=== PATIENT | female | born 1980 | race African-American/Black ===

== ENCOUNTER 2021-01-02 22:06 | Inpatient (IN) ==
[2021-01-02] MEDS ORDERED: SODIUM CHLORIDE 0.9% 1000ML 1,000 ML IV STA (22:57)
[2021-01-02] MEDS ORDERED: ONDANSETRON INJ 2 MG/ML 2 ML VIAL IV STA (22:57)
[2021-01-02 23:17] LABS: Basophils # (auto) 0.02 K/uL (0-0.2); Basophils % (auto) 0.1 %; Hematocrit (blood only) 37.8 % (37-47); Hemoglobin 12.2 g/dL (12.0-16.0); Immature Granulocytes # (auto) 0.08 K/uL (0.00-0.02); Immature Granulocytes % (auto) 0.4 %; Lymphocytes # (auto) 2.04 K/uL (1.2-3.4); Lymphocytes % (auto) 9.5 %; Mean Corpuscular Hemoglobin 31.5 pg (25-34); Mean Corpuscular Hgb Conc 32.3 g/dL (32-36); Mean Corpuscular Volume 97.7 fL (80-100); Mean Platelet Volume 9.7 fL (7.4-10.4); Monocytes # (auto) 1.23 K/uL (0.11-0.59); Monocytes % (auto) 5.7 %; Neutrophils # (auto) 18.16 K/uL (1.4-6.5); Neutrophils % (auto) 84.3 %; Platelet Count 408 K/uL (130-400); RDW Coefficient of Variation 13.1 % (11.5-14.5); RDW Standard Deviation 46.7 fL (36.4-46.3); Red Blood Count 3.87 M/uL (4.2-5.4); White Blood Count 21.53 K/uL (4.8-10.8)
[2021-01-02 23:50] LABS: Albumin Globulin Ratio 0.7 (0.9-2); Albumin Level 3.3 gm/dl (3.4-5.0); BUN Creatinine Ratio 18.7 (10-20); Bilirubin,Total 0.9 mg/dl (0.2-1); Calcium 9.3 mg/dl (8.5-10.1); Creatinine Clr Calc Pharmacy 26.7 ml/min; Est GFR (Non-African American) 21.5 ml/min; Globulin 4.8 gm/dl (2.5-4.0); Magnesium 2.5 mg/dl (1.8-2.4); Total Protein 8.1 gm/dl (6.4-8.2); Troponin I 0.117 ng/ml (0-0.045)
[2021-01-02] MEDS ORDERED: SODIUM CHLORIDE 0.9% 1000ML 1,000 ML IV ONE (23:53)
[2021-01-02] MEDS ORDERED: METOCLOPRAMIDE HCL INJ 5 MG/ML 2 ML VIAL IV STA (23:53)
[2021-01-02 23:54] LABS: Base Excess VBG -11.6 mEq/L; HCO3 VBG 16 mmol/L; PCO2 VBG 42 mmHg (38-50); PO2 VBG 38 mmHg
[2021-01-02] MEDS ORDERED: PIPERACILL/TAZOBAC CONSULT ACTIVE PRN (23:55)
[2021-01-02] MEDS ORDERED: PIPERACILLIN/TAZOBACTAM 4.5 GM/120 ML BAG IV ONE (23:55)
[2021-01-03] MEDS ORDERED: LACTATED RINGER'S 1,000 ML IV ONE (00:04)
[2021-01-03] MEDS ORDERED: STAT IV Infusion **Titration per Protocol STA ×3 (00:24→14:53)
[2021-01-03] MEDS ORDERED: LACTATED RINGER'S 1,000 ML IV SCH (00:30)
[2021-01-03 00:35] LABS: Beta-Hydroxybutyrate 47.6 mg/dl (0.2-2.81)
[2021-01-03] MEDS ORDERED: GLUCAGON FOR INJ 1 MG VIAL IM PRN (00:45)
[2021-01-03] MEDS ORDERED: GLUCOSE 10 TABS/TUBE PO PRN (00:45)
[2021-01-03] MEDS ORDERED: DEXTROSE 50% 50 ML SYRINGE IV PRN (00:45)
[2021-01-03] MEDS ORDERED: GLUCOSE 40% GEL 15 GM TUBE PO PRN (00:45)
[2021-01-03] MEDS ORDERED: CARBOHYDRATES FOR HYPOGLYCEMIA PO PRN (00:45)
[2021-01-03] MEDS ORDERED: NovoLIN-R BOLUS FROM BAG IV ONE (00:45)
[2021-01-03] MEDS: INSULIN REGULAR 250 UNITS in SODIUM CHLORIDE 0.9% 247.5 ML IV SCH (00:48)
[2021-01-03 00:50] LABS: iSTAT Arterial Blood Gas HCO3 13 meg/L (19-24); iSTAT Arterial Blood Gas pCO2 31 mmHg (35-46); iSTAT Arterial Blood Gas pH 7.24 (7.35-7.45); iSTAT Arterial Blood Gas pO2 98 mmHg (80-95); iSTAT Carbon Dioxide 14 mmol/L (24-31); iSTAT Hematocrit 33 % (37-47); iSTAT Hemoglobin 11.2 g/dl (12.0-16.0); iSTAT Potassium 5.5 mmol/L (3.3-5.0); iSTAT Sodium 134 mmol/L (135-144)
[2021-01-03 00:58] LABS: Appearance Urine Clear (Clear); Bacteria Urine Automated Negative (Negative); Bilirubin Urine Negative (Negative); Blood Urine Trace (Negative); Color Urine Yellow; Epithelial Cell Urine Auto >30 /lpf (0-5); Glucose Urine UA 3+ (Negative); Ketones Urine 2+ (Negative); Leukocyte Esterase Urine Negative (Negative); Nitrite Urine Negative (Negative); Protein Urine 1+ (Negative); RBC Urine Automated 0-4 /hpf (0-4); Specific Gravity Urine 1.022 (1.000-1.030); Urobilinogen Urine Negative (Negative)
[2021-01-03 01:26] LABS: BUN Creatinine Ratio 20.7 (10-20); Creatinine Clr Calc Pharmacy 28.9 ml/min; Est GFR (African American) 27.5 ml/min; Est GFR (Non-African American) 23.8 ml/min; Magnesium 2.1 mg/dl (1.8-2.4); Phosphorus 8.1 mg/dl (2.5-4.9); Potassium 5.7 mmol/L (3.5-5.1)
--- NOTE | 2021-01-03 01:28 | History & Physical Report ---
Date of Service January 03, 2021 Assessment & Plan (1) DKA (diabetic ketoacidosis): Plan: Glucose 723 admission, anion gap 24. Patient started on insulin drip per protocol in the ED, and will be admitted to the ICU for further treatment IV fluids as noted Follow serial BMPs, LFTs, venous blood gas and CBC with differential. 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 Troponin 0.117 upon admission. Continue aspirin, carvedilol Lopressor 5 mg IV every 4 hours as needed systolic blood pressure greater than 150 Consult cardiology in a.m. (3) Acute kidney injury superimposed on chronic kidney disease: Plan: Creatinine 2.68 on admission, with baseline 1.36-1.70 Hold valsartan for now Continue carvedilol and aspirin. If develops symptoms or troponin increases, will start heparin drip Follow serial laboratories as patient gets rehydrated for treatment of DKA (4) Hypothyroidism: Plan: Continue levothyroxine 100 mcg daily (5) Diabetes type 1, uncontrolled: Plan: Patient typically uses insulin pump, which is broken, and will need replacement Check hemoglobin A1c (6) Hypercholesterolemia: Plan: On no specific treatment. Check a fasting lipid panel (7) Asthma: Plan: No recent symptoms, and not on any regular inhalers (8) Depression: Plan: Depression/eating disorder- Continue bupropion and duloxetine (9) Eating disorder: Plan: See above History of Present Illness Chief Complaint: The patient presents to the emergency department with complaint of a broken insulin pump, with worsening nausea, vomiting and generalized malaise over the past 2 days Primary Care Provider: Rob Loaiza MD The patient is a 40-year-old female with a past medical history including babesiosis type I, CKD stage III, hypothyroidism, diabetic nephropathy, hypercholesterolemia, asthma, history of herpes genitalis, history of alternating diarrhea and constipation, history of anorexia nervosa, depression and acute kidney injury. She presents emergency department with complaint of worsening nausea, vomiting and generalized malaise, worsening over the past 2 days after her insulin pump became dysfunctional. In the emergency department, patient is lethargic but does respond appropriately to questioning. Laboratories examination were consistent with DKA, with anion gap of 24 and glucose of 523. Patient is therefore being mated to the ICU on insulin drip for further treatment Allergies Allergy/AdvReac Type Severity Reaction Status Date / Time milk Allergy Verified 01/03/21 01:15 metformin AdvReac NAUSEA, Verified 01/03/21 01:15 UPSET STOMACH Mushrooms AdvReac Unknown Unknown Uncoded 01/03/21 01:15 Oranges AdvReac Unknown Unknown Uncoded 01/03/21 01:15 Home Medications Medication Instructions Recorded Confirmed Type duloxetine 60 mg capsule,delayed 60 mg PO DAILY 09/15/18 01/03/21 History release norgestimate-ethinyl estradiol 1 tab PO DAILY 09/15/18 01/03/21 History 0.18 mg/0.215mg/0.25mg-35 mcg(28)tablet (Tri Femynor) bupropion HCl 300 mg 24 hr tablet, 300 mg PO DAILY tab 01/11/19 01/03/21 H istory extended release carvedilol 25 mg tablet 25 mg PO BID tab 01/11/19 01/03/21 History fluticasone propionate 50 1 sprays INTRANASAL BID gm 01/11/19 01/03/21 History mcg/actuation nasal spray,suspension valacyclovir 1 gram tablet 1,000 mg PO BID PRN tab 03/07/19 01/03/21 History (Valtrex) insulin aspart U-100 100 unit/mL See Rx Instructions SUBCUT DAILY 03/28/20 01/03/21 Rx subcutaneous solution (Novolog #3 vial U-100 Insulin aspart) multivitamin (Daily Multi-Vitamin) 1 tab PO DAILY 06/06/20 01/03/21 History levothyroxine 50 mcg tablet 100 mcg PO DAILY 90 Days #180 tab 09/11/20 01/03/21 Rx valsartan 40 mg tablet 40 mg PO DAILY #30 tab 12/31/20 01/03/21 Rx Past Med/Surg History Medical History Asthma Depression Diabetes type 1, uncontrolled History of anorexia nervosa History of chronic constipation History of chronic diarrhea History of herpes genitalis Hypercholesterolemia cardiomyopathy Type 1 diabetes Surgical History H/O cataract extraction History of section History of oral surgery History of tonsillectomy Family History Mother Sciatica Hypertension Carpal tunnel syndrome Sister Epilepsy Grandmother (Maternal) Brain cancer Aunt Lymphoma Social History Smoking Status: Never smoker Hx Alcohol Use: Yes Hx Substance Use: No Preferred Language: Estonian 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: Effective Punch Out 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 Member Required: No Beliefs That Will Affect Care: None marital status: Current Living Situation: Spouse current occupational status: employed current occupation: [employer] Other Information That Helps Us Care for You: No Feels Safe at Home: Yes Safety Concerns: Feels Safe At This Time Assistive Devices: None Review of Systems Review of Systems: The patient denies chest pain, palpitations, shortness of breath, dyspnea on exertion, cough, lower extremity swelling, sore throat, fevers, chills, sweats, vomiting, blood in urine or stool, dysuria, urinary frequency or urgency, memory loss, loss of consciousness, rash, abnormal bruising or bleeding, imbalance, focal weakness, numbness or tingling in arms or legs, generalized arthralgias or myalgias, back or neck pain, or night sweats. The review of systems is otherwise negative other than for that already noted ab atilio, and at least 10 systems have been reviewed. Physical Exam Physical Exam: The patient is awake, mildly lethargic, well developed and well nourished, normocephalic and atraumatic, lying in bed and in no acute distress. HEENT--PERRL, EOMI, mucous membranes and oropharynx dry. Neck--supple. No JVD. No bruits. Thyroid normal, trachea midline, no adenopathy. Heart--normal S1 and S2. No murmurs, rubs or gallops. Lungs--clear bilaterally, no respiratory distress, no accessory muscle use. Abdomen--normal bowel sounds and soft. Nontender. Nondistended, no hernias or masses, no organomegaly. Extremities--no cyanosis or clubbing. No edema. Dermatologic--normal skin turgor, normal color, no abnormal lymph nodes, no rash. Neurologic--cranial nerves II through XII grossly intact. Rheumatologic--normal range of motion. Psychiatric--normal affect. Results & Data Results & Data ([facility]) Vital Signs (Past 12 Hours) Vital Signs Temp Pulse Resp BP Pulse Ox 01/03/21 01:00 106 H 20 117/55 L 100 01/03/21 00:01 14 151/78 H 100 01/02/21 22:11 96.8 F L 96 H 18 140/60 100 Laboratory Results Laboratory Results WBC 21.53 K/uL (4.8-10.8) H 01/02/21 23:08 RBC 3.87 M/uL (4.2-5.4) L 01/02/21 23:08 Hgb 12.2 g/dL (12.0-16.0) 01/02/21 23:08 POC Hgb 11.2 g/dl (12.0-16.0) L 01/03/21 00:36 Hct 37.8 % (37-47) 01/02/21 23:08 POC Hct 33 % (37-47) L 01/03/21 00:36 MCV 97.7 fL (80-100) 01/02/21 23:08 MCH 31.5 pg (25-34) 01/02/21 23:08 MCHC 32.3 g/dL (32-36) 01/02/21 23:08 RDW Std Deviation 46.7 fL (36.4-46.3) H 01/02/21 23:08 RDW Coeff of [place] 13.1 % (11.5-14.5) 01/02/21 23:08 Plt Count 408 K/uL (130-400) H 01/02/21 23:08 MPV 9.7 fL (7.4-10.4) 01/02/21 23:08 Immature Gran % (Auto) 0.4 % 01/02/21 23:08 Neut % (Auto) 84.3 % 01/02/21 23:08 Lymph % (Auto) 9.5 % 01/02/21 23:08 [place] % (Auto) 5.7 % 01/02/21 23:08 Eos % (Auto) 0.0 % 01/02/21 23:08 Baso % (Auto) 0.1 % 01/02/21 23:08 Neut # (Auto) 18.16 K/uL (1.4-6.5) H 01/02/21 23:08 Lymph # (Auto) 2.04 K/uL (1.2-3.4) 01/02/21 23:08 [place] # (Auto) 1.23 K/uL (0.11-0.59) H 01/02/21 23:08 Eos # (Auto) 0.00 K/uL (0-0.5) 01/02/21 23:08 Baso # (Auto) 0.02 K/uL (0-0.2) 01/02/21 23:08 Immature Gran # (Auto) 0.08 K/uL (0.00-0.02) H 01/02/21 23:08 POC pH 7.24 (7.35-7.45) L 01/03/21 00:36 POC pCO2 31 mmHg (35-46) L 01/03/21 00:36 POC pO2 98 mmHg (80-95) H 01/03/21 00:36 POC HCO3 13 carla/L (19-24) L 01/03/21 00:36 POC Total CO2 14 mmol/L (24-31) L 01/03/21 00:36 POC Base Excess -14.0 carla/L (-9-1.8) L 01/03/21 00:36 POC ABG O2 Sat 96.0 % (90-95) H 01/03/21 00:36 VBG pH 7.30 (7.36-7.41) L 01/03/21 04:25 VBG pCO2 42 mmHg (38-50) 01/02/21 23:08 VBG pO2 38 mmHg 01/02/21 23:08 VBG HCO3 16 mmol/L 01/02/21 23:08 VBG O2 Saturation 62.0 % 01/02/21 23:08 VBG Base Excess -11.6 mEq/L 01/02/21 23:08 POC Sodium 134 mmol/L (135-144) L 01/03/21 00:36 Sodium 134 mmol/L (136-145) L 01/03/21 04:25 POC Potassium 5.5 mmol/L (3.3-5.0) H 01/03/21 00:36 Potassium 3.8 mmol/L (3.5-5.1) D 01/03/21 04:25 Chloride 105 mmol/L (98-107) 01/03/21 04:25 Carbon Dioxide 18 mmol/L (21-32) L 01/03/21 04:25 Anion Gap 11.0 (3-11) 01/03/21 04:25 BUN 48 mg/dl (7-18) H 01/03/21 04:25 Creatinine 2.33 mg/dl (0.6-1.2) H 01/03/21 04:25 Est Cr Clr Drug Dosing 31.3 ml/min 01/03/21 04:25 Est GFR ( Amer) 29.6 ml/min 01/03/21 04:25 Est GFR (Non-Af Amer) 25.5 ml/min 01/03/21 04:25 BUN/Creatinine Ratio 20.7 (10-20) H 01/03/21 04:25 Glucose 404 mg/dl (70-99) H* 01/03/21 04:25 POC Glucose 399 mg/dl (70-99) H* 01/03/21 05:11 Lactate 2.7 mmol/L (0.4-2.0) H* 01/03/21 04:25 Calcium 7.8 mg/dl (8.5-10.1) L 01/03/21 04:25 Phosphorus 3.5 mg/dl (2.5-4.9) D 01/03/21 04:25 Magnesium 2.0 mg/dl (1.8-2.4) 01/03/21 04:25 Total Bilirubin 0.9 mg/dl (0.2-1) 01/02/21 23:08 AST 21 U/L (15-37) 01/02/21 23:08 ALT 16 U/L (12-78) 01/02/21 23:08 Alkaline Phosphatase 93 U/L (45-117) 01/02/21 23:08 Troponin I 1.910 ng/ml (0-0.045) H* 01/03/21 04:25 Total Protein 8.1 gm/dl (6.4-8.2) 01/02/21 23:08 Albumin 3.3 gm/dl (3.4-5.0) L 01/02/21 23:08 Globulin 4.8 gm/dl (2.5-4.0) H 01/02/21 23:08 Albumin/Globulin Ratio 0.7 (0.9-2) L 01/02/21 23:08 Lipase 57 U/L (73-393) L 01/02/21 23:08 Beta-Hydroxybutyric Acd 41.90 mg/dl (0.2-2.81) H 01/03/21 04:25 Urine Color Yellow 01/03/21 00:44 Urine Appearance Clear (Clear) 01/03/21 00:44 Urine pH 5.0 (4.5-7.5) 01/03/21 00:44 Ur Specific [place] 1.022 (1.000-1.030) 01/03/21 00:44 Urine Protein 1+ (Negative) H 01/03/21 00:44 Urine Glucose (UA) 3+ (Negative) H 01/03/21 00:44 Urine Ketones 2+ (Negative) H 01/03/21 00:44 Urine Blood Trace (Negative) H 01/03/21 00:44 Urine Nitrite Negative (Negative) 01/03/21 00:44 Urine Bilirubin Negative (Negative) 01/03/21 00:44 Urine Urobilinogen Negative (Negative) 01/03/21 00:44 Ur Leukocyte Esterase Negative (Negative) 01/03/21 00:44 Urine WBC (Auto) 1-5 /hpf (0-5) 01/03/21 00:44 Urine RBC (Auto) 0-4 /hpf (0-4) 01/03/21 00:44 U Hyaline Cast (Auto) 1-5 /lpf (0-5) 01/03/21 00:44 U Epithel Cells (Auto) >30 /lpf (0-5) H 01/03/21 00:44 Urine Bacteria (Auto) Negative (Negative) 01/03/21 00:44 COVID-19 Eval Order Covid19 at [facility] 01/03/21 00:00 SARS-CoV-2 (PCR) NEGATIVE (Negative) 01/03/21 00:00 ECG Additional Comments: MATILDE CRENSHAW ID:[id number] 03-JAN-2021 00:20:29 [facility]- EDSTAT ROUTINE RETRIEVAL Sinus tachycardia Left ventricular hypertrophy with repolarization abnormality Abnormal ECG When compared with ECG of 02-JAN-2021 23:54, (unconfirmed) Questionable change in QRS axis 25mm/s 10mm/mV 150Hz 9.0.9 12SL 241 DOMITILA: 16 Referred by: REFERRED SELF Unconfirmed Vent. rate 110 BPM SD interval 126 ms QRS duration 78 ms QT/QTc 354/479 ms P-R-T axes -19 -20 31 1980 (40 yr) Female Black 1in 2lb Room: MATILDE MARTIN ID:[id number] 02-JAN-2021 23:54:17 [facility]-EDSTAT ROUTINE RETRIEVAL Sinus tachycardia Possible Left atrial enlargement Left ventricular hypertrophy with repolarization abnormality Abnormal ECG When compared with ECG of 15-SEP-2018 11:48, Vent. rate has increased BY [address] now depressed in Anterolateral leads T wave inversion less evident in Lateral leads 25mm/s 1 0mm/mV 150Hz 9.0.9 12SL 241 DOMITILA: 16 Referred by: REFERRED SELF Unconfirmed Vent. rate 106 BPM SD interval 128 ms QRS duration 76 ms QT/QTc 358/475 ms P-R-T axes 79 79 13 1980 (40 yr) Female Black 1i 2lb Room: Loc:15 Facility Coordinator:Charlene Velarde ind: Code Status & VTE Plan Code Status Full code VTE Prophylaxis Plan VTE Prophylaxis will be ordered: Yes PG Care Time/CCT Total # of Minutes Spent Total Time Spent with Patient: Total time spent is greater than 50% in coordination of care (as documented) at patient's floor/unit and/or counseling patient: 50 minutes Coding Level of Care Code 79476 Initial Inpt Care Lvl 3 Diagnoses Acute kidney injury superimposed on chronic kidney disease N17.9; N18.9 DKA (diabetic ketoacidosis) E10.10 Diabetes mellitus complication detail: without coma Diabetes mellitus type: type 1 Acute non-ST elevation myocardial infarction (NSTEMI) I21.4 Hypothyroidism E03.9 Diabetes type 1, uncontrolled E10.65 Hypercholesterolemia E78.00 Asthma J45.909 Depression F32.9 Eating disorder F50.9 Time Spent (min) 50 (1) DKA (diabetic ketoacidosis) Diabetes mellitus complication detail: without coma Diabetes mellitus type: type 1 Qualified Code(s): E10.10 - Type 1 diabetes mellitus with ketoacidosis without coma
--- NOTE | 2021-01-03 01:47 | Emergency Department Note ---
History of Present Illness General Chief complaint: Vomiting Stated complaint: VOMITING, DIZZY, SIDE PAIN Time Seen by Provider: 01/02/21 22:50 History of Present Illness Maximum Pain Intensity: 7 This 40-year-old type I diabetic on a pump that is broken for the past 2 days presents to the ER complaining of nausea vomiting and not feeling well Location: Generalized Quality: Nauseated Severity: Moderate Duration: Past 2 days Timing: Started 2 days ago Context: Patient was concerned and came in Modifying factors: better with rest; worse with activity Patient states she thinks she has food poisoning. She has not checked her blood sugar either as her glucometer is broken. Last insulin dose was 2 days ago. Patient denies chest pain, dyspnea, fever, chills, urinary symptoms. Patient states she feels horrible. Home Medications Medication Instructions Recorded Confirmed Type duloxetine 60 mg capsule,delayed 60 mg PO DAILY 09/15/18 01/03/21 History release norgestimate-ethinyl estradiol 1 tab PO DAILY 09/15/18 01/03/21 History 0.18 mg/0.215mg/0.25mg-35 mcg(28)tablet (Tri Femynor) bupropion HCl 300 mg 24 hr tablet, 300 mg PO DAILY tab 01/11/19 01/03/21 History extended release carvedilol 25 mg tablet 25 mg PO BID tab 01/11/19 01/03/21 History fluticasone propionate 50 1 sprays INTRANASAL BID gm 01/11/19 01/03/21 History mcg/actuation nasal spray,suspension valacyclovir 1 gram tablet 1,000 mg PO BID PRN tab 03/07/19 01/03/21 History (Valtrex) insulin aspart U-100 100 unit/mL See Rx Instructions SUBCUT DAILY 03/28/20 01/03/21 Rx subcutaneous solution (Novolog #3 vial U-100 Insulin aspart) multivitamin (Daily Multi-Vitamin) 1 tab PO DAILY 06/06/20 01/03/21 History levothyroxine 50 mcg tablet 100 mcg PO DAILY 90 Days #180 tab 09/11/20 01/03/21 Rx valsartan 40 mg tablet 40 mg PO DAILY #30 tab 12/31/20 01/03/21 Rx Allergies Allergy/AdvReac Type Severity Reaction Status Date / Time milk Allergy Verified 09/30/21 01:15 metformin AdvReac NAUSEA, Verified 01/03/21 01:15 UPSET STOMACH Mushrooms AdvReac Unknown Unknown Uncoded 01/03/21 01:15 Oranges AdvReac Unknown Unknown Uncoded 01/03/21 01:15 Past Med/Surg History Medical History Asthma Depression Diabetes type 1, uncontrolled History of anorexia nervosa History of chronic constipation History of chronic diarrhea History of herpes genitalis Hypercholesterolemia cardiomyopathy Type 1 diabetes Surgical History H/O cataract extraction History of section History of oral surgery History of tonsillectomy Family History Mother Sciatica Hypertension Carpal tunnel syndrome Sister Epilepsy Grandmother (Maternal) Brain cancer Aunt Lymphoma Social History Smoking Status: Never smoker Hx Alcohol Use: Yes marital status: Current Living Situation: Spouse current occupational status: employed current occupation: [employer] Feels Safe at Home: Yes Review of Systems A total of 10 systems reviewed and were otherwise negative Physical Exam Vital Signs Vital Signs - 24 hr 01/02/21 22:11 01/02/21 23:14 01/03/21 00:01 Temperature 36.0 C L Temperature Source Temporal Artery Scan Pulse Rate 96 H Pulse Rate from SpO2 Sensor 104 H Respiratory Rate 18 14 Respiratory Effort / Characteristics Non-Labored Spontaneous Respiratory Depth Normal Blood Pressure 140/60 151/78 H Blood Pressure Mean 86 102 Pulse Oximetry 100 100 Oxygen Delivery Method Room Air Room Air Room Air Sepsis New/Unexplained Change in Mental Status N/A Sepsis Action Taken by Nursing No Action Required 01/03/21 01:00 01/03/21 01:30 Temperature Temperature Source Pulse Rate 106 H 113 H Pulse Rate from SpO2 Sensor Respiratory Rate 20 24 Respiratory Effort / Characteristics Respiratory Depth Blood Pressure 117/55 L 169/82 H Blood Pressure Mean 75 111 Pulse Oximetry 100 100 Oxygen Delivery Method Sepsis New/Unexplained Change in Mental Status Sepsis Action Taken by Nursing VITALS: Vitals are noted on the nurse's note and reviewed by myself. Vital signs tachycardic. GENERAL: Moderately ill-appearing female vomiting breathing fast SKIN: The skin was without rashes, erythema, edema, or bruising. There is no tenting of the skin. Capillary reflex less than 2 seconds. HEAD: Normocephalic atraumatic. EARS: External auditory canals clear, tympanic membranes pearly self without e rythema or effusion bilaterally. EYES: Pupils equal round and reactive to light and accommodation. Conjunctivae without injection, sclerae without icterus. Extraocular movements intact. NOSE: Patent, turbinates without inflammation or discharge. No sinus tenderness. MOUTH: Mucous membranes dry pharynx without erythema or exudate. Uvula midline. Airway patent. Tongue does not deviate. NECK: Supple without nuchal rigidity. No lymphadenopathy. No thyromegaly. Cervical spine is nontender. No JVD. HEART: Tachycardic rate and rhythm LUNGS: Clear to auscultation bilaterally without wheezes, rales or rhonchi. No retractions or accessory muscle use. ABDOMEN: Positive bowel sounds x 4. Normal tympanic percussion. Soft, nontender, without masses or organomegaly. Alarcon sign negative. No guarding or rebound tenderness. No CVA tenderness MUSCULOSKELETAL: No muscle atrophy, erythema, or edema noted. NEURO: Patient was alert and oriented to person place and time. Normal sensa tion to light and sharp touch. No focal neurological deficits. Course Administered Medications Insulin Human Regular 250 (units/ Sodium Chloride) 250 mls @ 7.5 mls/hr IV .Q24H [facility]; Protocol Stop: 02/02/21 00:29 Last Admin: 01/03/21 00:48 Dose: 7.5 units/hr, 7.5 mls/hr Documented by: [id number] Cosigned by: [id number] Discontinued Medications Sodium Chloride (Nss 1000ml) 1,000 mls @ 999 mls/hr IV .Q1H1M STA Stop: 01/02/21 23:57 Last Infusion: 01/03/21 00:10 Dose: 0 mls/hr Documented by: [id number] Admin: 01/02/21 23:09 Dose: 999 mls/hr Documented by: [id number] Sodium Chloride (Nss 1000ml) 1,000 mls @ 999 mls/hr IV .Q1H1M ONE Stop: 01/03/21 00:53 Last Infusion: 01/03/21 01:07 Dose: 0 mls/hr Documented by: [id number] Admin: 01/03/21 00:05 Dose: 999 mls/hr Documented by: [id number] Piperacillin Sod/Tazobactam Sod (Zosyn) 4.5 gm in 120 mls @ 240 mls/hr IV NOW ONE Stop: 01/03/21 00:24 Last Infusion: 01/03/21 01:08 Dose: 0 mls/hr Documented by: [id number] Admin: 01/03/21 00:38 Dose: 240 mls/hr Documented by: [id number] Lactated Ringer's (Lr) 1,000 mls @ 999 mls/hr IV .Q1H1M ONE Stop: 01/03/21 01:04 Last Admin: 01/03/21 01:15 Dose: 999 mls/hr Documented by: [id number] Insulin Human Regular (Novolin-R Bolus From Bag) 7.5 units IV ONE ONE Stop: 01/03/21 00:46 Last Admin: 01/03/21 00:48 Dose: 7.5 units Documented by: [id number] Cosigned by: [id number] Metoclopramide HCl (Metoclopramide Hcl Inj 5 Mg/Ml 2 Ml Vial) 10 mg IV NOW STA Stop: 01/02/21 23:54 Last Admin: 01/03/21 00:05 Dose: 10 mg Documented by: [id number] Misseferinoaneous (Stat Iv Infusion Titration Per Protocol) 1 ea N/A NOW STA Stop: 01/03/21 00:25 Last Admin: 01/03/21 00:47 Dose: Not Given Documented by: [id number] Miscellaneous (Stat Iv Infusion Titration Per Protocol) 1 ea N/A NOW STA Stop: 01/03/21 00:25 Last Admin: 01/03/21 00:47 Dose: Not Given Documented by: [id number] Ondansetron HCl (Ondansetron Inj 2 Mg/Ml 2 Ml Vial) 4 mg IV NOW STA Stop: 01/02/21 22:58 Last Admin: 01/02/21 23:09 Dose: 4 mg Documented by: [id number] Critical Care Time Critical Care Time: Yes Total Critical Care Time: 60 I have personally spent 60 minutes of critical care time in the direct management of this patient. This includes bedside care, interpretation of diagnostic studies, and testing, discussion with consultants, patient, and family members, and other required patient management activities. This 60 minutes is in excess of all separately billable procedures. Medical Decision Making Medical Records Attestation: I reviewed the patient's medical records. Home Medications Current Medication List: was personally reviewed by me Laboratory Data Attestation: I reviewed the patient's lab results. Result diagrams: 01/02/21 23:08 01/03/21 00:46 Lab Results 01/02/21 01/02/21 01/02/21 Range/Units 23:08 23:08 23:08 WBC 21.53 H (4.8-10.8) K/uL RBC 3.87 L (4.2-5.4) M/uL Hgb 12.2 (12.0-16.0) g/dL POC Hgb (12.0-16.0) g/dl Hct 37.8 (37-47) % POC Hct (37-47) % MCV 97.7 (80-100) fL MCH 31.5 (25-34) pg MCHC 32.3 (32-36) g/dL RDW Std Deviation 46.7 H (36.4-46.3) fL RDW Coeff of Eboni 13.1 (11.5-14.5) % Plt Count 408 H (130-400) K/uL MPV 9.7 (7.4-10.4) fL Immature Gran % (Auto) 0.4 % Neut % (Auto) 84.3 % Lymph % (Auto) 9.5 % [place] % (Auto) 5.7 % Eos % (Auto) 0.0 % Baso % (Auto) 0.1 % Neut # (Auto) 18.16 H (1.4-6.5) K/uL Lymph # (Auto) 2.04 (1.2-3.4) K/uL [place] # (Auto) 1.23 H (0.11-0.59) K/uL Eos # (Auto) 0.00 (0-0.5) K/uL Baso # (Auto) 0.02 (0-0.2) K/uL Immature Gran # (Auto) 0.08 H (0.00-0.02) K/uL POC pH (7.35-7.45) POC pCO2 (35-46) mmHg POC pO2 (80-95) mmHg POC HCO3 (19-24) carla/L POC Total CO2 (24-31) mmol/L POC Base Excess (-9-1.8) carla/L POC ABG O2 Sat (90-95) % VBG pH 7.20 L (7.36-7.41) VBG pCO2 42 (38-50) mmHg VBG pO2 38 mmHg VBG HCO3 16 mmol/L VBG O2 Saturation 62.0 % VBG Base Excess -11.6 mEq/L POC Sodium (135-144) mmol/L Sodium 132 L (136-145) mmol/L POC Potassium (3.3-5.0) mmol/L Potassium 5.0 (3.5-5.1) mmol/L Chloride 93 L (98-107) mmol/L Carbon Dioxide 15 L (21-32) mmol/L Anion Gap 24.0 H (3-11) BUN 50 H (7-18) mg/dl Creatinine 2.68 H (0.6-1.2) mg/dl Est Cr Clr Drug Dosing 26.7 ml/min Est GFR ( Amer) 25.0 ml/min Est GFR (Non-Af Amer) 21.5 ml/min BUN/Creatinine Ratio 18.7 (10-20) Glucose 723 H* (70-99) mg/dl POC Glucose (70-99) mg/dl Lactate (0.4-2.0) mmol/L Calcium 9.3 (8.5-10.1) mg/dl Phosphorus (2.5-4.9) mg/dl Magnesium 2.5 H (1.8-2.4) mg/dl Total Bilirubin 0.9 (0.2-1) mg/dl AST 21 (15-37) U/L ALT 16 (12-78) U/L Alkaline Phosphatase 93 (45-117) U/L Troponin I 0.117 H* (0-0.045) ng/ml Total Protein 8.1 (6.4-8.2) gm/dl Albumin 3.3 L (3.4-5.0) gm/dl Globulin 4.8 H (2.5-4.0) gm/dl Albumin/Globulin Ratio 0.7 L (0.9-2) Lipase 57 L (73-393) U/L Beta-Hydroxybutyric Acd 47.60 H (0.2-2.81) mg/dl Urine Color Urine Appearance (Clear) Urine pH (4.5-7.5) Ur Specific Gifford (1.000-1.030) Urine Protein (Negative) Urine Glucose (UA) (Negative) Urine Ketones (Negative) Urine Blood (Negative) Urine Nitrite (Negative) Urine Bilirubin (Negative) Urine Urobilinogen (Negative) Ur Leukocyte Esterase (Negative) Urine WBC (Auto) (0-5) /hpf Urine RBC (Auto) (0-4) /hpf U Hyaline Cast (Auto) (0-5) /lpf U Epithel Cells (Auto) (0-5) /lpf Urine Bacteria (Auto) (Negative) COVID-19 Eval Order SARS-CoV-2 (PCR) (Negative) 01/03/21 01/03/21 01/03/21 Range/Units 00:00 00:00 00:35 WBC (4.8-10.8) K/uL RBC (4.2-5.4) M/uL Hgb (12.0-16.0) g/dL POC Hgb (12.0-16.0) g/dl Hct (37-47) % POC Hct (37-47) % MCV (80-100) fL MCH (25-34) pg MCHC (32-36) g/dL RDW Std Deviation (36.4-46.3) fL RDW Coeff of Eboni (11.5-14.5) % Plt Count (130-400) K/uL MPV (7.4-10.4) fL Immature Gran % (Auto) % Neut % (Auto) % Lymph % (Auto) % [place] % (Auto) % Eos % (Auto) % Baso % (Auto) % Neut # (Auto) (1.4-6.5) K/uL Lymph # (Auto) (1.2-3.4) K/uL [place] # (Auto) (0.11-0.59) K/uL Eos # (Auto) (0-0.5) K/uL Baso # (Auto) (0-0.2) K/uL Immature Gran # (Auto) (0.00-0.02) K/uL POC pH (7.35-7.45) POC pCO2 (35-46) mmHg POC pO2 (80-95) mmHg POC HCO3 (19-24) carla/L POC Total CO2 (24-31) mmol/L POC Base Excess (-9-1.8) carla/L POC ABG O2 Sat (90-95) % VBG pH (7.36-7.41) VBG pCO2 (38-50) mmHg VBG pO2 mmHg VBG HCO3 mmol/L VBG O2 Saturation % VBG Base Excess mEq/L POC Sodium (135-144) mmol/L Sodium (136-145) mmol/L POC Potassium (3.3-5.0) mmol/L Potassium (3.5-5.1) mmol/L Chloride (98-107) mmol/L Carbon Dioxide (21-32) mmol/L Anion Gap (3-11) BUN (7-18) mg/dl Creatinine (0.6-1.2) mg/dl Est Cr Clr Drug Dosing ml/min Est GFR ( Amer) ml/min Est GFR (Non-Af Amer) ml/min BUN/Creatinine Ratio (10-20) Glucose (70-99) mg/dl POC Glucose > 600 H* (70-99) mg/dl Lactate (0.4-2.0) mmol/L Calcium (8.5-10.1) mg/dl Phosphorus (2.5-4.9) mg/dl Magnesium (1.8-2.4) mg/dl Total Bilirubin (0.2-1) mg/dl AST (15-37) U/L ALT (12-78) U/L Alkaline Phosphatase (45-117) U/L Troponin I (0-0.045) ng/ml Total Protein (6.4-8.2) gm/dl Albumin (3.4-5.0) gm/dl Globulin (2.5-4.0) gm/dl Albumin/Globulin Ratio (0.9-2) Lipase (73-393) U/L Beta-Hydroxybutyric Acd (0.2-2.81) mg/dl Urine Color Urine Appearance (Clear) Urine pH (4.5-7.5) Ur Specific Gifford (1.000-1.030) Urine Protein (Negative) Urine Glucose (UA) (Negative) Urine Ketones (Negative) Urine Blood (Negative) Urine Nitrite (Negative) Urine Bilirubin (Negative) Urine Urobilinogen (Negative) Ur Leukocyte Esterase (Negative) Urine WBC (Auto) (0-5) /hpf Urine RBC (Auto) (0-4) /hpf U Hyaline Cast (Auto) (0-5) /lpf U Epithel Cells (Auto) (0-5) /lpf Urine Bacteria (Auto) (Negative) COVID-19 Eval Order Covid[facility] at [facility] SARS-CoV-2 (PCR) NEGATIVE (Negative) 01/03/21 01/03/21 01/03/21 Range/Units 00:36 00:39 00:44 WBC (4.8-10.8) K/uL RBC (4.2-5.4) M/uL Hgb (12.0-16.0) g/dL POC Hgb 11.2 L (12.0-16.0) g/dl Hct (37-47) % POC Hct 33 L (37-47) % MCV (80-100) fL MCH (25-34) pg MCHC (32-36) g/dL RDW Std Deviation (36.4-46.3) fL RDW Coeff of Eboni (11.5-14.5) % Plt Count (130-400) K/uL MPV (7.4-10.4) fL Immature Gran % (Auto) % Neut % (Auto) % Lymph % (Auto) % [place] % (Auto) % Eos % (Auto) % Baso % (Auto) % Neut # (Auto) (1.4-6.5) K/uL Lymph # (Auto) (1.2-3.4) K/uL [place] # (Auto) (0.11-0.59) K/uL Eos # (Auto) (0-0.5) K/uL Baso # (Auto) (0-0.2) K/uL Immature Gran # (Auto) (0.00-0.02) K/uL POC pH 7.24 L (7.35-7.45) POC pCO2 31 L (35-46) mmHg POC pO2 98 H (80-95) mmHg POC HCO3 13 L (19-24) carla/L POC Total CO2 14 L (24-31) mmol/L POC Base Excess -14.0 L (-9-1.8) carla/L POC ABG O2 Sat 96.0 H (90-95) % VBG pH (7.36-7.41) VBG pCO2 (38-50) mmHg VBG pO2 mmHg VBG HCO3 mmol/L VBG O2 Saturation % VBG Base Excess mEq/L POC Sodium 134 L (135-144) mmol/L Sodium (136-145) mmol/L POC Potassium 5.5 H (3.3-5.0) mmol/L Potassium (3.5-5.1) mmol/L Chloride (98-107) mmol/L Carbon Dioxide (21-32) mmol/L Anion Gap (3-11) BUN (7-18) mg/dl Creatinine (0.6-1.2) mg/dl Est Cr Clr Drug Dosing ml/min Est GFR ( Amer) ml/min Est GFR (Non-Af Amer) ml/min BUN/Creatinine Ratio (10-20) Glucose (70-99) mg/dl POC Glucose (70-99) mg/dl Lactate 3.8 H* (0.4-2.0) mmol/L Calcium (8.5-10.1) mg/dl Phosphorus (2.5-4.9) mg/dl Magnesium (1.8-2.4) mg/dl Total Bilirubin (0.2-1) mg/dl AST (15-37) U/L ALT (12-78) U/L Alkaline Phosphatase (45-117) U/L Troponin I (0-0.045) ng/ml Total Protein (6.4-8.2) gm/dl Albumin (3.4-5.0) gm/dl Globulin (2.5-4.0) gm/dl Albumin/Globulin Ratio (0.9-2) Lipase (73-393) U/L Beta-Hydroxybutyric Acd (0.2-2.81) mg/dl Urine Color Yellow Urine Appearance Clear (Clear) Urine pH 5.0 (4.5-7.5) Ur Specific G[place]ord 1.022 (1.000-1.030) Urine Protein 1+ H (Negative) Urine Glucose (UA) 3+ H (Negative) Urine Ketones 2+ H (Negative) Urine Blood Trace H (Negative) Urine Nitrite Negative (Negative) Urine Bilirubin Negative (Negative) Urine Urobilinogen Negative (Negative) Ur Leukocyte Esterase Negative (Negative) Urine WBC (Auto) 1-5 (0-5) /hpf Urine RBC (Auto) 0-4 (0-4) /hpf U Hyaline Cast (Auto) 1-5 (0-5) /lpf U Epithel Cells (Auto) >30 H (0-5) /lpf Urine Bacteria (Auto) Negative (Negative) COVID-19 Eval Order SARS-CoV-2 (PCR) (Negative) 01/03/21 01/03/21 Range/Units 00:46 00:46 WBC (4.8-10.8) K/uL RBC (4.2-5.4) M/uL Hgb (12.0-16.0) g/dL POC Hgb (12.0-16.0) g/dl Hct (37-47) % POC Hct (37-47) % MCV (80-100) fL MCH (25-34) pg MCHC (32-36) g/dL RDW Std Deviation (36.4-46.3) fL RDW Coeff of Eboni (11.5-14.5) % Plt Count (130-400) K/uL MPV (7.4-10.4) fL Immature Gran % (Auto) % Neut % (Auto) % Lymph % (Auto) % [place] % (Auto) % Eos % (Auto) % Baso % (Auto) % Neut # (Auto) (1.4-6.5) K/uL Lymph # (Auto) (1.2-3.4) K/uL [place] # (Auto) (0.11-0.59) K/uL Eos # (Auto) (0-0.5) K/uL Baso # (Auto) (0-0.2) K/uL Immature Gran # (Auto) (0.00-0.02) K/uL POC pH (7.35-7.45) POC pCO2 (35-46) mmHg POC pO2 (80-95) mmHg POC HCO3 (19-24) carla/L POC Total CO2 (24-31) mmol/L POC Base Excess (-9-1.8) carla/L POC ABG O2 Sat (90-95) % VBG pH 7.15 L (7.36-7.41) VBG pCO2 (38-50) mmHg VBG pO2 mmHg VBG HCO3 mmol/L VBG O2 Saturation % VBG Base Excess mEq/L POC Sodium (135-144) mmol/L Sodium 134 L (136-145) mmol/L POC Potassium (3.3-5.0) mmol/L Potassium 5.7 H (3.5-5.1) mmol/L Chloride 99 (98-107) mmol/L Carbon Dioxide 14 L (21-32) mmol/L Anion Gap 21.0 H (3-11) BUN 51 H (7-18) mg/dl Creatinine 2.47 H (0.6-1.2) mg/dl Est Cr Clr Drug Dosing 28.9 ml/min Est GFR ( Amer) 27.5 ml/min Est GFR (Non-Af Amer) 23.8 ml/min BUN/Creatinine Ratio 20.7 H (10-20) Glucose 713 H* (70-99) mg/dl POC Glucose (70-99) mg/dl Lactate (0.4-2.0) mmol/L Calcium 8.0 L (8.5-10.1) mg/dl Phosphorus 8.1 H (2.5-4.9) mg/dl Magnesium 2.1 (1.8-2.4) mg/dl Total Bilirubin (0.2-1) mg/dl AST (15-37) U/L ALT (12-78) U/L Alkaline Phosphatase (45-117) U/L Troponin I (0-0.045) ng/ml Total Protein (6.4-8.2) gm/dl Albumin (3.4-5.0) gm/dl Globulin (2.5-4.0) gm/dl Albumin/Globulin Ratio (0.9-2) Lipase (73-393) U/L Beta-Hydroxybutyric Acd (0.2-2.81) mg/dl Urine Color Urine Appearance (Clear) Urine pH (4.5-7.5) Ur Specific [place] (1.000-1.030) Urine Protein (Negative) Urine Glucose (UA) (Negative) Urine Ketones (Negative) Urine Blood (Negative) Urine Nitrite (Negative) Urine Bilirubin (Negative) Urine Urobilinogen (Negative) Ur Leukocyte Esterase (Negative) Urine WBC (Auto) (0-5) /hpf Urine RBC (Auto) (0-4) /hpf U Hyaline Cast (Auto) (0-5) /lpf U Epithel Cells (Auto) (0-5) /lpf Urine Bacteria (Auto) (Negative) COVID-19 Eval Order SARS-CoV-2 (PCR) (Negative) Imaging Data Attestation: I personally reviewed and interpreted this imaging study as follows: MDM Narrative Prior records/ancillary studies reviewed and summarized above. Nursing notes reviewed. Additional history obtained from nursing. The patient's history was concerning for nausea vomiting not feeling well and a type I diabetic. Differential diagnosis: Etiologies such as DKA, metabolic, infection, hypo/hyperglycemia, electrolyte abnormalities, cardiac sources, intracerebral event, toxicologic, neurologic, as well as others were entertained. Physical examination: As above. ER treatment provided: IV Lock An order was placed for continuous cardiac monitoring. The monitor shows a rate of 60-1 20 with a sinus rhythm. 2 lines were ordered, patient was given 3 L insulin drip at moderate stress Zofran, Ativan and Zosyn On reassessment the patient felt better. Diagnostics interpretation by me: ECG: Ordered for weakness EKG: Normal sinus, normal intervals, ST depression in the lateral leads, rate of 110. Impression sinus tachycardia with ST depressions in lateral leads possibly rate dependent interpreted by myself EKG #2 ordered for positive troponin EKG: Normal sinus, normal intervals, persistent ST depression in lateral leads. Impression sinus tachycardia with ST depressions lateral leads most of the rate dependent interpreted by myself The labs revealed hyperglycemia with DKA. VBG and ABG reviewed. Patient is acidotic. Positive troponin. Imaging studies: Chest x-ray concerning for right lower lobe pneumonia per my interpretation Consultation: A consultation was placed with the hospitalist and the ICU provider. The case was discussed and diagnostics were reviewed. The patient was evaluated in the ER for further treatment. Exam and history seem consistent with DKA with type II KS. Patient was immediately started with IV fluids. After she was resuscitated she is started on insulin drip. She is given antibiotics for possible pneumonia. She will be admitted to the unit. Patient is agreeable. She was reassessed multiple times. Covid is negative. Vital signs improved. By the evaluation outlined above emergent etiologies such as intracerebral event, neurologic, as well as others were deemed relatively unlikely. The pt informed about the findings as listed above. All questions were answered and pleased with the treatment. The chart was completed utilizing [employer] Speech voice recognition software. Grammatical errors, random word insertions, pronoun errors, and incomplete sentences are an occassional consequence of this system due to software limitations, ambient noise, and hardware issues. Any formal questions or concerns about the content, text, or information contained within the body of this dictation should be directly addressed to the physician household personal assistant for clarification. Impression & Plan DKA (diabetic ketoacidosis), Acute non-ST elevation myocardial infarction (NSTEMI) Discharge Plan Visit Data Chief Complaint: Vomiting Stated Complaint: VOMITING, DIZZY, SIDE PAIN ED Provider: Siva Kinney ED Midlevel Provider: Jennifer Morton Discharge Problem: DKA (diabetic ketoacidosis), Acute non-ST elevation myocardial infarction (NSTEMI) Patient Disposition: Admitted As Inpatient Condition: Fair Forms Stand Alone Forms: [facility] [employer] Prescriptions Prescriptions: No Action insulin aspart U-100 [Novolog U-100 Insulin aspart] 100 unit/mL solution See Rx Instructions subcut DAILY Qty: 3 RF: 5 levothyroxine 50 mcg tablet 100 mcg PO DAILY 90 Days Qty: 180 RF: 1 valsartan 40 mg tablet 40 mg PO DAILY Qty: 30 RF: 5 fluticasone propionate 50 mcg/actuation spray,suspension 1 sprays intranasal BID RF: 0 bupropion HCl 300 mg tablet extended release 24 hr 300 mg PO DAILY RF: 0 valacyclovir [Valtrex] 1 gram tablet 1,000 mg PO BID PRN (Reason: .FLARES) RF: 0 multivitamin [Daily Multi-Vitamin] Tablet 1 tab PO DAILY RF: 0 norgestimate-ethinyl estradiol [Tri Femynor] 0.18/0.215/0.25 mg-35 mcg (28) tablet 1 tab PO DAILY RF: 0 duloxetine 60 mg capsule,delayed release(DR/EC) 60 mg PO DAILY RF: 0 carvedilol 25 mg tablet 25 mg PO BID RF: 0 Referrals Referrals: Rob Loaiza MD [Primary Care Provider] -
[2021-01-03 01:55] LABS: Beta-Hydroxybutyrate 46.53 mg/dl (0.2-2.81)
[2021-01-03] MEDS ORDERED: SODIUM CHLORIDE 0.45 % 1,000 ML IV SCH (02:00)
[2021-01-03] MEDS ORDERED: ICU PROTOCOL FOR HYPERGLYCEMIA PRN (03:10)
[2021-01-03] MEDS ORDERED: PIPERACILL/TAZOBAC CONSULT ACTIVE PRN (03:10)
[2021-01-03 03:17] LABS: Beta-Hydroxybutyrate 42.8 mg/dl (0.2-2.81)
--- NOTE | 2021-01-03 03:24 | Critical Care Consultation ---
Date of Consultation January 03, 2021 Assessment & Plan (1) DKA (diabetic ketoacidosis): Reason Critically Ill: 40-year-old female presents to the ICU and DKA after 2 days without insulin following glucometer malfunction Neuro - [facility]: Negative Depressioncontinue bupropion, Cymbalta Cardiac - Elevated troponinmild elevation of troponin 0 0.11, no chest pain. No ST elevation on EKG -Trend for now -Continuous monitor on telemetry HTNcontinue Coreg Respiratory - No history of pulmonary disease Currently maintaining oxygen saturations without respiratory distress on room air Continuous monitoring pulse ox GI - N.p.o. for now, will advance to diabetic diet when appropriate Famotidine 20 mg twice daily LFTs and lipase within normal limits RENAL/LYTES - SCOTTY on CKDpatient presents with creatinine 2.5 with baseline 1.5, history of diabetic nephropathy -Expect to improve following fluid resuscitation as patient is currently in DKA -Hold losartan -Hold nephrotoxic agents and renally adjust medications -Monitor - Strict I's and O's ENDO - DKApatient presents with elevated BHA, positive ketones in urinalysis, initial BSG 700, and HAGMA -Currently on insulin drip, transition to long-acting/basal bolus once anion gap closed -Management per DKA protocol -Every 4 hours BMPs, VBG's -Improving Hypothyroidcontinue Synthroid HEME - H&H stable, monitor ID - No clear indication for infectious process although patient has leukocytosis 20 K which may be inflammatory due to DKA. Procalcitonin negative and afebrile Continue with empiric Zosyn for now LINES/IV ACCESS - Peripheral IVs DVT PROPHYLAXIS - SCDs Loveruboix I have personally spent 35 minutes of critical care time in the direct management of this patient. This is a life/limb threatening event. This includes time spent evaluating patient, direct bedside care, chart review, placing orders, interpretation of diagnostic studies, discussion with consultants, patient, and family members, as well as other required patient management activities. This time is exclusive of all separately billable procedures, and teaching time and separate from and in addition to any other critical care service time. Thank you for allowing us to participate in the care of this patient. Please refer to my attending physician's documentation for any further recommendations. (2) Acute non-ST elevation myocardial infarction (NSTEMI): (3) Chronic kidney disease, stage III (moderate): (4) SCOTTY (acute kidney injury): (5) Hypothyroidism: (6) Diabetes type 1, uncontrolled: (7) Hypercholesterolemia: (8) Depression: History of Present Illness Attending Physician: Vineet Nunez MD History of Present Illness Patient is a 40-year-old female with past medical history significant for diabetes type 1, HLD, asthma, depression, CKD, cardiomyopathy, hypothyroid who presented to the emergency department earlier this evening with complaints of nausea and vomiting and malaise x2 days. Patient stated that she thought she had food poisoning. She claims that she has not checked her blood sugar at 2 days due to broken glucometer and last insulin dose was 2 days ago. In the emergency department patient was found to have BSG 700, high anion gap metabolic acidosis, positive ketones in urine and elevated BHA consistent with DKA. Patient received 3 L crystalloid bolus and was started on insulin drip. She is now being admitted to the ICU for further management at this time. On arrival to the ICU the patient is alert and oriented and in no acute distress. Patient states that she feels awful and that she has abdominal pain primarily in the right upper quadrant. Abdomen is generalized tender to palpation on exam but is soft and without guarding. Patient denies headache, dizziness, fevers, sore throat, congestion, cough, shortness of breath, chest pain, palpitations, diarrhea. Allergies Allergy/AdvReac Type Severity Reaction Status Date / Time milk Allergy Verified 01/03/21 01:15 metformin AdvReac NAUSEA, Verified 01/03/21 01:15 UPSET STOMACH Mushrooms AdvReac Unknown Unknown Uncoded 01/03/21 01:15 Oranges AdvReac Unknown Unknown Uncoded 01/03/21 01:15 Home Medications Medication Instructions Recorded Confirmed Type duloxetine 60 mg capsule,delayed 60 mg PO DAILY 09/15/18 01/03/21 History release norgestimate-ethinyl estradiol 1 tab PO DAILY 09/15/18 01/03/21 History 0.18 mg/0.215mg/0.25mg-35 mcg(28)tablet (Tri Femynor) bupropion HCl 300 mg 24 hr tablet, 300 mg PO DAILY tab 01/11/19 01/03/21 History extended release carvedilol 25 mg tablet 25 mg PO BID tab 01/11/19 01/03/21 History fluticasone propionate 50 1 sprays INTRANASAL BID gm 01/11/19 01/03/21 History mcg/actuation nasal spray,suspension valacyclovir 1 gram tablet 1,000 mg PO BID PRN tab 03/07/19 01/03/21 History (Valtrex) insulin aspart U-100 100 unit/mL See Rx Instructions SUBCUT DAILY 03/28/20 01/03/21 Rx subcutaneous solution (Novolog #3 vial U-100 Insulin aspart) multivitamin (Daily Multi-Vitamin) 1 tab PO DAILY 06/06/20 01/03/21 History levothyroxine 50 mcg tablet 100 mcg PO DAILY 90 Days #180 tab 09/11/20 01/03/21 Rx valsartan 40 mg tablet 40 mg PO DAILY #30 tab 12/31/20 01/03/21 Rx Patient History Medical History Asthma Depression Diabetes type 1, uncontrolled History of anorexia nervosa History of chronic constipation History of chronic diarrhea History of herpes genitalis Hypercholesterolemia cardiomyopathy Type 1 diabetes Surgical History H/O cataract extraction History of section History of oral surgery History of tonsillectomy Family History Mother Sciatica Hypertension Carpal tunnel syndrome Sister Epilepsy Grandmother (Maternal) Brain cancer Aunt Lymphoma Social History Smoking Status: Never smoker Hx Alcohol Use: Yes Hx Substance Use: No Preferred Language: Mosotho 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: Effective Reliability Technician Required: No Beliefs That Will Affect Care: None marital status: Current Living Situation: Spouse current occupational status: employed current occupation: [employer] Other Information That Helps Us Care for You: No Feels Safe at Home: Yes Safety Concerns: Feels Safe At This Time Assistive Devices: None Review of Systems Review of Systems: All systems reviewed & are unremarkable except as noted in HPI & below Physical Exam Constitutional: WD/WN, vitals as above + lethargic; no acute distress Eyes: PERRL, conjunctivae normal, anicteric sclerae ENMT: external ear and nose normal, oropharynx normal Neck: trachea midline, no thyromegaly Respiratory: normal respiratory effort, lungs clear to auscultation Cardiovascular: RRR, no murmur, no edema Heart Sounds: normal S1 and normal S2 Vessels: no JVD Extremities: normal capillary refill; no edema Gastrointestinal (Abdomen): Generalized tenderness with palpation on abdominal exam. Abdomen soft flat, nondistended. Bowel sounds auscultated all four quadrants Skin: no rashes, warm and dry Neurologic: PERRL, EOMI, accommodation nl, no face palsy, no dysarthria Psychiatric: Orientation: oriented x 3 Results & Data Results & Data ([facility]) Vital Signs (Past 12 Hours) Vital Signs Temp Pulse Pulse Resp BP BP Pulse Ox 01/03/21 01:52 112 H 18 134/72 99 01/03/21 01:30 113 H 24 169/82 H 100 01/03/21 01:00 106 H 20 117/55 L 100 01/03/21 00:01 14 151/78 H 100 01/02/21 22:11 36.0 C L 96 H 18 140/60 100 Coding Level of Care Code Critical Care 1st 30-74 mins Diagnoses DKA (diabetic ketoacidosis) E10.10 Diabetes mellitus complication detail: without coma Diabetes mellitus type: type 1 Acute non-ST elevation myocardial infarction (NSTEMI) I21.4 Chronic kidney disease, stage III (moderate) N18.30 SCOTTY (acute kidney injury) N17.9 Hypothyroidism E03.9 Diabetes type 1, uncontrolled E10.65 Hypercholesterolemia E78.00 Depression F32.9 (1) DKA (diabetic ketoacidosis) Diabetes mellitus complication detail: without coma Diabetes mellitus type: type 1 Qualified Code(s): E10.10 - Type 1 diabetes mellitus with ketoacidosis without coma
[2021-01-03] MEDS ORDERED: PHARMACY GLYCEMIC MGMT CONSULT PRN (03:25)
[2021-01-03] MEDS ORDERED: ENOXAPARIN INJ 30 MG/0.3 ML SYR SQ SCH (04:00)
[2021-01-03] MEDS ORDERED: FAMOTIDINE 20 MG in SYRINGE 3 ML IV SCH ×2 (04:00→21:00)
[2021-01-03] MEDS ORDERED: ONDANSETRON INJ 2 MG/ML 2 ML VIAL IV PRN (04:24)
[2021-01-03 05:15] LABS: BUN Creatinine Ratio 20.7 (10-20); Calcium 7.8 mg/dl (8.5-10.1); Creatinine Clr Calc Pharmacy 31.3 ml/min; Est GFR (African American) 29.6 ml/min; Est GFR (Non-African American) 25.5 ml/min; Phosphorus 3.5 mg/dl (2.5-4.9); Potassium 3.8 mmol/L (3.5-5.1); Troponin I 1.91 ng/ml (0-0.045)
[2021-01-03 05:29] LABS: Beta-Hydroxybutyrate 41.9 mg/dl (0.2-2.81)
[2021-01-03] MEDS ORDERED: Heparin IV Adult Wt-Based Low-Dose *NO* Bolus Protocol IV SCH (05:34)
[2021-01-03] MEDS: PIPERACILLIN/TAZOBACTAM 4.5 GM in DEXTROSE 5% 100 ML IV SCH ×3 (05:38→21:21)
[2021-01-03] MEDS: LEVOTHYROXINE SODIUM 100 MCG TABLET PO SCH (05:38)
[2021-01-03] MEDS ORDERED: METOPROLOL TARTRATE 1 MG/ML VIAL IV PRN (05:50)
[2021-01-03] MEDS ORDERED: ASPIRIN 81 MG CHEW PO STA (05:53)
[2021-01-03] MEDS: POTASSIUM CHLORIDE 40 MEQ in SODIUM CHLORIDE 0.45 % 1,000 ML IV SCH ×2 (06:05→13:12)
[2021-01-03] MEDS: HEPARIN SODIUM/DEXTROSE 25,000 UNITS/500 ML BAG IV SCH (06:24)
[2021-01-03 07:05] LABS: Estimated Average Glucose 200 mg/dl; Hemoglobin A1C 8.6 % (4.5-5.6)
[2021-01-03 07:05] LABS: INR 1.1 (0.9-1.1); Partial Thromboplastin Ratio 1.1; Partial Thromboplastin Time 27.9 Seconds (21.0-31.0); Prothrombin Time 10.9 Seconds (9.0-12.0)
--- NOTE | 2021-01-03 07:21 | XRay Report ---
XR chest 1V portable CLINICAL HISTORY: n/v, dm COMPARISON STUDY: September 15, 2018 FINDINGS: No pneumothorax. No pleural effusion. Reticular opacities are seen at the right infrahilar region, hazy dense left retrocardiac opacity is demonstrated. Also mild reticular nodular prominence of pulmonary interstitium is seen within left mi dlung. Evaluation is suboptimal due to rotation. Cardiomediastinal silhouette is within normal limits in size. No significant pulmonary vascular congestion.. Osseous structures: unremarkable IMPRESSION: 1. Opacities at bilateral lower lungs might represent pneumonia or/and atelectasis. Short-term follo w-up in 4-6 weeks with PA and lateral chest radiograph is recommended to document resolution. 2. Suboptimal exam due to rotation. ACT 112: Negative or not required by law. The above report was generated using voice recognition software. It may contain grammatical, syntax o r spelling errors. Electronically signed by: Crystal Burns DO 01/03/2021 7:20 AM
[2021-01-03] MEDS ORDERED: hydrALAZINE HCL 20 MG/ML VIAL IV PRN (07:51)
[2021-01-03] MEDS: [UNRECOGNIZED DRUG - OTHER] SCH ×2 (07:52→16:27)
[2021-01-03] MEDS: INSULIN ASPART 100 UNITS/ML 3 ML PEN SC SCH ×4 (07:52→20:33)
[2021-01-03] MEDS: PROMETHAZINE HCL 12.5 MG in SODIUM CHLORIDE 0.9% 50 ML IV PRN ×3 (08:41→21:15)
[2021-01-03] MEDS ORDERED: VALSARTAN 80 MG TAB PO SCH (09:00)
[2021-01-03] MEDS ORDERED: PROMETHAZINE HCL INJ 25 MG/ML 1 ML VIAL ONE (09:04)
[2021-01-03 09:41] LABS: BUN Creatinine Ratio 18.1 (10-20); Calcium 8.2 mg/dl (8.5-10.1); Creatinine Clr Calc Pharmacy 33.6 ml/min; Est GFR (Non-African American) 27.6 ml/min; Magnesium 2.1 mg/dl (1.8-2.4); Potassium 3.7 mmol/L (3.5-5.1)
[2021-01-03 09:44] LABS: Phosphorus 2.7 mg/dl (2.5-4.9)
[2021-01-03] MEDS ORDERED: LABETALOL HCL IV 5 MG/ML 20ML IV STA ×2 (10:58→13:30)
[2021-01-03] MEDS ORDERED: INSULIN GLARGINE SOLOSTAR 100 UNITS/ML 3 ML PEN SC ONE (11:00)
[2021-01-03] MEDS ORDERED: ASPIRIN 300 MG SUPP PR ONE (11:15)
--- NOTE | 2021-01-03 11:43 | XCELERA ---
[id number]
--- NOTE | 2021-01-03 12:02 | Cardiology Consultation ---
Date of Consultation January 03, 2021 Assessment & Plan (1) Acute non-ST elevation myocardial infarction (NSTEMI): (2) Hypertension: (3) Hypercholesterolemia: ASSESSMENT/PLAN: 1. NSTEMI: Denies symptoms of angina or heart failure. Presented with DKA. Multiple risk factors for CAD with wall motion abnormalities on echo, and a troponin in 30s. She has ECG abnormalities, which are similar to 09/15/2018 ECG. There is concern for underlying CAD. There is no urgent indication for cardiac catheterization, however considering cardiac catheterization when she improves from her DKA, depending on clinical course. Continue aspirin 81 mg daily. Continue heparin drip for 48 hours in this regard. Recommend high- intensity statin therapy. 2. Hypertension: Blood pressure uncontrolled. Recommend resuming home medications if able to take p.o.. If not, use intravenous medications to optimize blood pressure control. 3. Dyslipidemia: Recommend high-intensity statin therapy given concern for underlying CAD as her LDL is not optimized. 4. Acute on chronic renal insufficiency: Renal function has improved throughout hospital stay but labs demonstrated worsening renal function on presentation compared to baseline. 5. Disposition: Critically ill patient. Patient care discussed with Dr. Cevallos of the critical care team as well as Dr. Campoverde of the primary hospitalist service. Patient's , Bossman, was contacted via telephone and updated on her status, specifically cardiac issues but also DKA in general. He prefers to be updated. Highly complex medical issues. Thank you for allowing me to participate in the care of your patient. Please call for any other questions or concerns. Sincerely, Miguel Angel Warren M.D. History of Present Illness Reason for Consultation: Elevated troponin Requesting Physician: Dr. Cevallos Attending Physician: Tramaine Campoverde MD History of Present Illness Mrs. Topete is a very pleasant 40-year-old female with a history significant for cardiomyopathy, hypertension, dyslipidemia, type 1 diabetes, and dep ression. She has had the following studies/procedures: 1. Echo 08/17/2017 [facility] in [place]: Normal LV size with moderately reduced LV systolic function. Global hypokinesis. EF 30-35%. Type 1 diastolic dysfunction. Normal filling pressures. Mild left atrial dilation. No significant valvular abnormalities reported. 2. MUGA 02/24/2018 in [place]: EF 61%. Mildly dilated LV. Normal wall motion. 3. Event monitor 01/11/2019 the 02/09/2019: Sinus rhythm. No arrhythmia. Symptoms occurred during normal sinus rhythm. She was admitted on 01/03/2021 with DKA. She had minimally elevated troponin at 0.117 on presentation, which trended upward to 1.91 and then 34. She was seen earlier this morning before the troponin of 34 had been resulted. When I entered the room, she recognized that she had seen me in the office in the past and recalls some of our prior conversations. She also acknowledged that she did not feel much like talking. She was nauseated and had been vomiting before I entered the room. She also admitted that she was quite tired. She denied chest discomfort, shortness of breath, syncope, near-syncope, palpitations, or edema. History was also obtained by reviewing records and discussing with critical care team, Dr. Cevallos. Her , was also contacted via telephone. Her insulin pump stopped functioning on 01/01/2021, and therefore she had gone 1.5 days without insulin. Her glucose on presentation was 723 with an anion gap of 24. She has been on a heparin drip, IV fluids, and p.r.n. medication for hypertension including hydralazine and metoprolol. She is also on broad- spectrum antibiotics. Nursing staff has reported that she had declined p.o. medications due to her nausea. Review of systems: As above. Review of systems otherwise negative/unremarkable or unobtainable due to patient's current status. Family history: Maternal uncle had CABG x3 in his late 40s to 50s. Social history: Quit smoking tobacco products in 2013. No significant alcohol. She is . She has a daughter, Alyce (born in 2013). She is originally from the [place]. 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 She is unaccompanied in her ICU room. Allergies Allergy/AdvReac Type Severity Reaction Status Date / Time milk Allergy Verified 01/03/21 01:15 mushroom Allergy Verified 01/03/21 10:45 orange Allergy Verified 01/03/21 10:45 orange flavor Allergy Verified 01/03/21 10:45 orange juice Allergy Verified 01/03/21 10:45 metformin AdvReac NAUSEA, Verified 01/03/21 01:15 UPSET STOMACH Mushrooms AdvReac Unknown Unknown Uncoded 01/03/21 01:15 Oranges AdvReac Unknown Unknown Uncoded 01/03/21 01:15 Home Medications Medication Instructions Recorded Confirmed Type duloxetine 60 mg capsule,delayed 60 mg PO DAILY 09/15/18 01/03/21 History release norgestimate-ethinyl estradiol 1 tab PO DAILY 09/15/18 01/03/21 History 0.18 mg/0.215mg/0.25mg-35 mcg(28)tablet (Tri Femynor) bupropion HCl 300 mg 24 hr tablet, 300 mg PO DAILY tab 01/11/19 01/03/21 History extended release carvedilol 25 mg tablet 25 mg PO BID tab 01/11/19 01/03/21 History fluticasone propionate 50 1 sprays INTRANASAL BID gm 01/11/19 01/03/21 History mcg/actuation nasal spray,suspension valacyclovir 1 gram tablet 1,000 mg PO BID PRN tab 03/07/19 01/03/21 History (Valtrex) insulin aspart U-100 100 unit/mL See Rx Instructions SUBCUT DAILY 03/28/20 01/03/21 Rx subcutaneous solution (Novolog #3 vial U-100 Insulin aspart) multivitamin (Daily Multi-Vitamin) 1 tab PO DAILY 06/06/20 01/03/21 History levothyroxine 50 mcg tablet 100 mcg PO DAILY 90 Days #180 tab 09/11/20 01/03/21 Rx valsartan 40 mg tablet 40 mg PO DAILY #30 tab 12/31/20 01/03/21 Rx Patient History Medical History (Updated 01/03/21 @ 12:13 by Franco Warren MD) Asthma Chronic kidney disease, stage III (moderate) Depression Diabetes type 1, uncontrolled History of anorexia nervosa History of chronic constipation History of chronic diarrhea History of herpes genitalis Hypercholesterolemia Hypertension Hypothyroidism cardiomyopathy Type 1 diabetes Surgical History H/O cataract extraction History of section History of oral surgery History of tonsillectomy Family History Mother Sciatica Hypertension Carpal tunnel syndrome Sister Epilepsy Grandmother (Maternal) Brain cancer Aunt Lymphoma Social History Smoking Status: Never smoker Hx Alcohol Use: Yes Hx Substance Use: No Preferred Language: Libyan 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: Effective 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 Somnolent but responds to verbal stimuli. HEENT: Anicteric sclera. Neck: No appreciable JVD. No bruits. Normal carotid upstrokes bilaterally. Cardiac: PMI was nonpalpable. No ventricular heave. Regular. Normal S1-S2. No murmurs, rubs, or gallops. Pulmonary: Clear to auscultation bilaterally without wheezes, rales, or rhonchi. Abdomen: Soft, nontender, nondistended, with hypoactive bowel sounds. No bruits noted. Extremities: 2+ radial pulses bilaterally. 2+ posterior tibialis pulses bilaterally. No edema or cyanosis. Psychiatric: Affect appears appropriate. Results & Data ([facility]) Vital Signs (Past 12 Hours) Vital Signs Temp Pulse Pulse Resp BP BP Pulse Ox 01/03/21 10:00 36.7 C 01/03/21 08:00 36.7 C 100 H 01/03/21 06:35 90 177/90 H 01/03/21 06:21 100 H 176/88 H 01/03/21 06:00 96 H 18 176/88 H 01/03/21 05:00 99 H 22 196/92 H 100 01/03/21 04:00 102 H 18 188/98 H 100 01/03/21 03:10 115 H 100 H 22 157/72 H 100 01/03/21 02:05 37 C 119 H 22 100 01/03/21 02:00 36.9 C 119 H 20 189/91 H 100 01/03/21 01:52 112 H 18 134/72 99 01/03/21 01:30 113 H 24 169/82 H 100 01/03/21 01:00 106 H 20 117/55 L 100 01/03/21 00:01 14 151/78 H 100 Intake & Output 0901/02/21 01/03/21 01/04/21 06:59 06:59 06:59 06:59 Intake Total 3197.745 / 3197.953 1205.708 / 1205.708 Balance 3197.745 / 3197.953 1205.708 / 1205.708 Weight 173 lb Laboratory Results Laboratory Results - last 24 hr 01/02/21 01/02/21 01/02/21 23:08 23:08 23:08 WBC 21.53 H RBC 3.87 L Hgb 12.2 POC Hgb Hct 37.8 POC Hct MCV 97.7 MCH 31.5 MCHC 32.3 RDW Std Deviation 46.7 H RDW Coeff of Eboni 13.1 Plt Count 408 H MPV 9.7 Immature Gran % (Auto) 0.4 Neut % (Auto) 84.3 Lymph % (Auto) 9.5 [place] % (Auto) 5.7 Eos % (Auto) 0.0 Baso % (Auto) 0.1 Neut # (Auto) 18.16 H Lymph # (Auto) 2.04 [place] # (Auto) 1.23 H Eos # (Auto) 0.00 Baso # (Auto) 0.02 Immature Gran # (Auto) 0.08 H PT INR APTT PTT Ratio POC pH POC pCO2 POC pO2 POC HCO3 POC Total CO2 POC Base Excess POC ABG O2 Sat VBG pH 7.20 L VBG pCO2 42 VBG pO2 38 VBG HCO3 16 VBG O2 Saturation 62.0 VBG Base Excess -11.6 POC Sodium Sodium 132 L POC Potassium Potassium 5.0 Chloride 93 L Carbon Dioxide 15 L Anion Gap 24.0 H BUN 50 H Creatinine 2.68 H Est Cr Clr Drug Dosing 26.7 Est GFR ( Amer) 25.0 Est GFR (Non-Af Amer) 21.5 BUN/Creatinine Ratio 18.7 Glucose 723 H* POC Glucose Estimat Average Glucose Hemoglobin A1c Lactate Calcium 9.3 Phosphorus Magnesium 2.5 H Total Bilirubin 0.9 AST 21 ALT 16 Alkaline Phosphatase 93 Troponin I 0.117 H* Total Protein 8.1 Albumin 3.3 L Globulin 4.8 H Albumin/Globulin Ratio 0.7 L Triglycerides Cholesterol LDL Cholesterol, Calc VLDL Cholesterol, Calc HDL Cholesterol Cholesterol/HDL Ratio Lipase 57 L Beta-Hydroxybutyric Acd 47.60 H Procalcitonin Urine Color Urine Appearance Urine pH Ur Specific [place] Urine Protein Urine Glucose (UA) Urine Ketones Urine Blood Urine Nitrite Urine Bilirubin Urine Urobilinogen Ur Leukocyte Esterase Urine WBC (Auto) Urine RBC (Auto) U Hyaline Cast (Auto) U Epithel Cells (Auto) Urine Bacteria (Auto) Nasal Screen MRSA (PCR) COVID-19 Eval Order SARS-CoV-2 (PCR) 01/03/21 01/03/21 01/03/21 00:00 00:00 00:35 WBC RBC Hgb POC Hgb Hct POC Hct MCV MCH MCHC RDW Std Deviation RDW Coeff of Eboni Plt Count MPV Immature Gran % (Auto) Neut % (Auto) Lymph % (Auto) [place] % (Auto) Eos % (Auto) Baso % (Auto) Neut # (Auto) Lymph # (Auto) [place] # (Auto) Eos # (Auto) Baso # (Auto) Immature Gran # (Auto) PT INR APTT PTT Ratio POC pH POC pCO2 POC pO2 POC HCO3 POC Total CO2 POC Base Excess POC ABG O2 Sat VBG pH VBG pCO2 VBG pO2 VBG HCO3 VBG O2 Saturation VBG Base Excess POC Sodium Sodium POC Potassium Potassium Chloride Carbon Dioxide Anion Gap BUN Creatinine Est Cr Clr Drug Dosing Est GFR ( Amer) Est GFR (Non-Af Amer) BUN/Creatinine Ratio Glucose POC Glucose > 600 H* Estimat Average Glucose Hemoglobin A1c Lactate Calcium Phosphorus Magnesium Total Bilirubin AST ALT Alkaline Phosphatase Troponin I Total Protein Albumin Globulin Albumin/Globulin Ratio Triglycerides Cholesterol LDL Cholesterol, Calc VLDL Cholesterol, Calc HDL Cholesterol Cholesterol/HDL Ratio Lipase Beta-Hydroxybutyric Acd Procalcitonin Urine Color Urine Appearance Urine pH Ur Specific [place] Urine Protein Urine Glucose (UA) Urine Ketones Urine Blood Urine Nitrite Urine Bilirubin Urine Urobilinogen Ur Leukocyte Esterase Urine WBC (Auto) Urine RBC (Auto) U Hyaline Cast (Auto) U Epithel Cells (Auto) Urine Bacteria (Auto) Nasal Screen MRSA (PCR) COVID-19 Eval Order Covid19 at [facility] SARS-CoV-2 (PCR) NEGATIVE 01/03/21 01/03/21 01/03/21 00:36 00:39 00:44 WBC RBC Hgb POC Hgb 11.2 L Hct POC Hct 33 L MCV MCH MCHC RDW Std Deviation RDW Coeff of Eboni Plt Count MPV Immature Gran % (Auto) Neut % (Auto) Lymph % (Auto) [place] % (Auto) Eos % (Auto) Baso % (Auto) Neut # (Auto) Lymph # (Auto) [place] # (Auto) Eos # (Auto) Baso # (Auto) Immature Gran # (Auto) PT INR APTT PTT Ratio POC pH 7.24 L POC pCO2 31 L POC pO2 98 H POC HCO3 13 L POC Total CO2 14 L POC Base Excess -14.0 L POC ABG O2 Sat 96.0 H VBG pH VBG pCO2 VBG pO2 VBG HCO3 VBG O2 Saturation VBG Base Excess POC Sodium 134 L Sodium POC Potassium 5.5 H Potassium Chloride Carbon Dioxide Anion Gap BUN Creatinine Est Cr Clr Drug Dosing Est GFR ( Amer) Est GFR (Non-Af Amer) BUN/Creatinine Ratio Glucose POC Glucose Estimat Average Glucose Hemoglobin A1c Lactate 3.8 H* Calcium Phosphorus Magnesium Total Bilirubin AST ALT Alkaline Phosphatase Troponin I Total Protein Albumin Globulin Albumin/Globulin Ratio Triglycerides Cholesterol LDL Cholesterol, Calc VLDL Cholesterol, Calc HDL Cholesterol Cholesterol/HDL Ratio Lipase Beta-Hydroxybutyric Acd Procalcitonin Urine Color Yellow Urine Appearance Clear Urine pH 5.0 Ur Specific [place] 1.022 Urine Protein 1+ H Urine Glucose (UA) 3+ H Urine Ketones 2+ H Urine Blood Trace H Urine Nitrite Negative Urine Bilirubin Negative Urine Urobilinogen Negative Ur Leukocyte Esterase Negative Urine WBC (Auto) 1-5 Urine RBC (Auto) 0-4 U Hyaline Cast (Auto) 1-5 U Epithel Cells (Auto) >30 H Urine Bacteria (Auto) Negative Nasal Screen MRSA (PCR) COVID-19 Eval Order SARS-CoV-2 (PCR) 01/03/21 01/03/21 01/03/21 00:46 00:46 01:45 WBC RBC Hgb POC Hgb Hct POC Hct MCV MCH MCHC RDW Std Deviation RDW Coeff of Eboni Plt Count MPV Immature Gran % (Auto) Neut % (Auto) Lymph % (Auto) [place] % (Auto) Eos % (Auto) Baso % (Auto) Neut # (Auto) Lymph # (Auto) [place] # (Auto) Eos # (Auto) Baso # (Auto) Immature Gran # (Auto) PT INR APTT PTT Ratio POC pH POC pCO2 POC pO2 POC HCO3 POC Total CO2 POC Base Excess POC ABG O2 Sat VBG pH 7.15 L VBG pCO2 VBG pO2 VBG HCO3 VBG O2 Saturation VBG Base Excess POC Sodium Sodium 134 L POC Potassium Potassium 5.7 H Chloride 99 Carbon Dioxide 14 L Anion Gap 21.0 H BUN 51 H Creatinine 2.47 H Est Cr Clr Drug Dosing 28.9 Est GFR ( Amer) 27.5 Est GFR (Non-Af Amer) 23.8 BUN/Creatinine Ratio 20.7 H Glucose 713 H* POC Glucose > 600 H* Estimat Average Glucose Hemoglobin A1c Lactate Calcium 8.0 L Phosphorus 8.1 H Magnesium 2.1 Total Bilirubin AST ALT Alkaline Phosphatase Troponin I Total Protein Albumin Globulin Albumin/Globulin Ratio Triglycerides Cholesterol LDL Cholesterol, Calc VLDL Cholesterol, Calc HDL Cholesterol Cholesterol/HDL Ratio Lipase Beta-Hydroxybutyric Acd 46.53 H Procalcitonin Urine Color Urine Appearance Urine pH Ur Specific [place] Urine Protein Urine Glucose (UA) Urine Ketones Urine Blood Urine Nitrite Urine Bilirubin Urine Urobilinogen Ur Leukocyte Esterase Urine WBC (Auto) Urine RBC (Auto) U Hyaline Cast (Auto) U Epithel Cells (Auto) Urine Bacteria (Auto) Nasal Screen MRSA (PCR) COVID-19 Eval Order SARS-CoV-2 (PCR) 01/03/21 01/03/21 01/03/21 01:49 03:20 04:00 WBC RBC Hgb POC Hgb Hct POC Hct MCV MCH MCHC RDW Std Deviation RDW Coeff of Eboni Plt Count MPV Immature Gran % (Auto) Neut % (Auto) Lymph % (Auto) [place] % (Auto) Eos % (Auto) Baso % (Auto) Neut # (Auto) Lymph # (Auto) [place] # (Auto) Eos # (Auto) Baso # (Auto) Immature Gran # (Auto) PT INR APTT PTT Ratio POC pH POC pCO2 POC pO2 POC HCO3 POC Total CO2 POC Base Excess POC ABG O2 Sat VBG pH VBG pCO2 VBG pO2 VBG HCO3 VBG O2 Saturation VBG Base Excess POC Sodium Sodium POC Potassium Potassium Chloride Carbon Dioxide Anion Gap BUN Creatinine Est Cr Clr Drug Dosing Est GFR ( Amer) Est GFR (Non-Af Amer) BUN/Creatinine Ratio Glucose 619 H* POC Glucose 501 H* Estimat Average Glucose Hemoglobin A1c Lactate Calcium Phosphorus Magnesium Total Bilirubin AST ALT Alkaline Phosphatase Troponin I Total Protein Albumin Globulin Albumin/Globulin Ratio Triglycerides Cholesterol LDL Cholesterol, Calc VLDL Cholesterol, Calc HDL Cholesterol Cholesterol/HDL Ratio Lipase Beta-Hydroxybutyric Acd 42.80 H Procalcitonin Urine Color Urine Appearance Urine pH Ur Specific [place] Urine Protein Urine Glucose (UA) Urine Ketones Urine Blood Urine Nitrite Urine Bilirubin Urine Urobilinogen Ur Leukocyte Esterase Urine WBC (Auto) Urine RBC (Auto) U Hyaline Cast (Auto) U Epithel Cells (Auto) Urine Bacteria (Auto) Nasal Screen MRSA (PCR) Negative COVID-19 Eval Order SARS-CoV-2 (PCR) 01/03/21 01/03/21 01/03/21 04:07 04:25 04:25 WBC RBC Hgb POC Hgb Hct POC Hct MCV MCH MCHC RDW Std Deviation RDW Coeff of Eboni Plt Count MPV Immature Gran % (Auto) Neut % (Auto) Lymph % (Auto) [place] % (Auto) Eos % (Auto) Baso % (Auto) Neut # (Auto) Lymph # (Auto) [place] # (Auto) Eos # (Auto) Baso # (Auto) Immature Gran # (Auto) PT INR APTT PTT Ratio POC pH POC pCO2 POC pO2 POC HCO3 POC Total CO2 POC Base Excess POC ABG O2 Sat VBG pH 7.30 L VBG pCO2 VBG pO2 VBG HCO3 VBG O2 Saturation VBG Base Excess POC Sodium Sodium 134 L POC Potassium Potassium 3.8 D Chloride 105 Carbon Dioxide 18 L Anion Gap 11.0 BUN 48 H Creatinine 2.33 H Est Cr Clr Drug Dosing 31.3 Est GFR ( Amer) 29.6 Est GFR (Non-Af Amer) 25.5 BUN/Creatinine Ratio 20.7 H Glucose 404 H* POC Glucose 437 H* Estimat Average Glucose Hemoglobin A1c Lactate Calcium 7.8 L Phosphorus 3.5 D Magnesium 2.0 Total Bilirubin AST ALT Alkaline Phosphatase Troponin I 1.910 H* Total Protein Albumin Globulin Albumin/Globulin Ratio Triglycerides 114 Cholesterol 175 LDL Cholesterol, Calc 97 VLDL Cholesterol, Calc 23 HDL Cholesterol 55 Cholesterol/HDL Ratio 3 Lipase Beta-Hydroxybutyric Acd 41.90 H Procalcitonin Urine Color Urine Appearance Urine pH Ur Specific [place] Urine Protein Urine Glucose (UA) Urine Ketones Urine Blood Urine Nitrite Urine Bilirubin Urine Urobilinogen Ur Leukocyte Esterase Urine WBC (Auto) Urine RBC (Auto) U Hyaline Cast (Auto) U Epithel Cells (Auto) Urine Bacteria (Auto) Nasal Screen MRSA (PCR) COVID-19 Eval Order SARS-CoV-2 (PCR) 01/03/21 01/03/2101/03/21 04:25 04:35 05:11 WBC RBC Hgb POC Hgb Hct POC Hct MCV MCH MCHC RDW Std Deviation RDW Coeff of Eboni Plt Count MPV Immature Gran % (Auto) Neut % (Auto) Lymph % (Auto) [place] % (Auto) Eos % (Auto) Baso % (Auto) Neut # (Auto) Lymph # (Auto) [place] # (Auto) Eos # (Auto) Baso # (Auto) Immature Gran # (Auto) PT INR APTT PTT Ratio POC pH POC pCO2 POC pO2 POC HCO3 POC Total CO2 POC Base Excess POC ABG O2 Sat VBG pH VBG pCO2 VBG pO2 VBG HCO3 VBG O2 Saturation VBG Base Excess POC Sodium Sodium POC Potassium Potassium Chloride Carbon Dioxide Anion Gap BUN Creatinine Est Cr Clr Drug Dosing Est GFR ( Amer) Est GFR (Non-Af Amer) BUN/Creatinine Ratio Glucose POC Glucose 399 H* Estimat Average Glucose 200 Hemoglobin A1c 8.6 H Lactate 2.7 H* Calcium Phosphorus Magnesium Total Bilirubin AST ALT Alkaline Phosphatase Troponin I Total Protein Albumin Globulin Albumin/Globulin Ratio Triglycerides Cholesterol LDL Cholesterol, Calc VLDL Cholesterol, Calc HDL Cholesterol Cholesterol/HDL Ratio Lipase Beta-Hydroxybutyric Acd Procalcitonin Urine Color Urine Appearance Urine pH Ur Specific [place] Urine Protein Urine Glucose (UA) Urine Ketones Urine Blood Urine Nitrite Urine Bilirubin Urine Urobilinogen Ur Leukocyte Esterase Urine WBC (Auto) Urine RBC (Auto) U Hyaline Cast (Auto) U Epithel Cells (Auto) Urine Bacteria (Auto) Nasal Screen MRSA (PCR) COVID-19 Eval Order SARS-CoV-2 (PCR) 01/03/21 01/03/21 01/03/21 06:17 06:43 07:04 WBC RBC Hgb POC Hgb Hct POC Hct MCV MCH MCHC RDW Std Deviation RDW Coeff of Eboni Plt Count MPV Immature Gran % (Auto) Neut % (Auto) Lymph % (Auto) [place] % (Auto) Eos % (Auto) Baso % (Auto) Neut # (Auto) Lymph # (Auto) [facility] # (Auto) Eos # (Auto) Baso # (Auto) Immature Gran # (Auto) PT 10.9 INR 1.1 APTT 27.9 PTT Ratio 1.1 POC pH POC pCO2 POC pO2 POC HCO3 POC Total CO2 POC Base Excess POC ABG O2 Sat VBG pH VBG pCO2 VBG pO2 VBG HCO3 VBG O2 Saturation VBG Base Excess POC Sodium Sodium POC Potassium Potassium Chloride Carbon Dioxide Anion Gap BUN Creatinine Est Cr Clr Drug Dosing Est GFR ( Amer) Est GFR (Non-Af Amer) BUN/Creatinine Ratio Glucose POC Glucose 291 H 234 H Estimat Average Glucose Hemoglobin A1c Lactate Calcium Phosphorus Magnesium Total Bilirubin AST ALT Alkaline Phosphatase Troponin I Total Protein Albumin Globulin Albumin/Globulin Ratio Triglycerides Cholesterol LDL Cholesterol, Calc VLDL Cholesterol, Calc HDL Cholesterol Cholesterol/HDL Ratio Lipase Beta-Hydroxybutyric Acd Procalcitonin Urine Color Urine Appearance Urine pH Ur Specific [place] Urine Protein Urine Glucose (UA) Urine Ketones Urine Blood Urine Nitrite Urine Bilirubin Urine Urobilinogen Ur Leukocyte Esterase Urine WBC (Auto) Urine RBC (Auto) U Hyaline Cast (Auto) U Epithel Cells (Auto) Urine Bacteria (Auto) Nasal Screen MRSA (PCR) COVID-19 Eval Order SARS-CoV-2 (PCR) 01/03/21 01/03/21 01/03/21 08:04 08:57 08:57 WBC RBC Hgb POC Hgb Hct POC Hct MCV MCH MCHC RDW Std Deviation RDW Coeff of Eboni Plt Count MPV Immature Gran % (Auto) Neut % (Auto) Lymph % (Auto) [place] % (Auto) Eos % (Auto) Baso % (Auto) Neut # (Auto) Lymph # (Auto) [place] # (Auto) Eos # (Auto) Baso # (Auto) Immature Gran # (Auto) PT INR APTT PTT Ratio POC pH POC pCO2 POC pO2 POC HCO3 POC Total CO2 POC Base Excess POC ABG O2 Sat VBG pH 7.36 VBG pCO2 VBG pO2 VBG HCO3 VBG O2 Saturation VBG Base Excess POC Sodium Sodium 139 POC Potassium Potassium 3.7 Chloride 107 Carbon Dioxide 23 Anion Gap 10.0 BUN 39 H Creatinine 2.18 H Est Cr Clr Drug Dosing 33.6 Est GFR ( Amer) 32.0 Est GFR (Non-Af Amer) 27.6 BUN/Creatinine Ratio 18.1 Glucose 180 H POC Glucose 191 H Estimat Average Glucose Hemoglobin A1c Lactate Calcium 8.2 L Phosphorus 2.7 Magnesium 2.1 Total Bilirubin AST ALT Alkaline Phosphatase Troponin I Total Protein Albumin Globulin Albumin/Globulin Ratio Triglycerides Cholesterol LDL Cholesterol, Calc VLDL Cholesterol, Calc HDL Cholesterol Cholesterol/HDL Ratio Lipase Beta-Hydroxybutyric Acd Procalcitonin Urine Color Urine Appearance Urine pH Ur Specific [place] Urine Protein Urine Glucose (UA) Urine Ketones Urine Blood Urine Nitrite Urine Bilirubin Urine Urobilinogen Ur Leukocyte Esterase Urine WBC (Auto) Urine RBC (Auto) U Hyaline Cast (Auto) U Epithel Cells (Auto) Urine Bacteria (Auto) Nasal Screen MRSA (PCR) COVID-19 Eval Order SARS-CoV-2 (PCR) 01/03/21 01/03/21 01/03/21 09:06 10:09 10:09 WBC RBC Hgb POC Hgb Hct POC Hct MCV MCH MCHC RDW Std Deviation RDW Coeff of Eboni Plt Count MPV Immature Gran % (Auto) Neut % (Auto) Lymph % (Auto) [place] % (Auto) Eos % (Auto) Baso % (Auto) Neut # (Auto) Lymph # (Auto) [place] # (Auto) Eos # (Auto) Baso # (Auto) Immature Gran # (Auto) PT INR APTT PTT Ratio POC pH POC pCO2 POC pO2 POC HCO3 POC Total CO2 POC Base Excess POC ABG O2 Sat VBG pH VBG pCO2 VBG pO2 VBG HCO3 VBG O2 Saturation VBG Base Excess POC Sodium Sodium POC Potassium Potassium Chloride Carbon Dioxide Anion Gap BUN Creatinine Est Cr Clr Drug Dosing Est GFR ( Amer) Est GFR (Non-Af Amer) BUN/Creatinine Ratio Glucose POC Glucose 180 H Estimat Average Glucose Hemoglobin A1c Lactate Calcium Phosphorus Magnesium Total Bilirubin AST ALT Alkaline Phosphatase Troponin I 34.000 H* Total Protein Albumin Globulin Albumin/Globulin Ratio Triglycerides Cholesterol LDL Cholesterol, Calc VLDL Cholesterol, Calc HDL Cholesterol Cholesterol/HDL Ratio Lipase Beta-Hydroxybutyric Acd Procalcitonin Pending Urine Color Urine Appearance Urine pH Ur Specific [place] Urine Protein Urine Glucose (UA) Urine Ketones Urine Blood Urine Nitrite Urine Bilirubin Urine Urobilinogen Ur Leukocyte Esterase Urine WBC (Auto) Urine RBC (Auto) U Hyaline Cast (Auto) U Epithel Cells (Auto) Urine Bacteria (Auto) Nasal Screen MRSA (PCR) COVID-19 Eval Order SARS-CoV-2 (PCR) 01/03/21 01/03/21 01/03/21 10:16 11:16 11:33 WBC RBC Hgb POC Hgb Hct POC Hct MCV MCH MCHC RDW Std Deviation RDW Coeff of Eboni Plt Count MPV Immature Gran % (Auto) Neut % (Auto) Lymph % (Auto) [place] % (Auto) Eos % (Auto) Baso % (Auto) Neut # (Auto) Lymph # (Auto) [place] # (Auto) Eos # (Auto) Baso # (Auto) Immature Gran # (Auto) PT INR APTT PTT Ratio POC pH POC pCO2 POC pO2 POC HCO3 POC Total CO2 POC Base Excess POC ABG O2 Sat VBG pH VBG pCO2 VBG pO2 VBG HCO3 VBG O2 Saturation VBG Base Excess POC Sodium Sodium POC Potassium Potassium Chloride Carbon Dioxide Anion Gap BUN Creatinine Est Cr Clr Drug Dosing Est GFR ( Amer) Est GFR (Non-Af Amer) BUN/Creatinine Ratio Glucose POC Glucose 141 H 82 82 Estimat Average Glucose Hemoglobin A1c Lactate Calcium Phosphorus Magnesium Total Bilirubin AST ALT Alkaline Phosphatase Troponin I Total Protein Albumin Globulin Albumin/Globulin Ratio Triglycerides Cholesterol LDL Cholesterol, Calc VLDL Cholesterol, Calc HDL Cholesterol Cholesterol/HDL Ratio Lipase Beta-Hydroxybutyric Acd Procalcitonin Urine Color Urine Appearance Urine pH Ur Specific [place] Urine Protein Urine Glucose (UA) Urine Ketones Urine Blood Urine Nitrite Urine Bilirubin Urine Urobilinogen Ur Leukocyte Esterase Urine WBC (Auto) Urine RBC (Auto) U Hyaline Cast (Auto) U Epithel Cells (Auto) Urine Bacteria (Auto) Nasal Screen MRSA (PCR) COVID-19 Eval Order SARS-CoV-2 (PCR) 01/03/21 12:07 WBC RBC Hgb POC Hgb Hct POC Hct MCV MCH MCHC RDW Std Deviation RDW Coeff of [place] Plt Count MPV Immature Gran % (Auto) Neut % (Auto) Lymph % (Auto) [place] % (Auto) Eos % (Auto) Baso % (Auto) Neut # (Auto) Lymph # (Auto) [place] # (Auto) Eos # (Auto) Baso # (Auto) Immature Gran # (Auto) PT INR APTT PTT Ratio POC pH POC pCO2 POC pO2 POC HCO3 POC Total CO2 POC Base Excess POC ABG O2 Sat VBG pH VBG pCO2 VBG pO2 VBG HCO3 VBG O2 Saturation VBG Base Excess POC Sodium Sodium POC Potassium Potassium Chloride Carbon Dioxide Anion Gap BUN Creatinine Est Cr Clr Drug Dosing Est GFR ( Amer) Est GFR (Non-Af Amer) BUN/Creatinine Ratio Glucose POC Glucose 109 H Estimat Average Glucose Hemoglobin A1c Lactate Calcium Phosphorus Magnesium Total Bilirubin AST ALT Alkaline Phosphatase Troponin I Total Protein Albumin Globulin Albumin/Globulin Ratio Triglycerides Cholesterol LDL Cholesterol, Calc VLDL Cholesterol, Calc HDL Cholesterol Cholesterol/HDL Ratio Lipase Beta-Hydroxybutyric Acd Procalcitonin Urine Color Urine Appearance Urine pH Ur Specific [place] Urine Protein Urine Glucose (UA) Urine Ketones Urine Blood Urine Nitrite Urine Bilirubin Urine Urobilinogen Ur Leukocyte Esterase Urine WBC (Auto) Urine RBC (Auto) U Hyaline Cast (Auto) U Epithel Cells (Auto) Urine Bacteria (Auto) Nasal Screen MRSA (PCR) COVID-19 Eval Order SARS-CoV-2 (PCR) Diagnostic Findings Telemetry personally reviewed: No arrhythmia. Sinus. ECG 01/02/2021 at 11:54 p.m.: Sinus tachycardia 106 beats per minute. LVH with repolarization abnormality ECG 01/03/2021 at 12:20 a.m.: Sinus tachycardia 110 beats per minute. LVH with repolarization abnormality ECG 01/03/2021 at 11:41 a.m.: Sinus rhythm 81 beats per minute. Inferolateral ST/T-wave abnormality. Echo 01/03/2021: Mildly dilated LV with mildly reduced systolic function. EF 45-50%. Akinesis of the inferior wall and hypokinesis of the inferolateral wall. Mild left atrial dilation. No significant valvular abnormalities. RVSP 39. Chest x-ray 01/02/2021: Reticular opacities per Radiology. Suboptimal exam. Medications Administered Current Inpatient Medications Aspirin (Aspirin 81 Mg Ectab) 81 mg PO QAM RYANN Stop: 02/03/21 08:59 Bupropion HCl (Bupropion Xl 300 Mg Tabcr) 300 mg PO DAILY RYANN Stop: 02/02/21 08:59 Carvedilol (Carvedilol 25 Mg Tab) 25 mg PO BID RYANN Stop: 02/02/21 08:59 Dextrose (Dextrose 50% 50 Ml Syringe) 25 - 50 ml IV UD PRN; Protocol PRN Reason: Hypoglycemia Protocol Stop: 02/02/21 00:44 Last Admin: 01/03/21 11:50 Dose: 25 ml Documented by: Duloxetine HCl (Duloxetine Hcl 60 Mg Cap) 60 mg PO DAILY RYANN Stop: 02/02/21 08:59 Glucagon (Glucagon For Inj 1 Mg Vial) 1 mg IM UD PRN; Protocol PRN Reason: Hypoglycemia Protocol Stop: 02/02/21 00:44 Glucose (Glucose 40% Gel 15 Gm Tube) 15 - 30 gm PO UD PRN; Protocol PRN Reason: Hypoglycemia Protocol Stop: 02/02/21 00:44 Glucose (Glucose 10 Tabs/Tube) 4 - 8 tabs PO UD PRN; Protocol PRN Reason: Hypoglycemia Protocol Stop: 02/02/21 00:44 Hydralazine HCl (Hydralazine Hcl 20 Mg/Ml Vial) 10 mg IV Q6H PRN PRN Reason: systolic greater than 160 Stop: 02/02/21 07:50 Last Admin: 01/03/21 08:41 Dose: 10 mg Documented by: Insulin Human Regular 250 (units/ Sodium Chloride) 250 mls @ 2 mls/hr IV .Q24H RYANN; Protocol Stop: 02/02/21 00:29 Last Titration: 01/03/21 10:15 Dose: 8 units/hr, 8 mls/hr Documented by: Piperacillin Sod/Tazobactam (Sod 4.5 gm/ Dextrose) 120 mls @ 30 mls/hr IV Q8H RYANN; Protocol Stop: 01/05/21 05:59 Last Infusion: 01/03/21 09:38 Dose: Infused Documented by: Heparin Sodium/Dextrose (Heparin Sodium/Dextrose) 25,000 units in 500 mls @ 15 mls/hr IV .Q24H RYANN; Protocol Stop: 02/02/21 05:44 Last Titration: 01/03/21 06:59 Dose: 750 units/hr, 15 mls/hr Documented by: Potassium Chloride 40 meq/ (Sodium Chloride) 1,020 mls @ 200 mls/hr IV .Q5H6M RYANN Stop: 02/02/21 01:59 Last Admin: 01/03/21 06:05 Dose: 200 mls/hr Documented by: Promethazine HCl 12.5 mg/ (Sodium Chloride) 50.5 mls @ 202 mls/hr IV Q6H PRN PRN Reason: Nausea And Vomiting Stop: 02/02/21 07:07 Last Infusion: 01/03/21 08:56 Dose: Infused Documented by: Famotidine 20 mg/ Syringe 5 mls @ 2.5 mls/min IV DAILY RYANN Stop: 02/02/21 03:59 Insulin Aspart (Insulin Aspart 100 Units/Ml 3 Ml Pen) 0 units SC ACHS RYANN Stop: 02/02/21 07:29 Last Admin: 01/03/21 11:46 Dose: Not Given Documented by: Levothyroxine Sodium (Levothyroxine Sodium 100 Mcg Tablet) 100 mcg PO DAILYBB [facility] Stop: 02/02/21 06:29 Last Admin: 01/03/21 05:38 Dose: 100 mcg Documented by: Miscellaneous (Carbohydrates For Hypoglycemia ) 15 - 30 gm PO PRN PRN PRN Reason: Hypoglycemia Treatment Stop: 02/02/21 00:44 Miscellaneous ( Control Pills: Order Awaiting Action) 1 ea N/A QS [facility] Stop: 02/02/21 07:59 Last Admin: 01/03/21 07:52 Dose: Not Given Documented by: Miscellaneous Information (Piperacill/Tazobac Consult Active) 1 ea N/A UD PRN PRN Reason: Consult Stop: 02/02/21 03:09 Miscellaneous Information (Pharmacy Glycemic Mgmt Consult) 1 ea N/A UD PRN PRN Reason: Consult Stop: 02/02/21 03:24 Multivitamins (Multivitamin Tab) 1 tab PO QAM [facility] Stop: 02/02/21 08:59 Ondansetron HCl (Ondansetron Inj 2 Mg/Ml 2 Ml Vial) 4 mg IV Q6H PRN PRN Reason: Nausea And Vomiting Stop: 02/02/21 04:23 Last Admin: 01/03/21 05:36 Dose: 4 mg Documented by: PG Care Time/CCT Total # of Minutes Spent Total Time Spent with Patient: Total time spent is greater than 50% in coordination of care (as documented) at patient's floor/unit and/or counseling patient: Coding Level of Care Code 10329 Inpt Consult Level 5 Diagnoses Acute non-ST elevation myocardial infarction (NSTEMI) I21.4 Hypertension I10 Hypercholesterolemia E78.00
[2021-01-03 12:56] LABS: Partial Thromboplastin Ratio 1.6; Partial Thromboplastin Time 43.2 Seconds (21.0-31.0)
[2021-01-03 13:09] LABS: BUN Creatinine Ratio 17.5 (10-20); Est GFR (African American) 38.3 ml/min; Est GFR (Non-African American) 33.1 ml/min; Magnesium 1.9 mg/dl (1.8-2.4); Phosphorus 2.6 mg/dl (2.5-4.9)
[2021-01-03] MEDS: buPROPion XL 300 MG TABCR PO SCH (13:14)
[2021-01-03] MEDS: DULoxetine HCL 60 MG CAP PO SCH (13:15)
[2021-01-03] MEDS: carvediloL 25 MG TAB PO SCH ×2 (13:15→20:34)
[2021-01-03] MEDS: MULTIVITAMIN TAB PO SCH (13:15)
--- NOTE | 2021-01-03 13:19 | Pharmacy Report ---
Pharmacy Glycemic Short Note 2 - Date of Service January 03, 2021 - Glycemic Short BSG Results (Last 24 hours): 01/02/21 01/03/21 01/03/21 23:08 00:35 00:46 Glucose 723 H* 713 H* POC Glucose > 600 H* 01/03/21 01/03/21 01/03/21 01:45 01:49 03:20 Glucose 619 H* POC Glucose > 600 H* 501 H* 01/03/21 01/03/21 01/03/21 04:07 04:25 05:11 Glucose 404 H* POC Glucose 437 H* 399 H* 01/03/21 01/03/21 01/03/21 06:17 07:04 08:04 Glucose POC Glucose 291 H 234 H 191 H 01/03/21 01/03/21 01/03/21 08:57 09:06 10:16 Glucose 180 H POC Glucose 180 H 141 H 01/03/21 01/03/21 01/03/21 11:16 11:33 12:07 Glucose POC Glucose 82 82 109 H 01/03/21 01/03/21 12:28 12:47 Glucose POC Glucose 130 H 129 H OUTPATIENT ANTIDIABETIC REGIMEN: * Novolog insulin pump * A1c 8.6% 01/03/21 ASSESSMENT: * Patient admitted with DKA after insulin pump malfunction, troponins also significantly elevated,currently on insulin, heparin infusions. Cardiology consulted * Anion gap closed this morning, bicarb normalized, plan to transition off of insulin infusion. Attempted to speak with patient this morning regarding issue with insulin pump, if supplies could be brought in etc. Patient not very conversive but shook head no to having supplies with her. Discussed transitioning to subq insulin and if she would be okay with this and she shook her head yes. * Placed orders for lantus with ~10% increase from home basal given high drip rate/more resistance following DKA to help assist transition off of insulin pump. * Received call from nurse- after start of administration patient refused lantus- uncertain how much, if any lantus was absorbed. Will continue insulin infusion at home basal rate ~1 unit/hr for now. Will touch base with breastfeeding educator. PLAN FOR INPATIENT GLYCEMIC CONTROL: * Continuing insulin infusion @ home basal rate ~1 unit/hr for now, will wait to see if requirements go down/insulin has been received. Could potentially switch to omnipod if new supplies brought in from home. * Basal insulin * Will not give additional at this time, pt refused/will monitor for effects of possible partial dose If able to transition later today start novolog per home doses * Bolus insulin * NovoLog per scale ACHS or Q6hrs while NPO * Goal Range: Low 110 mg/dL - High 140 mg/dL * Correction Factor: 32 mg/dL/unit * Nutritional / Prandial insulin per carb ratio of 1 unit per 12 grams CHO consumed
--- NOTE | 2021-01-03 14:27 | Hospitalist Progress Note ---
Date of Service January 03, 2021 Assessment & Plan (1) DKA (diabetic ketoacidosis): Plan: Glucose 723 admission, anion gap 24. -> Patient started on insulin drip per protocol in the ED, and will be admitted to the ICU for further treatment. -> Gap closed. (2) Acute non-ST elevation myocardial infarction (NSTEMI): Plan: Troponin 0.117 upon admission, up to 34.0 on 01/03. Inferior wall motion abn ormality on echo on 01/03. - Continue aspirin, carvedilol, statin as able - Continue hepatin x 48 hours. - Consulted cardiology (3) Acute kidney injury superimposed on chronic kidney disease: Plan: Creatinine 2.68 on admission, with baseline 1.36 - 1.70. - Hold valsartan for now - Continue carvedilol and aspirin. -> Improving today. Cr down to 1.9. (4) Diabetes type 1, uncontrolled: Plan: A1c was 8.6% this admission. Patient typically uses insulin pump, which is broken, and will need replacement. - Plan for DKA as above (5) Hypothyroidism: Plan: TSH was 0.6 in 09/2020. - Continue levothyroxine 100 mcg daily (6) Asthma: Plan: No recent symptoms and not on any regular inhalers. - Monitor (7) Depression: Plan: Depression/eating disorder. Unclear status. - Continue bupropion and duloxetine (8) Eating disorder: Plan: See above (9) DVT prophylaxis: Plan: Heparin gtt for NSTEMI Admission and Anticipated Discharge Date Admission Date: January 03, 2021 Subjective Very tired today. Only saying a few things here and there. Denies chest pain or shortness of breath to me. Endorses nausea and vomiting. Physical Exam Constitutional: WD/WN, vitals as above + acute distress and + lethargic Eyes: EOM intact bilaterally; no conjunctival abnormality ENMT: external ear and nose normal, oropharynx normal Neck: trachea midline, no thyromegaly normal visual inspection Respiratory: normal respiratory effort, lungs clear to auscultation no respiratory distress Cardiovascular: Rate/Rhythm: regular rhythm and + tachycardic Gastrointestinal (Abdomen): Inspection/Auscultation: abdomen normal to inspection; abdomen not distended Musculoskeletal: no cyanosis or clubbing, extremities motor strength 5/5 Skin: no rashes, warm and dry Neurologic: moves all extremities and awake Psychiatric: Orientation: alert, oriented to person and cooperative Results & Data Results & Data ([facility]) Vital Signs (Past 12 Hours) Vital Signs Temp Pulse Pulse Resp BP BP Pulse Ox 01/03/21 10:00 36.7 C 01/03/21 08:00 36.7 C 100 H 01/03/21 06:35 90 177/90 H 01/03/21 06:21 100 H 176/88 H 01/03/21 06:00 96 H 18 176/88 H 01/03/21 05:00 99 H 22 196/92 H 100 01/03/21 04:00 102 H 18 188/98 H 100 01/03/21 03:10 115 H 100 H 22 157/72 H 100 PG Care Time/CCT Total # of Minutes Spent Total Time Spent with Patient: Total time spent is greater than 50% in coordination of care (as documented) at patient's floor/unit and/or counseling patient: Coding Level of Care Code 08218 Subseq Hosp Care Lvl 3 Diagnoses DKA (diabetic ketoacidosis) E10.10 Diabetes mellitus complication detail: without coma Diabetes mellitus type: type 1 Acute non-ST elevation myocardial infarction (NSTEMI) I21.4 Acute kidney injury superimposed on chronic kidney disease N17.9; N18.9 Hypothyroidism E03.9 Diabetes type 1, uncontrolled E10.65 Asthma J45.909 Depression F32.9 Eating disorder F50.9 DVT prophylaxis Z29.9 (1) DKA (diabetic ketoacidosis) Diabetes mellitus complication detail: without coma Diabetes mellitus type: type 1 Qualified Code(s): E10.10 - Type 1 diabetes mellitus with ketoacidosis without coma
[2021-01-03] MEDS ORDERED: LABETALOL HCL IV 5 MG/ML 20ML IV PRN (15:00)
[2021-01-03] MEDS: niCARdipine 25 MG in SODIUM CHLORIDE 0.9% 240 ML IV SCH ×2 (15:44→19:29)
[2021-01-03] MEDS ORDERED: D5W AND 1/2NSS + 20MEQ KCL 20 MEQ/1,000 ML BAG IV SCH (16:00)
[2021-01-03] MEDS ORDERED: PROCHLORPERAZINE 5 MG in SYRINGE 4 ML IV ONE (16:00)
[2021-01-03 17:01] LABS: BUN Creatinine Ratio 16.7 (10-20); Calcium 7.7 mg/dl (8.5-10.1); Creatinine Clr Calc Pharmacy 43.6 ml/min; Est GFR (African American) 43.9 ml/min; Est GFR (Non-African American) 37.9 ml/min; Magnesium 1.7 mg/dl (1.8-2.4); Phosphorus 2.7 mg/dl (2.5-4.9); Potassium 4.3 mmol/L (3.5-5.1)
[2021-01-03 17:17] LABS: Acetaminophen < 2 ug/ml (10-30); Salicylate < 1.7 mg/dl (2.8-20)
[2021-01-03 18:11] LABS: Beta-Hydroxybutyrate 23.21 mg/dl (0.2-2.81)
[2021-01-03 18:35] LABS: Basophils # (auto) 0.01 K/uL (0-0.2); Hemoglobin 11.6 g/dL (12.0-16.0); Immature Granulocytes # (auto) 0.17 K/uL (0.00-0.02); Immature Granulocytes % (auto) 0.8 %; Lymphocytes # (auto) 1.91 K/uL (1.2-3.4); Lymphocytes % (auto) 8.6 %; Mean Corpuscular Hemoglobin 31.8 pg (25-34); Mean Corpuscular Hgb Conc 35.2 g/dL (32-36); Mean Corpuscular Volume 90.4 fL (80-100); Mean Platelet Volume 9.2 fL (7.4-10.4); Monocytes # (auto) 1.46 K/uL (0.11-0.59); Monocytes % (auto) 6.6 %; Neutrophils # (auto) 18.74 K/uL (1.4-6.5); Platelet Count 329 K/uL (130-400); RDW Coefficient of Variation 12.8 % (11.5-14.5); RDW Standard Deviation 42.1 fL (36.4-46.3); Red Blood Count 3.65 M/uL (4.2-5.4); White Blood Count 22.29 K/uL (4.8-10.8)
[2021-01-03 18:37] LABS: Amphetamines+Metham, Urine Neg (Neg); Barbiturates, Urine Neg (Neg); Benzodiazepine, Urine Neg (Neg); Cocaine, Urine Neg (Neg); MDMA (Ecstacy), Urine Pos (Neg); Methadone, Urine Neg (Neg); Opiate, Urine Neg (Neg); Phencyclidine, Urine Neg (Neg)
[2021-01-03] MEDS: NSS + 20MEQ KCL 20 MEQ/1,000 ML BAG IV SCH (19:29)
[2021-01-03] MEDS: MAGNESIUM SULFATE / D5W 1 GM/100 ML BAG IV SCH ×2 (19:29→21:21)
[2021-01-03 21:28] LABS: BUN Creatinine Ratio 15.9 (10-20); Calcium 7.3 mg/dl (8.5-10.1); Creatinine Clr Calc Pharmacy 43.9 ml/min; Est GFR (African American) 44.2 ml/min; Est GFR (Non-African American) 38.1 ml/min; Magnesium 2.8 mg/dl (1.8-2.4); Phosphorus 2.9 mg/dl (2.5-4.9); Potassium 4.1 mmol/L (3.5-5.1)
[2021-01-03 21:39] LABS: Beta-Hydroxybutyrate 11.82 mg/dl (0.2-2.81)
[2021-01-03 22:32] LABS: Partial Thromboplastin Ratio 1.4; Partial Thromboplastin Time 37.9 Seconds (21.0-31.0)
[2021-01-03] MEDS ORDERED: HEPARIN SOD (PORCINE) 1000 UNIT/ML IV ONE (23:00)
[2021-01-04] MEDS: [UNRECOGNIZED DRUG - OTHER] SCH ×3 (00:24→16:33)
[2021-01-04] MEDS: NSS + 20MEQ KCL 20 MEQ/1,000 ML BAG IV SCH ×3 (00:25→14:52)
[2021-01-04] MEDS ORDERED: diphenhydrAMINE Capsule 25 MG CAP PO ONE (02:50)
[2021-01-04 04:56] LABS: Basophils # (auto) 0.01 K/uL (0-0.2); Basophils % (auto) 0.1 %; Hematocrit (blood only) 34.9 % (37-47); Hemoglobin 12.3 g/dL (12.0-16.0); Immature Granulocytes # (auto) 0.07 K/uL (0.00-0.02); Immature Granulocytes % (auto) 0.4 %; Lymphocytes % (auto) 10.5 %; Mean Corpuscular Hgb Conc 35.2 g/dL (32-36); Mean Corpuscular Volume 90.9 fL (80-100); Mean Platelet Volume 8.8 fL (7.4-10.4); Monocytes # (auto) 0.96 K/uL (0.11-0.59); Monocytes % (auto) 5.3 %; Neutrophils # (auto) 15.13 K/uL (1.4-6.5); Neutrophils % (auto) 83.7 %; Platelet Count 335 K/uL (130-400); RDW Coefficient of Variation 12.9 % (11.5-14.5); RDW Standard Deviation 42.9 fL (36.4-46.3); Red Blood Count 3.84 M/uL (4.2-5.4); White Blood Count 18.07 K/uL (4.8-10.8)
[2021-01-04 05:18] LABS: Albumin Level 2.3 gm/dl (3.4-5.0); BUN Creatinine Ratio 13.2 (10-20); Calcium 7.4 mg/dl (8.5-10.1); Creatinine Clr Calc Pharmacy 50.2 ml/min; Est GFR (Non-African American) 44.9 ml/min; Potassium 3.9 mmol/L (3.5-5.1)
[2021-01-04 05:24] LABS: Partial Thromboplastin Time 52.6 Seconds (21.0-31.0)
[2021-01-04 05:29] LABS: Albumin Globulin Ratio 0.5 (0.9-2); Bilirubin,Total 0.4 mg/dl (0.2-1); Globulin 4.3 gm/dl (2.5-4.0); Total Protein 6.6 gm/dl (6.4-8.2); Troponin I 24.3 ng/ml (0-0.045)
[2021-01-04] MEDS: PROMETHAZINE HCL 12.5 MG in SODIUM CHLORIDE 0.9% 50 ML IV PRN (05:52)
[2021-01-04] MEDS: PIPERACILLIN/TAZOBACTAM 4.5 GM in DEXTROSE 5% 100 ML IV SCH ×3 (05:54→21:17)
[2021-01-04] MEDS: LEVOTHYROXINE SODIUM 100 MCG TABLET PO SCH (05:54)
--- NOTE | 2021-01-04 06:07 | Electrocardiogram Report ---
Test Reason : Blood Pressure : / mmHG Vent. Rate : 106 BPM Atrial Rate : 106 BPM P-R Int : 128 ms QRS Dur : 076 ms QT Int : 358 ms P-R-T Axes : 079 079 013 degrees QTc Int : 475 ms Sinus tachycardia Possible Left atrial enlargement Left ventricular hypertrophy with repolarization abnormality Abnormal ECG When compared with ECG of 15-SEP-2018 11:48, Vent. rate has increased BY [address] now depressed in Anterolateral leads Confirmed by Franco Warren ([id number]) on 01/04/2021 6:07:05 AM Referred By: REFERRED SELF Confirmed By:Franco Warren
--- NOTE | 2021-01-04 06:08 | Electrocardiogram Report ---
Test Reason : Blood Pressure : / mmHG Vent. Rate : 110 BPM Atrial Rate : 110 BPM P-R Int : 126 ms QRS Dur : 078 ms QT Int : 354 ms P-R-T Axes : -19 -20 031 degrees QTc Int : 479 ms Sinus tachycardia Left ventricular hypertrophy with repolarization abnormality Abnormal ECG When compared with ECG of 02-JAN-2021 23:54, Questionable change in QRS axis Confirmed by Franco Warren ([id number] on 01/04/2021 6:07:38 AM Referred By: REFERRED SELF Confirmed By:Franco Warren
[2021-01-04] MEDS: niCARdipine 25 MG in SODIUM CHLORIDE 0.9% 240 ML IV SCH ×2 (06:43→13:40)
[2021-01-04] MEDS: ASPIRIN 81 MG ECTAB PO SCH ×2 (07:10→07:50)
[2021-01-04] MEDS: carvediloL 25 MG TAB PO SCH ×2 (07:10→21:17)
--- NOTE | 2021-01-04 07:19 | Critical Care Progress Note ---
Date of Service January 04, 2021 Assessment & Plan (1) DKA (diabetic ketoacidosis): Plan: Reason Critically Ill: 40-year-old female w/ type 1 diabetes, hypothyroidism, and diabetes who presents to the ICU with DKA after 2 days without insulin following glucometer malfunction. DKA has resolved and overall she is improving. Currently, optimizing medical management for the NSTEMI. Neuro - [facility] ICU: Negative Depressioncontinue bupropion, Cymbalta Psych liaison saw patient. No current concern of suicidal ideation. Patient has stressors, but is positive and forward thinking. She scored upper mild on depression screen. Cardiac - NSTEMI Elevated trop to 37.3 has since peaked at 4pm 01/04/21, most recent trop is 24.3 repeat ecg in am Patient declined ASA. Atorva 40 ordered today Cardiology recs appreciated: recommended non urgent cardiac cath HTNcontinue home Coreg which was restarted today because previously not tolerating PO. Patient tolerated dose this AM. Short course of cardene drip this AM, since weaned off. Consider restarting home ARB tomorrow since SCOTTY nearly resolved. HLD-started atorvastatin 40. Respiratory - No history of pulmonary disease Currently maintaining oxygen saturations without respiratory distress on room air Continuous monitoring pulse ox GI - DM1 full liquid diet Epigastric abdominal discomfort/burning Likely secondary to the repeated episodes of dry heaving; gastritis May also be cardiac symptom Started Reglan 10 daily today Transitioned from Pepcid IV daily to BID to protonix daily. if gastritis sxs continue, change protonix to bid low threshold to stop reglan since has had prolonged qt during several days this admission recheck ecg in AM to check qtc RENAL/LYTES - SCOTTY on CKD patient presents with creatinine 2.5 with baseline 1.3-1.5, history of diabetic nephropathy -Improving, near baseline. 1.46 Cr today -Hold losartan -Hold nephrotoxic agents and renally adjust medications -Monitor - Strict I's and O's, has roa 24 hr Is/Os 8.7L in 2.3L out. Cumulative 12.8L in 3L out. Because of significant net positive and recent decreased EF on echo, caution against hypervolemia. Decreased IV fluid rate from 200/hr to 50/hr. ENDO - DKA, resolved presented with elevated BHA, positive ketones in urinalysis, initial BSG 700, a nd HAGMA -AG closed, acidosis resolved. Will restart diet. -Currently on insulin drip, transitioning to SQ Hypothyroidism continue Synthroid HEME - H&H stable, monitor ID - Pneumonia Leukocytosis 20 at admission which may be inflammatory due to DKA. Procalcitonin 8.09 at admission. Repeat procalc ordered in AM. cxr w/ basilar airspace opacities on admission cxr, resolved on repeat cxr, presumably s/p 2 days of Zosyn 48 hours of empiric zosyn expires tomorrow AM; will defer to hospitalist team to transition to PO regimen LINES/IV ACCESS: Peripheral IVs DVT PROPHYLAXIS: Continue heparin drip, per cards, 48 hours total. dispo: stable for downgrade to PCU (2) Acute non-ST elevation myocardial infarction (NSTEMI): (3) Diabetes type 1, uncontrolled: (4) Hypertension: (5) Hypothyroidism: (6) Depression: (7) SCOTTY (acute kidney injury): (8) Hypercholesterolemia: Admission and Anticipated Discharge Date Admission Date: January 03, 2021 Supervising Physician Co-Signing Physician Notes Dr. Cevallos was the resident-physician during care of patient. I separately evaluated patient for styles portions of the history and the exam. I was present during the critical portion of medical decision making, and I discussed the case with the resident. I generally agree with the findings and plan except for any additions/exceptions noted. Patient seen and examined at bedside. No acute distress. Patient nausea as well as dry heaving has decreased. She was able to tolerate p.o. medications. Nicardipine has been off since 1 hour. She was given p.o. Coreg. Denies any chest pain, no abdominal pain. No headache, no dysuria Constitutional: No acute distress HEENT: EOMI, PERRLA Respiratory system: Good air entry bilaterally, no wheeze, rhonchi, mild crackles bilateral lower lobes more on the right side CVS: S1-S2 positive, no murmurs or gallops Abdomen: Soft, nontender, nondistended, positive bowel sounds x4 Extremities: +2 pulses bilaterally radialis/ dorsalis pedis, no cyanosis, no edema Neuro: Awake alert oriented x3 Psych: Flat mood and affect G/U: No Roa --Prophylaxis VTE: Heparin drip GI: Protonix Lines: Peripheral Diet: Clear liquid Plan: In/out: +5.4 L, urine output 2300 Patient gap has closed. Patient still is on low-dose insulin. We will try to get rid of it and start bridging with patient's own pump. Decrease the IV fluid rate to 50 mL/h Patient troponin has peaked to 37. Cardiology is already on board. There are no ST changes appreciated on the EKG. Continue with heparin drip given the history of cardiomyopathy that the patient has she will most likely need cardiac cath Plavix has been started SCOTTY is improving. Patient is making good amount of urine. We will get psychiatry involved given the withdrawn and flat affect that the patient has been showing. If the patient is able to be kept off nicardipine drip and she is able to tolerate p.o. we will downgrade the patient to medical floor Please note the above document was generated using voice recognition software. It may contain grammatical, syntax or spelling errors.Any formal questions or concerns about the content, text or information contained within the body of this dictation should be directly addressed to the provider for clarification. Subjective Patient has epigastric discomfort. Regarding her intractable nausea/vomiting that she had yesterday, she continues to have nausea and dry heaving, but this is slightly improved today. Patient tolerated some PO such as a sip of juice and her home PO coreg. diabetes educator and cardiology are following. Planning to transition to home pump. Review of Systems Review of Systems: ROS limited due to patient cooperation. Yesterday, she declined to answer any questions. Today, she responded some. See HPI. She grossly denies other symptoms. Denies shortness of breath. Physical Exam Physical Exam: General: Grossly A&O. NAD. HEENT: Atraumatic, normocephalic. EOMI Pulm: CTAB. -wheezes, -rales, -rhonchi. No respiratory distress. Cardiac: RRR, -mrg. Abdominal: Patient declines abdominal exam. Affect: Withdrawn affect, improved yesterday. During yesterday's exam, patient would refuse to speak and ignore multiple nurses and providers, however, she was uncomfortable from the intractable nausea/vomiting most of yesterday. Today, she was more cooperative. Results & Data Results & Data ([facility]) Vital Signs (Past 12 Hours) Vital Signs Vitals this AM: (prior to use of cardene drip) HR mostly 90s. RR intermittent in 20s. BP had max of 190/104 overnight, had long period of 150s systolic. Saturating well on room air. Temp Pulse Resp BP Pulse Ox 01/04/21 06:43 103 H 14 177/97 H 01/04/21 06:13 111 H 25 H 190/104 H 95 01/04/21 05:30 91 H 25 H 180/98 H 98 01/04/21 04:13 37.0 C 91 H 26 H 159/80 H 96 01/04/21 03:21 92 H 24 175/92 H 98 01/04/21 02:14 96 H 27 H 120/84 97 01/04/21 01:13 94 H 16 152/79 H 99 01/04/21 00:13 37.1 C 99 H 21 152/90 H 97 01/03/21 23:13 98 H 17 142/76 H 99 01/03/21 22:14 91 H 25 H 153/67 H 98 01/03/21 21:13 93 H 20 134/71 98 01/03/21 20:13 98 H 27 H 153/82 H Laboratory Results wbc 22.29->18.07. Hb stable 12.3. Most recent abg acidosis resolved pH 7.36- >7.42. HypoNa resolved. SCOTTY much improved 2.68 admission. 1.46 this AM. POCs max of 317 yest evening, trended down, 189 this AM. Ca 7.4 corrected 8.8. Recheck Mg next lab. CK 438H. trop peaked at 37, since downtrended 34->27.4->24.3 BHA downtrended from 40s down to 11.82 UDS pos for MDMA (reflex pending) and pos. Neg for salicylates and acetaminophen. BC prelim NG 24 hours. 01/03 4pm ecg ~unchanged from previous. Cardiac Enzymes 01/03/21 01/03/21 01/03/21 Range/Units 10:09 16:17 22:13 AST (15-37) U/L Troponin I 34.000 H* 37.300 H* 27.400 H* (0-0.045) ng/ml 01/04/21 Range/Units 04:39 AST 43 H (15-37) U/L Troponin I 24.300 H* (0-0.045) ng/ml Coagulation 01/03/21 01/03/21 01/04/21 Range/Units 12:30 22:13 04:39 APTT 43.2 H 37.9 H 52.6 H* (21.0-31.0) Seconds CBC 01/03/21 01/04/21 Range/Units 17:26 04:39 WBC 22.29 H 18.07 H (4.8-10.8) K/uL RBC 3.65 L 3.84 L (4.2-5.4) M/uL Hgb 11.6 L 12.3 (12.0-16.0) g/dL Hct 33.0 L 34.9 L (37-47) % Plt Count 329 335 (130-400) K/uL Neut # (Auto) 18.74 H 15.13 H (1.4-6.5) K/uL Lymph # (Auto) 1.91 1.90 (1.2-3.4) K/uL [place] # (Auto) 1.46 H 0.96 H (0.11-0.59) K/uL Eos # (Auto) 0.00 0.00 (0-0.5) K/uL Baso # (Auto) 0.01 0.01 (0-0.2) K/uL Comprehensive Metabolic Panel 01/03/21 01/03/21 01/03/21 Range/Units 08:57 12:30 16:17 Sodium 139 137 134 L (136-145) mmol/L Potassium 3.7 4.0 4.3 (3.5-5.1) mmol/L Chloride 107 106 103 (98-107) mmol/L Carbon Dioxide 23 23 21 (21-32) mmol/L BUN 39 H 33 H 28 H (7-18) mg/dl Creatinine 2.18 H 1.88 H D 1.68 H (0.6-1.2) mg/dl Glucose 180 H 141 H 260 H (70-99) mg/dl Calcium 8.2 L 8.0 L 7.7 L (8.5-10.1) mg/dl AST (15-37) U/L ALT (12-78) U/L Alkaline Phosphatase (45-117) U/L Total Protein (6.4-8.2) gm/dl Albumin (3.4-5.0) gm/dl 01/03/21 01/04/21 Range/Units 20:51 04:39 Sodium 133 L 138 (136-145) mmol/L Potassium 4.1 3.9 (3.5-5.1) mmol/L Chloride 104 109 H (98-107) mmol/L Carbon Dioxide 20 L 23 (21-32) mmol/L BUN 27 H 19 H (7-18) mg/dl Creatinine 1.67 H 1.46 H (0.6-1.2) mg/dl Glucose 331 H* 124 H (70-99) mg/dl Calcium 7.3 L 7.4 L (8.5-10.1) mg/dl AST 43 H (15-37) U/L ALT 20 (12-78) U/L Alkaline Phosphatase 72 (45-117) U/L Total Protein 6.6 (6.4-8.2) gm/dl Albumin 2.3 L (3.4-5.0) gm/dl Intake and Output 01/03/21 01/04/21 01/04/21 22:59 06:59 14:59 Intake Total 2920.032 / 8721.759 3458.002 / 8721.759 22.064 / 22.064 Output Total 700 / 2300 1600 / 2300 Balance 2220.032 / 6421.759 1858.002 / 6421.759 22.064 / 22.064 Intake: IV 2905.032 / 8706.759 3458.002 / 8706.759 22.064 / 22.064 D5w and 1/2Nss + 20Meq KCl 20 1000 / 1000 meq In 1,000 ml @ 200 mls/hr IV .Q5H [facility] Rx#:[id number] Heparin Sodium/Dextrose 25,000 132.300 / 345.583 120.533 / 345.583 13.867 / 13.867 units In 500 ml @ 800 UNITS/HR 16 mls/hr IV .Q24H [facility] Rx#: [id number] Insulin Regular 250 units In 20.632 / 110.742 29.635 / 110.742 0.697 / 0.697 Sodium Chloride 0.9% 247.5 ml @ 3.9 UNITS/HR 3.9 mls/hr IV . Q24H [facility] Rx#:[id number] Magnesium Sulfate / D5w 1 gm In 93.333 / 193.333 100 / 193.333 100 ml @ 50 mls/hr IV Q2H [facility] Rx#:[id number] Nss + 20Meq KCl 20 meq In 1,000 2973.334 / 2973.334 ml @ 200 mls/hr IV .Q5H [facility] Rx #:[id number] Piperacillin/Tazobactam 4.5 gm 120 / 360.0 120.0 / 360.0 In Dextrose 5% 100 ml @ 30 mls/ hr IV Q8H [facility] Rx#:[id number] Potassium Chloride 40 meq In 1020 / 2040 Sodium Chloride 0.45 % 1,000 ml @ 200 mls/hr IV .Q5H6M [facility] Rx# :[id number] Promethazine HCl 12.5 mg In 94.267 / 195.267 50.5 / 195.267 Sodium Chloride 0.9% 50 ml @ 202 mls/hr IV Q6H PRN Rx#: [id number] niCARdipine 25 mg In Sodium 424.5 / 488.5 64.0 / 488.5 7.5 / 7.5 Chloride 0.9% 240 ml @ 2.5 MG/ HR 25 mls/hr IV .Q10H [facility] Rx#: [id number] Oral 15 / 15 Output: Urine 700 / 2300 1600 / 2300 Other: Other Intake Source sips # Unmeasured Voids 2 Weight 78.471 kg 80.3 kg Weight Measurement Method Built in [facility] Resident Activity Tracking Resident Involvement: Resident Care Provided Care Provided: Adult Hospital Medicine (1) DKA (diabetic ketoacidosis) Diabetes mellitus complication detail: without coma Diabetes mellitus type: type 1 Qualified Code(s): E10.10 - Type 1 diabetes mellitus with ketoacidosis without coma
[2021-01-04] MEDS: INSULIN REGULAR 250 UNITS in SODIUM CHLORIDE 0.9% 247.5 ML IV SCH (07:38)
[2021-01-04] MEDS: PANTOprazole 40 MG in SYRINGE 0 ML IV SCH ×2 (07:49→21:18)
[2021-01-04] MEDS: PATIENT'S OWN ORAL CONTRACEPTIVE PO SCH (07:51)
[2021-01-04] MEDS: INSULIN ASPART 100 UNITS/ML 3 ML PEN SC SCH ×4 (07:53→21:19)
[2021-01-04] MEDS: buPROPion XL 300 MG TABCR PO SCH (08:21)
[2021-01-04] MEDS: MULTIVITAMIN TAB PO SCH (08:22)
[2021-01-04] MEDS: DULoxetine HCL 60 MG CAP PO SCH (08:22)
[2021-01-04] MEDS ORDERED: FAMOTIDINE 20 MG in SYRINGE 3 ML IV SCH (09:00)
[2021-01-04] MEDS: ATORVASTATIN 40 MG TAB PO SCH (09:43)
[2021-01-04] MEDS ORDERED: INSULIN DETEMIR FLEXPEN/FLEX TOUCH 100 UNITS/ML 3ML SC ONE (11:00)
--- NOTE | 2021-01-04 11:52 | Cardiology Progress Note ---
Date of Service January 04, 2021 Assessment & Plan (1) Acute non-ST elevation myocardial infarction (NSTEMI): (2) Hypertension: (3) Hypercholesterolemia: Plan: ASSESSMENT/PLAN: 1. NSTEMI: No angina. Presented with DKA. Multiple risk factors for CAD with wall motion abnormalities on echo troponin peaked at 37.3. There is concern for underlying CAD. There is no urgent indication for cardiac catheterization. We discussed cardiac catheterization today, including risks and benefits. She was made aware that CT surgery is not available at this facility. This was also discussed with her as per request, via telephone. She would like to think things over. Continue aspirin 81 mg daily. Continue heparin drip for a total of 48 hours. Will start Plavix 75 mg daily. Continue high-intensity statin therapy and beta-mack. 2. Hypertension: Blood pressure better controlled. She is now taking her home dose of carvedilol. Consider resuming home ARB. 3. Dyslipidemia: High-intensity statin therapy initiated during this hospital stay. 4. Acute on chronic renal insufficiency: Has baseline CKD and her renal function has returned to baseline. 5. Disposition: I will be away from the hospital for the next few days. Please call the on-call refinery operator light ends recovery for any questions or concerns. Patient's was contacted via telephone and updated from a cardiology perspective. Admission and Anticipated Discharge Date Admission Date: January 03, 2021 Subjective She was seen this morning. She denies angina or shortness of breath. She has burning in her chest with oral intake, but otherwise denies chest pain. She continues to feel nauseated with dry heaving at times. Overall, she is feeling better today than yesterday. She remains tired. Review of systems: As above. Physical Exam Physical Exam: Gen.: No acute distress. Alert. HEENT: Anicteric sclera. Neck: No appreciable JVD. Cardiac: No ventricular heave. Regular. Normal S1-S2. No murmurs, rubs, or gallops. Pulmonary: Clear to auscultation bilaterally without wheezes, rales, or rhonchi. Abdomen: Soft, nontender, nondistended, with hypoactive bowel sounds. No bruits noted. Extremities: 2+ radial pulses bilaterally. 2+ posterior tibialis pulses bilate rally. No edema or cyanosis. Psychiatric: Affect appears appropriate. Results & Data ([facility]) Vital Signs (Past 12 Hours) Vital Signs Temp Pulse Resp BP Pulse Ox 01/04/21 08:43 90 16 138/83 98 01/04/21 08:13 98 H 15 132/88 100 01/04/21 08:00 80 01/04/21 07:43 99 H 23 139/74 99 01/04/21 07:13 102 H 24 156/79 H 95 01/04/21 06:43 103 H 14 177/97 H 01/04/21 06:13 111 H 25 H 190/104 H 95 01/04/21 05:30 91 H 25 H 180/98 H 98 01/04/21 04:13 37.0 C 91 H 26 H 159/80 H 96 01/04/21 03:21 92 H 24 175/92 H 98 01/04/21 02:14 96 H 27 H 120/84 97 01/04/21 01:13 94 H 16 152/79 H 99 01/04/21 00:13 37.1 C 99 H 21 152/90 H 97 Intake & Output 01/02/21 01/03/21 01/04/21 01/05/21 06:59 06:59 06:59 06:59 Intake Total 3197.745 / 3197.953 8721.759 / 8721.759 849.231 / 849.231 Output Total 2300 / 2300 700 / 700 Balance 3197.745 / 3197.953 6421.759 / 6421.759 149.231 / 149.231 Weight 173 lb 177 lb 0.499 oz Laboratory Results Laboratory Results - last 24 hr 01/03/21 01/03/21 01/03/21 10:09 12:07 12:28 WBC RBC Hgb Hct MCV MCH MCHC RDW Std Deviation RDW Coeff of Eboni Plt Count MPV Immature Gran % (Auto) Neut % (Auto) Lymph % (Auto) Gilliam % (Auto) Eos % (Auto) Baso % (Auto) Neut # (Auto) Lymph # (Auto) Gilliam # (Auto) Eos # (Auto) Baso # (Auto) Immature Gran # (Auto) APTT PTT Ratio VBG pH Sodium Potassium Chloride Carbon Dioxide Anion Gap BUN Creatinine Est Cr Clr Drug Dosing Est GFR ( Amer) Est GFR (Non-Af Amer) BUN/Creatinine Ratio Glucose POC Glucose 109 H 130 H Lactate Calcium Phosphorus Magnesium Total Bilirubin AST ALT Alkaline Phosphatase Total Creatine Kinase Troponin I Total Protein Albumin Globulin Albumin/Globulin Ratio Beta-Hydroxybutyric Acd Procalcitonin 8.09 H Specimen Hemolysis Salicylates Urine Opiates Screen Ur Methadone, Qual Acetaminophen Urine Barbiturates Ur Phencyclidine (PCP) U Amphetamin/Meth Scrn Urine MDEA MDMA (Ecstasy) Screen MDMA Urine MDMA U Benzodiazepines Scrn Ur Cocaine Metabolite U Marijuana (THC) Screen U Marijuana THC Carboxy Drug Screen Comment 01/03/21 01/03/21 01/03/21 12:30 12:30 12:30 WBC RBC Hgb Hct MCV MCH MCHC RDW Std Deviation RDW Coeff of Eboni Plt Count MPV Immature Gran % (Auto) Neut % (Auto) Lymph % (Auto) Gilliam % (Auto) Eos % (Auto) Baso % (Auto) Neut # (Auto) Lymph # (Auto) Gilliam # (Auto) Eos # (Auto) Baso # (Auto) Immature Gran # (Auto) APTT 43.2 H PTT Ratio 1.6 VBG pH 7.43 H Sodium 137 Potassium 4.0 Chloride 106 Carbon Dioxide 23 Anion Gap 8.0 BUN 33 H Creatinine 1.88 H D Est Cr Clr Drug Dosing 39.0 Est GFR ( Amer) 38.3 Est GFR (Non-Af Amer) 33.1 BUN/Creatinine Ratio 17.5 Glucose 141 H POC Glucose Lactate Calcium 8.0 L Phosphorus 2.6 Magnesium 1.9 Total Bilirubin AST ALT Alkaline Phosphatase Total Creatine Kinase Troponin I Total Protein Albumin Globulin Albumin/Globulin Ratio Beta-Hydroxybutyric Acd Procalcitonin Specimen Hemolysis Salicylates Urine Opiates Screen Ur Methadone, Qual Acetaminophen Urine Barbiturates Ur Phencyclidine (PCP) U Amphetamin/Meth Scrn Urine MDEA MDMA (Ecstasy) Screen MDMA Urine MDMA U Benzodiazepines Scrn Ur Cocaine Metabolite U Marijuana (THC) Screen U Marijuana THC Carboxy Drug Screen Comment 01/03/21 01/03/21 01/03/21 12:47 13:11 14:11 WBC RBC Hgb Hct MCV MCH MCHC RDW Std Deviation RDW Coeff of Eboni Plt Count MPV Immature Gran % (Auto) Neut % (Auto) Lymph % (Auto) Gilliam % (Auto) Eos % (Auto) Baso % (Auto) Neut # (Auto) Lymph # (Auto) Gilliam # (Auto) Eos # (Auto) Baso # (Auto) Immature Gran # (Auto) APTT PTT Ratio VBG pH Sodium Potassium Chloride Carbon Dioxide Anion Gap BUN Creatinine Est Cr Clr Drug Dosing Est GFR ( Amer) Est GFR (Non-Af Amer) BUN/Creatinine Ratio Glucose POC Glucose 129 H 150 H 214 H Lactate Calcium Phosphorus Magnesium Total Bilirubin AST ALT Alkaline Phosphatase Total Creatine Kinase Troponin I Total Protein Albumin Globulin Albumin/Globulin Ratio Beta-Hydroxybutyric Acd Procalcitonin Specimen Hemolysis Salicylates Urine Opiates Screen Ur Methadone, Qual Acetaminophen Urine Barbiturates Ur Phencyclidine (PCP) U Amphetamin/Meth Scrn Urine MDEA MDMA (Ecstasy) Screen MDMA Urine MDMA U Benzodiazepines Scrn Ur Cocaine Metabolite U Marijuana (THC) Screen U Marijuana THC Carboxy Drug Screen Comment 01/03/21 01/03/21 01/03/21 15:14 16:17 16:17 WBC RBC Hgb Hct MCV MCH MCHC RDW Std Deviation RDW Coeff of Eboni Plt Count MPV Immature Gran % (Auto) Neut % (Auto) Lymph % (Auto) Gilliam % (Auto) Eos % (Auto) Baso % (Auto) Neut # (Auto) Lymph # (Auto) Gilliam # (Auto) Eos # (Auto) Baso # (Auto) Immature Gran # (Auto) APTT PTT Ratio VBG pH Sodium 134 L Potassium 4.3 Chloride 103 Carbon Dioxide 21 Anion Gap 9.0 BUN 28 H Creatinine 1.68 H Est Cr Clr Drug Dosing 43.6 Est GFR ( Amer) 43.9 Est GFR (Non-Af Amer) 37.9 BUN/Creatinine Ratio 16.7 Glucose 260 H POC Glucose 278 H Lactate Calcium 7.7 L Phosphorus 2.7 Magnesium 1.7 L Total Bilirubin AST ALT Alkaline Phosphatase Total Creatine Kinase Troponin I Total Protein Albumin Globulin Albumin/Globulin Ratio Beta-Hydroxybutyric Acd Procalcitonin Specimen Hemolysis Salicylates < 1.7 L Urine Opiates Screen Ur Methadone, Qual Acetaminophen < 2 L Urine Barbiturates Ur Phencyclidine (PCP) U Amphetamin/Meth Scrn Urine MDEA MDMA (Ecstasy) Screen MDMA Urine MDMA U Benzodiazepines Scrn Ur Cocaine Metabolite U Marijuana (THC) Screen U Marijuana THC Carboxy Drug Screen Comment 01/03/21 01/03/21 01/03/21 16:17 16:22 16:24 WBC RBC Hgb Hct MCV MCH MCHC RDW Std Deviation RDW Coeff of Eboni Plt Count MPV Immature Gran % (Auto) Neut % (Auto) Lymph % (Auto) Gilliam % (Auto) Eos % (Auto) Baso % (Auto) Neut # (Auto) Lymph # (Auto) Gilliam # (Auto) Eos # (Auto) Baso # (Auto) Immature Gran # (Auto) APTT PTT Ratio VBG pH 7.41 Sodium Potassium Chloride Carbon Dioxide Anion Gap BUN Creatinine Est Cr Clr Drug Dosing Est GFR ( Amer) Est GFR (Non-Af Amer) BUN/Creatinine Ratio Glucose POC Glucose 253 H Lactate Calcium Phosphorus Magnesium Total Bilirubin AST ALT Alkaline Phosphatase Total Creatine Kinase Troponin I 37.300 H* Total Protein Albumin Globulin Albumin/Globulin Ratio Beta-Hydroxybutyric Acd Procalcitonin Specimen Hemolysis Salicylates Urine Opiates Screen Ur Methadone, Qual Acetaminophen Urine Barbiturates Ur Phencyclidine (PCP) U Amphetamin/Meth Scrn Urine MDEA MDMA (Ecstasy) Screen MDMA Urine MDMA U Benzodiazepines Scrn Ur Cocaine Metabolite U Marijuana (THC) Screen U Marijuana THC Carboxy Drug Screen Comment 01/03/21 01/03/21 01/03/21 17:25 17:26 17:26 WBC 22.29 H RBC 3.65 L Hgb 11.6 L Hct 33.0 L MCV 90.4 D MCH 31.8 MCHC 35.2 RDW Std Deviation 42.1 RDW Coeff of Eboni 12.8 Plt Count 329 MPV 9.2 Immature Gran % (Auto) 0.8 Neut % (Auto) 84.0 Lymph % (Auto) 8.6 Gilliam % (Auto) 6.6 Eos % (Auto) 0.0 Baso % (Auto) 0.0 Neut # (Auto) 18.74 H Lymph # (Auto) 1.91 Gilliam # (Auto) 1.46 H Eos # (Auto) 0.00 Baso # (Auto) 0.01 Immature Gran # (Auto) 0.17 H APTT PTT Ratio VBG pH Sodium Potassium Chloride Carbon Dioxide Anion Gap BUN Creatinine Est Cr Clr Drug Dosing Est GFR ( Amer) Est GFR (Non-Af Amer) BUN/Creatinine Ratio Glucose POC Glucose 301 H* Lactate 1.4 Calcium Phosphorus Magnesium Total Bilirubin AST ALT Alkaline Phosphatase Total Creatine Kinase Troponin I Total Protein Albumin Globulin Albumin/Globulin Ratio Beta-Hydroxybutyric Acd Procalcitonin Specimen Hemolysis Salicylates Urine Opiates Screen Ur Methadone, Qual Acetaminophen Urine Barbiturates Ur Phencyclidine (PCP) U Amphetamin/Meth Scrn Urine MDEA MDMA (Ecstasy) Screen MDMA Urine MDMA U Benzodiazepines Scrn Ur Cocaine Metabolite U Marijuana (THC) Screen U Marijuana THC Carboxy Drug Screen Comment 01/03/21 01/03/21 01/03/21 17:26 17:55 17:55 WBC RBC Hgb Hct MCV MCH MCHC RDW Std Deviation RDW Coeff of Eboni Plt Count MPV Immature Gran % (Auto) Neut % (Auto) Lymph % (Auto) Gilliam % (Auto) Eos % (Auto) Baso % (Auto) Neut # (Auto) Lymph # (Auto) Gilliam # (Auto) Eos # (Auto) Baso # (Auto) Immature Gran # (Auto) APTT PTT Ratio VBG pH Sodium Potassium Chloride Carbon Dioxide Anion Gap BUN Creatinine Est Cr Clr Drug Dosing Est GFR ( Amer) Est GFR (Non-Af Amer) BUN/Creatinine Ratio Glucose POC Glucose Lactate Calcium Phosphorus Magnesium Total Bilirubin AST ALT Alkaline Phosphatase Total Creatine Kinase 438 H Troponin I Total Protein Albumin Globulin Albumin/Globulin Ratio Beta-Hydroxybutyric Acd 23.21 H Procalcitonin Specimen Hemolysis Salicylates Urine Opiates Screen Neg Ur Methadone, Qual Neg Acetaminophen Urine Barbiturates Neg Ur Phencyclidine (PCP) Neg U Amphetamin/Meth Scrn Neg Urine MDEA Pending MDMA (Ecstasy) Screen Pos H MDMA Pending Urine MDMA Pending U Benzodiazepines Scrn Neg Ur Cocaine Metabolite Neg U Marijuana (THC) Screen Pos H U Marijuana THC Carboxy Pending Drug Screen Comment Pending 01/03/21 01/03/21 01/03/21 18:34 19:40 20:38 WBC RBC Hgb Hct MCV MCH MCHC RDW Std Deviation RDW Coeff of Eboni Plt Count MPV Immature Gran % (Auto) Neut % (Auto) Lymph % (Auto) Gilliam % (Auto) Eos % (Auto) Baso % (Auto) Neut # (Auto) Lymph # (Auto) Gilliam # (Auto) Eos # (Auto) Baso # (Auto) Immature Gran # (Auto) APTT PTT Ratio VBG pH Sodium Potassium Chloride Carbon Dioxide Anion Gap BUN Creatinine Est Cr Clr Drug Dosing Est GFR ( Amer) Est GFR (Non-Af Amer) BUN/Creatinine Ratio Glucose POC Glucose 291 H 317 H* 315 H* Lactate Calcium Phosphorus Magnesium Total Bilirubin AST ALT Alkaline Phosphatase Total Creatine Kinase Troponin I Total Protein Albumin Globulin Albumin/Globulin Ratio Beta-Hydroxybutyric Acd Procalcitonin Specimen Hemolysis Salicylates Urine Opiates Screen Ur Methadone, Qual Acetaminophen Urine Barbiturates Ur Phencyclidine (PCP) U Amphetamin/Meth Scrn Urine MDEA MDMA (Ecstasy) Screen MDMA Urine MDMA U Benzodiazepines Scrn Ur Cocaine Metabolite U Marijuana (THC) Screen U Marijuana THC Carboxy Drug Screen Comment 01/03/21 01/03/21 01/03/21 20:51 20:51 21:15 WBC RBC Hgb Hct MCV MCH MCHC RDW Std Deviation RDW Coeff of Eboni Plt Count MPV Immature Gran % (Auto) Neut % (Auto) Lymph % (Auto) Gilliam % (Auto) Eos % (Auto) Baso % (Auto) Neut # (Auto) Lymph # (Auto) Gilliam # (Auto) Eos # (Auto) Baso # (Auto) Immature Gran # (Auto) APTT PTT Ratio VBG pH 7.42 H Sodium 133 L Potassium 4.1 Chloride 104 Carbon Dioxide 20 L Anion Gap 10.0 BUN 27 H Creatinine 1.67 H Est Cr Clr Drug Dosing 43.9 Est GFR ( Amer) 44.2 Est GFR (Non-Af Amer) 38.1 BUN/Creatinine Ratio 15.9 Glucose 331 H* POC Glucose 268 H Lactate Calcium 7.3 L Phosphorus 2.9 Magnesium 2.8 H Total Bilirubin AST ALT Alkaline Phosphatase Total Creatine Kinase Troponin I Total Protein Albumin Globulin Albumin/Globulin Ratio Beta-Hydroxybutyric Acd 11.82 H Procalcitonin Specimen Hemolysis Salicylates Urine Opiates Screen Ur Methadone, Qual Acetaminophen Urine Barbiturates Ur Phencyclidine (PCP) U Amphetamin/Meth Scrn Urine MDEA MDMA (Ecstasy) Screen MDMA Urine MDMA U Benzodiazepines Scrn Ur Cocaine Metabolite U Marijuana (THC) Screen U Marijuana THC Carboxy Drug Screen Comment 01/03/21 01/03/21 01/03/21 22:13 22:13 22:14 WBC RBC Hgb Hct MCV MCH MCHC RDW Std Deviation RDW Coeff of Eboni Plt Count MPV Immature Gran % (Auto) Neut % (Auto) Lymph % (Auto) Gilliam % (Auto) Eos % (Auto) Baso % (Auto) Neut # (Auto) Lymph # (Auto) Gilliam # (Auto) Eos # (Auto) Baso # (Auto) Immature Gran # (Auto) APTT 37.9 H PTT Ratio 1.4 VBG pH Sodium Potassium Chloride Carbon Dioxide Anion Gap BUN Creatinine Est Cr Clr Drug Dosing Est GFR ( Amer) Est GFR (Non-Af Amer) BUN/Creatinine Ratio Glucose POC Glucose 277 H Lactate Calcium Phosphorus Magnesium Total Bilirubin AST ALT Alkaline Phosphatase Total Creatine Kinase Troponin I 27.400 H* Total Protein Albumin Globulin Albumin/Globulin Ratio Beta-Hydroxybutyric Acd Procalcitonin Specimen Hemolysis Salicylates Urine Opiates Screen Ur Methadone, Qual Acetaminophen Urine Barbiturates Ur Phencyclidine (PCP) U Amphetamin/Meth Scrn Urine MDEA MDMA (Ecstasy) Screen MDMA Urine MDMA U Benzodiazepines Scrn Ur Cocaine Metabolite U Marijuana (THC) Screen U Marijuana THC Carboxy Drug Screen Comment 01/03/21 01/04/21 01/04/21 23:22 00:31 01:12 WBC RBC Hgb Hct MCV MCH MCHC RDW Std Deviation RDW Coeff of Eboni Plt Count MPV Immature Gran % (Auto) Neut % (Auto) Lymph % (Auto) Gilliam % (Auto) Eos % (Auto) Baso % (Auto) Neut # (Auto) Lymph # (Auto) Gilliam # (Auto) Eos # (Auto) Baso # (Auto) Immature Gran # (Auto) APTT PTT Ratio VBG pH Sodium Potassium Chloride Carbon Dioxide Anion Gap BUN Creatinine Est Cr Clr Drug Dosing Est GFR ( Amer) Est GFR (Non-Af Amer) BUN/Creatinine Ratio Glucose POC Glucose 238 H 222 H 204 H Lactate Calcium Phosphorus Magnesium Total Bilirubin AST ALT Alkaline Phosphatase Total Creatine Kinase Troponin I Total Protein Albumin Globulin Albumin/Globulin Ratio Beta-Hydroxybutyric Acd Procalcitonin Specimen Hemolysis Salicylates Urine Opiates Screen Ur Methadone, Qual Acetaminophen Urine Barbiturates Ur Phencyclidine (PCP) U Amphetamin/Meth Scrn Urine MDEA MDMA (Ecstasy) Screen MDMA Urine MDMA U Benzodiazepines Scrn Ur Cocaine Metabolite U Marijuana (THC) Screen U Marijuana THC Carboxy Drug Screen Comment 01/04/21 01/04/21 01/04/21 02:22 03:09 04:39 WBC RBC Hgb Hct MCV MCH MCHC RDW Std Deviation RDW Coeff of Eboni Plt Count MPV Immature Gran % (Auto) Neut % (Auto) Lymph % (Auto) Gilliam % (Auto) Eos % (Auto) Baso % (Auto) Neut # (Auto) Lymph # (Auto) Gilliam # (Auto) Eos # (Auto) Baso # (Auto) Immature Gran # (Auto) APTT 52.6 H* PTT Ratio 2.0 VBG pH Sodium Potassium Chloride Carbon Dioxide Anion Gap BUN Creatinine Est Cr Clr Drug Dosing Est GFR ( Amer) Est GFR (Non-Af Amer) BUN/Creatinine Ratio Glucose POC Glucose 155 H 130 H Lactate Calcium Phosphorus Magnesium Total Bilirubin AST ALT Alkaline Phosphatase Total Creatine Kinase Troponin I Total Protein Albumin Globulin Albumin/Globulin Ratio Beta-Hydroxybutyric Acd Procalcitonin Specimen Hemolysis Salicylates Urine Opiates Screen Ur Methadone, Qual Acetaminophen Urine Barbiturates Ur Phencyclidine (PCP) U Amphetamin/Meth Scrn Urine MDEA MDMA (Ecstasy) Screen MDMA Urine MDMA U Benzodiazepines Scrn Ur Cocaine Metabolite U Marijuana (THC) Screen U Marijuana THC Carboxy Drug Screen Comment 01/04/21 01/04/21 01/04/21 04:39 04:39 04:41 WBC 18.07 H RBC 3.84 L Hgb 12.3 Hct 34.9 L MCV 90.9 MCH 32.0 MCHC 35.2 RDW Std Deviation 42.9 RDW Coeff of Eboni 12.9 Plt Count 335 MPV 8.8 Immature Gran % (Auto) 0.4 Neut % (Auto) 83.7 Lymph % (Auto) 10.5 Gilliam % (Auto) 5.3 Eos % (Auto) 0.0 Baso % (Auto) 0.1 Neut # (Auto) 15.13 H Lymph # (Auto) 1.90 Gilliam # (Auto) 0.96 H Eos # (Auto) 0.00 Baso # (Auto) 0.01 Immature Gran # (Auto) 0.07 H APTT PTT Ratio VBG pH Sodium 138 Potassium 3.9 Chloride 109 H Carbon Dioxide 23 Anion Gap 6.0 BUN 19 H Creatinine 1.46 H Est Cr Clr Drug Dosing 50.2 Est GFR ( Amer) 52.0 Est GFR (Non-Af Amer) 44.9 BUN/Creatinine Ratio 13.2 Glucose 124 H POC Glucose 117 H Lactate Calcium 7.4 L Phosphorus Magnesium Total Bilirubin 0.4 D AST 43 H ALT 20 Alkaline Phosphatase 72 Total Creatine Kinase Troponin I 24.300 H* Total Protein 6.6 Albumin 2.3 L Globulin 4.3 H Albumin/Globulin Ratio 0.5 L Beta-Hydroxybutyric Acd Procalcitonin Specimen Hemolysis Salicylates Urine Opiates Screen Ur Methadone, Qual Acetaminophen Urine Barbiturates Ur Phencyclidine (PCP) U Amphetamin/Meth Scrn Urine MDEA MDMA (Ecstasy) Screen MDMA Urine MDMA U Benzodiazepines Scrn Ur Cocaine Metabolite U Marijuana (THC) Screen U Marijuana THC Carboxy Drug Screen Comment 01/04/21 01/04/21 01/04/21 05:21 06:37 07:41 WBC RBC Hgb Hct MCV MCH MCHC RDW Std Deviation RDW Coeff of Eboni Plt Count MPV Immature Gran % (Auto) Neut % (Auto) Lymph % (Auto) Gilliam % (Auto) Eos % (Auto) Baso % (Auto) Neut # (Auto) Lymph # (Auto) Gilliam # (Auto) Eos # (Auto) Baso # (Auto) Immature Gran # (Auto) APTT PTT Ratio VBG pH Sodium Potassium Chloride Carbon Dioxide Anion Gap BUN Creatinine Est Cr Clr Drug Dosing Est GFR ( Amer) Est GFR (Non-Af Amer) BUN/Creatinine Ratio Glucose POC Glucose 120 H 189 H 261 H Lactate Calcium Phosphorus Magnesium Total Bilirubin AST ALT Alkaline Phosphatase Total Creatine Kinase Troponin I Total Protein Albumin Globulin Albumin/Globulin Ratio Beta-Hydroxybutyric Acd Procalcitonin Specimen Hemolysis Salicylates Urine Opiates Screen Ur Methadone, Qual Acetaminophen Urine Barbiturates Ur Phencyclidine (PCP) U Amphetamin/Meth Scrn Urine MDEA MDMA (Ecstasy) Screen MDMA Urine MDMA U Benzodiazepines Scrn Ur Cocaine Metabolite U Marijuana (THC) Screen U Marijuana THC Carboxy Drug Screen Comment 01/04/21 01/04/21 01/04/21 08:46 09:46 10:43 WBC RBC Hgb Hct MCV MCH MCHC RDW Std Deviation RDW Coeff of Eboni Plt Count MPV Immature Gran % (Auto) Neut % (Auto) Lymph % (Auto) Gilliam % (Auto) Eos % (Auto) Baso % (Auto) Neut # (Auto) Lymph # (Auto) Gilliam # (Auto) Eos # (Auto) Baso # (Auto) Immature Gran # (Auto) APTT PTT Ratio VBG pH Sodium Potassium Chloride Carbon Dioxide Anion Gap BUN Creatinine Est Cr Clr Drug Dosing Est GFR ( Amer) Est GFR (Non-Af Amer) BUN/Creatinine Ratio Glucose POC Glucose 239 H 211 H 179 H Lactate Calcium Phosphorus Magnesium Total Bilirubin AST ALT Alkaline Phosphatase Total Creatine Kinase Troponin I Total Protein Albumin Globulin Albumin/Globulin Ratio Beta-Hydroxybutyric Acd Procalcitonin Specimen Hemolysis Salicylates Urine Opiates Screen Ur Methadone, Qual Acetaminophen Urine Barbiturates Ur Phencyclidine (PCP) U Amphetamin/Meth Scrn Urine MDEA MDMA (Ecstasy) Screen MDMA Urine MDMA U Benzodiazepines Scrn Ur Cocaine Metabolite U Marijuana (THC) Screen U Marijuana THC Carboxy Drug Screen Comment Diagnostic Findings Telemetry personally reviewed: Sinus rhythm. ECG personally reviewed 01/04/2021: Sinus rhythm 93 beats per minute. Inferolateral ST/T-wave abnormality. Medications Administered Current Inpatient Medications Aspirin (Aspirin 81 Mg Ectab) 81 mg PO QAM RYANN Stop: 02/03/21 08:59 Last Admin: 01/04/21 07:50 Dose: Not Given Documented by: Atorvastatin Calcium (Atorvastatin 40 Mg Tab) 40 mg PO Q24H RYANN Stop: 02/03/21 08:44 Last Admin: 01/04/21 09:43 Dose: 40 mg Documented by: Bupropion HCl (Bupropion Xl 300 Mg Tabcr) 300 mg PO DAILY RYANN Stop: 02/02/21 08:59 Last Admin: 01/04/21 08:21 Dose: 300 mg Documented by: Carvedilol (Carvedilol 25 Mg Tab) 25 mg PO BID RYANN Stop: 02/02/21 08:59 Last Admin: 01/04/21 07:10 Dose: 25 mg Documented by: Dextrose (Dextrose 50% 50 Ml Syringe) 25 - 50 ml IV UD PRN; Protocol PRN Reason: Hypoglycemia Protocol Stop: 02/02/21 00:44 Last Admin: 01/03/21 11:50 Dose: 25 ml Documented by: Duloxetine HCl (Duloxetine Hcl 60 Mg Cap) 60 mg PO DAILY RYANN Stop: 02/02/21 08:59 Last Admin: 01/04/21 08:22 Dose: 60 mg Documented by: Glucagon (Glucagon For Inj 1 Mg Vial) 1 mg IM UD PRN; Protocol PRN Reason: Hypoglycemia Protocol Stop: 02/02/21 00:44 Glucose (Glucose 40% Gel 15 Gm Tube) 15 - 30 gm PO UD PRN; Protocol PRN Reason: Hypoglycemia Protocol Stop: 02/02/21 00:44 Glucose (Glucose 10 Tabs/Tube) 4 - 8 tabs PO UD PRN; Protocol PRN Reason: Hypoglycemia Protocol Stop: 02/02/21 00:44 Insulin Human Regular 250 (units/ Sodium Chloride) 250 mls @ 2.3 mls/hr IV .Q24H RYANN; Protocol Stop: 02/02/21 00:29 Last Titration: 01/04/21 10:47 Dose: 1.8 units/hr, 1.8 mls/hr Documented by: Piperacillin Sod/Tazobactam (Sod 4.5 gm/ Dextrose) 120 mls @ 30 mls/hr IV Q8H RYANN; Protocol Stop: 01/05/21 05:59 Last Infusion: 01/04/21 09:54 Dose: Infused Documented by: Heparin Sodium/Dextrose (Heparin Sodium/Dextrose) 25,000 units in 500 mls @ 16 mls/hr IV .Q24H RYANN; Protocol Stop: 02/02/21 05:44 Last Titration: 01/04/21 07:01 Dose: 800 units/hr, 16 mls/hr Documented by: Promethazine HCl 12.5 mg/ (Sodium Chloride) 50.5 mls @ 202 mls/hr IV Q6H PRN PRN Reason: Nausea And Vomiting Stop: 02/02/21 07:07 Last Infusion: 01/04/21 06:42 Dose: Infused Documented by: Nicardipine HCl 25 mg/ Sodium (Chloride) 250 mls @ 0 mls/hr IV .Q0M RYANN; Protocol Stop: 02/02/21 14:59 Last Titration: 01/04/21 07:50 Dose: 0 mg/hr, 0 mls/hr Documented by: Potassium Chloride/Sodium Chloride (Normal Saline W/20 Meq Kcl) 20 meq in 1,000 mls @ 50 mls/hr IV .Q20H RYANN Stop: 02/02/21 18:59 Last Infusion: 01/04/21 09:11 Dose: 50 mls/hr Documented by: Pantoprazole Sodium 40 mg/ (Syringe) 10 mls @ 5 mls/min IV BID RYANN Stop: 02/03/21 08:59 Last Admin: 01/04/21 07:49 Dose: 5 mls/min Documented by: Insulin Aspart (Insulin Aspart 100 Units/Ml 3 Ml Pen) 0 units SC ACHS [facility] Stop: 02/02/21 07:29 Last Admin: 01/04/21 07:53 Dose: 2 units Documented by: Labetalol HCl (Labetalol Hcl Iv 5 Mg/Ml 20ml) 10 mg IV Q4H PRN PRN Reason: SBP >160 Stop: 02/02/21 14:59 Levothyroxine Sodium (Levothyroxine Sodium 100 Mcg Tablet) 100 mcg PO DAILYBB [facility] Stop: 02/02/21 06:29 Last Admin: 01/04/21 05:54 Dose: Not Given Documented by: Metoclopramide HCl (Metoclopramide Hcl 10 Mg Tablet) 10 mg PO DAILY [facility] Stop: 02/03/21 10:29 Miscellaneous (Carbohydrates For Hypoglycemia ) 15 - 30 gm PO PRN PRN PRN Reason: Hypoglycemia Treatment Stop: 02/02/21 00:44 Miscellaneous ( Control Pills: Order Awaiting Action) 1 ea N/A QS [facility] Stop: 02/02/21 07:59 Last Admin: 01/04/21 07:50 Dose: Not Given Documented by: Miscellaneous (Patient's Own Oral Contraceptive) 1 ea PO DAILY [facility] Stop: 02/03/21 08:59 Last Admin: 01/04/21 07:51 Dose: Not Given Documented by: Miscellaneous Information (Piperacill/Tazobac Consult Active) 1 ea N/A UD PRN PRN Reason: Consult Stop: 02/02/21 03:09 Miscellaneous Information (Pharmacy Glycemic Mgmt Consult) 1 ea N/A UD PRN PRN Reason: Consult Stop: 02/02/21 03:24 Multivitamins (Multivitamin Tab) 1 tab PO QAM [facility] Stop: 02/02/21 08:59 Last Admin: 01/04/21 08:22 Dose: 1 tab Documented by: Ondansetron HCl (Ondansetron Inj 2 Mg/Ml 2 Ml Vial) 4 mg IV Q6H PRN PRN Reason: Nausea And Vomiting Stop: 02/02/21 04:23 Last Admin: 01/03/21 05:36 Dose: 4 mg Documented by: PG Care Time/CCT Total # of Minutes Spent Total Time Spent with Patient: Total time spent is greater than 50% in coordi nation of care (as documented) at patient's floor/unit and/or counseling patient: Coding Level of Care Code 28565 Subseq Hosp Care Lvl 3 Diagnoses Acute non-ST elevation myocardial infarction (NSTEMI) I21.4 Hypertension I10 Hypercholesterolemia E78.00
--- NOTE | 2021-01-04 11:55 | Hospitalist Progress Note ---
Date of Service January 04, 2021 Assessment & Plan (1) DKA (diabetic ketoacidosis): Plan: Glucose 723 admission, anion gap 24. -> Patient started on insulin drip per protocol in the ED, and will be admitted to the ICU for further treatment. -> Gap closed by 01/03. - Still on gtt, but trying to move to basal-bolus. (2) Acute non-ST elevation myocardial infarction (NSTEMI): Plan: Troponin 0.117 upon admission, up to 34.0 on 01/03. Inferior wall motion abnormality on echo on 01/03. - Continue aspirin, carvedilol, statin as able - Continue hepatin x 48 hours. (Finish 01/05 @ 6am.) - Consulted cardiology -> Plan for non-emergent LHC. (3) Leukocytosis: Plan: Likely reactive from DKA. CXR on admission did show bilateral lower opacities, but PNA vs. atelectasis. - Continue empiric Zosyn per ICU - Monitor (4) Acute kidney injury superimposed on chronic kidney disease: Plan: Creatinine 2.68 on admission, with baseline 1.36 - 1.70. - Hold valsartan for now - Continue carvedilol and aspirin. -> Improving today. Cr down to 1.45. (5) Diabetes type 1, uncontrolled: Plan: A1c was 8.6% this admission. Patient typically uses insulin pump, which is broken, and will need replacement. - Plan for DKA as above (6) Hypothyroidism: Plan: TSH was 0.6 in 09/2020. - Continue levothyroxine 100 mcg daily (7) Asthma: Plan: No recent symptoms and not on any regular inhalers. - Monitor (8) Depression: Plan: Depression/eating disorder. Unclear status. - Continue bupropion and duloxetine (9) Eating disorder: Plan: See above (10) DVT prophylaxis: Plan: Heparin gtt for NSTEMI Admission and Anticipated Discharge Date Admission Date: January 03, 2021 Subjective More alert and oriented today. Feeling some better, but still having nausea and some dry heaving. Reports no fevers/chills, chest pain, shortness of breath. Physical Exam Constitutional: WD/WN, vitals as above + lethargic (More just tired.) Eyes: EOM intact bilaterally; no conjunctival abnormality ENMT: external ear and nose normal, oropharynx normal Neck: trachea midline, no thyromegaly normal visual inspection Respiratory: normal respiratory effort, lungs clear to auscultation no respiratory distress Cardiovascular: Rate/Rhythm: regular rate and regular rhythm Extremities: no edema Gastrointestinal (Abdomen): Inspection/Auscultation: abdomen normal to inspection; abdomen not distended Musculoskeletal: no cyanosis or clubbing, extremities motor strength 5/5 Skin: no rashes, warm and dry Neurologic: moves all extremities and awake Psychiatric: Orientation: alert, oriented to person and cooperative Results & Data Results & Data ([facility]) Vital Signs (Past 12 Hours) Vital Signs Temp Pulse Resp BP Pulse Ox 01/04/21 08:43 90 16 138/83 98 01/04/21 08:13 98 H 15 132/88 100 01/04/21 08:00 80 01/04/21 07:43 99 H 23 139/74 99 01/04/21 07:13 102 H 24 156/79 H 95 01/04/21 06:43 103 H 14 177/97 H 01/04/21 06:13 111 H 25 H 190/104 H 95 01/04/21 05:30 91 H 25 H 180/98 H 98 01/04/21 04:13 37.0 C 91 H 26 H 159/80 H 96 01/04/21 03:21 92 H 24 175/92 H 98 01/04/21 02:14 96 H 27 H 120/84 97 01/04/21 01:13 94 H 16 152/79 H 99 01/04/21 00:13 37.1 C 99 H 21 152/90 H 97 PG Care Time/CCT Total # of Minutes Spent Total Time Spent with Patient: Total time spent is greater than 50% in coordination of care (as documented) at patient's floor/unit and/or counseling patient: Coding Level of Care Code 45781 Subseq Hosp Care Lvl 3 Diagnoses DKA (diabetic ketoacidosis) E10.10 Diabetes mellitus complication detail: without coma Diabetes mellitus type: type 1 Acute non-ST elevation myocardial infarction (NSTEMI) I21.4 Acute kidney injury superimposed on chronic kidney disease N17.9; N18.9 Diabetes type 1, uncontrolled E10.65 Hypothyroidism E03.9 Asthma J45.909 Depression F32.9 Eating disorder F50.9 DVT prophylaxis Z29.9 Leukocytosis D72.829 (1) DKA (diabetic ketoacidosis) Diabetes mellitus complication detail: without coma Diabetes mellitus type: type 1 Qualified Code(s): E10.10 - Type 1 diabetes mellitus with ketoacidosis without coma
[2021-01-04] MEDS: METOCLOPRAMIDE HCL 10 MG TABLET PO SCH (12:16)
[2021-01-04] MEDS: CLOPIDOGREL BISULFATE 75 MG TAB PO SCH (12:16)
--- NOTE | 2021-01-04 13:36 | Pharmacy Report ---
Pharmacy Glycemic Short Note 2 - Date of Service January 04, 2021 - Glycemic Short BSG Results (Last 24 hours): 01/03/21 01/03/21 01/03/21 14:11 15:14 16:17 Glucose 260 H POC Glucose 214 H 278 H 01/03/21 01/03/21 01/03/21 16:22 17:25 18:34 Glucose POC Glucose 253 H 301 H* 291 H 01/03/21 01/03/21 01/03/21 19:40 20:38 20:51 Glucose 331 H* POC Glucose 317 H* 315 H* 01/03/21 01/03/21 01/03/21 21:15 22:14 23:22 Glucose POC Glucose 268 H 277 H 238 H 01/04/21 01/04/21 01/04/21 00:31 01:12 02:22 Glucose POC Glucose 222 H 204 H 155 H 01/04/21 01/04/21 01/04/21 03:09 04:39 04:41 Glucose 124 H POC Glucose 130 H 117 H 01/04/21 01/04/21 01/04/21 05:21 06:37 07:41 Glucose POC Glucose 120 H 189 H 261 H 01/04/21 01/04/21 01/04/21 08:46 09:46 10:43 Glucose POC Glucose 239 H 211 H 179 H 01/04/21 01/04/21 11:48 12:49 Glucose POC Glucose 168 H 142 H OUTPATIENT ANTIDIABETIC REGIMEN: * Novolog insulin pump * A1c 8.6% 01/03/21 ASSESSMENT: 01/04 * Continued on insulin infusion overnight, discussed with patient this morning, she was previously on levemir and was agreeable to receiving a dose this morning. Will give levemir 28 units x 1 to transition off of the insulin infusion. * Will transition to slightly tighter than home novolog with CF of 30 and CR of 10 * Patient believed her brought in her dexcom and not her omnipods- will need to confirm 01/03 * Patient admitted with DKA after insulin pump malfunction, troponins also s ignificantly elevated,currently on insulin, heparin infusions. Cardiology consulted * Anion gap closed this morning, bicarb normalized, plan to transition off of insulin infusion. Attempted to speak with patient this morning regarding issue with insulin pump, if supplies could be brought in etc. Patient not very conversive but shook head no to having supplies with her. Discussed transitioning to subq insulin and if she would be okay with this and she shook her head yes. * Placed orders for lantus with ~10% increase from home basal given high drip rate/more resistance following DKA to help assist transition off of insulin pump. * Received call from nurse- after start of administration patient refused lantus- uncertain how much, if any lantus was absorbed. Will continue insulin infusion at home basal rate ~1 unit/hr for now. Will touch base with health educator. PLAN FOR INPATIENT GLYCEMIC CONTROL: * Transition off of insulin infusion * Basal insulin * 28 units x 1, further dosing tbd If able to transition later today start novolog per home doses * Bolus insulin * NovoLog per scale ACHS or Q6hrs while NPO * Goal Range: Low 110 mg/dL - High 140 mg/dL * Correction Factor: 30 mg/dL/unit * Nutritional / Prandial insulin per carb ratio of 1 unit per 10 grams CHO consumed
--- NOTE | 2021-01-04 13:58 | XRay Report ---
XR chest 1V portable HISTORY: 40 years-old Female f/u pneumonia follow-up study in a patient with history of recent pneum onia COMPARISON: Chest radiograph 01/02/2021 TECHNIQUE: Portable AP view of the chest FINDINGS: Cardiomediastinal and hilar silhouettes are within normal limits. No pneumothorax, pleural effusion, airspace consolidation or overt pulmonary edema. There is resolution of the previously described basi lar airspace opacities. No acute fracture. IMPRESSION: No acute process. Resolution of the previously described basilar airspace opacities. ACT 112: Negative or not required by law. The above report was generated using voice recognition software. It may contain grammatical, syntax o r spelling errors. Electronically signed by: Bruce Maurer M.D. 01/04/2021 1:56 PM
[2021-01-04] MEDS: HEPARIN SODIUM/DEXTROSE 25,000 UNITS/500 ML BAG IV SCH (14:52)
[2021-01-04] MEDS ORDERED: hydrALAZINE HCL 20 MG/ML VIAL IV STA (17:02)
[2021-01-04] MEDS ORDERED: hydrALAZINE HCL 20 MG/ML VIAL ONE (17:04)
[2021-01-04] MEDS ORDERED: hydrALAZINE HCL 20 MG/ML VIAL IV PRN (17:05)
--- NOTE | 2021-01-04 18:35 | Billing Data ---
Date of Service January 04, 2021 Coding Level of Care Code 15557 Subseq Hosp Care Lvl 3
[2021-01-04] MEDS ORDERED: INSULIN HUMAN REGULAR PER UNIT 4 UNITS in SYRINGE 3.96 ML IV ONE (21:15)
--- NOTE | 2021-01-04 21:37 | Electrocardiogram Report ---
Test Reason : Blood Pressure : / mmHG Vent. Rate : 081 BPM Atrial Rate : 081 BPM P-R Int : 120 ms QRS Dur : 084 ms QT Int : 404 ms P-R-T Axes : 053 052 201 degrees QTc Int : 469 ms Normal sinus rhythm Prolonged QT Abnormal ECG When compared with ECG of 03-JAN-2021 00:20, ST less depressed in Lateral leads T wave inversion now evident in Inferior leads T wave inversion now evident in Lateral leads Confirmed by Franco Warren ([id number]) on 01/04/2021 9:36:54 PM Referred By: REFERRED SELF Confirmed By:Franco Warren
--- NOTE | 2021-01-04 22:12 | Electrocardiogram Report ---
Test Reason : Blood Pressure : / mmHG Vent. Rate : 093 BPM Atrial Rate : 093 BPM P-R Int : 116 ms QRS Dur : 082 ms QT Int : 366 ms P-R-T Axes : 062 062 240 degrees QTc Int : 455 ms Normal sinus rhythm Abnormal ECG When compared with ECG of 03-JAN-2021 11:41, No significant change was found Confirmed by Franco Warren ([id number]) on 01/04/2021 10:11:46 PM Referred By: REFERRED SELF Confirmed By:Franco Warren
[2021-01-04] MEDS ORDERED: LORazepam 0.5 MG/1 ML VIAL IV STA (22:30)
--- NOTE | 2021-01-04 22:33 | Electrocardiogram Report ---
Test Reason : Blood Pressure : / mmHG Vent. Rate : 093 BPM Atrial Rate : 093 BPM P-R Int : 112 ms QRS Dur : 074 ms QT Int : 364 ms P-R-T Axes : 054 059 264 degrees QTc Int : 452 ms Normal sinus rhythm Possible Left atrial enlargement Abnormal ECG When compared with ECG of 03-JAN-2021 16:46, No significant change was found Confirmed by Franco Warren ([id number]) on 01/04/2021 10:33:36 PM Referred By: REFERRED SELF Confirmed By:Franco Warren
[2021-01-05] MEDS: INSULIN ASPART 100 UNITS/ML 3 ML PEN SC SCH ×8 (00:03→17:35)
[2021-01-05] MEDS: [UNRECOGNIZED DRUG - OTHER] SCH ×3 (01:07→15:01)
[2021-01-05 05:15] LABS: Basophils # (auto) 0.02 K/uL (0-0.2); Basophils % (auto) 0.2 %; Eosinophils # (auto) 0.01 K/uL (0-0.5); Eosinophils % (auto) 0.1 %; Hematocrit (blood only) 32.4 % (37-47); Hemoglobin 10.9 g/dL (12.0-16.0); Immature Granulocytes # (auto) 0.02 K/uL (0.00-0.02); Immature Granulocytes % (auto) 0.2 %; Lymphocytes # (auto) 2.13 K/uL (1.2-3.4); Lymphocytes % (auto) 18.2 %; Mean Corpuscular Hemoglobin 31.6 pg (25-34); Mean Corpuscular Hgb Conc 33.6 g/dL (32-36); Mean Corpuscular Volume 93.9 fL (80-100); Mean Platelet Volume 8.8 fL (7.4-10.4); Monocytes # (auto) 0.66 K/uL (0.11-0.59); Monocytes % (auto) 5.7 %; Neutrophils # (auto) 8.84 K/uL (1.4-6.5); Neutrophils % (auto) 75.6 %; Platelet Count 272 K/uL (130-400); RDW Standard Deviation 45.2 fL (36.4-46.3); Red Blood Count 3.45 M/uL (4.2-5.4); White Blood Count 11.68 K/uL (4.8-10.8)
[2021-01-05 05:54] LABS: Albumin Globulin Ratio 0.5 (0.9-2); Albumin Level 2.1 gm/dl (3.4-5.0); BUN Creatinine Ratio 11.9 (10-20); Bilirubin,Total 0.7 mg/dl (0.2-1); Calcium 7.7 mg/dl (8.5-10.1); Creatinine Clr Calc Pharmacy 53.3 ml/min; Est GFR (African American) 55.2 ml/min; Est GFR (Non-African American) 47.6 ml/min; Globulin 3.9 gm/dl (2.5-4.0); Phosphorus 2.1 mg/dl (2.5-4.9)
[2021-01-05 06:12] LABS: Beta-Hydroxybutyrate 34.99 mg/dl (0.2-2.81)
[2021-01-05] MEDS: LEVOTHYROXINE SODIUM 100 MCG TABLET PO SCH (06:31)
[2021-01-05] MEDS: buPROPion XL 300 MG TABCR PO SCH (07:52)
[2021-01-05] MEDS: ATORVASTATIN 40 MG TAB PO SCH (07:52)
[2021-01-05] MEDS: ASPIRIN 81 MG ECTAB PO SCH (07:52)
[2021-01-05] MEDS: DULoxetine HCL 60 MG CAP PO SCH (07:53)
[2021-01-05] MEDS: CLOPIDOGREL BISULFATE 75 MG TAB PO SCH (07:53)
[2021-01-05] MEDS: MULTIVITAMIN TAB PO SCH (07:53)
[2021-01-05] MEDS: METOCLOPRAMIDE HCL 10 MG TABLET PO SCH (07:53)
[2021-01-05] MEDS: carvediloL 25 MG TAB PO SCH ×2 (07:53→20:19)
[2021-01-05] MEDS: PATIENT'S OWN ORAL CONTRACEPTIVE PO SCH (07:54)
[2021-01-05] MEDS: PANTOprazole 40 MG in SYRINGE 0 ML IV SCH (07:55)
[2021-01-05 08:10] LABS: Partial Thromboplastin Time 51.8 Seconds (21.0-31.0)
[2021-01-05] MEDS: NSS + 20MEQ KCL 20 MEQ/1,000 ML BAG IV SCH (11:52)
[2021-01-05] MEDS: VALSARTAN 80 MG TAB PO SCH (12:28)
[2021-01-05] MEDS ORDERED: INSULIN ASPART 100 UNITS/ML VIAL SC PRN (13:00)
--- NOTE | 2021-01-05 15:01 | Pharmacy Report ---
Pharmacy Glycemic Short Note 2 - Date of Service January 05, 2021 - Glycemic Short BSG Results (Last 24 hours): 01/04/21 01/04/21 01/04/21 16:01 20:41 20:43 Glucose POC Glucose 229 H 390 H* 356 H* 01/05/21 01/05/21 01/05/21 00:04 00:06 04:15 Glucose POC Glucose 313 H* 260 H 267 H 01/05/21 01/05/21 01/05/21 05:07 07:30 11:45 Glucose 306 H* POC Glucose 253 H 241 H OUTPATIENT ANTIDIABETIC REGIMEN: * OmniPod Novolog insulin pump * Basal: 6199-3896 0.75 units/hr 3787-0005 1.25 units/hr 7596-8766 0.8 units/hr Total: 23.95 units * ICR: 12 but was instructed to lower to 1:10 if post-prandial hyperglycemia continued CF:32 for BG > 180 * A1c 8.6% 01/03/21 ASSESSMENT: 01/05 * Patient would really like to leave, spoke with her and RN Ana and Dr Campoverde multiple times to figure out an agreement * Inconsistencies with conversation, RN states pt is not eating, pt claiming she is eating and had a soy milk, applesauce, and jelly today. None of these carbs have been covered and if they they were consumed, are contributing to blood sugars remaining in 200s. * After discussion with me, patient agreeable to stay this evening until BSG < 180, giving Levemir and NovoLog now at 1530, rechecking at 1730 and 2100 * Patient has Omnipod supplies, supplied patient with vial of NovoLog for her pump, reattached Dexcom CGM now * Patient had Endo appt 11/28, due for f/u with [facility] for DM Education this coming week. 01/04 * Continued on insulin infusion overnight, discussed with patient this morning, she was previously on levemir and was agreeable to receiving a dose this morning. Will give levemir 28 units x 1 to transition off of the insulin infusion. * Will transition to slightly tighter than home novolog with CF of 30 and CR of 10 * Patient believed her brought in her dexcom and not her omnipods- will need to confirm 01/03 * Patient admitted with DKA after insulin pump malfunction, troponins also significantly elevated,currently on insulin, heparin infusions. Cardiology consulted * Anion gap closed this morning, bicarb normalized, plan to transition off of insulin infusion. Attempted to speak with patient this morning regarding issue with insulin pump, if supplies could be brought in etc. Patient not very conversive but shook head no to having supplies with her. Discussed transitioning to subq insulin and if she would be okay with this and she shook her head yes. * Placed orders for lantus with ~10% increase from home basal given high drip rate/more resistance following DKA to help assist transition off of insulin pump. * Received call from nurse- after start of administration patient refused lantus- uncertain how much, if any lantus was absorbed. Will continue insulin infusion at home basal rate ~1 unit/hr for now. Will touch base with line assembly utility worker. PLAN FOR INPATIENT GLYCEMIC CONTROL: * Levemir 8 units SQ x 1 dose now * Novolog CF 20, CR 7, now at 1530, then at 1730 and 2100 * When BSG < 180mg/dl - resume home pump and OK to discharge DISCHARGE INSTRUCTIONS: * Continue home settings with working Omnipod NovoLog pump, follow up with [facility] next week for DM Education and Endocrine in 3 months as scheduled.
[2021-01-05] MEDS ORDERED: INSULIN DETEMIR FLEXPEN/FLEX TOUCH 100 UNITS/ML 3ML SC ONE (15:15)
[2021-01-05] MEDS ORDERED: INSULIN ASPART 100 UNITS/ML 3 ML PEN SC ONE (15:15)
--- NOTE | 2021-01-05 19:06 | Hospitalist Progress Note ---
Date of Service January 05, 2021 Assessment & Plan (1) DKA (diabetic ketoacidosis): Plan: Glucose 723 admission, anion gap 24. -> Patient started on insulin drip per protocol in the ED, and will be admitted to the ICU for further treatment. -> Gap closed by 01/03. - Moved to basal-bolus by 01/04. Today (01/05), transitioning back to insulin pump. Baseline sugars have been ~180. (2) Acute non-ST elevation myocardial infarction (NSTEMI): Plan: Troponin 0.117 upon admission, up to 34.0 on 01/03. Inferior wall motion abnormality on echo on 01/03. - Continue aspirin, Plavix, carvedilol, statin - Finished hepatin x 48 hours. (Finished on 01/05 @ 6am.) - Consulted cardiology -> Plan for non-emergent LHC. Patient reports to me on 01/05 that she will not have the cath here in the hospital and will need to go home to discuss with family and research. (3) Leukocytosis: Plan: Likely reactive from DKA. CXR on admission did show bilateral lower opacities, but PNA vs. atelectasis. - Stopped empiric Zosyn on 01/04 - Monitor -> Improving (4) Acute kidney injury superimposed on chronic kidney disease: Plan: Creatinine 2.68 on admission, with baseline 1.36 - 1.70. - Restarted valsartan on 01/05 - Continue carvedilol and aspirin. -> Improving today. Cr down to 1.4. (5) Diabetes type 1, uncontrolled: Plan: A1c was 8.6% this admission. Patient typically uses insulin pump; restarted as above the evening of 01/05. - Plan for DKA as above (6) Hypothyroidism: Plan: TSH was 0.6 in 09/2020. - Continue levothyroxine 100 mcg daily (7) Asthma: Plan: No recent symptoms and not on any regular inhalers. - Monitor (8) Depression: Plan: Depression/eating disorder. Was seen by psychiatry liaison in the hospital with no major concerns for self-harm or other acute issues. - Continue bupropion and duloxetine (9) Eating disorder: Plan: See above (10) DVT prophylaxis: Plan: Finished heparin gtt; likely discharge tomorrow AM. - SCDs Admission and Anticipated Discharge Date Admission Date: January 03, 2021 Subjective Doing better today. Reports no fevers/chills, chest pain, shortness of breath, abdominal pain, or vomiting. Some vomiting. Physical Exam Constitutional: WD/WN, vitals as above cooperative; no acute distress Eyes: EOM intact bilaterally; no conjunctival abnormality ENMT: external ear and nose normal, oropharynx normal Neck: trachea midline, no thyromegaly normal visual inspection Respiratory: normal respiratory effort, lungs clear to auscultation no respiratory distress Cardiovascular: Rate/Rhythm: regular rate and regular rhythm Extremities: no edema Gastrointestinal (Abdomen): Inspection/Auscultation: abdomen normal to inspection; abdomen not distended Musculoskeletal: no cyanosis or clubbing, extremities motor strength 5/5 Skin: no rashes, warm and dry Neurologic: moves all extremities and awake Psychiatric: Orientation: alert, oriented to person and cooperative Results & Data Results & Data ([facility]) Vital Signs (Past 12 Hours) Vital Signs Temp Pulse Pulse Resp BP Pulse Ox 01/05/21 18:29 162/98 H 01/05/21 17:59 201/123 H 01/05/21 17:23 36.9 C 71 16 199/130 H 100 01/05/21 11:50 36.7 C 77 20 179/105 H 97 01/05/21 08:00 36.8 C 90 81 20 184/99 H 96 01/05/21 07:28 36.7 C 85 18 178/93 H 98 PG Care Time/CCT Total # of Minutes Spent Total Time Spent with Patient: Total time spent is greater than 50% in coordination of care (as documented) at patient's floor/unit and/or counseling patient: Coding Level of Care Code 75761 Subseq Hosp Care Lvl 3 Diagnoses DKA (diabetic ketoacidosis) E10.10 Diabetes mellitus complication detail: without coma Diabetes mellitus type: type 1 Acute non-ST elevation myocardial infarction (NSTEMI) I21.4 Leukocytosis D72.829 Acute kidney injury superimposed on chronic kidney disease N17.9; N18.9 Diabetes type 1, uncontrolled E10.65 Hypothyroidism E03.9 Asthma J45.909 Depression F32.9 Eating disorder F50.9 DVT prophylaxis Z29.9 (1) DKA (diabetic ketoacidosis) Diabetes mellitus complication detail: without coma Diabetes mellitus type: type 1 Qualified Code(s): E10.10 - Type 1 diabetes mellitus with ketoacidosis without coma
[2021-01-05] MEDS: NovoLOG INSULIN PUMP SCH ×2 (20:17→21:44)
[2021-01-05] MEDS: PANTOprazole 40 MG TAB PO SCH (20:20)
[2021-01-05] MEDS ORDERED: LORazepam 0.5 MG/1 ML VIAL IV STA (22:03)
[2021-01-05] MEDS ORDERED: COUGH DROP (SUGAR FREE) LOZ 24 LOZ/1 BOX BUCCAL STA (22:03)
[2021-01-05] MEDS ORDERED: hydrOXYzine HCl 25 MG TAB PO ONE (22:15)
[2021-01-06] MEDS: [UNRECOGNIZED DRUG - OTHER] SCH ×2 (00:05→07:53)
[2021-01-06 05:29] LABS: Hemoglobin 11.9 g/dL (12.0-16.0); Mean Corpuscular Hemoglobin 31.4 pg (25-34); Mean Corpuscular Volume 92.3 fL (80-100); Mean Platelet Volume 8.8 fL (7.4-10.4); Platelet Count 276 K/uL (130-400); RDW Coefficient of Variation 12.7 % (11.5-14.5); Red Blood Count 3.79 M/uL (4.2-5.4); White Blood Count 6.13 K/uL (4.8-10.8)
[2021-01-06 05:38] LABS: Partial Thromboplastin Ratio 0.9; Partial Thromboplastin Time 22.8 Seconds (21.0-31.0)
[2021-01-06 05:59] LABS: BUN Creatinine Ratio 10.8 (10-20); Calcium 8.4 mg/dl (8.5-10.1); Creatinine Clr Calc Pharmacy 47.3 ml/min; Est GFR (African American) 47.6 ml/min; Est GFR (Non-African American) 41.1 ml/min; Magnesium 2.2 mg/dl (1.8-2.4); Phosphorus 2.1 mg/dl (2.5-4.9); Potassium 3.4 mmol/L (3.5-5.1)
[2021-01-06] MEDS: LEVOTHYROXINE SODIUM 100 MCG TABLET PO SCH (06:33)
[2021-01-06] MEDS ORDERED: POTASSIUM PHOS 3 MMOL/1 ML INFUSION IV STA (06:58)
[2021-01-06] MEDS ORDERED: POTASSIUM PHOSPHATE 30 MMOL in SODIUM CHLORIDE 0.9% 500 ML IV ONE (07:15)
[2021-01-06] MEDS: PANTOprazole 40 MG TAB PO SCH (07:54)
[2021-01-06] MEDS: MULTIVITAMIN TAB PO SCH (07:54)
[2021-01-06] MEDS: ASPIRIN 81 MG ECTAB PO SCH (07:54)
[2021-01-06] MEDS: buPROPion XL 300 MG TABCR PO SCH (07:54)
[2021-01-06] MEDS: ATORVASTATIN 40 MG TAB PO SCH (07:54)
[2021-01-06] MEDS: CLOPIDOGREL BISULFATE 75 MG TAB PO SCH (07:54)
[2021-01-06] MEDS: DULoxetine HCL 60 MG CAP PO SCH (07:55)
[2021-01-06] MEDS: PATIENT'S OWN ORAL CONTRACEPTIVE PO SCH (07:55)
[2021-01-06] MEDS: carvediloL 25 MG TAB PO SCH (07:55)
[2021-01-06] MEDS: METOCLOPRAMIDE HCL 10 MG TABLET PO SCH (07:55)
[2021-01-06] MEDS: VALSARTAN 80 MG TAB PO SCH (07:55)
[2021-01-06] MEDS: NovoLOG INSULIN PUMP SCH (08:24)
[2021-01-06] MEDS ORDERED: POT PHOSPHATE MONOBASIC W/ SOD TAB PO STA (11:12)
--- NOTE | 2021-01-06 17:23 | Discharge Summary ---
Date of Service January 06, 2021 Admission HPI Per Admitting Provider The patient is a 40-year-old female with a past medical history including babesiosis type I, CKD stage III, hypothyroidism, diabetic nephropathy, hypercholesterolemia, asthma, history of herpes genitalis, history of al ternating diarrhea and constipation, history of anorexia nervosa, depression and acute kidney injury. She presents emergency department with complaint of worsening nausea, vomiting and generalized malaise, worsening over the past 2 days after her insulin pump became dysfunctional. In the emergency department, patient is lethargic but does respond appropriately to questioning. Laboratories examination were consistent with DKA, with anion gap of 24 and glucose of 523. Patient is therefore being mated to the ICU on insulin drip for further treatment Principal Diagnosis DKA NSTEMI Discharge Exam Constitutional WD/WN, vitals as above cooperative; no acute distress Eyes EOM intact bilaterally; no conjunctival abnormality ENMT external ear and nose normal, oropharynx normal Neck trachea midline, no thyromegaly normal visual inspection Respiratory normal respiratory effort, lungs clear to auscultation no respiratory distress Cardiovascular Rate/Rhythm: regular rate and regular rhythm Extremities: no edema Gastrointestinal (Abdomen) Inspection/Auscultation: abdomen normal to inspection; abdomen not distended Musculoskeletal no cyanosis or clubbing, extremities motor strength 5/5 Skin no rashes, warm and dry Neurologic moves all extremities and awake Psychiatric Orientation: alert, oriented to person and cooperative Discharge Data Allergies Allergy/AdvReac Type Severity Reaction Status Date / Time milk Allergy Unknown Unknown Verified 01/03/21 16:32 mushroom Allergy Unknown Unknown Verified 01/03/21 16:32 orange Allergy Unknown Unknown Verified 01/03/21 16:32 orange flavor Allergy Unknown Unknown Verified 01/03/21 16:32 orange juice Allergy Unknown Unknown Verified 01/03/21 16:32 metformin AdvReac Mild NAUSEA, Verified 01/03/21 16:32 UPSET STOMACH Consultations 01/03/21 00:15 ED Decision to Admit Stat 01/03/21 03:10 Consult [employer] Routine 01/03/21 07:53 Consult Cardiology Routine Hospital Course (1) DKA (diabetic ketoacidosis): Glucose 723 admission, anion gap 24. -> Patient started on insulin drip per protocol in the ED, and was admitted to the ICU for further treatment. -> Gap closed by 01/03. - Moved to basal-bolus by 01/04. On 01/05, she was transitioned to her pump. She had not eaten much, so we essentially dialed her in to her basal rate. BS were controlled overnight, and she was discharged on her home regimen. - Will follow up with endocrinology team next week. (2) Acute non-ST elevation myocardial infarction (NSTEMI): Troponin 0.117 upon admission, up to 34.0 on 01/03. Inferior wall motion abnormality on echo on 01/03. - Continue aspirin, Plavix, carvedilol, ARB, & statin on discharge. - Finished hepatin x 48 hours. (Finished on 01/05 @ 6am.) - Consulted cardiology -> Plan for non-emergent LHC. Patient reports to me on 01/05 that she will not have the cath here in the hospital and will need to go home to discuss with family and research. (3) Leukocytosis: Likely reactive from DKA. CXR on admission did show bilateral lower opacities, but PNA vs. atelectasis. - Stopped empiric Zosyn on 01/04 - Monitor -> Resolved on discharge. (4) Acute kidney injury superimposed on chronic kidney disease: Creatinine 2.68 on admission, with baseline 1.36 - 1.70. - Restarted valsartan on 01/05 - Continue carvedilol and aspirin. -> Improving today. Cr down to 1.6. (5) Diabetes type 1, uncontrolled: A1c was 8.6% this admission. Patient typically uses insulin pump; restarted as above the evening of 01/05. - Plan for DKA as above (6) Hypothyroidism: TSH was 0.6 in 09/2020. - Continue levothyroxine 100 mcg daily (7) Asthma: No recent symptoms and not on any regular inhalers. - Monitor (8) Depression: Depression/eating disorder. Was seen by psychiatry liaison in the hospital with no major concerns for self-harm or other acute issues. - Continue bupropion and duloxetine (9) Eating disorder: See above (10) DVT prophylaxis: Finished heparin gtt; likely discharge tomorrow AM. - SCDs Total Time Total Time Spent Total Time Spent (In Minutes): 35 Discharge Plan Discharge Items Patient Disposition: Home - Self-Care Reason For Visit: DKA Discharge Diagnosis: Diabetic ketoacidosis Condition on Discharge: Good Activity: Resume your previous activity Non-emergency contact: Primary Care Provider, Specialist and Senior Safety Support Manager Call non-emergency contact if: your symptoms worsen Follow-up/Referrals: Franco Warren MD [Physician] - (Please contact Dr. Kruger's office this week for a follow up this week or next.) Rob Loaiza MD [Primary Care Provider] - Diet: Carb Count or DM1 and Heart Healthy Addtl Attending Provider Instructions: Ms. Topete, You were admitted to the hospital in diabetic ketoacidosis which is what happens when your body cannot get enough insulin to get glucose into your cells. This was probably set off due to your insulin pump breaking (and therefore not receiving your usual insulin) as well as the food illness you picked up. We used insulin delivery through the IV for some time which helped correct this, along with quite a bit of IV fluid to help re-hydrate you. You had a rise in a lab value called a troponin which indicates to us that your heart was significantly stressed from your illness. The ultrasound of your heart also showed an area of the heart that is not squeezing as well as it probably was previously. We would categorize this as a form of a heart attack. Dr. Warren offered to do a catheterization, but you would like to research it and discuss your options with family before preceding. Please follow up with Dr. Warren in the next 1-2 weeks to discuss options and formulate a plan. In the meantime, we have added a medication to help keep your heart healthy. This medication is called Plavix (or clopidogrel) and is an antiplatelet agent which helps prevent blood clots from forming in the arteries in the heart. Please take it every day along with aspirin 81 mg. Finally, we started a medication called atorvastatin which helps lower bad cholesterol, raise good cholesterol, and stabilize any plaques that may have formed in your blood vessels over the years. We also added an acid-mack (pantoprazole) to be sure the aspirin and Plavix don't upset your stomach. Please follow up with the endocrinology team to be sure your sugars are under control and your pump is working well. Pending Studies at Discharge: No Stand-Alone Forms: My [employer], Smoking Cessation Medications and DC Order Prescriptions: New atorvastatin 40 mg Tablet 40 mg PO Q24H Qty: 30 RF: 0 clopidogrel 75 mg Tablet 75 mg PO QAM Qty: 30 RF: 0 aspirin 81 mg Tablet,Delayed Release (Dr/Ec) 81 mg PO QAM Qty: 30 RF: 0 pantoprazole 40 mg Tablet,Delayed Release (Dr/Ec) 40 mg PO DAILY Qty: 30 RF: 0 Continued insulin aspart U-100 [Novolog U-100 Insulin aspart] 100 unit/mL solution See Rx Instructions subcut DAILY Qty: 3 RF: 5 levothyroxine 50 mcg tablet 100 mcg PO DAILY 90 Days Qty: 180 RF: 1 valsartan 40 mg tablet 40 mg PO DAILY Qty: 30 RF: 5 fluticasone propionate 50 mcg/actuation spray,suspension 1 sprays intranasal BID RF: 0 bupropion HCl 300 mg tablet extended release 24 hr 300 mg PO DAILY RF: 0 valacyclovir [Valtrex] 1 gram tablet 1,000 mg PO BID PRN (Reason: .FLARES) RF: 0 multivitamin [Daily Multi-Vitamin] Tablet 1 tab PO DAILY RF: 0 norgestimate-ethinyl estradiol [Tri Femynor] 0.18/0.215/0.25 mg-35 mcg (28) tablet 1 tab PO DAILY RF: 0 duloxetine 60 mg capsule,delayed release(DR/EC) 60 mg PO DAILY RF: 0 carvedilol 25 mg tablet 25 mg PO BID RF: 0 Discharge Orders: Discharge Order (Routine); Ordered 01/06/21 Ordered By: Tramaine Gonzales/Other Patient Handouts: Controlling High Blood Pressure Admission Data Admit Date/Time: 01/03/21 01:27 Attending Provider: Tramaine Campoverde Admit Provider: Vineet Nunez Primary Care Provider: Rob Loaiza Other Providers: Tramaine Campoverde ; Vineet Nunez ; Zeferino Portillo ; Franco Warren Other Interventions: Discharge Summary Assessment (RN) Last Done: 01/06/21 11:53 Coding Level of Care Code D/C DAY MANAGEMENT >30 MINS Diagnoses DKA (diabetic ketoacidosis) E10.10 Diabetes mellitus complication detail: without coma Diabetes mellitus type: type 1 Acute non-ST elevation myocardial infarction (NSTEMI) I21.4 Leukocytosis D72.829 Acute kidney injury superimposed on chronic kidney disease N17.9; N18.9 Diabetes type 1, uncontrolled E10.65 Hypothyroidism E03.9 Asthma J45.909 Depression F32.9 Eating disorder F50.9 DVT prophylaxis Z29.9
[2021-01-09 11:08] LABS: MDA negative; MDEA negative; MDMA (Ecstasy) Urine, Confirm negative; Marijuana Quant, GCMS Urine 48 ng/mL (<5)
== END 2021-01-06 14:00 | disposition home or self-care (01) | DRG 919 ==
LOC: ED 22:06 → 1E 01-03 01:27 → SUATTDRO 01-03 01:27 → 1E 01-03 01:58

== ENCOUNTER 2021-12-23 23:40 | Observation (INO) ==
[2021-12-24 00:15] LABS: Basophils # (auto) 0.03 K/uL (0-0.2); Basophils % (auto) 0.3 %; Eosinophils # (auto) 0.02 K/uL (0-0.50); Eosinophils % (auto) 0.2 %; Hematocrit (blood only) 38.2 % (34.1-44.9); Hemoglobin 12.9 g/dl (12.0-16.0); Immature Granulocytes # (auto) 0.02 K/uL (0.00-0.02); Immature Granulocytes % (auto) 0.2 %; Lymphocytes # (auto) 3.23 K/uL (1.2-3.4); Lymphocytes % (auto) 29.9 %; Mean Corpuscular Hemoglobin 31.5 pg (25.0-34.0); Mean Corpuscular Hgb Conc 33.8 g/dL (32.0-36.0); Mean Corpuscular Volume 93.4 fL (80.0-100.0); Mean Platelet Volume 8.9 fL (9.4-12.3); Monocytes # (auto) 0.61 K/uL (0.24-0.82); Monocytes % (auto) 5.6 %; Neutrophils % (auto) 63.8 %; Platelet Count 319 K/uL (130-400); RDW Coefficient of Variation 12.2 % (11.5-14.5); RDW Standard Deviation 42.1 fL (36.4-46.3); Red Blood Count 4.09 M/uL (3.93-5.22); White Blood Count 10.81 K/ul (4.8-10.8)
[2021-12-24 00:30] LABS: Partial Thromboplastin Ratio 0.9; Partial Thromboplastin Time 23.9 Seconds (21.0-31.0); Prothrombin Time 10.4 Seconds (9.0-12.0)
[2021-12-24 00:38] LABS: D Dimer 600 ug/L FEU (0-500)
[2021-12-24 00:40] LABS: Alanine Aminotransferase 13 U/L (7-52); Albumin Level 4.1 gm/dl (3.4-5.0); Alkaline Phosphatase 85 U/L (34-104); Anion Gap 10 (3-11); Aspartate Aminotransferase 18 U/L (13-39); BUN Creatinine Ratio 12.9 (10-20); Bilirubin,Total 0.6 mg/dl (0.2-1.0); Blood Urea Nitrogen 33 mg/dl (6-23); Calcium 9.5 mg/dl (8.5-10.1); Carbon Dioxide 31 mmol/L (21-32); Chloride 93 mmol/L (98-107); Est GFR (African American) 26.3 ml/min; Est GFR (Non-African American) 22.7 ml/min; Globulin 4.2 gm/dl (2.5-4.0); Glucose 274 mg/dl (70-99(Fasting)); Potassium 3.3 mmol/L (3.5-5.1); Sodium 134 mmol/L (136-145); Total Protein 8.3 gm/dl (6.0-8.3)
[2021-12-24 00:48] LABS: Troponin I High Sensitivity 57.6 pg/ml (0-14)
[2021-12-24] MEDS ORDERED: Heparin IV Adult Wt-Based Low-Dose WITH Bolus Protocol IV STA (02:24)
[2021-12-24] MEDS ORDERED: NITROGLYCERIN 2% OINTMENT 30GM TUBE EXT ONE (02:27)
[2021-12-24] MEDS ORDERED: SODIUM CHLORIDE 0.9% 1000ML 500 ML IV ONE (02:29)
[2021-12-24] MEDS ORDERED: FAMOTIDINE 20 MG in SYRINGE 3 ML IV ONE (02:29)
[2021-12-24] MEDS ORDERED: ONDANSETRON INJ 2 MG/ML 2 ML VIAL IV STA (02:30)
[2021-12-24] MEDS ORDERED: SODIUM CHLORIDE 0.9% 1000ML 1,000 ML IV SCH (02:30)
[2021-12-24] MEDS ORDERED: HEPARIN SOD (PORCINE) 1000 UNIT/ML IV ONE (02:39)
[2021-12-24] MEDS ORDERED: HEPARIN SODIUM/DEXTROSE 25,000 UNITS/500 ML BAG IV SCH (02:45)
[2021-12-24] MEDS ORDERED: FAMOTIDINE 20MG/5ML IV PUSH IV ONE (03:17)
--- NOTE | 2021-12-24 03:37 | History & Physical Report ---
Date of Service December 24, 2021 Assessment & Plan (1) Chest pain: Plan: 5-year-old female with known CAD, type 1 diabetes, hypertension, hyperlipidemia presenting with 2 days of substernal chest discomfort. Pain is nonexertional, nonpositional. EKG with some nonspecific ST changes, elevated troponin downtrending. Pain present on arrival now improved after nitro patch placement. Differential to include ACS musculoskeletal strain, GI Admit to medical with telemetry Repeat troponin Check 2D echo Continue heparin drip Cardiology consultation appreciated (2) CAD (coronary artery disease): Plan: Patient with known CAD. Follows with cardiology Nitro as needed Continue aspirin 81 mg p.o. every morning Continue valsartan 40 mg p.o. every morning Continue carvedilol 25 mg p.o. twice daily Continue atorvastatin 40 mg p.o. every morning (3) Chronic kidney disease, stage III (moderate): Plan: Chronic. Monitor renal function Avoid nephrotoxic agents (4) Depression: Plan: Chronic. Stable. Continue duloxetine 60 mg p.o. every morning Continue bupropion 300 mg p.o. every morning (5) Diabetes type 1, uncontrolled: Plan: Chronic. Insulin pump in place Patient may continue home insulin pump Monitor blood sugar (6) Hypercholesterolemia: Plan: Chronic. Continue atorvastatin History of Present Illness Chief Complaint: Chest pain Primary Care Provider: Rob Loaiza MD Tsering Topete is A very pleasant 41-year-old female with history of cardiomyopathy,CAD status post NSTEMI, ischemic cardiomyopathy, hypertension, hyperlipidemia and type 1 diabetes presenting with chest pain. Patient was admitted to [facility] on 01/03/2021 with DKA. She had an elevated troponin at that time which peaked at 37.3. She had cardiac catheterization performed on 01/30/2021 which revealed: Early mid LAD 30 to 40%.Medium caliber diagonal with proximal to mid 30 to 50%. Mid Cx 40%.Distal Cx 80% at bifurcation of small PL and small PDA. Severe diffuse CAD throughout the proximal and mid RCA. Mid RCA 100% with bridging R to R collaterals. RCA PDA fills via left to right collaterals. Interventional cardiology attempted to pass a wire through the RCA stenosis. The wire was unable to be advanced across the lesion. Medical therapy recommended. She has been compliant with her medications.She reports feeling ill over the last several days to include substernal chest tightness and burning as well as a "feeling that someone was sitting on my chest". She had episodes of diaphoresis as well as nausea, nonbloody/nonbilious vomiting and exhaustion.She reports she was unable to get out of bed and shower. She was at a family event over the weekend and did become emotional at one point during an argument - she felt shaky and diaphoretic after the argument. Blood sugar was within normal limits. Patient had a routine visit with her PCP today and mentioned how ill she was over the weekend. She also mentioned her substernal chest discomfort. Routine labs were ordered including troponin. Patient was contacted to come to the ER due to an elevated troponin level (57.6 --> 56/9 --> 42.7) Chest pain has been persistent, improved. Still present on arrival Nitro patch placed with improvement in discomfort. No additional complaints at this time. Allergies Allergy/AdvReac Type Severity Reaction Status Date / Time clopidogrel Allergy Severe Nausea,Vomi Verified 12/24/21 01:58 ting milk Allergy Unknown Unknown Verified 12/24/21 01:58 mushroom Allergy Unknown Unknown Verified 12/24/21 01:58 orange Allergy Unknown Unknown Verified 12/24/21 01:58 orange flavor Allergy Unknown Unknown Verified 12/24/21 01:58 orange juice Allergy Unknown Unknown Verified 12/24/21 01:58 metformin AdvReac Mild NAUSEA, Verified 12/24/21 01:58 UPSET STOMACH Home Medications Medication Instructions Recorded Confirmed Type duloxetine 60 mg capsule,delayed 60 mg PO QAM 09/15/18 12/24/21 History release norgestimate-ethinyl estradiol 1 tab PO HS 09/15/18 12/24/21 History 0.18 mg/0.215mg/0.25mg-35 mcg(28)tablet (Tri Femynor) bupropion HCl 300 mg 24 hr tablet, 300 mg PO QAM 01/11/19 12/24/21 History extended release carvedilol 25 mg tablet 25 mg PO AMHS 01/11/19 12/24/21 History fluticasone propionate 50 1 sprays intranasal BID 01/11/19 12/24/21 History mcg/actuation nasal spray,suspension valacyclovir 1 gram tablet 1,000 mg PO BID PRN .FLARES 03/07/19 12/24/21 History (Valtrex) multivitamin (Daily Multi-Vitamin 1 tab PO QAM 06/06/20 12/24/21 History tablet) aspirin 81 mg tablet,delayed 81 mg PO QAM #30 tabs 03/07/21 12/24/21 Rx release Novolog U-100 Insulin aspart 100 50 unit (0.5 mL) subcut DAILY 90 04/29/21 12/24/21 Rx unit/mL subcutaneous solution days #50 mL (insulin aspart U-100) glucagon 3 mg/actuation nasal 3 mg intranasal ONCE PRN 05/31/21 12/24/21 History spray (Baqsimi) hypoglycemia Omnipod Dash Pods (Gen 4) (insulin #30 ea 07/12/21 12/06/21 Rx pump cart,cont inf,BT) Dexcom G6 Sensor (blood-glucose #9 ea 08/16/21 12/06/21 Rx sensor) Dexcom G6 Transmitter #1 ea 08/16/21 12/06/21 Rx (blood-glucose transmitter) chlorpheniramine maleate 4 mg 4 mg PO Q12H PRN sinus pressure 10/30/21 12/24/21 History tablet (Allergy Relief (chlorpheniramine)) pseudoephedrine HCl 120 mg 120 mg PO BID PRN sinus pressure 10/30/21 12/24/21 History tablet,extended release (Sudafed 12 Hour) amlodipine 5 mg tablet 5 mg PO QAM 12/24/21 12/24/21 History atorvastatin 40 mg tablet 40 mg PO QAM 12/24/21 12/24/21 History nitroglycerin 0.3 mg sublingual 0.3 mg sublingual UD PRN Chest Pain 12/24/21 12/24/21 History tablet pantoprazole 40 mg tablet,delayed 80 mg PO QAM 12/24/21 12/24/21 History release valsartan 40 mg tablet 40 mg PO QAM 12/24/21 12/24/21 History Past Med/Surg History Medical History Asthma CAD (coronary artery disease) Chronic kidney disease, stage III (moderate) Depression Diabetes type 1, uncontrolled History of anorexia nervosa History of chronic constipation History of chronic diarrhea History of herpes genitalis Hypercholesterolemia Hypertension Hypothyroidism Ischemic cardiomyopathy Myocardial Infarction cardiomyopathy Type 1 diabetes Surgical History H/O cataract extraction History of section History of oral surgery History of tonsillectomy Family History Mother Sciatica Hypertension Carpal tunnel syndrome Sister Epilepsy Grandmother (Maternal) Brain cancer Aunt Lymphoma Social History Smoking Status: Never smoker Second Hand Exposure: No; Hx Alcohol Use: No Preferred Language: Kyrgyz 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: Effective 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: No Beliefs That Will Affect Care: None marital status: Current Living Situation: Spouse current occupational status: employed current occupation: Works at [employer] in [employer] department Feels Safe at Home: Yes Assistive Devices: None Review of Systems Review of Systems: All systems reviewed & are unremarkable except as noted in HPI & below Physical Exam Physical Exam: General: patient resting comfortably, NAD, non-toxic in appearance, AA&O x 4 Skin: warm, dry, intact, no rashes or lesions HEENT: NC/AT, PERRL, EOMI, anicteric sclera, conjunctiva without injection, external ear normal to inspection and nontender, nares patent, moist mucus membranes, dentition intact, no oropharyngeal lesions, neck supple, trachea midline, no LAD, no thyromegaly, no JVD Heart: +S1/S2, regular, no m/r/g, discomfort with chest palpation Lungs: equal air entry bilaterally, no rales/rhonchi/wheezes Abd: +BS, soft, NT/ND, no masses/organomegaly/ascites Ext: warm, 2+ pulses in UE/LE bilaterally, no clubbing/cyanosis or edema Neuro: nonfocal, patient AA&O x 4, speech intact, no facial droop, moving all extremities on command with equal strength 5/5 Results & Data Results & Data ([facility]) Vital Signs (Past 12 Hours) Vital Signs Temp Pulse Pulse Resp BP BP Pulse Ox 12/24/21 03:05 86 18 98 12/24/21 03:04 91 H 18 188/103 H 98 12/23/21 23:43 36 C L 87 18 156/94 H 100 O2 Del Method 12/24/21 03:05 Room Air 12/24/21 03:04 Room Air 12/23/21 23:43 Room Air Laboratory Results Laboratory Results WBC 10.81 K/ul (4.8-10.8) H 12/23/21 00:03 RBC 4.09 M/uL (3.93-5.22) 12/23/21 00:03 Hgb 12.9 g/dl (12.0-16.0) 12/23/21 00:03 Hct 38.2 % (34.1-44.9) 12/23/21 00:03 MCV 93.4 fL (80.0-100.0) 12/23/21 00:03 MCH 31.5 pg (25.0-34.0) 12/23/21 00:03 MCHC 33.8 g/dL (32.0-36.0) 12/23/21 00:03 RDW Std Deviation 42.1 fL (36.4-46.3) 12/23/21 00:03 RDW Coeff of Eboni 12.2 % (11.5-14.5) 12/23/21 00:03 Plt Count 319 K/uL (130-400) 12/23/21 00:03 MPV 8.9 fL (9.4-12.3) L 12/23/21 00:03 Immature Gran % (Auto) 0.2 % 12/23/21 00:03 Neut % (Auto) 63.8 % 12/23/21 00:03 Lymph % (Auto) 29.9 % 12/23/21 00:03 Trinity % (Auto) 5.6 % 12/23/21 00:03 Eos % (Auto) 0.2 % 12/23/21 00:03 Baso % (Auto) 0.3 % 12/23/21 00:03 Neut # (Auto) 6.90 K/uL (1.4-6.5) H 12/23/21 00:03 Lymph # (Auto) 3.23 K/uL (1.2-3.4) 12/23/21 00:03 Trinity # (Auto) 0.61 K/uL (0.24-0.82) 12/23/21 00:03 Eos # (Auto) 0.02 K/uL (0-0.50) 12/23/21 00:03 Baso # (Auto) 0.03 K/uL (0-0.2) 12/23/21 00:03 Immature Gran # (Auto) 0.02 K/uL (0.00-0.02) 12/23/21 00:03 PT 10.4 Seconds (9.0-12.0) 12/23/21 00:03 INR 1.0 (0.9-1.1) 12/23/21 00:03 APTT 23.9 Seconds (21.0-31.0) 12/23/21 00:03 PTT Ratio 0.9 12/23/21 00:03 D-Dimer 600 ug/L FEU (0-500) H* 12/23/21 00:03 Sodium 138 mmol/L (136-145) 12/24/21 03:00 Potassium 3.2 mmol/L (3.5-5.1) L 12/24/21 03:00 Chloride 105 mmol/L (98-107) 12/24/21 03:00 Carbon Dioxide 25 mmol/L (21-32) 12/24/21 03:00 Anion Gap 8 (3-11) 12/24/21 03:00 BUN 30 mg/dl (6-23) H 12/24/21 03:00 Creatinine 1.87 mg/dl (0.6-1.2) H 12/24/21 03:00 Est Cr Clr Drug Dosing 40.6 ml/min 12/24/21 03:00 Est GFR ( Amer) 38.3 ml/min 12/24/21 03:00 Est GFR (Non-Af Amer) 33.0 ml/min 12/24/21 03:00 BUN/Creatinine Ratio 16.0 (10-20) 12/24/21 03:00 Glucose 183 mg/dl (70-99(Fasting)) H 12/24/21 03:00 Calcium 7.7 mg/dl (8.5-10.1) L 12/24/21 03:00 Total Bilirubin 0.6 mg/dl (0.2-1.0) 12/23/21 00:03 AST 18 U/L (13-39) 12/23/21 00:03 ALT 13 U/L (7-52) 12/23/21 00:03 Alkaline Phosphatase 85 U/L (34-104) 12/23/21 00:03 Troponin I High Sens 42.7 pg/ml (0-14) H D 12/24/21 03:00 Total Protein 8.3 gm/dl (6.0-8.3) 12/23/21 00:03 Albumin 4.1 gm/dl (3.4-5.0) 12/23/21 00:03 Globulin 4.2 gm/dl (2.5-4.0) H 12/23/21 00:03 Albumin/Globulin Ratio 1.0 (0.9-2) 12/23/21 00:03 SARS-CoV-2, RNA, NAAT NEGATIVE (NEGATIVE) 12/24/21 03:49 Code Status & VTE Plan VTE Prophylaxis Plan VTE Prophylaxis will be ordered: Yes PG Care Time/CCT Total # of Minutes Spent Total Time Spent with Patient: Total time spent is greater than 50% in coordination of care (as documented) at patient's floor/unit and/or counseling patient: Coding Level of Care Code 66315 Initial Inpt Care Lvl 3 Diagnoses Chest pain R07.9 CAD (coronary artery disease) I25.10 Chronic kidney disease, stage III (moderate) N18.30 Depression F32.9 Diabetes type 1, uncontrolled E10.65 Hypercholesterolemia E78.00
[2021-12-24 03:38] LABS: Calcium 7.7 mg/dl (8.5-10.1); Creatinine Clr Calc Pharmacy 40.6 ml/min; Est GFR (African American) 38.3 ml/min; Potassium 3.2 mmol/L (3.5-5.1)
[2021-12-24 03:40] LABS: Troponin I High Sensitivity 42.7 pg/ml (0-14)
[2021-12-24] MEDS ORDERED: POTASSIUM ACETATE/NSS 10 MEQ/105 ML BAG IV STA (03:45)
[2021-12-24] MEDS: POTASSIUM CHLORIDE / WTR 10 MEQ/100 ML PLCT IV SCH ×2 (04:48→06:11)
[2021-12-24] MEDS ORDERED: CARBOHYDRATES FOR HYPOGLYCEMIA PO PRN (05:47)
[2021-12-24] MEDS ORDERED: GLUCOSE 40% GEL 15 GM TUBE PO PRN (05:47)
[2021-12-24] MEDS ORDERED: GLUCOSE 10 TAB/TUBE PO PRN (05:47)
[2021-12-24] MEDS ORDERED: DEXTROSE 50% 50 ML SYRINGE IV PRN (05:47)
[2021-12-24] MEDS ORDERED: NITROGLYCERIN SL 0.4 MG/TAB TAB SL PRN (05:47)
[2021-12-24] MEDS ORDERED: GLUCAGON FOR INJ 1 MG VIAL SQ PRN (05:47)
[2021-12-24] MEDS ORDERED: ONDANSETRON INJ 2 MG/ML 2 ML VIAL IV PRN (05:47)
[2021-12-24 06:20] LABS: Magnesium 1.9 mg/dl (1.7-2.4); Phosphorus 3.2 mg/dl (2.5-4.9)
[2021-12-24] MEDS ORDERED: hydrOXYzine HCl 10 MG TAB PO PRN (06:21)
[2021-12-24] MEDS ORDERED: DULoxetine HCL 60 MG CAP PO STA (06:21)
--- NOTE | 2021-12-24 06:55 | Emergency Department Note ---
Impression & Plan Acute non-ST elevation myocardial infarction (NSTEMI), SCOTTY (acute kidney injury), Vomiting, Chest pain, Ischemic cardiomyopathy ED Provider Note CHIEF COMPLAINT: chest pain, vomiting HISTORY OF PRESENT ILLNESS: This 41 you female patient presents to the emergency department with c/o chest pain x 1-2 days, burning and vomiting. Patient states she does have a history of coronary artery disease. She had a catheterization several years ago and was told she needed to follow-up with somebody else because the vessels were too small to stent. REVIEW OF SYSTEMS: A review of systems was performed with positives and pertinent negatives listed in the history of present illness. 10 systems were reviewed and are otherwise negative. ALLERGIES: see below MEDICATIONS: see below PMH: see below SOCIAL HISTORY: see below DDx: Cardiac ischemia, aortic dissection, pulmonary embolism, pneumothorax, pneumonia, pericarditis, myocarditis, esophageal rupture, GERD, cholecystitis, pancreatitis, musculoskeletal, as well as other pathologies. PHYSICAL EXAM: Vital signs reviewed. General: Well-appearing 41 yo female in no significant distress. HEENT: No scleral icterus, PERRLA, neck supple. Atraumatic. Cardiovascular: Regular rate and rhythm, no extra sounds. Pulmonary: Clear to auscultation bilaterally, normal work of breathing. Abdomen: Soft, nontender, nondistended, positive bowel sounds. Musculoskeletal: Atraumatic, no peripheral edema. Neurologic: Patient awake alert and oriented x 3 Skin: Warm, dry, no rash EMERGENCY DEPARTMENT COURSE/MDM: This pt was evaluated and appeared to be in no distress. IV access was obtained and lab work was drawn. EKG was performed and reveals T wave abnormality in the lateral leads. Patient's troponin is mildly elevated that is similar at 0.5 to earlier today. patient stated she did not take aspirin because she has been vomiting. Pt was medicated with IV pepcid, IV zofran and hydrated with NSS. She was noted to have a low K+, given 20 MEq IV. Pt was placed on a heparin gtt, discussed with Dr. Leyva of the hospitalist service for further managment. MONITORING: An order for cardiac monitoring was placed and the patient is noted to be in a NSR at 86 beats per minute. RADIOLOGY: see below EKG:sinus rhythm with short [place] interval, LAE, repolarization abnl. QTc 466, no PVC, no PAC. DISPOSITION: Admit I have personally spent 30 minutes of critical care time in the direct management of this patient. This was a life/limb threatening event. This 30 minutes is in excess of all separately billable procedures. Past Med/Surg History Medical History Asthma CAD (coronary artery disease) Chronic kidney disease, stage III (moderate) Depression Diabetes type 1, uncontrolled History of anorexia nervosa History of chronic constipation History of chronic diarrhea History of herpes genitalis Hypercholesterolemia Hypertension Hypothyroidism Ischemic cardiomyopathy Myocardial Infarction NSTEMI s/p CATH on 01/30/2021 cardiomyopathy Type 1 diabetes Surgical History H/O cataract extraction History of section History of oral surgery History of tonsillectomy Family History Mother Sciatica Hypertension Carpal tunnel syndrome Sister Epilepsy Grandmother (Maternal) Brain cancer Aunt Lymphoma Social History Smoking Status: Never smoker Second Hand Exposure: No; Hx Alcohol Use: No Preferred Language: Faroese 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: Effective 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: No Beliefs That Will Affect Care: None marital status: Current Living Situation: Spouse current occupational status: employed current occupation: Works at [employer] in [place] department Feels Safe at Home: Yes Assistive Devices: None Allergies Allergies Allergy/AdvReac Type Severity Reaction Status Date / Time clopidogrel Allergy Severe Nausea,Vomi Verified 12/24/21 01:58 ting milk Allergy Unknown Unknown Verified 12/24/21 01:58 mushroom Allergy Unknown Unknown Verified 12/24/21 01:58 orange Allergy Unknown Unknown Verified 12/24/21 01:58 orange flavor Allergy Unknown Unknown Verified 12/24/21 01:58 orange juice Allergy Unknown Unknown Verified 12/24/21 01:58 metformin AdvReac Mild NAUSEA, Verified 12/24/21 01:58 UPSET STOMACH Home Meds Home Medications Medication Instructions Recorded Confirmed duloxetine 60 mg capsule,delayed 60 mg PO QAM 09/15/18 12/24/21 release norgestimate-ethinyl estradiol 1 tab PO HS 09/15/18 12/24/21 0.18 mg/0.215mg/0.25mg-35 mcg(28)tablet (Tri Femynor) bupropion HCl 300 mg 24 hr tablet, 300 mg PO QAM 01/11/19 12/24/21 extended release carvedilol 25 mg tablet 25 mg PO AMHS 01/11/19 12/24/21 fluticasone propionate 50 1 sprays intranasal BID 01/11/19 12/24/21 mcg/actuation nasal spray,suspension valacyclovir 1 gram tablet 1,000 mg PO BID PRN .FLARES 03/07/19 12/24/21 (Valtrex) multivitamin (Daily Multi-Vitamin 1 tab PO QAM 06/06/20 12/24/21 tablet) glucagon 3 mg/actuation nasal 3 mg intranasal ONCE PRN 05/31/21 12/24/21 spray (Baqsimi) hypoglycemia chlorpheniramine maleate 4 mg 4 mg PO Q12H PRN sinus pressure 10/30/21 12/24/21 tablet (Allergy Relief (chlorpheniramine)) pseudoephedrine HCl 120 mg 120 mg PO BID PRN sinus pressure 10/30/21 12/24/21 tablet,extended release (Sudafed 12 Hour) amlodipine 5 mg tablet 5 mg PO QAM 12/24/21 12/24/21 atorvastatin 40 mg tablet 40 mg PO QAM 12/24/21 12/24/21 nitroglycerin 0.3 mg sublingual 0.3 mg sublingual UD PRN Chest Pain 12/24/21 12/24/21 tablet pantoprazole 40 mg tablet,delayed 80 mg PO QAM 12/24/21 12/24/21 release valsartan 40 mg tablet 40 mg PO QAM 12/24/21 12/24/21 Previous Rx's Medication Instructions Recorded aspirin 81 mg tablet,delayed 81 mg PO QAM #30 tabs 03/07/21 release Novolog U-100 Insulin aspart 100 50 unit (0.5 mL) subcut DAILY 04/29/21 unit/mL subcutaneous solution days #50 mL (insulin aspart U-100) Omnipod Dash Pods (Gen 4) (insulin #30 ea 07/12/21 pump cart,cont inf,BT) Dexcom G6 Sensor (blood-glucose #9 ea 08/16/21 sensor) Dexcom G6 Transmitter #1 ea 08/16/21 (blood-glucose transmitter) Results & Data (ED) Vital Signs Vital Signs - 24 hr 12/23/21 23:43 12/24/21 03:04 12/24/21 03:05 Temperature 36 C L Temperature Source Temporal Artery Scan Pulse Rate 87 86 Pulse Rate [Apical] 91 H Pulse Rhythm [Apical] Regular Pulse Strength [Apical] Normal Respiratory Rate 18 18 18 Respiratory Effort / Characteristics Non-Labored Respiratory Depth Normal Blood Pressure 156/94 H Blood Pressure [Right Arm] 188/103 H Blood Pressure Mean 114 Blood Pressure Mean [Right Arm] 131 Pulse Oximetry 100 98 98 Oxygen Delivery Method Room Air Room Air Room Air Sepsis Recent Fever Within 48 Hours No Sepsis New/Unexplained Change in Mental Status N/A Sepsis Action Taken by Nursing No Action Required Home Medications Current Medication List: was personally reviewed by me Laboratory Data Attestation: I reviewed the patient's lab results. Result diagrams: 12/23/21 00:03 12/24/21 03:00 Lab Results 12/23/21 12/23/21 12/23/21 Range/Units 00:03 00:03 00:03 WBC 10.81 H (4.8-10.8) K/ul RBC 4.09 (3.93-5.22) M/uL Hgb 12.9 (12.0-16.0) g/dl Hct 38.2 (34.1-44.9) % MCV 93.4 (80.0-100.0) fL MCH 31.5 (25.0-34.0) pg MCHC 33.8 (32.0-36.0) g/dL RDW Std Deviation 42.1 (36.4-46.3) fL RDW Coeff of Eboni 12.2 (11.5-14.5) % Plt Count 319 (130-400) K/uL MPV 8.9 L (9.4-12.3) fL Immature Gran % (Auto) 0.2 % Neut % (Auto) 63.8 % Lymph % (Auto) 29.9 % Hays % (Auto) 5.6 % Eos % (Auto) 0.2 % Baso % (Auto) 0.3 % Neut # (Auto) 6.90 H (1.4-6.5) K/uL Lymph # (Auto) 3.23 (1.2-3.4) K/uL Hays # (Auto) 0.61 (0.24-0.82) K/uL Eos # (Auto) 0.02 (0-0.50) K/uL Baso # (Auto) 0.03 (0-0.2) K/uL Immature Gran # (Auto) 0.02 (0.00-0.02) K/uL PT 10.4 (9.0-12.0) Seconds INR 1.0 (0.9-1.1) APTT 23.9 (21.0-31.0) Seconds PTT Ratio 0.9 D-Dimer 600 H* (0-500) ug/L FEU Sodium 134 L (136-145) mmol/L Potassium 3.3 L (3.5-5.1) mmol/L Chloride 93 L (98-107) mmol/L Carbon Dioxide 31 (21-32) mmol/L Anion Gap 10 (3-11) BUN 33 H (6-23) mg/dl Creatinine 2.55 H (0.6-1.2) mg/dl Est Cr Clr Drug Dosing Not Reportable Est GFR ( Amer) 26.3 ml/min Est GFR (Non-Af Amer) 22.7 ml/min BUN/Creatinine Ratio 12.9 (10-20) Glucose 274 H (70-99(Fasting)) mg/dl Calcium 9.5 (8.5-10.1) mg/dl Phosphorus (2.5-4.9) mg/dl Magnesium (1.7-2.4) mg/dl Total Bilirubin 0.6 (0.2-1.0) mg/dl AST 18 (13-39) U/L ALT 13 (7-52) U/L Alkaline Phosphatase 85 (34-104) U/L Troponin I High Sens 57.6 H* (0-14) pg/ml Total Protein 8.3 (6.0-8.3) gm/dl Albumin 4.1 (3.4-5.0) gm/dl Globulin 4.2 H (2.5-4.0) gm/dl Albumin/Globulin Ratio 1.0 (0.9-2) 12/24/21 12/24/21 Range/Units 03:00 03:00 WBC (4.8-10.8) K/ul RBC (3.93-5.22) M/uL Hgb (12.0-16.0) g/dl Hct (34.1-44.9) % MCV (80.0-100.0) fL MCH (25.0-34.0) pg MCHC (32.0-36.0) g/dL RDW Std Deviation (36.4-46.3) fL RDW Coeff of Eboni (11.5-14.5) % Plt Count (130-400) K/uL MPV (9.4-12.3) fL Immature Gran % (Auto) % Neut % (Auto) % Lymph % (Auto) % Hays % (Auto) % Eos % (Auto) % Baso % (Auto) % Neut # (Auto) (1.4-6.5) K/uL Lymph # (Auto) (1.2-3.4) K/uL Hays # (Auto) (0.24-0.82) K/uL Eos # (Auto) (0-0.50) K/uL Baso # (Auto) (0-0.2) K/uL Immature Gran # (Auto) (0.00-0.02) K/uL PT (9.0-12.0) Seconds INR (0.9-1.1) APTT (21.0-31.0) Seconds PTT Ratio D-Dimer (0-500) ug/L FEU Sodium 138 (136-145) mmol/L Potassium 3.2 L (3.5-5.1) mmol/L Chloride 105 (98-107) mmol/L Carbon Dioxide 25 (21-32) mmol/L Anion Gap 8 (3-11) BUN 30 H (6-23) mg/dl Creatinine 1.87 H (0.6-1.2) mg/dl Est Cr Clr Drug Dosing 40.6 Est GFR ( Amer) 38.3 ml/min Est GFR (Non-Af Amer) 33.0 ml/min BUN/Creatinine Ratio 16.0 (10-20) Glucose 183 H (70-99(Fasting)) mg/dl Calcium 7.7 L (8.5-10.1) mg/dl Phosphorus 3.2 (2.5-4.9) mg/dl Magnesium 1.9 (1.7-2.4) mg/dl Total Bilirubin (0.2-1.0) mg/dl AST (13-39) U/L ALT (7-52) U/L Alkaline Phosphatase (34-104) U/L Troponin I High Sens 42.7 H D (0-14) pg/ml Total Protein (6.0-8.3) gm/dl Albumin (3.4-5.0) gm/dl Globulin (2.5-4.0) gm/dl Albumin/Globulin Ratio (0.9-2) Administered Medications Heparin Sodium/Dextrose (Heparin Sodium/Dextrose) 25,000 units in 500 mls @ 15 mls/hr IV .Q24H RYANN; Protocol Stop: 01/23/22 02:44 Last Titration: 12/24/21 04:03 Dose: 750 units/hr, 15 mls/hr Documented By: MAIKOL Co-signed By: LUCÍA Admin: 12/24/21 03:29 Dose: 1,150 units/hr, 23 mls/hr Documented By: PRISCA Co-signed By: MAIKOL Discontinued Medications Famotidine (Famotidine 20mg/5ml Iv Push) Confirm Administered Dose 20 mg IV .STK-MED ONE Stop: 12/24/21 03:18 Last Admin: 12/24/21 03:21 Dose: 20 mg Documented By: PRISCA Heparin Sodium (Porcine) (Heparin Sod (Porcine) 1000 Unit/Ml) 1 units IV NOW ONE Stop: 12/24/21 02:40 Last Admin: 12/24/21 03:30 Dose: 1 units Documented By: PRISCA Co-signed By: MAIKOL Heparin Sodium/Dextrose (Heparin Iv Adult Wt-Based Low-Dose With Bolus Protocol) 1 each IV NOW STA; Protocol Stop: 12/24/21 02:25 Last Admin: 12/24/21 03:46 Dose: Not Given Documented By: MICHELLE Famotidine 20 mg/ Syringe 5 mls @ 2.5 mls/min IV NOW ONE Stop: 12/24/21 02:30 Last Admin: 12/24/21 03:26 Dose: Not Given Documented By: PRISCA Sodium Chloride (Nss 1000ml) 1,000 mls @ 150 mls/hr IV .Q6H40M RYANN Stop: 01/23/22 02:29 Last Admin: 12/24/21 03:12 Dose: 150 mls/hr Documented By: MARISELA Sodium Chloride (Nss 1000ml) 500 mls @ 999 mls/hr IV .Q31M ONE Stop: 12/24/21 02:59 Last Infusion: 12/24/21 03:45 Dose: 0 mls/hr Documented By: Admin: 12/24/21 03:12 Dose: 999 mls/hr Documented By: MARISELA Potassium Chloride (K Kurtis / Wtr) 10 meq in 100 mls @ 100 mls/hr IV Q1H RYANN Stop: 12/24/21 05:59 Last Admin: 12/24/21 06:11 Dose: 80 mls/hr Documented By: Infusion: 12/24/21 06:11 Dose: 0 mls/hr Documented By: Infusion: 12/24/21 04:58 Dose: 80 mls/hr Documented By: Admin: 12/24/21 04:48 Dose: 100 mls/hr Documented By: PRISCA Nitroglycerin (Nitroglycerin 2% Ointment 30gm Tube) 1 inch EXT NOW ONE Stop: 12/24/21 02:28 Last Admin: 12/24/21 03:11 Dose: 1 inch Documented By: MARISELA Ondansetron HCl (Ondansetron Inj 2 Mg/Ml 2 Ml Vial) 4 mg IV NOW STA Stop: 12/24/21 02:31 Last Admin: 12/24/21 03:12 Dose: 4 mg Documented By: MARISELA Imaging Data Attestation: I personally reviewed and interpreted this imaging study as follows: My Impression: Chest x-ray to my interpretation reveals no evidence of focal lung consolidation or failure. Blood Pressure Blood Pressure Findings: Elevated blood pressure Blood Pressure Disposition: further management by hospitalist Discharge Plan Visit Data Chief Complaint: Referred by Doctor Stated Complaint: RECOMMENDED TO COME IN ED Provider: Leatha Lira Discharge Problem: Acute non-ST elevation myocardial infarction (NSTEMI), SCOTTY (acute kidney injury), Vomiting, Chest pain, Ischemic cardiomyopathy Patient Disposition: Admitted As Inpatient Discharge Instructions Interventions: ED Discharge Assessment Last Done: 12/24/21 05:48
--- NOTE | 2021-12-24 07:55 | XRay Report ---
XR chest 1V portable HISTORY: 41 years-old Female Chest Pain . Acute atypical chest pain COMPARISON: Chest radiograph 01/04/2021 TECHNIQUE: Portable AP view of the chest FINDINGS: Cardiomediastinal and hilar silhouettes are within normal limits. No pneumothorax, pleural effusion, airspace consolidation or overt pulmonary edema. Bones of the chest appear grossly intact. IMPRESSION: No acute process. ACT 112: Negative or not required by law. The above report was generated using voice recognition software. It may contain grammatical, syntax o r spelling errors. Electronically signed by: Bruce Maurer M.D. 12/24/2021 7:52 AM
[2021-12-24] MEDS ORDERED: LORazepam 0.5 MG TAB PO STA (08:20)
[2021-12-24] MEDS ORDERED: LORazepam 0.5 MG TAB ONE (08:26)
[2021-12-24] MEDS ORDERED: buPROPion XL 300 MG TABCR PO SCH ×2 (09:00)
[2021-12-24] MEDS ORDERED: FLUTICASONE PROPIONATE NA SPR 16 GM BTL SCH (09:00)
[2021-12-24] MEDS ORDERED: ASPIRIN 81 MG ECTAB PO SCH (09:00)
[2021-12-24] MEDS ORDERED: PANTOprazole 40 MG TAB PO SCH (09:00)
[2021-12-24] MEDS ORDERED: VALSARTAN 80 MG TAB PO SCH (09:00)
[2021-12-24] MEDS ORDERED: carvediloL 25 MG TAB PO SCH (09:00)
[2021-12-24] MEDS ORDERED: DULoxetine HCL 60 MG CAP PO SCH (09:00)
[2021-12-24] MEDS ORDERED: ATORVASTATIN 40 MG TAB PO SCH (09:00)
[2021-12-24 09:53] LABS: Partial Thromboplastin Time 55.6 Seconds (21.0-31.0)
--- NOTE | 2021-12-24 13:59 | Discharge Summary ---
Date of Service December 24, 2021 Admission HPI Per Admitting Provider Tsering Topete is A very pleasant 41-year-old female with history of cardiomyopathy,CAD status post NSTEMI, ischemic cardiomyopathy, hypertension, hyperlipidemia and type 1 diabetes presenting with chest pain. Patient was admitted to [facility] on 01/03/2021 with DKA. She had an elevated troponin at that time which peaked at 37.3. She had cardiac catheterization performed on 01/30/2021 which revealed: Early mid LAD 30 to 40%.Medium caliber diagonal with proximal to mid 30 to 50%. Mid Cx 40%.Distal Cx 80% at bifurcation of small PL and small PDA. Severe diffuse CAD throughout the proximal and mid RCA. Mid RCA 100% with bridging R to R collaterals. RCA PDA fills via left to right collaterals. Interventional cardiology attempted to pass a wire through the RCA stenosis. The wire was unable to be advanced across the lesion. Medical therapy recommended. She has been compliant with her medications.She reports feeling ill over the last several days to include substernal chest tightness and burning as well as a "feeling that someone was sitting on my chest". She had episodes of diaphoresis as well as nausea, nonbloody/nonbilious vomiting and exhaustion.She reports she was unable to get out of bed and shower. She was at a family event over the weekend and did become emotional at one point during an argument - she felt shaky and diaphoretic after the argument. Blood sugar was within normal limits. Patient had a routine visit with her PCP today and mentioned how ill she was over the weekend. She also mentioned her substernal chest discomfort. Routine labs were ordered including troponin. Patient was contacted to come to the ER due to an elevated troponin level (57.6 --> 56/9 --> 42.7) Chest pain has been persistent, improved. Still present on arrival Nitro patch placed with improvement in discomfort. No additional complaints at this time. Principal Diagnosis Anginal chest pain Discharge Exam Gen: No acute distress CV: RRR, no m/r/g R: Lungs CTA b/l Discharge Data Allergies Allergy/AdvReac Type Severity Reaction Status Date / Time clopidogrel Allergy Severe Nausea,Vomi Verified 12/24/21 01:58 ting milk Allergy Unknown Unknown Verified 12/24/21 01:58 mushroom Allergy Unknown Unknown Verified 12/24/21 01:58 orange Allergy Unknown Unknown Verified 12/24/21 01:58 orange flavor Allergy Unknown Unknown Verified 12/24/21 01:58 orange juice Allergy Unknown Unknown Verified 12/24/21 01:58 metformin AdvReac Mild NAUSEA, Verified 12/24/21 01:58 UPSET STOMACH Consultations 12/24/21 03:46 ED Decision to Admit Stat 12/24/21 05:47 Consult Cardiology Routine Hospital Course (1) Chest pain: 5-year-old female with known CAD, type 1 diabetes, hypertension, hyperlipidemia presenting with 2 days of substernal chest discomfort. Pain was nonexertional, non-positional. EKG with some nonspecific ST changes, elevated troponin downtrending. Pain present on arrival now improved after nitro patch placement. Repeat troponins downtrending Echo showed mildly reduced EF; appears to be no change from prior in 12/2020. Continued heparin drip while inpatient. Cardiology consultation appreciated - [place] that given stable troponins, no [facility]. Safe to discharge. Recommended long-acting nitro. Patient preferred patches as pills had previously caused TERRY and heart burn. Patient to follow-up with normal senior validation engineer in 1-2 weeks. (2) CAD (coronary artery disease): Patient with known CAD. Follows with cardiology. Nitro as needed Continue home aspirin, valsartan, carvedilol, and atorvastatin (3) Chronic kidney disease, stage III (moderate): Chronic. Monitor renal function -> At baseline while admitted. Avoid nephrotoxic agents (4) Depression: Chronic. Stable. Continue duloxetine 60 mg p.o. every morning Continue bupropion 300 mg p.o. every morning (5) Diabetes type 1, uncontrolled: Chronic. Insulin pump in place Patient may continue home insulin pump Monitor blood sugar (6) Hypercholesterolemia: Chronic. Continue atorvastatin Total Time Total Time Spent Total Time Spent (In Minutes): 35 Discharge Plan Discharge Items Patient Disposition: Home - Self-Care Reason For Visit: CHEST PAIN Discharge Diagnosis: Angina (cardiac chest pain) Activity: Resume your previous activity Non-emergency contact: Primary Care Provider and Social Media Director Call non-emergency contact if: your symptoms worsen Follow-up/Referrals: Franco Warren MD [Physician] - (Please follow up with the cardiology office in 1-2 weeks to be sure the nitro patch is working and your angina is not getting worse.) Rob Loaiza MD [Primary Care Provider] - Diet: Carb Count or DM1 and Heart Healthy Addtl Attending Provider Instructions: Ms. Topete, You were admitted to the hospital with chest pain. Given your known coronary artery disease, we did have concern that it was cardiac-related pain. Your troponins in the hospital were fairly stable, meaning we do *not* think you had an acute heart attack. More likely, the known plaques in your arteries are causing some of this. With the nitro patch on, you felt substantially better, and we are sending you home with a prescription for them. For the patches, you are meant to wear it during your waking hours only. Apply it in the morning, then remove before bedtime. If you wear it for 24 hours/day, it loses its effectiveness. If you continue to have chest pain and it is not relieved by the patches, please contact your senior validation engineer or come back to the hospital. Pending Studies at Discharge: No Stand-Alone Forms: My [facility] Retrieve, Smoking Cessation Medications and DC Order Prescriptions: New nitroglycerin 0.2 mg/hr patch 24 hour 1 patch transdermal DAILY Qty: 30 0RF Rx Instructions: Allow nitrate-free interval of approx. 10-12 hrs per 24-hour period. Continued insulin aspart U-100 [Novolog U-100 Insulin aspart] 100 unit/mL solution 50 unit subcut DAILY 90 Days Qty: 50 1RF Rx Instructions: via insulin pump (DME) Omnipod Dash Pods (Gen 4) Cartridge See Rx Instructions .Route Qty: 30 1RF Rx Instructions: change every 72 hrs (DME) Dexcom G6 Transmitter Device See Rx Instructions .Route Qty: 1 3RF Rx Instructions: change evry 3 months (DME) Dexcom G6 Sensor Device See Rx Instructions .Route Qty: 9 3RF Rx Instructions: change every 10 days fluticasone propionate 50 mcg/actuation spray,suspension 1 sprays intranasal BID bupropion HCl 300 mg tablet extended release 24 hr 300 mg PO QAM aspirin 81 mg tablet,delayed release (DR/EC) 81 mg PO QAM Qty: 30 11RF Baqsimi 3 mg/actuation spray,non-aerosol 3 mg intranasal ONCE PRN (Reason: hypoglycemia) valacyclovir [Valtrex] 1 gram tablet 1,000 mg PO BID PRN (Reason: .FLARES) multivitamin [Daily Multi-Vitamin] Tablet 1 tab PO QAM chlorpheniramine maleate [Allergy Relief(chlorpheniramn)] 4 mg tablet 4 mg PO Q12H PRN (Reason: sinus pressure) pseudoephedrine HCl [Sudafed 12 Hour] 120 mg tablet extended release 120 mg PO BID PRN (Reason: sinus pressure) norgestimate-ethinyl estradiol [Tri Femynor] 0.18/0.215/0.25 mg-35 mcg (28) tablet 1 tab PO HS duloxetine 60 mg capsule,delayed release(DR/EC) 60 mg PO QAM carvedilol 25 mg tablet 25 mg PO AMHS atorvastatin 40 mg tablet 40 mg PO QAM amlodipine 5 mg tablet 5 mg PO QAM pantoprazole 40 mg tablet,delayed release (DR/EC) 80 mg PO QAM valsartan 40 mg tablet 40 mg PO QAM nitroglycerin 0.3 mg tablet, sublingual 0.3 mg sublingual UD PRN (Reason: Chest Pain) Discharge Orders: Discharge Order (Routine); Ordered 12/24/21 Ordered By: Tramaine Campoverde Admission Data Admit Date/Time: 12/24/21 03:36 Attending Provider: Tramaine Campoverde Admit Provider: Melinda Leyva Primary Care Provider: Rob Loaiza Other Providers: Melinda Leyva ; Percy Monte Coding Level of Care Code D/C DAY MANAGEMENT >30 MINS Diagnoses Chest pain R07.9 CAD (coronary artery disease) I25.10 Chronic kidney disease, stage III (moderate) N18.30 Depression F32.9 Diabetes type 1, uncontrolled E10.65 Hypercholesterolemia E78.00
[2021-12-24] MEDS ORDERED: NITROGLYCERIN 0.2 MG/HR PATCH TD STA (14:16)
--- NOTE | 2021-12-24 16:14 | Electrocardiogram Report ---
Test Reason : Blood Pressure : / mmHG Vent. Rate : 086 BPM Atrial Rate : 086 BPM P-R Int : 110 ms QRS Dur : 084 ms QT Int : 390 ms P-R-T Axes : 049 039 244 degrees QTc Int : 466 ms Sinus rhythm with short WA Possible Left atrial enlargement Left ventricular hypertrophy with repolarization abnormality Abnormal ECG When compared with ECG of 04-JAN-2021 05:27, T wave inversion more evident in Lateral leads Confirmed by Percy Monte ([id number]) on 12/24/2021 4:14:09 PM Referred By: Ziyad Singh Confirmed By:Percy Monte
--- NOTE | 2021-12-24 17:15 | Cardiology Consultation ---
Date of Consultation December 24, 2021 Assessment & Plan (1) Non-ST elevation WA (NSTEMI): Modestly elevated troponin in a flat to downtrending pattern. This most likely represents a type II non-ST elevation WA secondary to inadequately controlled hypertension, acute on chronic renal insufficiency, in the setting of known underlying chronic total occlusion of the RCA and severe small vessel disease not amenable to PCI. She is already on guideline directed medical therapy for secondary prevention as outlined below. Her echocardiogram does not show any new wall motion abnormalities to suggest new occlusive coronary disease. Last catheterization was less than 1 year ago. Therefore, I am recommending medical management at this time to include increasing antianginal regimen, control of her blood pressure, and treatment for acute on chronic renal insufficiency. Present on Admission?: Yes (2) Ischemic cardiomyopathy: Mildly reduced EF confirmed to be unchanged without new wall motion abnormalities on her echo today. She has no evidence of volume overload today. In fact, she may be dehydrated. Gentle fluid resuscitation. Chronic heart failure regimen with carvedilol and valsartan as tolerated by renal function. If needed, we can consider combined hydralazine and long-acting nitrate. Does not currently require loop diuretic. Further outpatient titration of her medical regimen per primary webmethods consultant. Present on Admission?: Yes (3) CAD (coronary artery disease): Known chronic total occlusion of the RCA in combination with severe distal circumflex disease not amenable to PCI. She is having anginal episodes despite her home regimen including carvedilol, atorvastatin, aspirin, and amlodipine. Would recommend a long-acting nitrate (she prefers Nitropatch as provided on this admission to isosorbide mono or isosorbide dinitrate). Therefore, add Nitropatch on discharge for chronic anginal relief. Present on Admission?: Yes (4) Acute kidney injury superimposed on chronic kidney disease: Several days of nausea and vomiting. GFR today is 38 which is somewhat below her baseline in the high 40s. IV fluid resuscitation. Avoid nephrotoxic agents. She is followed by Dr. Whitley and should follow-up as an outpatient. Should be able to continue to tolerate her valsartan after discharge and IV fluid resuscitation. Present on Admission?: Yes (5) Hypertension: Patient's blood pressure was significantly elevated on admission and likely contributes to anginal symptoms. Adding Nitropatch will certainly help with blood pressure control. She should also continue with valsartan and carvedilol per prior home dose. Amlodipine is 5 mg and consideration can be made for increase to 10 mg if needed after nitro patch is added. In addition, hydralazine could be considered if further control is needed since it also provides improved morbidity and mortality in combination with long-acting nitro in -Americans with heart failure. Present on Admission?: Yes (6) Hypercholesterolemia: High risk (diabetes and coronary disease). High intensity statin therapy is recommended by current guidelines with aggressive LDL reduction target. She is on atorvastatin 40 mg daily which likely achieves target LDL reduction. This should continue and can be titrated further as an outpatient. Present on Admission?: Yes Plan From a cardiovascular standpoint once the medications are added then she will likely be appropriate for discharge. Did she have recurrence of chest pain despite these medications I have asked her to return to the emergency department or if they are minor she can call the outpatient cardiology office. She should follow-up with her primary webmethods consultant within 2 to 4 weeks of discharge. History of Present Illness Reason for Consultation: NSTEMI Attending Physician: Tramaine Campoverde MD History of Present Illness Pleasant 41-year-old diabetic female with a history of coronary disease with myocardial infarction in 2020 and chronic renal insufficiency. She presented with chest pain and found to have modestly elevated troponin. I was asked to see her regarding this issue. Patient reports that over the weekend she was feeling poorly with nausea and vomiting lasting several days. She developed chest discomfort which she described as pressure. There was a burning component and she noted some shortness of breath. Denies diaphoresis. She was concerned because she felt the pain was similar to her prior angina. She therefore decided to seek medical attention. She was provided Zofran and a nitro patch. At this time, she states she feels completely well and wishes to be discharged if possible. She denies any ongoing anginal chest pain, shortness of breath at rest, syncope, near syncope, orthopnea, PND, racing heartbeat, palpitations, or edema. Of note, her catheterization from January 2021 demonstrated a chronic total occlusion of the RCA as well as a severe 80% stenosis in the distal circumflex too small for PCI. Patient follows with on a regular basis in the cardiology clinic. Allergies Allergy/AdvReac Type Severity Reaction Status Date / Time clopidogrel Allergy Severe Nausea,Vomi Verified 12/24/21 01:58 ting milk Allergy Unknown Unknown Verified 12/24/21 01:58 mushroom Allergy Unknown Unknown Verified 12/24/21 01:58 orange Allergy Unknown Unknown Verified 12/24/21 01:58 orange flavor Allergy Unknown Unknown Verified 12/24/21 01:58 orange juice Allergy Unknown Unknown Verified 12/24/21 01:58 metformin AdvReac Mild NAUSEA, Verified 12/24/21 01:58 UPSET STOMACH Home Medications Medication Instructions Recorded Confirmed Type duloxetine 60 mg capsule,delayed 60 mg PO QAM 09/15/18 12/24/21 History release norgestimate-ethinyl estradiol 1 tab PO HS 09/15/18 12/24/21 History 0.18 mg/0.215mg/0.25mg-35 mcg(28)tablet (Tri Femynor) bupropion HCl 300 mg 24 hr tablet, 300 mg PO QAM 01/11/19 12/24/21 History extended release carvedilol 25 mg tablet 25 mg PO AMHS 01/11/19 12/24/21 History fluticasone propionate 50 1 sprays intranasal BID 01/11/19 12/24/21 History mcg/actuation nasal spray,suspension valacyclovir 1 gram tablet 1,000 mg PO BID PRN .FLARES 03/07/19 12/24/21 History (Valtrex) multivitamin (Daily Multi-Vitamin 1 tab PO QAM 06/06/20 12/24/21 History tablet) aspirin 81 mg tablet,delayed 81 mg PO QAM #30 tabs 03/07/21 12/24/21 Rx release Novolog U-100 Insulin aspart 100 50 unit (0.5 mL) subcut DAILY 90 04/29/21 12/24/21 Rx unit/mL subcutaneous solution days #50 mL (insulin aspart U-100) glucagon 3 mg/actuation nasal 3 mg intranasal ONCE PRN 05/31/21 12/24/21 History spray (Baqsimi) hypoglycemia Omnipod Dash Pods (Gen 4) (insulin #30 ea 07/12/21 12/06/21 Rx pump cart,cont inf,BT) Dexcom G6 Sensor (blood-glucose #9 ea 08/16/21 12/06/21 Rx sensor) Dexcom G6 Transmitter #1 ea 08/16/21 12/06/21 Rx (blood-glucose transmitter) chlorpheniramine maleate 4 mg 4 mg PO Q12H PRN sinus pressure 10/30/21 12/24/21 History tablet (Allergy Relief (chlorpheniramine)) pseudoephedrine HCl 120 mg 120 mg PO BID PRN sinus pressure 10/30/21 12/24/21 History tablet,extended release (Sudafed 12 Hour) amlodipine 5 mg tablet 5 mg PO QAM 12/24/21 12/24/21 History atorvastatin 40 mg tablet 40 mg PO QAM 12/24/21 12/24/21 History nitroglycerin 0.2 mg/hr 1 patch transdermal DAILY #30 ea 12/24/21 Rx transdermal 24 hour patch nitroglycerin 0.3 mg sublingual 0.3 mg sublingual UD PRN Chest Pain 12/24/21 12/24/21 History tablet pantoprazole 40 mg tablet,delayed 80 mg PO QAM 12/24/21 12/24/21 History release valsartan 40 mg tablet 40 mg PO QAM 12/24/21 12/24/21 History Patient History Medical History Asthma CAD (coronary artery disease) Chronic kidney disease, stage III (moderate) Depression Diabetes type 1, uncontrolled History of anorexia nervosa History of chronic constipation History of chronic diarrhea History of herpes genitalis Hypercholesterolemia Hypertension Hypothyroidism Ischemic cardiomyopathy Myocardial Infarction NSTEMI s/p CATH on 01/30/2021 cardiomyopathy Type 1 diabetes Surgical History H/O cataract extraction History of section History of oral surgery History of tonsillectomy Family History Mother Sciatica Hypertension Carpal tunnel syndrome Sister Epilepsy Grandmother (Maternal) Brain cancer Aunt Lymphoma Social History Smoking Status: Former smoker Second Hand Exposure: No; Hx Alcohol Use: Yes Alcohol type: hard liquor Hx Substance Use: Yes Last Used Substance: Days (ago) Preferred Language: Nepali 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: Effective Catalytic Case Operator Required: No Beliefs That Will Affect Care: None marital status: Current Living Situation: Spouse current occupational status: employed current occupation: Works at [employer] in [employer] department Feels Safe at Home: Yes Assistive Devices: None Review of Systems Review of Systems: She denies fevers, chills, cough, sputum production, abdominal pain, leg pain, claudication, dysuria, hematuria, melena, hematemesis, or hemoptysis. No recent sick contacts. Admits to labile blood sugars often with associated nausea and vomiting. Rare lightheadedness or dizziness. The remainder of her 12 point review of systems is negative except as per HPI. Physical Exam Constitutional: WD/WN, vitals as above Eyes: PERRL, conjunctivae normal, anicteric sclerae ENMT: external ear and nose normal, oropharynx normal Neck: trachea midline, no thyromegaly No JVD or bruits. Respiratory: normal respiratory effort, lungs clear to auscultation (No wheezing, rhonchi, or crackles) Cardiovascular: Regular rate and rhythm. S4 gallop. No rubs or murmurs appreciated. 2+ distal pulses. No edema. Gastrointestinal (Abdomen): normal bowel sounds, soft, nontender, no hepatosplenomegaly Neurologic: Cognition is intact. Speech is fluent. There is no focal motor deficits. No tremor. Psychiatric: A+Ox3, euthymic affect Results & Data ([facility]) Vital Signs (Past 12 Hours) Vital Signs Temp Pulse Pulse Resp BP BP Pulse Ox 12/24/21 14:17 36.9 C 80 19 174/98 H 180/105 H 100 12/24/21 10:33 81 12/24/21 10:27 36.9 C 80 19 174/98 H 100 12/24/21 08:32 75 20 180/105 H 98 12/24/21 07:51 79 22 179/101 H 98 O2 Del Method 12/24/21 14:17 12/24/21 10:33 12/24/21 10:27 Room Air 12/24/21 08:32 Room Air 12/24/21 07:51 Room Air PG Care Time/CCT Total # of Minutes Spent Total Time Spent with Patient: Total time spent is greater than 50% in coordination of care (as documented) at patient's floor/unit and/or counseling patient: [place] [address] Inpt Consult Level 5 Patient Type New History Comprehensive Exam Comprehensive Medical Decision Making Moderate Complexity Diagnoses Non-ST elevation WA (NSTEMI) I21.4 Ischemic cardiomyopathy I25.5 CAD (coronary artery disease) I25.10 Acute kidney injury superimposed on chronic kidney disease N17.9; N18.9 Hypertension I10 Hypercholesterolemia E78.00
[2021-12-25] MEDS ORDERED: DULoxetine HCL 60 MG CAP PO SCH (09:00)
== END 2021-12-24 14:55 | disposition home or self-care (01) ==
LOC: ED 23:40 → INTOOBSV 12-24 03:36 → SUATTDRO 12-24 03:36 → EDINP 12-24 03:36 → 2N 12-24 10:03

== ENCOUNTER 2022-03-06 16:54 | Inpatient (IN) ==
[2022-03-06] MEDS ORDERED: SODIUM CHLORIDE 0.9% 1000ML 1,000 ML IV ONE ×2 (17:13→18:37)
[2022-03-06] MEDS ORDERED: ONDANSETRON INJ 2 MG/ML 2 ML VIAL IV STA (17:40)
[2022-03-06 17:52] LABS: Basophils # (auto) 0.03 K/uL (0-0.2); Basophils % (auto) 0.2 %; Hematocrit (blood only) 39.4 % (34.1-44.9); Hemoglobin 13.3 g/dl (12.0-16.0); Immature Granulocytes # (auto) 0.05 K/uL (0.00-0.02); Immature Granulocytes % (auto) 0.4 %; Lymphocytes # (auto) 1.38 K/uL (1.2-3.4); Lymphocytes % (auto) 10.1 %; Mean Corpuscular Hemoglobin 31.4 pg (25.0-34.0); Mean Corpuscular Hgb Conc 33.8 g/dL (32.0-36.0); Mean Corpuscular Volume 92.9 fL (80.0-100.0); Mean Platelet Volume 9.1 fL (9.4-12.3); Monocytes % (auto) 1.5 %; Neutrophils # (auto) 12.04 K/uL (1.4-6.5); Neutrophils % (auto) 87.8 %; Platelet Count 322 K/uL (130-400); RDW Coefficient of Variation 11.8 % (11.5-14.5); RDW Standard Deviation 40.2 fL (36.4-46.3); Red Blood Count 4.24 M/uL (3.93-5.22)
[2022-03-06] MEDS ORDERED: METOCLOPRAMIDE HCL INJ 5 MG/ML 2 ML VIAL IV ONE (18:01)
[2022-03-06] MEDS ORDERED: diphenhydrAMINE 50 MG/ML VIAL IV STA (18:01)
[2022-03-06 18:17] LABS: Albumin Level 4.6 gm/dl (3.4-5.0); Bilirubin Direct 0.1 mg/dl (0-0.2); Bilirubin,Total 0.8 mg/dl (0.2-1.0); Calcium 10.3 mg/dl (8.5-10.1); Creatinine Clr Calc Pharmacy 50.7 ml/min; Est GFR (African American) 48.8 ml/min; Est GFR (Non-African American) 42.1 ml/min; Magnesium 2.1 mg/dl (1.7-2.4); Potassium 3.6 mmol/L (3.5-5.1); Total Protein 9.2 gm/dl (6.0-8.3); Troponin I High Sensitivity 48.4 pg/ml (0-14)
[2022-03-06 18:33] LABS: Influenza A virus by PCR Negative (Neg); Influenza B virus by PCR Negative (Neg); RSV by PCR Negative (Neg); SARS CoV2 RNA(COVID-19) Ceph NEGATIVE (Negative)
[2022-03-06] MEDS ORDERED: DEXTROSE 50% 50 ML SYRINGE IV PRN ×2 (18:37→20:51)
[2022-03-06] MEDS ORDERED: STAT INSULIN DRIP STA (18:37)
[2022-03-06] MEDS ORDERED: CARBOHYDRATES FOR HYPOGLYCEMIA PO PRN (18:37)
[2022-03-06] MEDS ORDERED: GLUCOSE 40% GEL 15 GM TUBE PO PRN ×2 (18:37→20:51)
[2022-03-06] MEDS ORDERED: POTASSIUM CHLORIDE 10 MEQ TABCR PO STA (18:37)
[2022-03-06] MEDS ORDERED: GLUCOSE 10 TAB/TUBE PO PRN ×2 (18:37→20:51)
[2022-03-06] MEDS ORDERED: GLUCAGON FOR INJ 1 MG VIAL SQ PRN ×2 (18:37→20:51)
[2022-03-06 18:41] LABS: Appearance Urine Clear (Clear); Bacteria Urine Automated Negative (Negative); Bilirubin Urine Negative (Negative); Blood Urine 1+ (Negative); Cast Urine Automated 0 /lpf (0-5); Color Urine Yellow; Glucose Urine UA 3+ (Negative); Ketones Urine 4+ (Negative); Leukocyte Esterase Urine Negative (Negative); Nitrite Urine Negative (Negative); Protein Urine 2+ (Negative); RBC Urine Automated 0-4 /hpf (0-4); Specific Gravity Urine 1.021 (1.000-1.030); Urobilinogen Urine Negative (Negative); pH Urine 5.5 (4.5-7.5)
[2022-03-06] MEDS ORDERED: NSS + 20MEQ KCL 20 MEQ/1,000 ML BAG IV SCH (18:45)
[2022-03-06] MEDS ORDERED: INSULIN REGULAR 250 UNITS in SODIUM CHLORIDE 0.9% 247.5 ML IV SCH (18:45)
[2022-03-06 19:02] LABS: Partial Thromboplastin Ratio 0.9; Partial Thromboplastin Time 23.5 Seconds (21.0-31.0); Prothrombin Time 10.9 Seconds (9.0-12.0)
[2022-03-06 19:39] LABS: Base Excess VBG -0.3 mEq/L; HCO3 VBG 28 mmol/L; Oxygen Saturation VBG < 60.0 %; PCO2 VBG 61 mmHg (38-50); PO2 VBG 23 mmHg; pH VBG 7.27 (7.36-7.41)
--- NOTE | 2022-03-06 19:58 | History & Physical Report ---
Date of Service March 06, 2022 Assessment & Plan (1) DKA (diabetic ketoacidosis): Plan: Patient is a 41-year-old female with past medical history of type 1 diabetes, CAD, previous NSTEMI, CKD 3, and eating disorder presents to the emergency department for evaluation of nausea and vomiting. Patient was found to have diabetic ketoacidosis likely secondary to a possible pump failure. She has been given aggressive fluid resuscitation as well as started on an insulin drip and maintenance IV fluid consisting of half-normal saline, potassium, and dextrose. Sugars are currently less than 200. Most recent potassium at 3.6. Patient is hemodynamically stable and clinically improving. -Started insulin drip in emergency department at rate of 0.02units/kg/h. Sugars are currently less than 200, transition to subcu in morning if tolerating p.o. intake -Received potassium supplementation and a bolus of normal saline in ED -Continue fluid administration with half-normal saline with D5W and potassium at 200 cc/h -Glucose goal of 150-200 -Pharmacy glycemic consult placed, appreciate recs -Every 2 hours glucose checks -BMP every 4 hours -VBG with a pH of 7.27, repeat in morning, no bicarb indicated at this time -DM1 diet -zofran prn for nausea -software educator consulted for discussion regarding backup insulin planning if pump fails. 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 -AM. A1c ordered -cont valsartan (3) Elevated troponin: Plan: -Hx of NSTEMI -No chest pain or ACS symptoms currently -Trop at 48.4 which seems be close to baseline due to her history of CKD 3 -Recheck pending at the time of writing this note (4) CAD (coronary artery disease): Plan: -Hx of NSTEMI -Continue ASA, carvedilol, Nitro for chest pain, statin (5) Chronic kidney disease, stage III (moderate): Plan: - stable, secondary to poorly controlled DM1 (6) Vomiting: Plan: -treatment for DKA as above, zofran prn, aggressive fluid resuscitation (7) Hypertension: Plan: -continue valsartan and amlodipin (8) Depression: Plan: -continue duloxetine, buproprion Disposition: Admit to PCU with insulin drip Diet: DM 1 diet DVT prophylaxis: Heparin CODE STATUS: Full code History of Present Illness Chief Complaint: Nausea and vomiting Primary Care Provider: Rob Loaiza MD Patient is a 41-year-old female with past medical history of type 1 diabetes, CAD, previous NSTEMI, CKD 3, and eating disorder presents to the emergency department for evaluation of nausea and vomiting. Patient is overall very nauseous and fatigued from today and is very minimal in the responses that she gives to me during interview and examination. It seems that since this morning, patient has had profound nausea and unrelenting vomiting and reports that she is vomited "more times than she can count". When asked what she feels could have caused this, she states that her insulin pump failed without further elaboration. Otherwise she does state to me that she has been eating a diabetic diet up until this morning. She has had a previous episode of DKA approximately 1 year ago that was treated at this facility. States that her sugars were running high all day today and it was decided by her and her that she should come to the emergency room for evaluation. Prior to coming to the hospital she seems to have given herself a quantity of unknown known amount of insulin. It seems that she took the cartridge from her insulin pump which does not have measurements on it and injected that amount into herself prior to coming. Otherwise patient denies any cold-like symptoms or UTI symptoms. Continues to feel nauseated and has vomited several times in the emergency department. No other complaints at this time ED course: After patient arrived to the emergency department, she was evaluated by one of our providers and had lab work done. Lab work was significant for a white count of 13.7, a VBG pH of 7.27, potassium of 3.6, anion gap of 17, BUN of 26, creatinine of 1.53, glucose of 221, high-sensitivity troponin of 48.4, and urine ketones of 4+ with 3+ glucose. This indicated a diagnosis of diabetic ketoacidosis, for this reason aggressive fluid resuscitation was begun and patient was placed on insulin drip with potassium supplementation. Patient is currently hemodynamically stable. Sugars have improved to less than 200 and she is currently on a insulin drip of 0.02 units/kg/h. Additionally patient is on half normal saline with dextrose and potassium at 200 mls per hour. Allergies Allergy/AdvReac Type Severity Reaction Status Date / Time clopidogrel Allergy Severe Nausea,Vomi Verified 02/05/22 11:10 ting milk Allergy Unknown Unknown Verified 02/05/22 11:10 mushroom Allergy Unknown Unknown Verified 02/05/22 11:10 orange Allergy Unknown Unknown Verified 02/05/22 11:10 orange flavor Allergy Unknown Unknown Verified 02/05/22 11:10 orange juice Allergy Unknown Unknown Verified 02/05/22 11:10 metformin AdvReac Mild NAUSEA, Verified 02/05/22 11:10 UPSET STOMACH Home Medications Medication Instructions Recorded Confirmed Type duloxetine 60 mg capsule,delayed 60 mg PO QAM 09/15/18 02/05/22 History release norgestimate-ethinyl estradiol 1 tab PO HS 09/15/18 02/05/22 History 0.18 mg/0.215mg/0.25mg-35 mcg(28)tablet (Tri Femynor) bupropion HCl 300 mg 24 hr tablet, 300 mg PO QAM 01/11/19 02/05/22 History extended release carvedilol 25 mg tablet 25 mg PO AMHS 01/11/19 02/05/22 History valacyclovir 1 gram tablet 1,000 mg PO BID PRN FLARE UPS 03/07/19 02/05/22 History (Valtrex) multivitamin (Daily Multi-Vitamin 1 tab PO QAM 06/06/20 02/05/22 History tablet) aspirin 81 mg tablet,delayed 81 mg PO QAM #30 tabs 03/07/21 02/05/22 Rx release glucagon 3 mg/actuation nasal 3 mg intranasal ONCE PRN 05/31/21 02/05/22 History spray (Baqsimi) hypoglycemia Dexcom G6 Sensor (blood-glucose #9 ea 08/16/21 02/05/22 Rx sensor) Dexcom G6 Transmitter #1 ea 08/16/21 02/05/22 Rx (blood-glucose transmitter) chlorpheniramine maleate 4 mg 4 mg PO Q12H PRN sinus pressure 10/30/21 02/05/22 History tablet (Allergy Relief (chlorpheniramine)) pseudoephedrine HCl 120 mg 120 mg PO BID PRN sinus pressure 10/30/21 02/05/22 History tablet,extended release (Sudafed 12 Hour) amlodipine 5 mg tablet 5 mg PO QAM 12/24/21 02/05/22 History nitroglycerin 0.3 mg sublingual 0.3 mg sublingual UD PRN Chest Pain 12/24/21 02/05/22 History tablet pantoprazole 40 mg tablet,delayed 80 mg PO QAM 12/24/21 02/05/22 History release valsartan 40 mg tablet 40 mg PO QAM 12/24/21 02/05/22 History atorvastatin 80 mg tablet 80 mg PO QAM #90 tabs 12/27/21 02/05/22 Rx nitroglycerin 0.2 mg/hr 1 patch transdermal DAILY #30 ea 12/27/21 02/05/22 Rx transdermal 24 hour patch Omnipod Dash Pods (Gen 4) (insulin #30 ea 01/17/22 02/05/22 Rx pump cart,cont inf,BT) fluticasone propionate 50 1 spray intranasal BID #16 grams 01/27/22 02/05/22 Rx mcg/actuation nasal spray,suspension (Flonase Allergy Relief) insulin aspart U-100 100 unit/mL 0 sliding scale dose continuous 02/01/22 02/05/22 History subcutaneous solution (Novolog subcutaneous infusion CONTINOUS U-100 Insulin aspart) lorazepam 1 mg tablet (Ativan) 1 mg PO Q8H PRN vomiting #12 tabs 02/01/22 02/05/22 Rx promethazine 25 mg tablet 25 mg PO TID PRN nausea and 02/01/22 02/05/22 Rx vomiting #20 tabs Omnipod 5 G6 Intro Kit (Gen 5) #1 ea 02/24/22 02/24/22 Rx subcutaneous cartridge with controller (insulin pump cart,auto,BT-cntr) Omnipod 5 G6 Pods (Gen 5) (insulin #10 ea 02/24/22 02/24/22 Rx pump cart,automated,BT) Past Med/Surg History Medical History Asthma CAD (coronary artery disease) Chronic kidney disease, stage III (moderate) Depression Diabetes type 1, uncontrolled History of anorexia nervosa History of chronic constipation History of chronic diarrhea History of herpes genitalis Hypercholesterolemia Hypertension Hypothyroidism Ischemic cardiomyopathy Myocardial Infarction cardiomyopathy Type 1 diabetes Surgical History H/O cataract extraction History of section History of oral surgery History of tonsillectomy Family History Mother Sciatica Hypertension Carpal tunnel syndrome Sister Epilepsy Grandmother (Maternal) Brain cancer Aunt Lymphoma Social History Smoking Status: Never smoker Second Hand Exposure: No; Hx Alcohol Use: Yes Alcohol type: hard liquor Hx Substance Use: Yes Last Used Substance: Days (ago) Preferred Language: Slovak 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: Effective Mechanical Project Engineer Required: No Beliefs That Will Affect Care: None marital status: Current Living Situation: Spouse current occupational status: employed current occupation: Works at [employer] in [employer] department Feels Safe at Home: Yes Assistive Devices: None Review of Systems Review of Systems: All systems reviewed & are unremarkable except as noted in HPI & below Physical Exam Constitutional: well developed, well nourished and + ill appearing Eyes: + anicteric sclerae Neck: normal visual inspection Respiratory: normal respiratory effort, lungs clear to auscultation Cardiovascular: RRR, no murmur, no edema Extremities: no edema Gastrointestinal (Abdomen): Inspection/Auscultation: abdomen normal to inspection and normal bowel sounds; abdomen not distended Percussion/Palpation: + abdomen tender (diffuse, mild) and abdomen soft Musculoskeletal: Head/Neck/Chest: normocephalic and head atraumatic Skin: + turgor decreased; no rashes Neurologic: moves all extremities Psychiatric: Orientation: alert and oriented x 3 Affect: + depressed affect Lymphatic: no cervical lymphadenopathy Results & Data Results & Data ([facility]) Vital Signs (Past 12 Hours) Vital Signs Temp Pulse Pulse Resp BP BP Pulse Ox 03/06/22 18:55 102 H 20 216/124 H 98 03/06/22 17:13 98 H 18 98 03/06/22 17:01 36.8 C 97 H 18 192/118 H 98 O2 Del Method 03/06/22 18:55 Room Air 03/06/22 17:13 Room Air 03/06/22 17:01 Code Status & VTE Plan VTE Prophylaxis Plan VTE Prophylaxis will be ordered: Yes Supervising Physician Co-Signing Physician Notes Resident Physician Supervision Note: I interviewed and examined the patient. Discussed with Dr. Milton Bass and agree with findings and plan as documented in the note. Any exceptions or clarifications are listed here: Patient is here with nausea and vomiting her insulin pump "failed at home". Per the and chronology note the patient frequently takes her pumps off intermittently during the week because of fears of hypoglycemia. Patient denies this at this time. In the emergency department she had anion gap of 17 her bicarb was preserved she was instituted on DKA protocol with insulin drip and IV fluid containing potassium. She had a minor elevation of her troponin which is similar to what it was in the past that she underwent an NSTEMI in December and follows with cardiology seeing Vikram Salgado Patient denies any other infectious etiologies and feels the symptoms began shortly after her pump failed 1 day prior to admission. The patient attempted to give her self glargine but only gave her self 10 units. This information comes from the ER physician. Physical exam the patient was not interested in speaking to me very much did deny things as listed above her oropharynx was with dry mucous membranes her heart was tachycardic without murmurs her lungs were clear her abdomen was NABS soft with some mild epigastric discomfort her extremities are without edema her skin was without lesions DKA due to insulin pump failure, elevation of troponin, chronic kidney disease. Patiently brought in on on DKA protocol with hopes to transition to basal bolus shortly and then have the software educator troubleshoot her pump failure. We will trend her troponins have her on telemetry. It is believed that her leukocytosis is from stress reaction. Documented By: Papa Blackburn MD (1) DKA (diabetic ketoacidosis) Diabetes mellitus complication detail: without coma Diabetes mellitus type: type 1 Qualified Code(s): E10.10 - Type 1 diabetes mellitus with ketoacidosis without coma (2) Vomiting Nausea presence: with nausea Vomiting type: unspecified Qualified Code(s): R11.2 - Nausea with vomiting, unspecified
[2022-03-06] MEDS ORDERED: D5NSS + 20MEQ KCL 20 MEQ/1,000 ML BAG IV SCH (20:00)
[2022-03-06] MEDS: D5W AND 1/2NSS + 20MEQ KCL 20 MEQ/1,000 ML BAG IV SCH (20:28)
--- NOTE | 2022-03-06 20:34 | Billing Data ---
Date of Service March 06, 2022 Coding Level of Care Code 37084 Initial Inpt Care Lvl 3
[2022-03-06] MEDS ORDERED: carvediloL 25 MG TAB PO ONE (20:51)
[2022-03-06] MEDS ORDERED: POLYETHYLENE (MIRALAX) 17 GM PACK PO PRN (20:51)
[2022-03-06] MEDS ORDERED: PHARMACY GLYCEMIC MGMT CONSULT PRN (20:51)
--- NOTE | 2022-03-06 21:30 | Emergency Department Note ---
History of Present Illness General Chief complaint: Hyperglycemia Stated complaint: SUGAR LEVEL HIGH,VOMITTING,KETO Time Seen by Provider: 03/06/22 17:12 History of Present Illness Provider complaint: Hyperglycemia Onset (ago): day(s) 1 Maximum Pain Intensity: 8 Associated symptoms: + nausea/vomiting; no chest pain, no cough, no fever/chills, no headaches or no shortness of breath 41-year-old insulin-dependent diabetic female presents emergency department for hyperglycemia. Patient reports that they did not think that her insulin pump was working today. They state that she has been vomiting all day and that her blood sugars been reading critical high. They did state they gave her 1 injection of insulin prior to arrival. No hematemesis coffee-ground emesis or bilious vomiting. No chance of . Home Medications Medication Instructions Recorded Confirmed Type duloxetine 60 mg capsule,delayed 60 mg PO QAM 09/15/18 02/05/22 History release norgestimate-ethinyl estradiol 1 tab PO HS 09/15/18 02/05/22 History 0.18 mg/0.215mg/0.25mg-35 mcg(28)tablet (Tri Femynor) bupropion HCl 300 mg 24 hr tablet, 300 mg PO QAM 01/11/19 02/05/22 History extended release carvedilol 25 mg tablet 25 mg PO AMHS 01/11/19 02/05/22 History valacyclovir 1 gram tablet 1,000 mg PO BID PRN FLARE UPS 03/07/19 02/05/22 History (Valtrex) multivitamin (Daily Multi-Vitamin 1 tab PO QAM 06/06/20 02/05/22 History tablet) aspirin 81 mg tablet,delayed 81 mg PO QAM #30 tabs 03/07/21 02/05/22 Rx release glucagon 3 mg/actuation nasal 3 mg intranasal ONCE PRN 05/31/21 02/05/22 History spray (Baqsimi) hypoglycemia Dexcom G6 Sensor (blood-glucose #9 ea 08/16/21 02/05/22 Rx sensor) Dexcom G6 Transmitter #1 ea 08/16/21 02/05/22 Rx (blood-glucose transmitter) chlorpheniramine maleate 4 mg 4 mg PO Q12H PRN sinus pressure 10/30/21 02/05/22 History tablet (Allergy Relief (chlorpheniramine)) pseudoephedrine HCl 120 mg 120 mg PO BID PRN sinus pressure 10/30/21 02/05/22 History tablet,extended release (Sudafed 12 Hour) amlodipine 5 mg tablet 5 mg PO QAM 12/24/21 02/05/22 History nitroglycerin 0.3 mg sublingual 0.3 mg sublingual UD PRN Chest Pain 12/24/21 02/05/22 History tablet pantoprazole 40 mg tablet,delayed 80 mg PO QAM 12/24/21 02/05/22 History release valsartan 40 mg tablet 40 mg PO QAM 12/24/21 02/05/22 History atorvastatin 80 mg tablet 80 mg PO QAM #90 tabs 12/27/21 02/05/22 Rx nitroglycerin 0.2 mg/hr 1 patch transdermal DAILY #30 ea 12/27/21 02/05/22 Rx transdermal 24 hour patch Omnipod Dash Pods (Gen 4) (insulin #30 ea 01/17/22 02/05/22 Rx pump cart,cont inf,BT) fluticasone propionate 50 1 spray intranasal BID #16 grams 01/27/22 02/05/22 Rx mcg/actuation nasal spray,suspension (Flonase Allergy Relief) insulin aspart U-100 100 unit/mL 0 sliding scale dose continuous 02/01/2205/28 History subcutaneous solution (Novolog subcutaneous infusion CONTINOUS U-100 Insulin aspart) lorazepam 1 mg tablet (Ativan) 1 mg PO Q8H PRN vomiting #12 tabs 02/01/22 02/05/22 Rx promethazine 25 mg tablet 25 mg PO TID PRN nausea and 02/01/22 02/05/22 Rx vomiting #20 tabs Omnipod 5 G6 Intro Kit (Gen 5) #1 ea 02/24/22 02/24/22 Rx subcutaneous cartridge with controller (insulin pump cart,auto,BT-cntr) Omnipod 5 G6 Pods (Gen 5) (insulin #10 ea 02/24/22 02/24/22 Rx pump cart,automated,BT) Allergies Allergy/AdvReac Type Severity Reaction Status Date / Time clopidogrel Allergy Severe Nausea,Vomi Verified 02/05/22 11:10 ting milk Allergy Unknown Unknown Verified 02/05/22 11:10 mushroom Allergy Unknown Unknown Verified 02/05/22 11:10 orange Allergy Unknown Unknown Verified 02/05/22 11:10 orange flavor Allergy Unknown Unknown Verified 02/05/22 11:10 orange juice Allergy Unknown Unknown Verified 02/05/22 11:10 metformin AdvReac Mild NAUSEA, Verified 02/05/22 11:10 UPSET STOMACH Past Med/Surg History Medical History Asthma CAD (coronary artery disease) Chronic kidney disease, stage III (moderate) Depression Diabetes type 1, uncontrolled History of anorexia nervosa History of chronic constipation History of chronic diarrhea History of herpes genitalis Hypercholesterolemia Hypertension Hypothyroidism Ischemic cardiomyopathy Myocardial Infarction NSTEMI s/p CATH on 01/30/2021 cardiomyopathy Type 1 diabetes Surgical History H/O cataract extraction History of section History of oral surgery History of tonsillectomy Family History Mother Sciatica Hypertension Carpal tunnel syndrome Sister Epilepsy Grandmother (Maternal) Brain cancer Aunt Lymphoma Social History Smoking Status: Former smoker Second Hand Exposure: No; Hx Alcohol Use: No Hx Substance Use: No Preferred Language: Yakut 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: Effective Control Specialist Required: No Beliefs That Will Affect Care: None marital status: Current Living Situation: Spouse current occupational status: employed current occupation: Works at [employer] in [employer] department Feels Safe at Home: Yes Assistive Devices: None Review of Systems A total of 10 systems reviewed and were otherwise negative Physical Exam Vital Signs Vital Signs - 24 hr 03/06/22 17:01 03/06/22 17:13 03/06/22 18:55 Temperature 36.8 C Temperature Source Temporal Artery Scan Pulse Rate 97 H 98 H Pulse Rate [Apical] 102 H Respiratory Rate 18 18 20 Respiratory Effort / Characteristics Non-Labored Respiratory Depth Normal Blood Pressure 192/118 H Blood Pressure [Left Arm] 216/124 H Blood Pressure Mean 142 Blood Pressure Mean [Left Arm] 154 Blood Pressure Position [Left Arm] Left Lateral Pulse Oximetry 98 98 98 Oxygen Delivery Method Room Air Room Air Sepsis Recent Fever Within 48 Hours No Sepsis New/Unexplained Change in Mental Status No Sepsis Action Taken by Nursing No Action Required Physical Exam HENT: Exam performed. -Head: Normocephalic and atraumatic. -Right Ear: External ear normal. No mastoid tenderness. -Left Ear: External ear normal. No mastoid tenderness. -Mouth/Throat: The oropharynx is clear and moist. No trismus in the jaw. No dental abscesses or uvula swelling. No oropharyngeal exudate or tonsillar abscesses. EYES: Conjunctivae and EOM are normal. Pupils are equal, round, and reactive to light. Right eye exhibits no discharge. Left eye exhibits no discharge. No scleral icterus. NECK: Normal range of motion. Neck supple. No JVD present. No spinous process tenderness present. No carotid bruit present. No rigidity. No tracheal deviation and normal range of motion present. No Brudzinski's sign and no Kernig's sign noted. CV: Normal rate, regular rhythm, normal heart sounds and intact distal pulses. There is no peripheral edema. Palpable radial pulses bue. PULM/CHEST: Effort normal and breath sounds normal. No respiratory distress. No stridor. She has no wheezes. She has no rales. -Chest Wall: She exhibits no tenderness. ABD: The abdomen is soft. Bowel sounds are normal. She has no distension. No mass is present. There is no tenderness. There is no rebound, no guarding, no Mu rphy's sign and no tenderness at McBurney's point. Rovsig negative MUSC/SKEL: Normal range of motion. There is no peripheral edema, tenderness or deformity. LYMPH: No cervical adenopathy. NEURO: Motor and sensation grossly intact. Course Course 1711: The patient was evaluated in room B4. A complete history and physical exam was performed Cardiac monitoring: An order was placed for continuous cardiac monitoring. The monitor shows a rate of 100 with sinus rhythm 1830: Vital signs stable. Labs show leukocytosis 13.7. Creatinine 1.53. Glucose 221. Anion gap 17. High-sensitivity troponin is 48.4 however this is chronically elevated and in January the patient high-sensitivity troponin of 44.1. Patient will be started on insulin drip. P.o. potassium was given to the patient as well as IV potassium through the IV. [facility]. Administered Medications Insulin Human Regular 250 (units/ Sodium Chloride) 250 mls @ 1.5 mls/hr IV .Q24H RYANN; Protocol Stop: 04/05/22 18:44 Last Titration: 03/06/22 21:17 Dose: 1.2 units/hr, 1.2 mls/hr Documented By: ANUPAM Co-signed By: [facility] Admin: 03/06/22 20:27 Dose: 1.5 units/hr, 1.5 mls/hr Documented By: CAMRON Co-signed By: MES Potassium Chloride/Dextrose/Sod Cl (D5w And 1/2nss + 20meq Kcl) 20 meq in 1,000 mls @ 200 mls/hr IV .Q5H RYANN; Protocol Stop: 04/05/22 20:29 Last Admin: 03/06/22 20:28 Dose: 200 mls/hr Documented By: CAMRON Discontinued Medications Diphenhydramine HCl (Diphenhydramine 50 Mg/Ml Vial) 25 mg IV NOW STA Stop: 03/06/22 18:02 Last Admin: 03/06/22 18:13 Dose: 25 mg Documented By: ANDRES Sodium Chloride (Nss 1000ml) 1,000 mls @ 999 mls/hr IV .Q1H1M ONE Stop: 03/06/22 18:13 Last Infusion: 03/06/22 20:29 Dose: 0 mls/hr Documented By: Admin: 03/06/22 17:46 Dose: 999 mls/hr Documented By: CAMRON Potassium Chloride/Sodium Chloride (Normal Saline W/20 Meq Kcl) 20 meq in 1,000 mls @ 125 mls/hr IV .Q8H RYANN; Protocol Stop: 04/05/22 18:44 Last Infusion: 03/06/22 20:29 Dose: 0 mls/hr Documented By: Admin: 03/06/22 19:26 Dose: 125 mls/hr Documented By: CAMRON Metoclopramide HCl (Metoclopramide Hcl Inj 5 Mg/Ml 2 Ml Vial) 5 mg IV ONE ONE Stop: 03/06/22 18:02 Last Admin: 03/06/22 18:13 Dose: 5 mg Documented By: ANDRES Ondansetron HCl (Ondansetron Inj 2 Mg/Ml 2 Ml Vial) 4 mg IV NOW STA Stop: 03/06/22 17:41 Last Admin: 03/06/22 17:46 Dose: 4 mg Documented By: CAMRON Potassium Chloride (Potassium Chloride 10 Meq Tabcr) 40 meq PO NOW STA Stop: 03/06/22 18:38 Last Admin: 03/06/22 19:28 Dose: 40 meq Documented By: CAMRON Critical Care Time Critical Care Time: Yes Total Critical Care Time: 40 I have personally spent greater than 40 minutes of critical care time in the direct management of this patient. This includes bedside care, interpretation of diagnostic studies, and testing, discussion with consultants, patient, and family members, and other required patient management activities. This 40 minutes is in excess of all separately billable procedures. Medical Decision Making Laboratory Data Result diagrams: 03/06/22 17:21 03/06/22 17:21 Lab Results 03/06/22 03/06/22 03/06/22 Range/Units 17:08 17:21 17:21 WBC 13.70 H (4.8-10.8) K/ul RBC 4.24 (3.93-5.22) M/uL Hgb 13.3 (12.0-16.0) g/dl Hct 39.4 (34.1-44.9) % MCV 92.9 (80.0-100.0) fL MCH 31.4 (25.0-34.0) pg MCHC 33.8 (32.0-36.0) g/dL RDW Std Deviation 40.2 (36.4-46.3) fL RDW Coeff of Eboni 11.8 (11.5-14.5) % Plt Count 322 (130-400) K/uL MPV 9.1 L (9.4-12.3) fL Immature Gran % (Auto) 0.4 % Neut % (Auto) 87.8 % Lymph % (Auto) 10.1 % Douglas % (Auto) 1.5 % Eos % (Auto) 0.0 % Baso % (Auto) 0.2 % Neut # (Auto) 12.04 H (1.4-6.5) K/uL Lymph # (Auto) 1.38 (1.2-3.4) K/uL Douglas # (Auto) 0.20 L (0.24-0.82) K/uL Eos # (Auto) 0.00 (0-0.50) K/uL Baso # (Auto) 0.03 (0-0.2) K/uL Immature Gran # (Auto) 0.05 H (0.00-0.02) K/uL PT 10.9 (9.0-12.0) Seconds INR 1.0 (0.9-1.1) APTT 23.5 (21.0-31.0) Seconds PTT Ratio 0.9 VBG pH (7.36-7.41) VBG pCO2 (38-50) mmHg VBG pO2 mmHg VBG HCO3 mmol/L VBG O2 Saturation % VBG Base Excess mEq/L Sodium (136-145) mmol/L Potassium (3.5-5.1) mmol/L Chloride (98-107) mmol/L Carbon Dioxide (21-32) mmol/L Anion Gap (3-11) BUN (6-23) mg/dl Creatinine (0.6-1.2) mg/dl Est Cr Clr Drug Dosing ml/min Est GFR ( Amer) ml/min Est GFR (Non-Af Amer) ml/min BUN/Creatinine Ratio (10-20) Glucose (70-99(Fasting)) mg/dl POC Glucose 250 H (70-99) mg/dl Calcium (8.5-10.1) mg/dl Magnesium (1.7-2.4) mg/dl Total Bilirubin (0.2-1.0) mg/dl Direct Bilirubin (0-0.2) mg/dl AST (13-39) U/L ALT (7-52) U/L Alkaline Phosphatase (34-104) U/L Troponin I High Sens (0-14) pg/ml Total Protein (6.0-8.3) gm/dl Albumin (3.4-5.0) gm/dl Lipase (11-82) U/L Urine Color Urine Appearance (Clear) Urine pH (4.5-7.5) Ur Specific [place] (1.000-1.030) Urine Protein (Negative) Urine Glucose (UA) (Negative) Urine Ketones (Negative) Urine Blood (Negative) Urine Nitrite (Negative) Urine Bilirubin (Negative) Urine Urobilinogen (Negative) Ur Leukocyte Esterase (Negative) Urine WBC (Auto) (0-5) /hpf Urine RBC (Auto) (0-4) /hpf U Hyaline Cast (Auto) (0-5) /lpf U Epithel Cells (Auto) (0-5) /lpf Urine Bacteria (Auto) (Negative) SARS-CoV-2 (PCR) (Negative) Influenza Type A (PCR) (Neg) Influenza Type B (PCR) (Neg) RSV (RT-PCR) (Neg) 03/06/22 03/06/22 03/06/22 Range/Units 17:21 17:40 17:40 WBC (4.8-10.8) K/ul RBC (3.93-5.22) M/uL Hgb (12.0-16.0) g/dl Hct (34.1-44.9) % MCV (80.0-100.0) fL MCH (25.0-34.0) pg MCHC (32.0-36.0) g/dL RDW Std Deviation (36.4-46.3) fL RDW Coeff of Eboni (11.5-14.5) % Plt Count (130-400) K/uL MPV (9.4-12.3) fL Immature Gran % (Auto) % Neut % (Auto) % Lymph % (Auto) % Douglas % (Auto) % Eos % (Auto) % Baso % (Auto) % Neut # (Auto) (1.4-6.5) K/uL Lymph # (Auto) (1.2-3.4) K/uL Douglas # (Auto) (0.24-0.82) K/uL Eos # (Auto) (0-0.50) K/uL Baso # (Auto) (0-0.2) K/uL Immature Gran # (Auto) (0.00-0.02) K/uL PT (9.0-12.0) Seconds INR (0.9-1.1) APTT (21.0-31.0) Seconds PTT Ratio VBG pH (7.36-7.41) VBG pCO2 (38-50) mmHg VBG pO2 mmHg VBG HCO3 mmol/L VBG O2 Saturation % VBG Base Excess mEq/L Sodium 139 (136-145) mmol/L Potassium 3.6 (3.5-5.1) mmol/L Chloride 96 L (98-107) mmol/L Carbon Dioxide 26 (21-32) mmol/L Anion Gap 17 H (3-11) BUN 26 H (6-23) mg/dl Creatinine 1.53 H (0.6-1.2) mg/dl Est Cr Clr Drug Dosing 50.7 ml/min Est GFR ( Amer) 48.8 ml/min Est GFR (Non-Af Amer) 42.1 ml/min BUN/Creatinine Ratio 17.0 (10-20) Glucose 221 H (70-99(Fasting)) mg/dl POC Glucose (70-99) mg/dl Calcium 10.3 H (8.5-10.1) mg/dl Magnesium 2.1 (1.7-2.4) mg/dl Total Bilirubin 0.8 (0.2-1.0) mg/dl Direct Bilirubin 0.1 (0-0.2) mg/dl AST 18 (13-39) U/L ALT 12 (7-52) U/L Alkaline Phosphatase 105 H (34-104) U/L Troponin I High Sens 48.4 H (0-14) pg/ml Total Protein 9.2 H (6.0-8.3) gm/dl Albumin 4.6 (3.4-5.0) gm/dl Lipase 3 L (11-82) U/L Urine Color Yellow Urine Appearance Clear (Clear) Urine pH 5.5 (4.5-7.5) Ur Specific [place] 1.021 (1.000-1.030) Urine Protein 2+ H (Negative) Urine Glucose (UA) 3+ H (Negative) Urine Ketones 4+ H (Negative) Urine Blood 1+ H (Negative) Urine Nitrite Negative (Negative) Urine Bilirubin Negative (Negative) Urine Urobilinogen Negative (Negative) Ur Leukocyte Esterase Negative (Negative) Urine WBC (Auto) 1-5 (0-5) /hpf Urine RBC (Auto) 0-4 (0-4) /hpf U Hyaline Cast (Auto) 0 (0-5) /lpf U Epithel Cells (Auto) 10-20 H (0-5) /lpf Urine Bacteria (Auto) Negative (Negative) SARS-CoV-2 (PCR) NEGATIVE (Negative) Influenza Type A (PCR) Negative (Neg) Influenza Type B (PCR) Negative (Neg) RSV (RT-PCR) Negative (Neg) 03/06/22 03/06/22 Range/Units 19:22 19:22 WBC (4.8-10.8) K/ul RBC (3.93-5.22) M/uL Hgb (12.0-16.0) g/dl Hct (34.1-44.9) % MCV (80.0-100.0) fL MCH (25.0-34.0) pg MCHC (32.0-36.0) g/dL RDW Std Deviation (36.4-46.3) fL RDW Coeff of Eboni (11.5-14.5) % Plt Count (130-400) K/uL MPV (9.4-12.3) fL Immature Gran % (Auto) % Neut % (Auto) % Lymph % (Auto) % Douglas % (Auto) % Eos % (Auto) % Baso % (Auto) % Neut # (Auto) (1.4-6.5) K/uL Lymph # (Auto) (1.2-3.4) K/uL Douglas # (Auto) (0.24-0.82) K/uL Eos # (Auto) (0-0.50) K/uL Baso # (Auto) (0-0.2) K/uL Immature Gran # (Auto) (0.00-0.02) K/uL PT (9.0-12.0) Seconds INR (0.9-1.1) APTT (21.0-31.0) Seconds PTT Ratio VBG pH 7.27 L (7.36-7.41) VBG pCO2 61 H (38-50) mmHg VBG pO2 23 mmHg VBG HCO3 28 mmol/L VBG O2 Saturation < 60.0 % VBG Base Excess -0.3 mEq/L Sodium (136-145) mmol/L Potassium (3.5-5.1) mmol/L Chloride (98-107) mmol/L Carbon Dioxide (21-32) mmol/L Anion Gap (3-11) BUN (6-23) mg/dl Creatinine (0.6-1.2) mg/dl Est Cr Clr Drug Dosing ml/min Est GFR ( Amer) ml/min Est GFR (Non-Af Amer) ml/min BUN/Creatinine Ratio (10-20) Glucose (70-99(Fasting)) mg/dl POC Glucose 182 H (70-99) mg/dl Calcium (8.5-10.1) mg/dl Magnesium (1.7-2.4) mg/dl Total Bilirubin (0.2-1.0) mg/dl Direct Bilirubin (0-0.2) mg/dl AST (13-39) U/L ALT (7-52) U/L Alkaline Phosphatase (34-104) U/L Troponin I High Sens (0-14) pg/ml Total Protein (6.0-8.3) gm/dl Albumin (3.4-5.0) gm/dl Lipase (11-82) U/L Urine Color Urine Appearance (Clear) Urine pH (4.5-7.5) Ur Specific [place] (1.000-1.030) Urine Protein (Negative) Urine Glucose (UA) (Negative) Urine Ketones (Negative) Urine Blood (Negative) Urine Nitrite (Negative) Urine Bilirubin (Negative) Urine Urobilinogen (Negative) Ur Leukocyte Esterase (Negative) Urine WBC (Auto) (0-5) /hpf Urine RBC (Auto) (0-4) /hpf U Hyaline Cast (Auto) (0-5) /lpf U Epithel Cells (Auto) (0-5) /lpf Urine Bacteria (Auto) (Negative) SARS-CoV-2 (PCR) (Negative) Influenza Type A (PCR) (Neg) Influenza Type B (PCR) (Neg) RSV (RT-PCR) (Neg) ECG Data Indication: + weakness Rate (beats per minute): 95 Rhythm: + normal sinus ECG Intervals/blocks: + Normal QRS, + Normal CO and + Normal QT-c ECG Findings: + Peaked T waves MDM Narrative Vital signs stable. Labs show leukocytosis 13.7. Creatinine 1.53. Glucose 221. Anion gap 17. High-sensitivity troponin is 48.4 however this is chronically elevated and in January the patient high-sensitivity troponin of 44.1. Patient will be started on insulin drip. P.o. potassium was given to the patient as well as IV potassium through the IV. Patient will be admitted to the [facility] hospitalist team Dr. Vicente. Impression & Plan DKA (diabetic ketoacidosis) Discharge Plan Visit Data Chief Complaint: Hyperglycemia Stated Complaint: SUGAR LEVEL HIGH,VOMITTING,KETO ED Provider: Blanco Michelle Discharge Problem: DKA (diabetic ketoacidosis) Patient Disposition: Admitted As Inpatient Discharge Instructions Interventions: ED Discharge Assessment Last Done: 03/06/22 20:53
[2022-03-06] MEDS ORDERED: PROCHLORPERAZINE 5 MG in SYRINGE 4 ML IV ONE (21:45)
[2022-03-06] MEDS: hydrALAZINE HCL 20 MG/ML VIAL IV PRN (21:55)
[2022-03-06] MEDS: INSULIN ASPART PER UNIT SC SCH (21:59)
[2022-03-06] MEDS: HEPARIN SOD 5,000 UNIT/0.5 ML VIAL SQ SCH (21:59)
[2022-03-06] MEDS ORDERED: PROMETHAZINE HCL 12.5 MG in SODIUM CHLORIDE 0.9% 50 ML IV STA (23:48)
[2022-03-07 00:22] LABS: Calcium 9.2 mg/dl (8.5-10.1); Creatinine Clr Calc Pharmacy 56.8 ml/min; Est GFR (African American) 62.3 ml/min; Est GFR (Non-African American) 53.8 ml/min; Potassium 3.8 mmol/L (3.5-5.1)
[2022-03-07 01:32] LABS: Troponin I High Sensitivity 52.5 pg/ml (0-14)
[2022-03-07] MEDS ORDERED: FAMOTIDINE 20 MG in SYRINGE 3 ML IV ONE (02:00)
[2022-03-07] MEDS: D5W AND 1/2NSS + 20MEQ KCL 20 MEQ/1,000 ML BAG IV SCH ×2 (02:17→07:40)
[2022-03-07 03:18] LABS: Anion Gap 13 (3-11); BUN Creatinine Ratio 16.4 (10-20); Blood Urea Nitrogen 22 mg/dl (6-23); Calcium 9.5 mg/dl (8.5-10.1); Carbon Dioxide 26 mmol/L (21-32); Chloride 98 mmol/L (98-107); Est GFR (African American) 57.3 ml/min; Est GFR (Non-African American) 49.4 ml/min; Glucose 221 mg/dl (70-99(Fasting)); Sodium 137 mmol/L (136-145)
[2022-03-07] MEDS: ONDANSETRON INJ 2 MG/ML 2 ML VIAL IV PRN ×2 (04:52→11:11)
[2022-03-07 05:46] LABS: Hematocrit (blood only) 35.8 % (34.1-44.9); Hemoglobin 12.4 g/dl (12.0-16.0); Mean Corpuscular Hemoglobin 31.7 pg (25.0-34.0); Mean Corpuscular Hgb Conc 34.6 g/dL (32.0-36.0); Mean Corpuscular Volume 91.6 fL (80.0-100.0); Mean Platelet Volume 8.7 fL (9.4-12.3); Platelet Count 287 K/uL (130-400); RDW Coefficient of Variation 11.9 % (11.5-14.5); RDW Standard Deviation 39.8 fL (36.4-46.3); Red Blood Count 3.91 M/uL (3.93-5.22); White Blood Count 13.57 K/ul (4.8-10.8)
[2022-03-07 05:54] LABS: Base Excess VBG 2.5 mEq/L; HCO3 VBG 28 mmol/L; PCO2 VBG 45 mmHg (38-50); PO2 VBG 35 mmHg
[2022-03-07 06:10] LABS: BUN Creatinine Ratio 14.8 (10-20); Calcium 8.7 mg/dl (8.5-10.1); Creatinine Clr Calc Pharmacy 52.7 ml/min; Est GFR (African American) 56.8 ml/min
[2022-03-07 06:29] LABS: Troponin I High Sensitivity 57.2 pg/ml (0-14)
[2022-03-07 07:24] LABS: Estimated Average Glucose 194 mg/dl; Hemoglobin A1C 8.4 % (4.5-5.6)
[2022-03-07] MEDS: hydrALAZINE HCL 20 MG/ML VIAL IV PRN ×2 (07:40→16:07)
[2022-03-07] MEDS: INSULIN ASPART PER UNIT SC SCH ×5 (08:29→23:54)
[2022-03-07] MEDS ORDERED: METOCLOPRAMIDE HCL INJ 5 MG/ML 2 ML VIAL IV PRN (08:38)
[2022-03-07] MEDS: LACTATED RINGER'S 1,000 ML IV SCH ×3 (08:50→23:17)
[2022-03-07] MEDS ORDERED: LANTUS PER UNIT CHARGE SQ SCH (09:00)
[2022-03-07] MEDS ORDERED: PANTOprazole 40 MG TAB PO SCH (09:00)
[2022-03-07] MEDS: amLODIPine BESYLATE 5 MG TAB PO SCH (11:08)
[2022-03-07] MEDS: ATORVASTATIN 40 MG TAB PO SCH (11:08)
[2022-03-07] MEDS: ASPIRIN 81 MG ECTAB PO SCH (11:08)
[2022-03-07] MEDS: buPROPion XL 300 MG TABCR PO SCH (11:08)
[2022-03-07] MEDS ORDERED: LABETALOL HCL IV 5 MG/ML 20ML IV PRN (11:09)
[2022-03-07] MEDS: DULoxetine HCL 60 MG CAP PO SCH (11:10)
[2022-03-07] MEDS: MULTIVITAMIN TAB PO SCH (11:10)
[2022-03-07] MEDS: carvediloL 25 MG TAB PO SCH ×2 (11:10→19:51)
[2022-03-07] MEDS: VALSARTAN 80 MG TAB PO SCH (11:11)
--- NOTE | 2022-03-07 11:14 | Hospitalist Progress Note ---
Date of Service March 07, 2022 Assessment & Plan (1) DKA (diabetic ketoacidosis): Plan: Patient is a 41-year-old female with past medical history of type 1 diabetes, CAD, previous NSTEMI, CKD 3, and eating disorder presents to the emergency department for evaluation of nausea and vomiting. Patient was found to have diabetic ketoacidosis likely secondary to a possible pump failure. She has been given aggressive fluid resuscitation as well as started on an insulin drip and maintenance IV fluid consisting of half-normal saline, potassium, and dextrose. No evidence of recent illness or acute CO-trop likely elevated due to myocardial demand ischemia -AG has closed, pH normal, transitioning off insulin gtt to Lantus and Novolog and change accuchecks to q6h -home pump malfunctioning and she has a new pump but is missing a piece-she will d/w Endocrine -in meantime, may have to go home with Lantus/Novolog when ready for discharge -Received potassium supplementation and levels are normal, follow BMP, Mag, Phos at 1200 today and then in AM -change IVFs to LR at 125mL/hr -slitter scorer consulted for discussion regarding backup insulin planning if pump fails. Appreciate recommendations (2) Elevated troponin: Plan: -Hx of NSTEMI -No chest pain or ACS symptoms -ECG with LVH with repol abnormality unchanged from previous -Trop at 48.4 and up to 57 this AM -trend trop till peaks myocardial demand ischemia (3) Hypertension: Plan: hypertensive, not able to take her home po meds due to N/V -hold home meds for now until linda po -give IV hydralazine prn -add on prn IV labetalol (4) Vomiting: Plan: Persistent N/V this AM -discontinue diet ordered on admission and make NPO until improved -treatment for DKA as above, zofran prn, aggressive fluid resuscitation, and add reglen x 1 dose but she prefers Phenergan-change reglan to phenergan for this afternoon with small amount hematemesis 1/2 dollar amount on day of admission-likely Velma Mayo tear or gastritis ok to continue ASA and heparin SQ for now given small amount blood change po PPI to IV as she is still having N/V (5) CAD (coronary artery disease): Plan: -Hx of NSTEMI -Continue ASA, carvedilol, Nitro for chest pain, statin (6) 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 Had small amount BRB in vomitus yesterday but none since. SOme mild abd cramping but not severe abd pain. No CP, SOB. Reports insulin pump malfunctioned yesterday and she woke up with hyperglycemia. Typically gets N/V with DKA but denies issues between episodes of DKA> DId start Ozempic recently and has taken 2 doses but has decreased the amounts that she eats to avoid nausea. Tele with [facility] Review of Systems Review of Systems: All systems reviewed & are unremarkable except as noted in HPI & below making urine, no diarrhea, no rashes or joint pains, no recent fevers/chills, cold symptoms Physical Exam Constitutional: WD/WN, vitals as above Eyes: + anicteric sclerae ENMT: external ear and nose normal, oropharynx normal (MMM) Neck: trachea midline, no thyromegaly Respiratory: normal respiratory effort, lungs clear to auscultation Cardiovascular: RRR, no murmur, no edema Chest (Breasts): Chest: normal inspection of chest Gastrointestinal (Abdomen): normal bowel sounds, soft, nontender, no hepatosplenomegaly (except mild TTP mid abdomen w/o guarding or rebound) Musculoskeletal: Extremities: extremities normal to inspection; no cyanosis and no clubbing Skin: no rashes, warm and dry Neurologic: moves all extremities and awake; no focal motor deficits Psychiatric: A+Ox3, euthymic affect Lymphatic: no lymphedema Results & Data Results & Data ([facility]) Vital Signs (Past 12 Hours) Vital Signs Temp Pulse Pulse Resp BP BP Pulse Ox 03/07/22 08:00 91 H 03/07/22 08:00 03/07/22 08:26 36.9 C 93 H 18 192/116 H 202/100 H 97 03/07/22 04:18 37.2 C 96 H 18 191/107 H 98 03/06/22 23:26 37.3 C 102 H 16 124/73 97 Pulse Ox O2 Del Method O2 Del Method 03/07/22 08:00 03/07/22 08:00 97 Room Air 03/07/22 08:26 Room Air 03/07/22 04:18 Room Air 03/06/22 23:26 Room Air Laboratory Results labs reviewed PG Care Time/CCT Total # of Minutes Spent Total Time Spent with Patient: Total time spent is greater than 50% in coordination of care (as documented) at patient's floor/unit and/or counseling patient: Coding Level of Care Code 23186 Subseq Hosp Care Lvl 3 Diagnoses DKA (diabetic ketoacidosis) E10.10 Diabetes mellitus complication detail: without coma Diabetes mellitus type: type 1 Elevated troponin R77.8 Hypertension I10 Vomiting R11.2 Nausea presence: with nausea Vomiting type: unspecified CAD (coronary artery disease) I25.10 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
[2022-03-07] MEDS ORDERED: PROMETHAZINE HCL 12.5 MG in SODIUM CHLORIDE 0.9% 50 ML IV PRN (11:15)
[2022-03-07] MEDS: HEPARIN SOD 5,000 UNIT/0.5 ML VIAL SQ SCH ×2 (12:42→19:51)
[2022-03-07] MEDS: PANTOprazole 40 MG in SYRINGE 0 ML IV SCH (12:42)
[2022-03-07] MEDS ORDERED: Nursing to Pharmacy Communication SCH (12:45)
[2022-03-07 13:14] LABS: BUN Creatinine Ratio 13.6 (10-20); Calcium 9.1 mg/dl (8.5-10.1); Creatinine Clr Calc Pharmacy 56.9 ml/min; Est GFR (African American) 62.3 ml/min; Est GFR (Non-African American) 53.8 ml/min; Magnesium 1.8 mg/dl (1.7-2.4); Potassium 3.9 mmol/L (3.5-5.1)
[2022-03-07 13:22] LABS: Troponin I High Sensitivity 68.1 pg/ml (0-14)
--- NOTE | 2022-03-07 15:50 | Pharmacy Report ---
Pharmacy Glycemic Short Note 2 - Date of Service March 07, 2022 - Glycemic Short BSG Results (Last 24 hours): 03/06/22 03/06/22 03/06/22 17:08 17:21 19:22 Glucose 221 H POC Glucose 250 H 182 H 03/06/22 03/06/22 03/06/22 21:03 22:04 22:37 Glucose 155 H POC Glucose 127 H 137 H 03/06/22 03/07/22 03/07/22 23:06 00:13 02:21 Glucose POC Glucose 153 H 171 H 182 H 03/07/22 03/07/22 03/07/22 02:29 04:00 05:03 Glucose 221 H POC Glucose 237 H 249 H 03/07/22 03/07/22 03/07/22 05:38 06:08 07:02 Glucose 276 H POC Glucose 282 H 298 H 03/07/22 03/07/22 03/07/22 07:59 08:56 09:57 Glucose POC Glucose 259 H 283 H 278 H 03/07/22 03/07/22 03/07/22 11:02 12:00 12:37 Glucose 170 H POC Glucose 193 H 158 H OUTPATIENT ANTIDIABETIC REGIMEN: * Novolog pump ASSESSMENT: * 41 y/o F admitted for DKA, nausea/vomiting. Patient with history of Type 1 diabetes on Novolog pump at home. * Currently patient is NPO. She was started on insulin drip yesterday. * Labs normalized today. Insulin drip was discontinued after Lantus 25 units SQ x1 dose given this. This dose was ordered based off of what she needed for basal dosing during past admission when she received 28 units of basal. * Since insulin drip discontinued, BSGs have been near goal. Novolog parameters ordered. PLAN FOR INPATIENT GLYCEMIC CONTROL: * Hold outpatient oral diabetes medications * Basal insulin * Lantus 25 units SQ x1 this AM * Bolus insulin * NovoLog per scale ACHS or Q6hrs while NPO * Goal Range: Low 110 mg/dL - High 140 mg/dL * Correction Factor: 20 mg/dL/unit * Nutritional / Prandial insulin per carb ratio of 1 unit per 7 grams CHO consumed
--- NOTE | 2022-03-07 20:07 | Electrocardiogram Report ---
Test Reason : Blood Pressure : / mmHG Vent. Rate : 095 BPM Atrial Rate : 095 BPM P-R Int : 112 ms QRS Dur : 082 ms QT Int : 372 ms P-R-T Axes : 070 058 002 degrees QTc Int : 467 ms Normal sinus rhythm Possible Left atrial enlargement Left ventricular hypertrophy with repolarization abnormality Abnormal ECG When compared with ECG of 01-FEB-2022 15:34, T wave inversion no longer evident in Lateral leads Confirmed by Boris Jackman ([id number]) on 03/07/2022 8:07:08 PM Referred By: REFERRED SELF Confirmed By:Jonathan Jackman
[2022-03-07] MEDS ORDERED: LORazepam 1 MG TAB PO STA (22:23)
[2022-03-08] MEDS: INSULIN ASPART PER UNIT SC SCH ×5 (04:20→20:12)
[2022-03-08] MEDS: hydrALAZINE HCL 20 MG/ML VIAL IV PRN (04:23)
[2022-03-08 06:04] LABS: Hematocrit (blood only) 36.7 % (34.1-44.9); Hemoglobin 12.6 g/dl (12.0-16.0); Mean Corpuscular Hgb Conc 34.3 g/dL (32.0-36.0); Mean Corpuscular Volume 90.4 fL (80.0-100.0); Mean Platelet Volume 9.1 fL (9.4-12.3); Platelet Count 310 K/uL (130-400); RDW Coefficient of Variation 11.7 % (11.5-14.5); RDW Standard Deviation 38.8 fL (36.4-46.3); Red Blood Count 4.06 M/uL (3.93-5.22); White Blood Count 11.74 K/ul (4.8-10.8)
[2022-03-08 06:25] LABS: BUN Creatinine Ratio 12.8 (10-20); Calcium 8.8 mg/dl (8.5-10.1); Creatinine Clr Calc Pharmacy 61.6 ml/min; Est GFR (African American) 67.5 ml/min; Est GFR (Non-African American) 58.2 ml/min; Magnesium 1.5 mg/dl (1.7-2.4); Phosphorus 2.8 mg/dl (2.5-4.9); Potassium 3.4 mmol/L (3.5-5.1)
[2022-03-08] MEDS: LACTATED RINGER'S 1,000 ML IV SCH ×2 (06:42→16:53)
[2022-03-08] MEDS ORDERED: LANTUS PER UNIT CHARGE SQ SCH (09:00)
[2022-03-08] MEDS: amLODIPine BESYLATE 5 MG TAB PO SCH (09:21)
[2022-03-08] MEDS: VALSARTAN 80 MG TAB PO SCH (09:21)
[2022-03-08] MEDS: ASPIRIN 81 MG ECTAB PO SCH (09:21)
[2022-03-08] MEDS: HEPARIN SOD 5,000 UNIT/0.5 ML VIAL SQ SCH ×2 (09:22→20:09)
[2022-03-08] MEDS: MULTIVITAMIN TAB PO SCH (09:22)
[2022-03-08] MEDS: buPROPion XL 300 MG TABCR PO SCH (09:22)
[2022-03-08] MEDS: DULoxetine HCL 60 MG CAP PO SCH (09:22)
[2022-03-08] MEDS: ATORVASTATIN 40 MG TAB PO SCH (09:22)
[2022-03-08] MEDS: POTASSIUM CHLORIDE / WTR 10 MEQ/100 ML PLCT IV SCH ×2 (10:06→12:09)
[2022-03-08] MEDS: MAGNESIUM SULFATE / D5W 1 GM/100 ML BAG IV SCH ×2 (10:06→12:09)
[2022-03-08] MEDS: carvediloL 25 MG TAB PO SCH ×2 (10:27→20:09)
--- NOTE | 2022-03-08 10:37 | Hospitalist Progress Note ---
Date of Service March 08, 2022 Assessment & Plan (1) DKA (diabetic ketoacidosis): Plan: Patient is a 41-year-old female with past medical history of type 1 diabetes, CAD, previous NSTEMI, CKD 3, and eating disorder presents to the emergency department for evaluation of nausea and vomiting. Patient was found to have diabetic ketoacidosis likely secondary to a possible pump failure. She was given aggressive fluid resuscitation as well as started on an insulin drip as well as potassium replacement No evidence of recent illness or acute AR-trop likely elevated due to myocardial demand ischemia AG closed, pH normal, transitioned off insulin gtt to Lantus and Novolog Still having ongoing nausea with dry heaving but is improving throughout the day finally on 03/08 -Continue to advance diet as tolerated, continue antiemetics as needed -home pump malfunctioning and she has a new pump but is missing a piece-she will d/w Endocrine -in meantime, may have to go home with/prescribe Basaglar KwikPen/Novolog FlexPen with pen needles 32-gauge x 5/32" as per religious education teacher when ready for discharge -follow BMP, Mag, Phos at 1200 today and then in AM -Continue IVFs with LR at 125mL/hr -transportation department head consulted for discussion regarding backup insulin planning if pump fails. Appreciate recommendations (2) Elevated troponin: Plan: -Hx of NSTEMI -No chest pain or ACS symptoms -ECG with LVH with repol abnormality unchanged from previous -Trop at 48.4 and up to 64 -myocardial demand ischemia in the setting of DKA (3) Hypertension: Plan: hypertensive from not being able to take her home po meds due to N/V Improving today with taking home p.o. meds and also had several doses of IV hydralazine and IV labetalol over the last 1 to 2 days -Continue home carvedilol, amlodipine, and valsartan if tolerating p.o. -give IV hydralazine and labetalol IV prn (4) Vomiting: Plan: As above, slightly improved today Advance to clear liquids diet as tolerated -Continue zofran prn, aggressive fluid resuscitation, and Phenergan as needed with small amount hematemesis 1/2 dollar amount on day of admission-likely Velma Mayo tear or gastritis ok to continue ASA and heparin SQ for now given small amount blood Continues to complain of indigestion on 03/08 despite being on once daily IV Protonix-increase to Protonix IV twice daily and add on Pepcid 20 Mg IV push x1 now (5) CAD (coronary artery disease): Plan: -Hx of NSTEMI -Continue ASA, carvedilol, Nitro for chest pain, statin (6) 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: Plan: -See plan above -has new insulin pump but missing piece as above -A1c elevated at 8.4% -cont valsartan -follows with Endocrine as outpt (7) Chronic kidney disease, stage III (moderate): Plan: - stable, secondary to poorly controlled DM1 Creatinine improved from previous down to 1.17 -continue ARB once linda po (8) Depression: Plan: -continue duloxetine, buproprion (9) Hypomagnesemia: Plan: With hypomagnesemia, hypokalemia, and hyponatremia Magnesium low today 1.5 Replaced with 2 g of IV magnesium Potassium mildly low-replaced with 20 M EQ of IV potassium chloride Sodium mildly low but when corrected for hyperglycemia is 134-continue isotonic fluids Plan DVT prophylaxis-heparin SQ Dispo-continued stay PCU, slowly improving, hopeful for discharge in the next 1 to 2 days once tolerating p.o. Admission and Anticipated Discharge Date Admission Date: March 06, 2022 Subjective Patient seen twice today. In the morning, she was still having nausea and dry heaving but later was able to take her morning pills and after lunch was able to drink some juice when she had hypoglycemia. Denies abdominal pains, chest pain, shortness of breath. Otherwise no concerns. Telemetry with normal sinus rhythm with rates in the 90s. Review of Systems Review of Systems: All systems reviewed & are unremarkable except as noted in HPI & below Physical Exam Constitutional: WD/WN, vitals as above Eyes: + anicteric sclerae Neck: trachea midline, no thyromegaly Respiratory: normal respiratory effort, lungs clear to auscultation Cardiovascular: RRR, no murmur, no edema Chest (Breasts): Chest: normal inspection of chest Gastrointestinal (Abdomen): normal bowel sounds, soft, nontender, no hepatosplenomegaly Musculoskeletal: Extremities: extremities normal to inspection; no cyanosis and no clubbing Skin: no rashes, warm and dry Neurologic: moves all extremities and awake; no focal motor deficits Lymphatic: no lymphedema Results & Data Results & Data ([facility]) Vital Signs (Past 12 Hours) Vital Signs Temp Pulse Pulse Resp BP BP Pulse Ox 03/08/22 08:00 91 H 03/08/22 08:00 03/08/22 08:26 37.5 C 95 H 18 176/89 H 96 03/08/22 04:23 37.2 C 93 H 18 176/110 H 97 03/07/22 23:51 36.9 C 89 18 179/91 H 99 03/07/22 23:31 90 Pulse Ox O2 Del Method O2 Del Method 03/08/22 08:00 03/08/22 08:00 97 Room Air 03/08/22 08:26 Room Air 03/08/22 04:23 Room Air 03/07/22 23:51 Room Air 03/07/22 23:31 Laboratory Results 03/08/22 03/08/22 03/08/22 Range/Units 16:51 15:15 15:00 WBC (4.8-10.8) K/ul RBC (3.93-5.22) M/uL Hgb (12.0-16.0) g/dl Hct (34.1-44.9) % MCV (80.0-100.0) fL MCH (25.0-34.0) pg MCHC (32.0-36.0) g/dL RDW Std Deviation (36.4-46.3) fL RDW Coeff of Eboni (11.5-14.5) % Plt Count (130-400) K/uL MPV (9.4-12.3) fL Sodium (136-145) mmol/L Potassium (3.5-5.1) mmol/L Chloride (98-107) mmol/L Carbon Dioxide (21-32) mmol/L Anion Gap (3-11) BUN (6-23) mg/dl Creatinine (0.6-1.2) mg/dl Est Cr Clr Drug Dosing ml/min Est GFR ( Amer) ml/min Est GFR (Non-Af Amer) ml/min BUN/Creatinine Ratio (10-20) Glucose (70-99(Fasting)) mg/dl POC Glucose 136 H 75 59 L* (70-99) mg/dl Calcium (8.5-10.1) mg/dl Phosphorus (2.5-4.9) mg/dl Magnesium (1.7-2.4) mg/dl Troponin I High Sens (0-14) pg/ml 03/08/22 03/08/22 03/08/22 Range/Units 14:46 14:44 11:49 WBC (4.8-10.8) K/ul RBC (3.93-5.22) M/uL Hgb (12.0-16.0) g/dl Hct (34.1-44.9) % MCV (80.0-100.0) fL MCH (25.0-34.0) pg MCHC (32.0-36.0) g/dL RDW Std Deviation (36.4-46.3) fL RDW Coeff of Eboni (11.5-14.5) % Plt Count (130-400) K/uL MPV (9.4-12.3) fL Sodium (136-145) mmol/L Potassium (3.5-5.1) mmol/L Chloride (98-107) mmol/L Carbon Dioxide (21-32) mmol/L Anion Gap (3-11) BUN (6-23) mg/dl Creatinine (0.6-1.2) mg/dl Est Cr Clr Drug Dosing ml/min Est GFR ( Amer) ml/min Est GFR (Non-Af Amer) ml/min BUN/Creatinine Ratio (10-20) Glucose (70-99(Fasting)) mg/dl POC Glucose 45 L* 49 L* 174 H (70-99) mg/dl Calcium (8.5-10.1) mg/dl Phosphorus (2.5-4.9) mg/dl Magnesium (1.7-2.4) mg/dl Troponin I High Sens (0-14) pg/ml 03/08/22 03/08/22 03/08/22 Range/Units 09:38 07:45 05:27 WBC 11.74 H (4.8-10.8) K/ul RBC 4.06 (3.93-5.22) M/uL Hgb 12.6 (12.0-16.0) g/dl Hct 36.7 (34.1-44.9) % MCV 90.4 (80.0-100.0) fL MCH 31.0 (25.0-34.0) pg MCHC 34.3 (32.0-36.0) g/dL RDW Std Deviation 38.8 (36.4-46.3) fL RDW Coeff of Eboni 11.7 (11.5-14.5) % Plt Count 310 (130-400) K/uL MPV 9.1 L (9.4-12.3) fL Sodium (136-145) mmol/L Potassium (3.5-5.1) mmol/L Chloride (98-107) mmol/L Carbon Dioxide (21-32) mmol/L Anion Gap (3-11) BUN (6-23) mg/dl Creatinine (0.6-1.2) mg/dl Est Cr Clr Drug Dosing ml/min Est GFR ( Amer) ml/min Est GFR (Non-Af Amer) ml/min BUN/Creatinine Ratio (10-20) Glucose (70-99(Fasting)) mg/dl POC Glucose 182 H (70-99) mg/dl Calcium (8.5-10.1) mg/dl Phosphorus (2.5-4.9) mg/dl Magnesium (1.7-2.4) mg/dl Troponin I High Sens 64.7 H* (0-14) pg/ml 03/08/22 03/08/22 03/07/22 Range/Units 05:27 04:18 23:51 WBC (4.8-10.8) K/ul RBC (3.93-5.22) M/uL Hgb (12.0-16.0) g/dl Hct (34.1-44.9) % MCV (80.0-100.0) fL MCH (25.0-34.0) pg MCHC (32.0-36.0) g/dL RDW Std Deviation (36.4-46.3) fL RDW Coeff of Eboni (11.5-14.5) % Plt Count (130-400) K/uL MPV (9.4-12.3) fL Sodium 132 L (136-145) mmol/L Potassium 3.4 L (3.5-5.1) mmol/L Chloride 97 L (98-107) mmol/L Carbon Dioxide 27 (21-32) mmol/L Anion Gap 8 (3-11) BUN 15 (6-23) mg/dl Creatinine 1.17 (0.6-1.2) mg/dl Est Cr Clr Drug Dosing 61.6 ml/min Est GFR ( Amer) 67.5 ml/min Est GFR (Non-Af Amer) 58.2 ml/min BUN/Creatinine Ratio 12.8 (10-20) Glucose 203 H (70-99(Fasting)) mg/dl POC Glucose 197 H 99 (70-99) mg/dl Calcium 8.8 (8.5-10.1) mg/dl Phosphorus 2.8 (2.5-4.9) mg/dl Magnesium 1.5 L (1.7-2.4) mg/dl Troponin I High Sens (0-14) pg/ml 03/07/22 Range/Units 20:03 WBC (4.8-10.8) K/ul RBC (3.93-5.22) M/uL Hgb (12.0-16.0) g/dl Hct (34.1-44.9) % MCV (80.0-100.0) fL MCH (25.0-34.0) pg MCHC (32.0-36.0) g/dL RDW Std Deviation (36.4-46.3) fL RDW Coeff of Eboni (11.5-14.5) % Plt Count (130-400) K/uL MPV (9.4-12.3) fL Sodium (136-145) mmol/L Potassium (3.5-5.1) mmol/L Chloride (98-107) mmol/L Carbon Dioxide (21-32) mmol/L Anion Gap (3-11) BUN (6-23) mg/dl Creatinine (0.6-1.2) mg/dl Est Cr Clr Drug Dosing ml/min Est GFR ( Amer) ml/min Est GFR (Non-Af Amer) ml/min BUN/Creatinine Ratio (10-20) Glucose (70-99(Fasting)) mg/dl POC Glucose 162 H (70-99) mg/dl Calcium (8.5-10.1) mg/dl Phosphorus (2.5-4.9) mg/dl Magnesium (1.7-2.4) mg/dl Troponin I High Sens (0-14) pg/ml PG Care Time/CCT Total # of Minutes Spent Total Time Spent with Patient: Total time spent is greater than 50% in coordination of care (as documented) at patient's floor/unit and/or counseling patient: Coding Level of Care Code 46190 Subseq Hosp Care Lvl 3 Diagnoses DKA (diabetic ketoacidosis) E10.10 Diabetes mellitus complication detail: without coma Diabetes mellitus type: type 1 Elevated troponin R77.8 Hypertension I10 Vomiting R11.2 Nausea presence: with nausea Vomiting type: unspecified CAD (coronary artery disease) I25.10 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
[2022-03-08] MEDS: PANTOprazole 40 MG in SYRINGE 0 ML IV SCH ×2 (11:13→20:08)
[2022-03-08] MEDS: CARBOHYDRATES FOR HYPOGLYCEMIA PO PRN ×2 (14:48→15:06)
[2022-03-08] MEDS ORDERED: FAMOTIDINE 20 MG in SYRINGE 3 ML IV ONE (15:30)
[2022-03-08] MEDS ORDERED: LORazepam 1 MG TAB PO STA (20:45)
[2022-03-09] MEDS: INSULIN ASPART PER UNIT SC SCH ×4 (00:06→13:16)
[2022-03-09] MEDS: LACTATED RINGER'S 1,000 ML IV SCH ×2 (01:40→10:43)
[2022-03-09] MEDS ORDERED: FAMOTIDINE 20 MG TAB PO ONE (04:28)
[2022-03-09 06:25] LABS: BUN Creatinine Ratio 8.3 (10-20); Calcium 8.6 mg/dl (8.5-10.1); Creatinine Clr Calc Pharmacy 59.5 ml/min; Est GFR (African American) 65.5 ml/min; Est GFR (Non-African American) 56.5 ml/min; Potassium 3.3 mmol/L (3.5-5.1)
[2022-03-09] MEDS ORDERED: POTASSIUM CHLORIDE CRTAB 20 MEQ TABCR PO STA (08:20)
[2022-03-09] MEDS: amLODIPine BESYLATE 5 MG TAB PO SCH (08:35)
[2022-03-09] MEDS: ASPIRIN 81 MG ECTAB PO SCH (08:35)
[2022-03-09] MEDS: buPROPion XL 300 MG TABCR PO SCH (08:36)
[2022-03-09] MEDS: ATORVASTATIN 40 MG TAB PO SCH (08:36)
[2022-03-09] MEDS: HEPARIN SOD 5,000 UNIT/0.5 ML VIAL SQ SCH (08:36)
[2022-03-09] MEDS: carvediloL 25 MG TAB PO SCH (08:36)
[2022-03-09] MEDS: DULoxetine HCL 60 MG CAP PO SCH (08:36)
[2022-03-09] MEDS: VALSARTAN 80 MG TAB PO SCH (08:37)
[2022-03-09] MEDS: MULTIVITAMIN TAB PO SCH (08:37)
[2022-03-09] MEDS: PANTOprazole 40 MG in SYRINGE 0 ML IV SCH (08:44)
[2022-03-09] MEDS ORDERED: LANTUS PER UNIT CHARGE SQ SCH ×2 (09:00→10:00)
[2022-03-09] MEDS ORDERED: NITROGLYCERIN 0.2 MG/HR PATCH TD SCH ×2 (09:00→10:00)
[2022-03-09] MEDS ORDERED: LACTATED RINGER'S 1,000 ML IV SCH (09:45)
--- NOTE | 2022-03-09 09:55 | Discharge Summary ---
Date of Service March 09, 2022 Admission HPI Per Admitting Provider Patient is a 41-year-old female with past medical history of type 1 diabetes, CAD, previous NSTEMI, CKD 3, and eating disorder presents to the emergency department for evaluation of nausea and vomiting. Patient is overall very nauseous and fatigued from today and is very minimal in the responses that she gives to me during interview and examination. It seems that since this morning, patient has had profound nausea and unrelenting vomiting and reports that she is vomited "more times than she can count". When asked what she feels could have caused this, she states that her insulin pump failed without further elaboration. Otherwise she does state to me that she has been eating a diabetic diet up until this morning. She has had a previous episode of DKA approximately 1 year ago that was treated at this facility. States that her sugars were running high all day today and it was decided by her and her that she should come to the emergency room for evaluation. Prior to coming to the hospital she seems to have given herself a quantity of unknown known amount of insulin. It seems that she took the cartridge from her insulin pump which does not have measurements on it and injected that amount into herself prior to coming. Otherwise patient denies any cold-like symptoms or UTI symptoms. Continues to feel nauseated and has vomited several times in the emergency department. No other complaints at this time ED course: After patient arrived to the emergency department, she was evaluated by one of our providers and had lab work done. Lab work was significant for a white count of 13.7, a VBG pH of 7.27, potassium of 3.6, anion gap of 17, BUN of 26, creatinine of 1.53, glucose of 221, high-sensitivity troponin of 48.4, and urine ketones of 4+ with 3+ glucose. This indicated a diagnosis of diabetic ketoacidosis, for this reason aggressive fluid resuscitation was begun and patient was placed on insulin drip with potassium supplementation. Patient is currently hemodynamically stable. Sugars have improved to less than 200 and she is currently on a insulin drip of 0.02 units/kg/h. Additionally patient is on half normal saline with dextrose and potassium at 200 mls per hour. Principal Diagnosis DKA, intractable nausea/vomiting Discharge Exam Constitutional WD/WN, vitals as above Eyes + anicteric sclerae Neck trachea midline, no thyromegaly Respiratory normal respiratory effort, lungs clear to auscultation Cardiovascular RRR, no murmur, no edema Chest (Breasts) Chest: normal inspection of chest Gastrointestinal (Abdomen) normal bowel sounds, soft, nontender, no hepatosplenomegaly Musculoskeletal Extremities: extremities normal to inspection; no cyanosis and no clubbing Skin no rashes, warm and dry Neurologic moves all extremities and awake; no focal motor deficits Psychiatric A+Ox3, euthymic affect Lymphatic no lymphedema Discharge Data Allergies Allergy/AdvReac Type Severity Reaction Status Date / Time clopidogrel Allergy Severe Nausea,Vomi Verified 02/05/22 11:10 ting milk Allergy Unknown Unknown Verified 02/05/22 11:10 mushroom Allergy Unknown Unknown Verified 02/05/22 11:10 orange Allergy Unknown Unknown Verified 02/05/22 11:10 orange flavor Allergy Unknown Unknown Verified 02/05/22 11:10 orange juice Allergy Unknown Unknown Verified 02/05/22 11:10 metformin AdvReac Mild NAUSEA, Verified 02/05/22 11:10 UPSET STOMACH Consultations 03/06/22 18:38 ED Decision to Admit Stat Hospital Course (1) DKA (diabetic ketoacidosis): Patient is a 41-year-old female with past medical history of type 1 diabetes, CAD, previous NSTEMI, CKD 3, and eating disorder presents to the emergency department for evaluation of nausea and vomiting. Patient was found to have diabetic ketoacidosis likely secondary to a possible pump failure. She was given aggressive fluid resuscitation as well as started on an insulin drip as well as potassium replacement No evidence of recent illness or acute MA-trop likely elevated due to myocardial demand ischemia AG closed, pH normal, transitioned off insulin gtt to Lantus and Novolog She continued to have ongoing nausea with dry heaving but is improving throughout the day finally on 03/08 and stable for discharge on 03/09, tolerating regular diet -she was given antiemetics as needed and will be sent home with promethazine AK as needed -home pump malfunctioning and she has a new pump but is missing a piece-she will d/w Endocrine -parent educator consulted-appreciate operations (2) Elevated troponin: -Hx of NSTEMI -No chest pain or ACS symptoms -ECG with LVH with repol abnormality unchanged from previous -Trop at 48.4 and up to 64 -myocardial demand ischemia in the setting of DKA (3) Hypertension: hypertensive from not being able to take her home po meds due to N/V-required several doses of IV hydralazine and IV labetalol initially Much improved after she was able to take her home p.o. meds -Continue home carvedilol, amlodipine, and valsartan (4) Vomiting: As above, now resolved with small amount hematemesis 1/2 dollar amount on day of admission-likely Velma Mayo tear or gastritis ok to continue ASA and heparin SQ for now given small amount blood Continued to complain of indigestion on 03/08 despite being on once daily IV Protonix-increased to Protonix IV twice daily and added on Pepcid 20 Mg IV -Will change her home p.o. Protonix to 40 Mg p.o. 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 Follow-up with endocrinology (7) Chronic kidney disease, stage III (moderate): - stable, secondary to poorly controlled DM1 Creatinine improved from previous at 1.2 on day of discharge -Continue losartan (8) Depression: -continue duloxetine, buproprion (9) Hypomagnesemia: With hypomagnesemia, hypokalemia, and hyponatremia All replaced and resolved Plan DVT prophylaxis-heparin SQ Dispo-stable for discharge home with close outpatient follow-up Total Time Total Time Spent Total Time Spent (In Minutes): 40 minutes Discharge Plan Discharge Items Patient Disposition: Home - Self-Care Reason For Visit: NAUSEA AND VOMITING Discharge Diagnosis: DKA, Nausea/vomiting Activity: As commented below Bathing: No limitations Exercise/Sports: Gradually increase as tolerated Non-emergency contact: Primary Care Provider Call non-emergency contact if: you have any medication questions and your s ymptoms worsen Follow-up/Referrals: Keegan Root PA-C [Physician Bomb Technician] - (Follow up within 1 week. Please call for an appointment.) Rob Loaiza MD [Primary Care Provider] - (Follow up within 1-2 weeks. Please call for an appointment.) Diet: Carb Count or DM1 and Heart Healthy Addtl Attending Provider Instructions: You were admitted for DKA and nausea with vomiting due to an insulin pump failure. Until you get your new insulin pump up and running, please use the Basaglar long acting insulin once daily in the morning and the Novolog Flexpen with each meal and at bedtime as per the sliding scale typed out for you. This will be based on what your glucose is before each meal (three times a day) and at bedtime. You can take the promethazine either by tablet or by rectal suppository as needed for nausea. Try to stay hydrated once you go home. Pending Studies at Discharge: No Stand-Alone Forms: My [facility], Smoking Cessation Medications and DC Order Prescriptions: New insulin glargine [Basaglar KwikPen U-100 Insulin] 100 unit/mL (3 mL) insulin pen 15 unit subcut DAILY Qty: 15 0RF insulin aspart U-100 [Novolog Flexpen U-100 Insulin] 100 unit/mL (3 mL) insulin pen 1 sliding scale dose subcut USEASDIRECTD Qty: 15 0RF Rx Instructions: Based on sliding scale printed out for you, up to 45 units daily total (DME) pen needle, diabetic [Pen Needle] 32 gauge x 5/32" needle See Rx Instructions .Route Qty: 100 0RF Rx Instructions: 5x/day for insulin administration promethazine 12.5 mg suppository 12.5 mg AK Q6H PRN (Reason: nasea/vomiting) Qty: 12 0RF Continued (DME) Dexcom G6 Transmitter Device See Rx Instructions .Route Qty: 1 3RF Rx Instructions: change evry 3 months (DME) Dexcom G6 Sensor Device See Rx Instructions .Route Qty: 9 3RF Rx Instructions: change every 10 days atorvastatin 80 mg tablet 80 mg PO QAM Qty: 90 3RF (DME) Omnipod Dash Pods (Gen 4) Cartridge See Rx Instructions .Route Qty: 30 1RF Rx Instructions: change every 72 hrs bupropion HCl 300 mg tablet extended release 24 hr 300 mg PO QAM aspirin 81 mg tablet,delayed release (DR/EC) 81 mg PO QAM Qty: 30 11RF Baqsimi 3 mg/actuation spray,non-aerosol 3 mg intranasal ONCE PRN (Reason: hypoglycemia) fluticasone propionate [Flonase Allergy Relief] 50 mcg/actuation spray,suspension 1 spray intranasal BID Qty: 16 5RF Rx Instructions: administer into each nostril valacyclovir [Valtrex] 1 gram tablet 1,000 mg PO BID PRN (Reason: FLARE UPS) multivitamin [Daily Multi-Vitamin] Tablet 1 tab PO QAM chlorpheniramine maleate [Allergy Relief(chlorpheniramn)] 4 mg tablet 4 mg PO Q12H PRN (Reason: sinus pressure) nitroglycerin 0.2 mg/hr patch 24 hour 1 patch transdermal DAILY Qty: 30 5RF Rx Instructions: Allow nitrate-free interval of approx. 10-12 hrs per 24-hour period. (DME) Omnipod 5 G6 Pods (Gen 5) Cartridge See Rx Instructions .Route Qty: 10 11RF Rx Instructions: Change pod every 3 days (DME) Omnipod 5 G6 Intro Kit (Gen 5) Cartridge See Rx Instructions .Route Qty: 1 0RF Rx Instructions: Change pod every 3 days norgestimate-ethinyl estradiol [Tri Femynor] 0.18/0.215/0.25 mg-35 mcg (28) tablet 1 tab PO HS duloxetine 60 mg capsule,delayed release(DR/EC) 60 mg PO QAM carvedilol 25 mg tablet 25 mg PO AMHS amlodipine 5 mg tablet 5 mg PO QAM valsartan 40 mg tablet 40 mg PO QAM nitroglycerin 0.3 mg tablet, sublingual 0.3 mg sublingual UD PRN (Reason: Chest Pain) promethazine 25 mg tablet 25 mg PO TID PRN (Reason: nausea and vomiting) Qty: 20 0RF lorazepam [Ativan] 1 mg tablet 1 mg PO Q8H PRN (Reason: vomiting) Qty: 12 0RF Changed pantoprazole 40 mg tablet,delayed release (DR/EC) 40 mg PO BID Qty: 60 0RF Discontinued pseudoephedrine HCl [Sudafed 12 Hour] 120 mg tablet extended release 120 mg PO BID PRN (Reason: sinus pressure) insulin aspart U-100 [Novolog U-100 Insulin aspart] 100 unit/mL solution 0 sliding scale dose continuous subcutaneous infusion CONTINOUS MDD 50UNITS/DAILY Rx Instructions: via insulin pump No Action doxycycline hyclate 100 mg capsule 100 mg PO BID Qty: 20 0RF fluconazole 150 mg tablet 150 mg PO .COMPLEX Qty: 1 0RF Rx Instructions: 150 mg orally daily x1 dose.; fluticasone propionate [Flovent HFA] 110 mcg/actuation HFA aerosol inhaler 1 puff inhalation BID Qty: 12 5RF Rx Instructions: WITH A RINSE OF MOUTH AFTERWARDS. Discharge Orders: Discharge Order (Routine); Ordered 03/09/22 Ordered By: Barb Fritz Admission Data Admit Date/Time: 03/06/22 19:27 Attending Provider: Barb Fritz Admit Provider: Milton Bass Primary Care Provider: Rob Loaiza Other Providers: Papa Blackburn Other Interventions: Discharge Summary Assessment (RN) Last Done: 03/09/22 13:37 Coding Level of Care Code D/C DAY MANAGEMENT >30 MINS Diagnoses DKA (diabetic ketoacidosis) E10.10 Diabetes mellitus complication detail: without coma Diabetes mellitus type: type 1 Elevated troponin R77.8 Hypertension I10 Vomiting R11.2 Nausea presence: with nausea Vomiting type: unspecified CAD (coronary artery disease) I25.10 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
[2022-03-09] MEDS ORDERED: NITROGLYCERIN 0.1 MG/HR PATCH TD SCH (10:00)
[2022-03-09] MEDS: POTASSIUM CHLORIDE / WTR 10 MEQ/100 ML PLCT IV SCH ×2 (10:21→10:42)
--- NOTE | 2022-03-09 14:35 | Pharmacy Report ---
Pharmacy Glycemic Short Note 2 - Date of Service March 09, 2022 - Glycemic Short BSG Results (Last 24 hours): 03/08/22 03/08/22 03/08/22 14:44 14:46 15:00 Glucose POC Glucose 49 L* 45 L* 59 L* 03/08/22 03/08/22 03/08/22 15:15 16:51 20:01 Glucose POC Glucose 75 136 H 134 H 03/09/22 03/09/22 03/09/22 00:03 04:17 05:24 Glucose 110 H POC Glucose 91 98 03/09/22 03/09/22 07:42 11:53 Glucose POC Glucose 146 H 106 H OUTPATIENT ANTIDIABETIC REGIMEN: * Novolog pump ASSESSMENT: 03/09: * Patient received total 38 units of insulin yesterday; 28 units basal + 10 units bolus. * She became hypoglycemic with BSG = 45 mg/dl yesterday afternoon. This is most likely from the basal insulin dose. * Novolog parameters were loosened and basal dose this AM was reduced 50% from yesterday. * Patient wants to be discharged home today. Dr. Fritz requested discharge recommendations for insulin basal bolus dosing since her pump is non- functional at this time. Please see below. 03/07/22 * 41 y/o F admitted for DKA, nausea/vomiting. Patient with history of Type 1 diabetes on Novolog pump at home. * Currently patient is NPO. She was started on insulin drip yesterday. * Labs normalized today. Insulin drip was discontinued after Lantus 25 units SQ x1 dose given this. This dose was ordered based off of what she needed for basal dosing during past admission when she received 28 units of basal. * Since insulin drip discontinued, BSGs have been near goal. Novolog parameters ordered. PLAN FOR INPATIENT GLYCEMIC CONTROL: * Hold outpatient oral diabetes medications * Basal insulin * Lantus 15 units SQ QAM * Bolus insulin * NovoLog per scale ACHS or Q6hrs while NPO * Goal Range: Low 110 mg/dL - High 140 mg/dL * Correction Factor: 20 mg/dL/unit * Nutritional / Prandial insulin per carb ratio of 1 unit per 8 grams CHO consumed Discharge recommendations provided typed up on paper and send to patient's nurse as below: * Lantus 15 units SQ QAM * Novolog: check blood sugars before meals and at bedtime and use sliding scale dosing as follows: Blood Sugar 70-150 administer 0 units Blood Sugar 151-200 administer 3 units Blood Sugar 201-250 administer 5 units Blood Sugar 251-300 administer 7 units Blood Sugar 301-350 administer 9 units Blood Sugar 351-400 administer 11 units Blood Sugar >400 administer 13 units and call MD Follow up with Endocrinology provider as early as possible.
[2022-03-10] MEDS ORDERED: NITROGLYCERIN 0.1 MG/HR PATCH TD SCH (09:00)
== END 2022-03-09 15:26 | disposition home or self-care (01) | DRG 638 ==
LOC: ED 16:54 → SUATTDRO 19:27 → 4W 19:27

== ENCOUNTER 2023-02-12 09:50 | Inpatient (IN) ==
--- NOTE | 2023-02-12 10:03 | Emergency Department Note ---
Impression & Plan Hypertensive urgency, Intractable nausea and vomiting ED Provider Note NAME: MATILDE CRENSHAW AGE: 42 SEX: F : 1980 ARRIVES VIA: Walk-In INFORMANT: Patient, ED PROVIDER(S): Rob Vang MD CHIEF COMPLAINT: Nausea vomiting MEDICAL DECISION MAKING: Patient presents due to concern for nausea vomiting. Next IV was established and blood work is obtained the patient was ordered Reglan and IV Benadryl and IV fluids. [id number] BMP was obtained. Fingerstick 359. Patient's potassium is normal with a creat of 1.4 which is around the patient's baseline per prior nephrology note. Patient's blood work showed a white count of 11 with a normal hemoglobin and platelet count kidney function at her baseline with creatinine 1.48. Potassium normal sodium 135. Mild elevation alk phos lipase is not elevated beta-hCG negative. The patient did receive several rounds of antiemetics and did receive IV labetalol given significant hypertension which may be from vomiting as well as the patient's inability to take her morning blood pressure medication. This did happen again was given another IV dose of labetalol. Patient was unable to tolerate anything by mouth admitted through the inpatient hospital service the patient was admitted by Dr. Larios. Critical Care: I have personally spent 35 minutes of critical care time in direct management of this patient. This includes bedside care, interpretation of diagnostic studies, and testing, discussion with consultants, patient, and family members, and other require inpatient management activities. This 35 minutes is in excess of all separately billable procedures. Discussion w/ other healthcare providers: None Prior /Outside records reviewed: I reviewed a nephrology visit from January 23, [address] Whitley. Patient does have a known history of CKD stage III type 1 diabetes hyperlipidemia. Baseline creat of 1.5-1.7 patient to be continued on valsartan 40 mg twice daily amlodipine 5 mg daily and carvedilol 25 mg twice daily. Differential diagnosis: Gastroenteritis, food borne illness, infection, appendicitis, diverticulitis, inflammatory bowel disease, obstruction among others were considered. Diagnostics, as interpreted by me: ECG: Normal sinus rhythm, rate 92, normal intervals, normal axis no ST elevations. Cardiac monitoring: An order was placed for continuous cardiac monitoring. The monitor shows a rate of 95 with sinus rhythm. Patient was placed on pulse oximetry Medical decision rules: None Imaging studies: None HPI: Patient presents due to concern for nausea vomiting and diarrhea. The patient's LMP was 2 weeks ago. The patient states that she developed symptoms yesterday with associated diarrhea but in the last 24 hours it has been primarily just vomiting. The patient did try to use Phenergan suppositories but without improvement in symptoms. The patient does complain of abdominal discomfort but no pain. Patient denies any blood in the urine or stool. No dysuria. Patient denies any changes in diet sick contacts or recent travel. PAST MEDICAL HISTORY: See Below PAST SURGICAL HISTORY: See Below SOCIAL HISTORY: See Below HOME MEDICATIONS: See Below ALLERGIES: See Below VITALS: See Below PHYSICAL EXAMINATION: GENERAL: Actively vomiting into an emesis bag EYE EXAM: Normal conjunctiva. PERRL, no anisocoria and EOM's grossly intact w/o pain. OROPHARYNX: Moist mucus membranes, grossly normal dentition. NECK: Supple, no nuchal rigidity, no adenopathy, non-tender. No signs of meningismus. FROM of the neck with good chin to chest and neck extension. No stridor. LUNGS: Clear to auscultation. Normal chest wall mechanics. HEART: NSR, no MRG. ABDOMEN: Abdomen soft, mild diffuse discomfort without localizing tenderness or significant pain, no masses, no rebound or guarding. BACK: No CVA TTP. SKIN: No rashes and no bruising. UPPER EXTREMITIES: Upper extremities are grossly normal. LOWER EXTREMITIES: Grossly normal, no edema. NEURO EXAM: A&O x3, cranial nerves II-XII grossly intact, normal speech, moves all 4 extremities. Past Med/Surg History Medical History Elevated troponin Ischemic cardiomyopathy Myocardial Infarction NSTEMI s/p CATH on 01/30/2021 CAD (coronary artery disease) Hypertension Chronic kidney disease, stage III (moderate) Hypothyroidism Diabetes type 1, uncontrolled Hypercholesterolemia Asthma History of herpes genitalis History of chronic diarrhea History of chronic constipation History of anorexia nervosa cardiomyopathy Depression Type 1 diabetes Surgical History History of oral surgery H/O cataract extraction History of section History of tonsillectomy Family History Mother Sciatica Hypertension Carpal tunnel syndrome Sister Epilepsy Grandmother (Maternal) Brain cancer Aunt Lymphoma Social History Smoking Status: Never smoker Second Hand Exposure: No; Do You Dip or Chew Tobacco: No; Hx Alcohol Use: Yes Alcohol type: hard liquor Hx Substance Use: No Preferred Language: [place] 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: Effective Commercial Reporter Required: No Beliefs That Will Affect Care: None marital status: Current Living Situation: Spouse current occupational status: employed current occupation: Works at [employer] in [employer] Feels Safe at Home: Yes Assistive Devices: None Allergies Allergies Allergy/AdvReac Type Severity Reaction Status Date / Time clopidogrel Allergy Severe Nausea,Vomi Verified 01/28/23 15:59 ting milk Allergy Unknown Unknown Verified 01/28/23 15:59 mushroom Allergy Unknown Unknown Verified 01/28/23 15:59 orange Allergy Unknown Unknown Verified 01/28/23 15:59 orange flavor Allergy Unknown Unknown Verified 01/28/23 15:59 orange juice Allergy Unknown Unknown Verified 01/28/23 15:59 metformin AdvReac Mild NAUSEA, Verified 01/28/23 15:59 UPSET STOMACH Home Meds Home Medications Medication Instructions Recorded Confirmed duloxetine 60 mg capsule,delayed 60 mg PO QAM 09/15/18 02/12/23 release norgestimate-ethinyl estradiol 1 tab PO HS 09/15/18 02/12/23 0.18 mg/0.215mg/0.25mg-35 mcg(28)tablet (Tri Femynor) bupropion HCl 300 mg 24 hr tablet, 300 mg PO QAM 01/11/19 02/12/23 extended release carvedilol 25 mg tablet 25 mg PO AMHS 01/11/19 02/12/23 valacyclovir 1 gram tablet 0 mg PO BID PRN FLARE UPS 03/07/19 01/28/23 (Valtrex) multivitamin (Daily Multi-Vitamin 1 tab PO QAM 06/06/20 01/28/23 tablet) glucagon 3 mg/actuation nasal 3 mg intranasal ONCE PRN 05/31/21 01/28/23 spray (Baqsimi) hypoglycemia chlorpheniramine maleate 4 mg 4 mg PO Q12H PRN sinus pressure 10/30/21 01/28/23 tablet (Allergy Relief (chlorpheniramine)) nitroglycerin 0.3 mg sublingual 0 mg sublingual UD PRN Chest Pain 12/24/21 01/28/23 tablet fluticasone propionate 110 1 puff inhalation BID PRN Other 01/05/23 02/12/23 mcg/actuation HFA aerosol inhaler (Flovent HFA) nitroglycerin 0.2 mg/hr 1 patch transdermal DAILY PRN Other 01/05/23 02/12/23 transdermal 24 hour patch omega-3 fatty acids [Fish Oil] PO 01/28/23 01/28/23 vitamin B complex (B 1 tab PO DAILY 01/28/23 01/28/23 Complex-Vitamin B12 tablet) atorvastatin 80 mg tablet 0 mg PO QAM 02/12/23 lorazepam 1 mg tablet (Ativan) 0 mg PO Q8H PRN vomiting 02/12/23 Previous Rx's Medication Instructions Recorded aspirin 81 mg tablet,delayed 81 mg PO QAM #30 tabs 03/07/21 release Dexcom G6 Sensor (blood-glucose #9 ea 08/16/21 sensor) Dexcom G6 Transmitter #1 ea 08/16/21 (blood-glucose transmitter) fluticasone propionate 50 1 spray intranasal BID #16 grams 01/27/22 mcg/actuation nasal spray,suspension (Flonase Allergy Relief) promethazine 25 mg tablet 25 mg PO TID PRN nausea and 02/01/22 vomiting #20 tabs amlodipine 5 mg tablet 5 mg PO QAM #90 tabs 04/22/22 valsartan 40 mg tablet 40 mg PO BID #60 tabs 07/10/22 pen needle, diabetic 32 gauge x #200 ea 11/20/22 5/32" (Pen Needle) insulin aspart U-100 100 unit/mL 1 sliding scale dose subcut 01/30/23 (3 mL) subcutaneous pen (Novolog USEASDIRECTD #45 mL FlexPen U-100 Insulin aspart) insulin glargine 100 unit/mL (3 15 unit (0.15 mL) subcut BID #30 mL 01/30/23 mL) subcutaneous pen (Basaglar KwikPen U-100 Insulin) Results & Data (ED) Vital Signs Vital Signs - 24 hr 02/12/23 09:55 02/12/23 10:14 02/12/23 10:20 Temperature 36.4 C L Temperature Source Oral Pulse Rate 102 H 102 H Pulse Rate [Apical] 98 H Pulse Rhythm Regular Regular Pulse Rhythm [Apical] Regular Pulse Strength Normal Pulse Strength [Apical] Normal Respiratory Rate 18 20 20 Respiratory Effort / Characteristics Non-Labored Non-Labored Spontaneous Respiratory Depth Normal Normal Respiratory Pattern Regular Regular Blood Pressure 199/109 H Blood Pressure [Right Arm] 216/111 H Blood Pressure Mean 139 Blood Pressure Mean [Right Arm] 146 Blood Pressure Position Sitting Blood Pressure Position [Right Arm] Sitting Pulse Oximetry 98 98 97 Oxygen Delivery Method Room Air Room Air Room Air Sepsis Recent Fever Within 48 Hours No Sepsis New/Unexplained Change in Mental Status No Sepsis Action Taken by Nursing No Action Required 02/12/23 10:51 02/12/23 12:00 02/12/23 12:25 Temperature Temperature Source Pulse Rate 100 H 101 H Pulse Rate [Apical] 102 H Pulse Rhythm Pulse Rhythm [Apical] Regular Pulse Strength Pulse Strength [Apical] Normal Respiratory Rate 20 Respiratory Effort / Characteristics Non-Labored Spontaneous Respiratory Depth Normal Respiratory Pattern Regular Blood Pressure 228/118 H Blood Pressure [Right Arm] 228/118 H Blood Pressure Mean Blood Pressure Mean [Right Arm] 154 Blood Pressure Position Blood Pressure Position [Right Arm] Lying Pulse Oximetry 94 Oxygen Delivery Method Room Air Sepsis Recent Fever Within 48 Hours Sepsis New/Unexplained Change in Mental Status Sepsis Action Taken by Nursing 02/12/23 13:00 02/12/23 13:50 02/12/23 14:00 Temperature Temperature Source Pulse Rate 95 H 101 H Pulse Rate [Apical] 96 H Pulse Rhythm Pulse Rhythm [Apical] Regular Pulse Strength Pulse Strength [Apical] Normal Respiratory Rate 20 Respiratory Effort / Characteristics Non-Labored Spontaneous Respiratory Depth Normal Respiratory Pattern Regular Blood Pressure 168/90 H Blood Pressure [Right Arm] 234/126 H Blood Pressure Mean Blood Pressure Mean [Right Arm] 162 Blood Pressure Position Blood Pressure Position [Right Arm] Sitting Pulse Oximetry 95 Oxygen Delivery Method Room Air Sepsis Recent Fever Within 48 Hours Sepsis New/Unexplained Change in Mental Status Sepsis Action Taken by Nursing 02/12/23 15:29 02/12/23 15:30 02/12/23 15:37 Temperature Temperature Source Pulse Rate 98 H Pulse Rate [Apical] 100 H 92 H Pulse Rhythm Pulse Rhythm [Apical] Pulse Strength Pulse Strength [Apical] Respiratory Rate 20 Respiratory Effort / Characteristics Respiratory Depth Respiratory Pattern Blood Pressure 219/111 H Blood Pressure [Right Arm] 219/111 H 178/98 H Blood Pressure Mean Blood Pressure Mean [Right Arm] 147 124 Blood Pressure Position Blood Pressure Position [Right Arm] Pulse Oximetry 100 Oxygen Delivery Method Room Air Sepsis Recent Fever Within 48 Hours Sepsis New/Unexplained Change in Mental Status Sepsis Action Taken by [facility] Medications Current Medication List: was personally reviewed by me Laboratory Data Attestation: I reviewed the patient's lab results. 02/13/23 06:50 02/13/23 06:50 Lab Results 02/12/23 02/12/23 02/12/23 Range/Units 10:12 10:22 10:28 WBC 11.72 H (4.8-10.8) K/ul RBC 4.66 (4.20-5.40) M/uL Hgb 14.4 (12.0-16.0) g/dl POC Hgb 15.0 (12.0-16.0) g/dl Hct 43.0 (37.0-47.0) % POC Hct 44 (37-47) % MCV 92.3 (80.0-100.0) fL MCH 30.9 (25.0-34.0) pg MCHC 33.5 (32.0-36.0) g/dL RDW Std Deviation 41.1 (36.4-46.3) fL RDW Coeff of [place] 12.0 (11.5-14.5) % Plt Count 306 (130-400) K/uL MPV 9.2 L (9.4-12.4) fL Immature Gran % (Auto) 0.2 % Neut % (Auto) 90.9 % Lymph % (Auto) 7.3 % [place] % (Auto) 1.5 % Eos % (Auto) 0.0 % Baso % (Auto) 0.1 % Neut # (Auto) 10.66 H (1.40-6.50) K/uL Lymph # (Auto) 0.85 L (1.20-3.40) K/uL [place] # (Auto) 0.18 (0.11-0.59) K/uL Eos # (Auto) 0.00 (0.00-0.50) K/uL Baso # (Auto) 0.01 (0.00-0.20) K/uL Immature Gran # (Auto) 0.02 (0.01-0.20) K/uL Platelet Estimate Normal (Normal) POC Sodium 134 L (135-144) mmol/L Sodium 135 L (136-145) mmol/L POC Potassium 4.1 (3.3-5.0) mmol/L Potassium 4.1 (3.5-5.1) mmol/L POC Chloride 97 L (101-112) mmol/L Chloride 92 L (98-107) mmol/L Carbon Dioxide 24 (21-32) mmol/L POC Total CO2 27 (24-31) mmol/L Anion Gap 19 H (3-11) POC Anion Gap 15.0 L (16-25) mmol/L POC BUN 31 H (7-18) mg/dl BUN 29 H (6-23) mg/dl Creatinine 1.48 H (0.6-1.2) mg/dl POC Creatinine 1.4 H (0.6-1.3) mg/dl Est Cr Clr Drug Dosing Not Reportable Est GFR ( Amer) 50.5 ml/min Est GFR (Non-Af Amer) 43.5 ml/min BUN/Creatinine Ratio 19.6 (10-20) Glucose 373 H* (70-99(Fasting)) mg/dl POC Glucose 359 H* (70-99) mg/dl POC Glucose (other) 396 H* (70-99) mg/dl Calcium 10.3 (8.6-10.3) mg/dl POC Ioniz Calcium Di 1.03 L (1.12-1.32) mmol/l Total Bilirubin 0.9 (0.2-1.0) mg/dl AST 21 (13-39) U/L ALT 16 (7-52) U/L Alkaline Phosphatase 113 H (34-104) U/L Total Protein 9.2 H (6.0-8.3) gm/dl Albumin 4.8 (3.4-5.0) gm/dl Globulin 4.4 H (2.5-4.0) gm/dl Albumin/Globulin Ratio 1.1 (0.9-2) Lipase < 3 L (11-82) U/L HCG, Qual Negative (Negative) Administered Medications Carvedilol (Carvedilol 25 Mg Tab) 25 mg PO AMHS RYANN Stop: 03/14/23 20:59 Last Admin: 02/12/23 22:07 Dose: Not Given Documented By: DIAN Fluticasone Propionate (Fluticasone Propionate Na Spr 16 Gm Btl) 1 sprays NA BID RYANN Stop: 03/14/23 20:59 Last Admin: 02/12/23 21:15 Dose: 1 sprays Documented By: DIAN Heparin Sodium (Porcine) (Heparin Sod 5,000 Unit/0.5 Ml Vial) 5,000 units SQ Q8 RYANN Stop: 03/14/23 21:59 Last Admin: 02/13/23 06:41 Dose: 5,000 units Documented By: Admin: 02/12/23 22:00 Dose: 5,000 units Documented By: DIAN Insulin Aspart (Insulin Aspart Per Unit Charge) 0 units SC Q4H RYANN Stop: 03/15/23 01:59 Last Admin: 02/13/23 06:40 Dose: 2 units Documented By: DIAN Co-signed By: MEGHA Admin: 02/13/23 02:27 Dose: 3 units Documented By: DIAN Co-signed By: MEGHA Miscellaneous (Tri-Femynor--Order Awaiting Action) 1 each N/A QS RYANN Stop: 03/15/23 00:00 Last Admin: 02/13/23 00:28 Dose: Not Given Documented By: DIAN Ondansetron HCl (Ondansetron Inj 2 Mg/Ml 2 Ml Vial) 4 mg IV Q6H PRN PRN Reason: Nausea Stop: 03/14/23 20:37 Last Admin: 02/13/23 02:28 Dose: 4 mg Documented By: DIAN Valsartan (Valsartan 80 Mg Tab) 40 mg PO BID RYANN Stop: 03/14/23 20:59 Last Admin: 02/12/23 21:15 Dose: 40 mg Documented By: DIAN Discontinued Medications Amlodipine Besylate (Amlodipine Besylate 5 Mg Tab) 5 mg PO NOW STA Stop: 02/12/23 19:46 Last Admin: 02/12/23 21:13 Dose: 5 mg Documented By: DIAN Carvedilol (Carvedilol 25 Mg Tab) 25 mg PO NOW STA Stop: 02/12/23 19:46 Last Admin: 02/12/23 21:13 Dose: 25 mg Documented By: DIAN Diphenhydramine HCl (Diphenhydramine 50 Mg/Ml Vial) 25 mg IV NOW STA Stop: 02/12/23 10:15 Last Admin: 02/12/23 10:37 Dose: 25 mg Documented By: AMARILIS Sodium Chloride (Nss) 1,000 mls @ 999 mls/hr IV .Q1H1M RYANN Stop: 02/12/23 11:15 Last Infusion: 02/12/23 14:31 Dose: Infused Documented By: Admin: 02/12/23 10:36 Dose: 999 mls/hr Documented By: AMARILIS Sodium Chloride (Nss) 500 mls @ 999 mls/hr IV .Q31M RYANN Stop: 02/12/23 10:45 Last Infusion: 02/12/23 14:31 Dose: Infused Documented By: Admin: 02/12/23 10:36 Dose: 999 mls/hr Documented By: AMARILIS Promethazine HCl (Phenergan) 25 mg in 51 mls @ 204 mls/hr IV NOW STA Stop: 02/12/23 12:12 Last Infusion: 02/12/23 14:31 Dose: Infused Documented By: Admin: 02/12/23 12:25 Dose: 204 mls/hr Documented By: IZABEL Sodium Chloride (Nss) 500 mls @ 999 mls/hr IV .Q31M ONE Stop: 02/12/23 12:29 Last Infusion: 02/12/23 14:31 Dose: Infused Documented By: Admin: 02/12/23 12:28 Dose: 999 mls/hr Documented By: IZABEL Sodium Chloride (Nss) 1,000 mls @ 999 mls/hr IV .Q1H1M ONE Stop: 02/12/23 15:56 Last Infusion: 02/12/23 18:41 Dose: Infused Documented By: Admin: 02/12/23 15:31 Dose: 999 mls/hr Documented By: GERMAIN Prochlorperazine (Compazine) 2 mls @ 1 mls/min IV ONE ONE Stop: 02/12/23 14:57 Last Admin: 02/12/23 15:30 Dose: 1 mls/min Documented By: GERMAIN Insulin Human Regular 3 units/ (Syringe) 3 mls @ 1.5 mls/min IV ONE ONE Stop: 02/12/23 18:16 Last Admin: 02/12/23 18:31 Dose: 1.5 mls/min Documented By: GERMAIN Co-signed By: MONICA Insulin Aspart (Insulin Aspart Per Unit Charge) 0 units SC ACHS RYANN Stop: 03/14/23 16:29 Last Admin: 02/13/23 07:10 Dose: Not Given Documented By: DIAN Co-signed By: KAZ Insulin Aspart (Insulin Aspart Per Unit Charge) 0 units SC Q4 RYANN Stop: 03/14/23 17:29 Last Admin: 02/13/23 07:10 Dose: Not Given Documented By: DIAN Co-signed By: KAZ Insulin Aspart (Insulin Aspart Per Unit Charge) 0 units SC Q2H RYANN Stop: 02/12/23 22:30 Last Admin: 02/12/23 21:59 Dose: 4 units Documented By: DIAN Co-signed By: CASEY Admin: 02/12/23 19:49 Dose: 5 units Documented By: GERMAIN Co-signed By: CONG Admin: 02/12/23 19:44 Dose: Not Given Documented By: GERMAIN Co-signed By: JOHN Insulin Glargine (Lantus Per Unit Charge) 20 units SQ NOW ONE Stop: 02/12/23 17:31 Last Admin: 02/12/23 18:03 Dose: 20 units Documented By: GERMAIN Co-signed By: JOHN Labetalol HCl (Labetalol Hcl Iv 5 Mg/Ml 20ml) 10 mg IV NOW STA Stop: 02/12/23 12:02 Last Admin: 02/12/23 12:25 Dose: 10 mg Documented By: IZABEL Co-signed By: DORY Labetalol HCl (Labetalol Hcl Iv 5 Mg/Ml 20ml) 10 mg IV NOW STA Stop: 02/12/23 15:04 Last Admin: 02/12/23 15:30 Dose: 10 mg Documented By: GERMAIN Co-signed By: SEVEN Metoclopramide HCl (Metoclopramide Hcl Inj 5 Mg/Ml 2 Ml Vial) 10 mg IV NOW STA Stop: 02/12/23 10:15 Last Admin: 02/12/23 10:37 Dose: 10 mg Documented By: AMARILIS Miscellaneous (Pending Order) 1 each N/A Q2H RYANN Stop: 03/14/23 17:59 Last Admin: 02/13/23 07:12 Dose: Not Given Documented By: Admin: 02/13/23 07:12 Dose: Not Given Documented By: Admin: 02/13/23 07:12 Dose: Not Given Documented By: Admin: 02/13/23 07:12 Dose: Not Given Documented By: Admin: 02/13/23 07:12 Dose: Not Given Documented By: Admin: 02/13/23 07:11 Dose: Not Given Documented By: Admin: 02/12/23 22:07 Dose: 1 each Documented By: DIAN Discharge Plan Visit Data Chief Complaint: Vomiting Stated Complaint: VOMITING, DIARRHEA ED Provider: Rob Vang Discharge Problem: Hypertensive urgency, Intractable nausea and vomiting Patient Disposition: Admitted As Inpatient Discharge Instructions Interventions: ED Discharge Assessment Last Done: 02/12/23 20:03
[2023-02-12] MEDS ORDERED: METOCLOPRAMIDE HCL INJ 5 MG/ML 2 ML VIAL IV STA (10:14)
[2023-02-12] MEDS ORDERED: diphenhydrAMINE 50 MG/ML VIAL IV STA (10:14)
[2023-02-12] MEDS ORDERED: SODIUM CHLORIDE 0.9% 1,000 ML IV SCH (10:15)
[2023-02-12] MEDS ORDERED: SODIUM CHLORIDE 0.9% 500 ML IV SCH (10:15)
[2023-02-12 10:45] LABS: iSTAT Creatinine 1.4 mg/dl (0.6-1.3); iSTAT Ionized Calcium 1.03 mmol/l (1.12-1.32); iSTAT Potassium 4.1 mmol/L (3.3-5.0)
[2023-02-12 11:07] LABS: Alanine Aminotransferase 16 U/L (7-52); Albumin Globulin Ratio 1.1 (0.9-2); Albumin Level 4.8 gm/dl (3.4-5.0); Alkaline Phosphatase 113 U/L (34-104); Anion Gap 19 (3-11); Aspartate Aminotransferase 21 U/L (13-39); BUN Creatinine Ratio 19.6 (10-20); Bilirubin,Total 0.9 mg/dl (0.2-1.0); Blood Urea Nitrogen 29 mg/dl (6-23); Calcium 10.3 mg/dl (8.6-10.3); Carbon Dioxide 24 mmol/L (21-32); Chloride 92 mmol/L (98-107); Est GFR (African American) 50.5 ml/min; Est GFR (Non-African American) 43.5 ml/min; Globulin 4.4 gm/dl (2.5-4.0); Glucose 373 mg/dl (70-99(Fasting)); Lipase < 3 U/L (11-82); Potassium 4.1 mmol/L (3.5-5.1); Sodium 135 mmol/L (136-145); Total Protein 9.2 gm/dl (6.0-8.3)
[2023-02-12 11:11] LABS: Pregnancy Test, Serum Negative (Negative)
[2023-02-12 11:12] LABS: Basophils # (auto) 0.01 K/uL (0.00-0.20); Basophils % (auto) 0.1 %; Hemoglobin 14.4 g/dl (12.0-16.0); Immature Granulocytes # (auto) 0.02 K/uL (0.01-0.20); Immature Granulocytes % (auto) 0.2 %; Lymphocytes # (auto) 0.85 K/uL (1.20-3.40); Lymphocytes % (auto) 7.3 %; Mean Corpuscular Hemoglobin 30.9 pg (25.0-34.0); Mean Corpuscular Hgb Conc 33.5 g/dL (32.0-36.0); Mean Corpuscular Volume 92.3 fL (80.0-100.0); Mean Platelet Volume 9.2 fL (9.4-12.4); Monocytes # (auto) 0.18 K/uL (0.11-0.59); Monocytes % (auto) 1.5 %; Neutrophils # (auto) 10.66 K/uL (1.40-6.50); Neutrophils % (auto) 90.9 %; Platelet Count 306 K/uL (130-400); Platelet Estimate Normal (Normal); RDW Standard Deviation 41.1 fL (36.4-46.3); Red Blood Count 4.66 M/uL (4.20-5.40); White Blood Count 11.72 K/ul (4.8-10.8)
[2023-02-12] MEDS ORDERED: PROMETHAZINE 25 MG/51 ML BAG IV STA (11:58)
[2023-02-12] MEDS ORDERED: SODIUM CHLORIDE 0.9% 500 ML IV ONE (11:59)
[2023-02-12] MEDS ORDERED: LABETALOL HCL IV 5 MG/ML 20ML IV STA ×2 (12:01→15:03)
[2023-02-12 12:35] LABS: Appearance Urine Clear (Clear); Bacteria Urine Automated Negative (Negative); Bilirubin Urine Negative (Negative); Blood Urine 2+ (Negative); Color Urine Yellow; Epithelial Cell Urine Auto 20-30 /lpf (0-5); Glucose Urine UA 3+ (Negative); Ketones Urine 3+ (Negative); Leukocyte Esterase Urine Negative (Negative); Nitrite Urine Negative (Negative); Protein Urine 3+ (Negative); RBC Urine Automated 0-4 /hpf (0-4); Specific Gravity Urine 1.034 (1.000-1.030); Urobilinogen Urine Negative (Negative); pH Urine 5.5 (4.5-7.5)
[2023-02-12] MEDS ORDERED: SODIUM CHLORIDE 0.9% 1,000 ML IV ONE (14:56)
[2023-02-12] MEDS ORDERED: PROCHLORPERAZINE 2 ML IV ONE (14:56)
--- NOTE | 2023-02-12 15:33 | History & Physical Report ---
Date of Service February 12, 2023 Assessment & Plan (1) Nausea & vomiting: Plan: Cyclic vomiting started at 1200 on 02/11 T1DM pt with hx of DKA two months ago Patient did not take insulin this morning 02/12 Mild leukocytosis at 11.72 with neutrophilic predominance Glucose 396 on arrival Lipase low at < 3 VBG pending; q4h hCG negative EKG NSR at 92 bpm; QTc 464 Continuous telemetry monitoring in the setting of cyclic vomiting Patient received IVF 3000 mL in the ED Zofran 4 mg IV q6h as needed for nausea A.m. CBC, BMP, VBG, Mag, LFTs, Phos (2) Type 1 diabetes: Plan: Glucose 359 --> 316 in the ED BSG checks q2h until glucose <250mg/dL, then q6h while NPO Anion gap 19 UA positive for ketones 3+, glucose 3+, and blood 2+ Hx of DKA VBG pending Spoke with pharmacy; will give Lantus 20u in the ED, as patient did not take morning basal insulin During prior admission, patient did well on 25u Lantus QAM; will transition long-acting insulin to this Pharmacy glycemic consult SSI with target range 110-160mg/dL, CF 30, carb ratio 1-10 BSG ACHS once no longer n.p.o. Adjust regimen as needed Last A1c 10.5% on 01/26/23 (3) Hypertension: Plan: BP 234/126 on arrival Labetalol IV given in the ED Blood pressure tends to elevate during acute bouts of vomiting, but otherwise drops to within normal range Continue to monitor Labetalol 10 mg IV q6h prn for BP >220/110 Continue at home antihypertensives (carvedilol, amlodipine, valsartan) (4) Depression: Plan: Continue duloxetine Hold bupropion x1 day given cyclic vomiting; no hx of seizures (per pt), but do not want to lower the seizure threshold (5) Hypothyroidism: Plan: Continue levothyroxine (6) Chronic kidney disease, stage III (moderate): Plan: BUN 29, Cr 1.48 (baseline 1.30s), EGFR Avoid nephrotoxic agents Plan Disposition: Admit to PCU telemetry Keep n.p.o. for now then advance to T1DM diet as tolerated Full code VTE PPx: Heparin, SCDs History of Present Illness Chief Complaint: Vomiting Primary Care Provider: NEREYDA Monroe Tsering is a 42-year-old female with PMH of T1DM, DKA, CAD, anorexia nervosa, NSTEMI, HTN, hypothyroidism, CKD stage III, asthma, and depression. She presented for vomiting, diarrhea, and lower back pain x1 day. Vomiting started yesterday at 12 noon on 02/11. She reports cyclic vomiting/dry heaving every few minutes at the start, but this has since decreased in frequency. She denies noticing blood in the vomit. Hx of DKA w/ last time being 2 months ago. She took NyQuil at home last night, which she says did not help. While she reports she has never had a seizure, she reports that her sister has seizures. She reports compliance with insulin; however, she did not take her insulin this morning. No sick contacts. Patient denies recent injury/trauma to the abdomen or pelvis. Patient reportedly missed her morning hypertensives. Patient was hypertensive on arrival with peak at 234/126 before receiving labetalol IV. BP continues to oscillate; worse following episodes of vomiting. Other vitals stable at time of admission. ED course: IVF 3000mL, Reglan 10 mg, Benadryl 25 mg, Phenergan 25 mg, labetalol 10 mg IV x2 ROS: Patient endorses fatigue, cyclic vomiting, and abdominal cramping. Patient denies fever, chills, chest pain, SOB, or hematemesis. Surgical Hx: No hx of appendectomy or cholecystectomy, per patient Please see Dr. Larios's attestation for any changes to treatment plan. Allergies Allergy/AdvReac Type Severity Reaction Status Date / Time clopidogrel Allergy Severe Nausea,Vomi Verified 01/28/23 15:59 ting milk Allergy Unknown Unknown Verified 01/28/23 15:59 mushroom Allergy Unknown Unknown Verified 01/28/23 15:59 orange Allergy Unknown Unknown Verified 01/28/23 15:59 orange flavor Allergy Unknown Unknown Verified 01/28/23 15:59 orange juice Allergy Unknown Unknown Verified 01/28/23 15:59 metformin AdvReac Mild NAUSEA, Verified 01/28/23 15:59 UPSET STOMACH Home Medications Medication Instructions Recorded Confirmed Type duloxetine 60 mg capsule,delayed 60 mg PO QAM 09/15/18 02/12/23 History release norgestimate-ethinyl estradiol 1 tab PO HS 09/15/18 02/12/23 History 0.18 mg/0.215mg/0.25mg-35 mcg(28)tablet (Tri Femynor) bupropion HCl 300 mg 24 hr tablet, 300 mg PO QAM 01/11/19 02/12/23 History extended release carvedilol 25 mg tablet 25 mg PO AMHS 01/11/19 02/12/23 History valacyclovir 1 gram tablet 0 mg PO BID PRN FLARE UPS 03/07/19 01/28/23 History (Valtrex) multivitamin (Daily Multi-Vitamin 1 tab PO QAM 06/06/20 01/28/23 History tablet) aspirin 81 mg tablet,delayed 81 mg PO QAM #30 tabs 03/07/21 01/28/23 Rx release glucagon 3 mg/actuation nasal 3 mg intranasal ONCE PRN 05/31/21 01/28/23 History spray (Baqsimi) hypoglycemia Dexcom G6 Sensor (blood-glucose #9 ea 08/16/21 01/28/23 Rx sensor) Dexcom G6 Transmitter #1 ea 08/16/21 01/28/23 Rx (blood-glucose transmitter) chlorpheniramine maleate 4 mg 4 mg PO Q12H PRN sinus pressure 10/30/21 01/28/23 History tablet (Allergy Relief (chlorpheniramine)) nitroglycerin 0.3 mg sublingual 0 mg sublingual UD PRN Chest Pain 12/24/21 01/28/23 History tablet fluticasone propionate 50 1 spray intranasal BID #16 grams 01/27/22 02/12/23 Rx mcg/actuation nasal spray,suspension (Flonase Allergy Relief) promethazine 25 mg tablet 25 mg PO TID PRN nausea and 02/01/22 02/12/23 Rx vomiting #20 tabs amlodipine 5 mg tablet 5 mg PO QAM #90 tabs 04/22/22 02/12/23 Rx valsartan 40 mg tablet 40 mg PO BID #60 tabs 07/10/22 02/12/23 Rx pen needle, diabetic 32 gauge x #200 ea 11/20/22 01/28/23 Rx 5/32" (Pen Needle) fluticasone propionate 110 1 puff inhalation BID PRN Other 01/05/23 02/12/23 History mcg/actuation HFA aerosol inhaler (Flovent HFA) nitroglycerin 0.2 mg/hr 1 patch transdermal DAILY PRN Other 01/05/23 02/12/23 History transdermal 24 hour patch omega-3 fatty acids [Fish Oil] PO 01/28/23 01/28/23 History vitamin B complex (B 1 tab PO DAILY 01/28/23 01/28/23 History Complex-Vitamin B12 tablet) insulin aspart U-100 100 unit/mL 1 sliding scale dose subcut 01/30/23 02/12/23 Rx (3 mL) subcutaneous pen (Novolog USEASDIRECTD #45 mL FlexPen U-100 Insulin aspart) insulin glargine 100 unit/mL (3 15 unit (0.15 mL) subcut BID #30 mL 01/30/23 02/12/23 Rx mL) subcutaneous pen (Basaglar KwikPen U-100 Insulin) atorvastatin 80 mg tablet 0 mg PO QAM 02/12/23 History lorazepam 1 mg tablet (Ativan) 0 mg PO Q8H PRN vomiting 02/12/23 History Past Med/Surg History Medical History Elevated troponin Ischemic cardiomyopathy Myocardial Infarction NSTEMI s/p CATH on 01/30/2021 CAD (coronary artery disease) Hypertension Chronic kidney disease, stage III (moderate) Hypothyroidism Diabetes type 1, uncontrolled Hypercholesterolemia Asthma History of herpes genitalis History of chronic diarrhea History of chronic constipation History of anorexia nervosa cardiomyopathy Depression Type 1 diabetes Surgical History History of oral surgery H/O cataract extraction History of section History of tonsillectomy Family History Mother Sciatica Hypertension Carpal tunnel syndrome Sister Epilepsy Grandmother (Maternal) Brain cancer Aunt Lymphoma Social History Smoking Status: Never smoker Second Hand Exposure: No; Do You Dip or Chew Tobacco: No; Hx Alcohol Use: No Hx Substance Use: No Preferred Language: Vietnamese 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: 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 Beliefs That Will Affect Care: None marital status: Current Living Situation: Spouse current occupational status: employed current occupation: Works at [employer] in [employer] department Feels Safe at Home: Yes Assistive Devices: None Review of Systems Review of Systems: See HPI above Physical Exam Physical Exam: General: lethargic; opens eyes and responds with one-word to most questioning, but is otherwise tired/not responding to questions; nontoxic-appearing; 99% SpO2 on RA; BP 194/106 at time of exam HEENT: normocephalic, atraumatic; no scleral icterus; PERRLA w/ EOMs intact; moist mucus membrane; vision and hearing intact Neck: supple; no JVD; no lymphadenopathy; trachea midline Skin: warm, dry without signs of tenting; no cyanosis; no rashes, bruising, lesions, or erythema noted CV: chest wall NTP; RRR; S1/S2 normal; no murmurs/rubs/gallops; pulses intact and symmetric at radial, DP, and PT Lungs: no acute respiratory distress; symmetrical chest wall expansion; clear breath sounds across all lung quinteros w/o adventitious sounds; no wheezing ABD: Soft, NTP; negative tenderness at McBurney's point; BS present; no rebound/guarding; no distention MSK: no tics or fasciculations; no edema noted in the LEs b/l Neuro: A&Ox3; lethargic, unresponsive to some questioning; sensation intact Results & Data Results & Data Vital Signs (Past 12 Hours) Vital Signs Temp Pulse Pulse Resp BP BP Pulse Ox 02/12/23 14:00 96 H 20 234/126 H 95 02/12/23 13:50 101 H 02/12/23 13:00 95 H 168/90 H 02/12/23 12:25 101 H 228/118 H 02/12/23 12:00 102 H 20 228/118 H 94 02/12/23 10:51 100 H 02/12/23 10:20 98 H 20 216/111 H 97 02/12/23 10:14 102 H 20 98 02/12/23 09:55 36.4 C L 102 H 18 199/109 H 98 O2 Del Method 02/12/23 14:00 Room Air 02/12/23 13:50 02/12/23 13:00 02/12/23 12:25 02/12/23 12:00 Room Air 02/12/23 10:51 02/12/23 10:20 Room Air 02/12/23 10:14 Room Air 02/12/23 09:55 Room Air Laboratory Results Abnormal lab results 02/12/23 02/12/23 02/12/23 Range/Units 10:12 10:22 10:28 WBC 11.72 H (4.8-10.8) K/ul MPV 9.2 L (9.4-12.4) fL Neut # (Auto) 10.66 H (1.40-6.50) K/uL Lymph # (Auto) 0.85 L (1.20-3.40) K/uL POC Sodium 134 L (135-144) mmol/L Sodium 135 L (136-145) mmol/L POC Chloride 97 L (101-112) mmol/L Chloride 92 L (98-107) mmol/L Anion Gap 19 H (3-11) POC Anion Gap 15.0 L (16-25) mmol/L POC BUN 31 H (7-18) mg/dl BUN 29 H (6-23) mg/dl Creatinine 1.48 H (0.6-1.2) mg/dl POC Creatinine 1.4 H (0.6-1.3) mg/dl Glucose 373 H* (70-99(Fasting)) mg/dl POC Glucose 359 H* (70-99) mg/dl POC Glucose (other) 396 H* (70-99) mg/dl POC Ioniz Calcium Di 1.03 L (1.12-1.32) mmol/l Alkaline Phosphatase 113 H (34-104) U/L Total Protein 9.2 H (6.0-8.3) gm/dl Globulin 4.4 H (2.5-4.0) gm/dl Lipase < 3 L (11-82) U/L Ur Specific [place] (1.000-1.030) Urine Protein (Negative) Urine Glucose (UA) (Negative) Urine Ketones (Negative) Urine Blood (Negative) U Epithel Cells (Auto) (0-5) /lpf 02/12/23 Range/Units Unknown WBC (4.8-10.8) K/ul MPV (9.4-12.4) fL Neut # (Auto) (1.40-6.50) K/uL Lymph # (Auto) (1.20-3.40) K/uL POC Sodium (135-144) mmol/L Sodium (136-145) mmol/L POC Chloride (101-112) mmol/L Chloride (98-107) mmol/L Anion Gap (3-11) POC Anion Gap (16-25) mmol/L POC BUN (7-18) mg/dl BUN (6-23) mg/dl Creatinine (0.6-1.2) mg/dl POC Creatinine (0.6-1.3) mg/dl Glucose (70-99(Fasting)) mg/dl POC Glucose (70-99) mg/dl POC Glucose (other) (70-99) mg/dl POC Ioniz Calcium Di (1.12-1.32) mmol/l Alkaline Phosphatase (34-104) U/L Total Protein (6.0-8.3) gm/dl Globulin (2.5-4.0) gm/dl Lipase (11-82) U/L Ur Specific [place] 1.034 H (1.000-1.030) Urine Protein 3+ H (Negative) Urine Glucose (UA) 3+ H (Negative) Urine Ketones 3+ H (Negative) Urine Blood 2+ H (Negative) U Epithel Cells (Auto) 20-30 H (0-5) /lpf Code Status & VTE Plan Code Status Full code VTE Prophylaxis Plan VTE Prophylaxis will be ordered: Yes Supervising Physician Co-Signing Physician Notes Patient seen and examined, chart reviewed, case discussed with Dominick Ayers PA-C and I agree with the assessment and plan as above except as otherwise noted Labs and images reviewed Patient is a 42-year-old female with a history of type 1 diabetes and gastroparesis who presents with nausea/vomiting and hyperglycemia. No abdominal pain on evaluation, afebrile. She is hyperglycemic but with a normal bicarb. She has been in DKA previously, last was several months ago. She does not have any chest pain, chest pressure, shortness of breath, lightheadedness, or dizziness. She reports she has intermittent episodes of nausea/vomiting due to her gastroparesis which feels similar to this. She has not taken any insulin today. She denies headache and vision change, is hypertensive and has not taken her antihypertensives today. Lungs are clear auscultation, heart rate is regular and tachycardic. Type I DM: Agree with basal bolus regimen. Has done well with approximately 24 units total daily dose of glargine on past admissions, will give evening dose of 20 units at time of admission and continue daily. Continue sliding scale, BSG is downtrending to approximately 320 after fluids. 1 dose of IV regular 3 units to be given, will be rechecked in another 1 to 2 hours and then transition to sliding scale if continue to improve. BMP every 4 hours. Blood gases pending, but bicarb is not suppressed. Anion gap is elevated at 15, suspect she is borderline entering DKA and does have ketones in the urine. If uptrending glucose or bicarb becomes suppressed then will initiate gtt. Agree with assessment and management above. Gastroparesis: Multimodal antiemetics as above, patient clinically improving at time of reassessment. No abdominal pain, and on bedside assessment abdomen is soft and nontender to palpation without rebound or guarding. Will defer CTA/P at this time PG Care Time/CCT Total # of Minutes Spent Total Time Spent with Patient: Total time spent is greater than 50% in coordination of care (as documented) at patient's floor/unit and/or counseling patient: Coding [place] [address] INT INP/OBS CARE 3/75MIN Patient Type Established History Comprehensive Exam Comprehensive Medical Decision Making High Complexity Diagnoses Nausea & vomiting R11.2 Type 1 diabetes E10.9 Hypertension I10 Depression F32.9 Hypothyroidism E03.9 Chronic kidney disease, stage III (moderate) N18.30
[2023-02-12] MEDS ORDERED: GLUCAGON FOR INJ 1 MG VIAL SQ PRN (16:28)
[2023-02-12] MEDS ORDERED: GLUCOSE 40% GEL 15 GM TUBE PO PRN (16:28)
[2023-02-12] MEDS ORDERED: CARBOHYDRATES FOR HYPOGLYCEMIA PO PRN (16:28)
[2023-02-12] MEDS ORDERED: DEXTROSE 50% 50 ML SYRINGE IV PRN (16:28)
[2023-02-12] MEDS ORDERED: GLUCOSE 10 TAB/TUBE PO PRN (16:28)
[2023-02-12] MEDS ORDERED: PHARMACY GLYCEMIC MGMT CONSULT PRN ×2 (16:28→17:59)
[2023-02-12] MEDS ORDERED: INSULIN ASPART PER UNIT CHARGE SC SCH ×2 (16:30→17:30)
[2023-02-12] MEDS ORDERED: LANTUS PER UNIT CHARGE SQ ONE (17:30)
[2023-02-12 17:40] LABS: HCO3 VBG 20 mmol/L; Oxygen Saturation VBG < 60.0 %; PCO2 VBG 46 mmHg (38-50); PO2 VBG 32 mmHg; pH VBG 7.25 (7.36-7.41)
[2023-02-12] MEDS ORDERED: INSULIN HUMAN REGULAR PER UNIT 3 UNITS in SYRINGE 2.97 ML IV ONE (18:15)
[2023-02-12 18:25] LABS: BUN Creatinine Ratio 20.9 (10-20); Calcium 8.5 mg/dl (8.6-10.3); Creatinine Clr Calc Pharmacy 51.8 ml/min; Est GFR (African American) 54.4 ml/min; Magnesium 1.8 mg/dl (1.7-2.4); Potassium 4.1 mmol/L (3.5-5.1)
[2023-02-12] MEDS: INSULIN ASPART PER UNIT CHARGE SC SCH ×3 (19:44→21:59)
[2023-02-12] MEDS ORDERED: carvediloL 25 MG TAB PO STA (19:45)
[2023-02-12] MEDS ORDERED: amLODIPine BESYLATE 5 MG TAB PO STA (19:45)
[2023-02-12] MEDS ORDERED: ONDANSETRON INJ 2 MG/ML 2 ML VIAL IV PRN (20:38)
[2023-02-12] MEDS ORDERED: LABETALOL HCL IV 5 MG/ML 20ML IV PRN (20:38)
[2023-02-12] MEDS ORDERED: NITROGLYCERIN 0.2 MG/HR PATCH TD PRN (20:38)
[2023-02-12] MEDS ORDERED: ACETAMINOPHEN 325 MG TAB PO PRN (20:38)
[2023-02-12] MEDS: VALSARTAN 80 MG TAB PO SCH (21:15)
[2023-02-12] MEDS: FLUTICASONE PROPIONATE NA SPR 16 GM BTL SCH (21:15)
[2023-02-12] MEDS: HEPARIN SOD 5,000 UNIT/0.5 ML VIAL SQ SCH (22:00)
[2023-02-12] MEDS: carvediloL 25 MG TAB PO SCH (22:07)
[2023-02-12 23:08] LABS: BUN Creatinine Ratio 22.4 (10-20); Calcium 8.4 mg/dl (8.6-10.3); Creatinine Clr Calc Pharmacy 48.9 ml/min; Est GFR (African American) 50.9 ml/min; Est GFR (Non-African American) 43.9 ml/min; Magnesium 1.8 mg/dl (1.7-2.4); Phosphorus 3.2 mg/dl (2.5-4.9); Potassium 3.7 mmol/L (3.5-5.1)
[2023-02-13] MEDS: INSULIN ASPART PER UNIT CHARGE SC SCH ×4 (02:27→12:51)
[2023-02-13 02:56] LABS: BUN Creatinine Ratio 24.1 (10-20); Calcium 8.4 mg/dl (8.6-10.3); Creatinine Clr Calc Pharmacy 52.5 ml/min; Est GFR (African American) 55.4 ml/min; Est GFR (Non-African American) 47.8 ml/min; Magnesium 1.9 mg/dl (1.7-2.4); Phosphorus 3.3 mg/dl (2.5-4.9); Potassium 3.7 mmol/L (3.5-5.1)
[2023-02-13] MEDS: HEPARIN SOD 5,000 UNIT/0.5 ML VIAL SQ SCH (06:41)
[2023-02-13] MEDS ORDERED: Nursing to Pharmacy Communication SCH (06:45)
[2023-02-13 07:17] LABS: Basophils # (auto) 0.01 K/uL (0.00-0.20); Basophils % (auto) 0.1 %; Hematocrit (blood only) 35.4 % (37.0-47.0); Hemoglobin 12.2 g/dl (12.0-16.0); Immature Granulocytes # (auto) 0.08 K/uL (0.01-0.20); Immature Granulocytes % (auto) 0.6 %; Lymphocytes # (auto) 1.55 K/uL (1.20-3.40); Lymphocytes % (auto) 11.4 %; Mean Corpuscular Hgb Conc 34.5 g/dL (32.0-36.0); Mean Corpuscular Volume 90.1 fL (80.0-100.0); Mean Platelet Volume 8.8 fL (9.4-12.4); Monocytes # (auto) 0.87 K/uL (0.11-0.59); Monocytes % (auto) 6.4 %; Neutrophils # (auto) 11.08 K/uL (1.40-6.50); Neutrophils % (auto) 81.5 %; Platelet Count 322 K/uL (130-400); RDW Coefficient of Variation 12.1 % (11.5-14.5); RDW Standard Deviation 39.9 fL (36.4-46.3); Red Blood Count 3.93 M/uL (4.20-5.40); White Blood Count 13.59 K/ul (4.8-10.8)
[2023-02-13 07:54] LABS: Total Protein 7.3 gm/dl (6.0-8.3)
[2023-02-13 07:55] LABS: Albumin Level 3.7 gm/dl (3.4-5.0); Bilirubin Direct 0.1 mg/dl (0-0.2); Bilirubin,Total 0.9 mg/dl (0.2-1.0); Calcium 8.5 mg/dl (8.6-10.3); Est GFR (African American) 62.5 ml/min; Est GFR (Non-African American) 53.9 ml/min; Phosphorus 3.4 mg/dl (2.5-4.9); Potassium 3.7 mmol/L (3.5-5.1)
[2023-02-13] MEDS ORDERED: FLUTICASONE HFA 110MCG INHALER INH PRN (08:31)
[2023-02-13] MEDS: carvediloL 25 MG TAB PO SCH (08:35)
[2023-02-13] MEDS: VALSARTAN 80 MG TAB PO SCH (08:35)
[2023-02-13] MEDS: FLUTICASONE PROPIONATE NA SPR 16 GM BTL SCH (08:43)
[2023-02-13] MEDS ORDERED: chlorproMAZINE HCL 25 MG/ML AMP IV ONE (08:55)
[2023-02-13] MEDS ORDERED: DULoxetine HCL 60 MG CAP PO SCH (09:00)
[2023-02-13] MEDS ORDERED: LANTUS PER UNIT CHARGE SC SCH ×3 (09:00→21:00)
[2023-02-13] MEDS ORDERED: NON-FORMULARY MEDICATION (Insulin Glargine [Basaglar Kwikpen U-100 Insulin] 100 unit/mL (3 SQ SCH (09:00)
[2023-02-13] MEDS ORDERED: amLODIPine BESYLATE 5 MG TAB PO SCH (09:00)
[2023-02-13] MEDS ORDERED: LANTUS PER UNIT CHARGE SQ SCH (09:00)
[2023-02-13 10:53] LABS: Magnesium 2.1 mg/dl (1.7-2.4)
--- NOTE | 2023-02-13 10:56 | Pharmacy Report ---
Pharmacy Glycemic Short Note 2 - Date of Service February 13, 2023 - Glycemic Short BSG Results (Last 24 hours): 02/12/23 02/12/23 02/12/23 10:12 17:12 17:23 Glucose 373 H* 341 H* POC Glucose 316 H* 02/12/23 02/12/23 02/12/23 17:55 19:33 21:37 Glucose POC Glucose 327 H* 269 H 248 H 02/12/23 02/13/23 02/13/23 22:37 02:20 02:21 Glucose 275 H 232 H POC Glucose 217 H 02/13/23 02/13/23 02/13/23 06:24 06:50 09:12 Glucose 188 H POC Glucose 186 H 151 H OUTPATIENT ANTIDIABETIC REGIMEN: * Basaglar 15 units BID * Novolog (max TDD 45 units daily) * HbA1c pending ASSESSMENT: * Tsering is a 42 YOF admitted with nausea and vomiting and a history of T1DM. Pharmacy has been consulted for glycemic management while inpatient * Hyperglycemia on admission, did not take morning basal insulin, 20 units of Lantus given yesterday and small regular insulin IV bolus * UA positive for ketone and glucose, history of DKA * Novolog parameters initiated based on reported outpatient total insulin daily dose, BSGs trended down overnight. * Will restart basal insulin this AM at home dosage PLAN FOR INPATIENT GLYCEMIC CONTROL: * Hold outpatient oral diabetes medications * Basal insulin * Lantus 15 units SQ BID * Bolus insulin * NovoLog per scale ACHS or Q6hrs while NPO * Goal Range: Low 110 mg/dL - High 160 mg/dL * Correction Factor: 30 mg/dL/unit * Nutritional / Prandial insulin per carb ratio of 1 unit per 10 grams CHO consumed
--- NOTE | 2023-02-13 12:55 | Electrocardiogram Report ---
Test Reason : Blood Pressure : / mmHG Vent. Rate : 092 BPM Atrial Rate : 092 BPM P-R Int : 126 ms QRS Dur : 078 ms QT Int : 376 ms P-R-T Axes : 049 032 116 degrees QTc Int : 464 ms Normal sinus rhythm Possible Left atrial enlargement Left ventricular hypertrophy with repolarization abnormality Abnormal ECG When compared with ECG of 05-JAN-2023 16:21, T wave inversion no longer evident in Inferior leads Confirmed by Govind Westbrook ([id number]) on 02/13/2023 12:55:02 PM Referred By: REFERRED SELF Confirmed By:Govind Westbrook
[2023-02-13 15:01] LABS: Magnesium 2.1 mg/dl (1.7-2.4); Phosphorus 2.8 mg/dl (2.5-4.9)
--- NOTE | 2023-02-13 19:38 | Discharge Summary ---
Date of Service February 13, 2023 Admission HPI Per Admitting Provider Tsering is a 42-year-old female with PMH of T1DM, DKA, CAD, anorexia nervosa, NSTEMI, HTN, hypothyroidism, CKD stage III, asthma, and depression. She presented for vomiting, diarrhea, and lower back pain x1 day. Vomiting started yesterday at 12 noon on 02/11. She reports cyclic vomiting/dry heaving every few minutes at the start, but this has since decreased in frequency. She denies noticing blood in the vomit. Hx of DKA w/ last time being 2 months ago. She took NyQuil at home last night, which she says did not help. While she reports she has never had a seizure, she reports that her sister has seizures. She reports compliance with insulin; however, she did not take her insulin this morning. No sick contacts. Patient denies recent injury/trauma to the abdomen or pelvis. Patient reportedly missed her morning hypertensives. Patient was hypertensive on arrival with peak at 234/126 before receiving labetalol IV. BP continues to oscillate; worse following episodes of vomiting. Other vitals sta ble at time of admission. ED course: IVF 3000mL, Reglan 10 mg, Benadryl 25 mg, Phenergan 25 mg, labetalol 10 mg IV x2 ROS: Patient endorses fatigue, cyclic vomiting, and abdominal cramping. Patient denies fever, chills, chest pain, SOB, or hematemesis. Surgical Hx: No hx of appendectomy or cholecystectomy, per patient Please see Dr. Larios's attestation for any changes to treatment plan. Principal Diagnosis Nausea vomiting possibly secondary to gastroenteritis Discharge Exam General: lethargic; opens eyes and responds with one-word to most questioning, but is otherwise tired/not responding to questions; nontoxic-appearing; 99% SpO2 on RA; BP 194/106 at time of exam HEENT: normocephalic, atraumatic; no scleral icterus; PERRLA w/ EOMs intact; moist mucus membrane; vision and hearing intact Neck: supple; no JVD; no lymphadenopathy; trachea midline Skin: warm, dry without signs of tenting; no cyanosis; no rashes, bruising, lesions, or erythema noted CV: chest wall NTP; RRR; S1/S2 normal; no murmurs/rubs/gallops; pulses intact and symmetric at radial, DP, and PT Lungs: no acute respiratory distress; symmetrical chest wall expansion; clear breath sounds across all lung quinteros w/o adventitious sounds; no wheezing ABD: Soft, NTP; negative tenderness at McBurney's point; BS present; no rebound/guarding; no distention MSK: no tics or fasciculations; no edema noted in the LEs b/l Neuro: A&Ox3; lethargic, unresponsive to some questioning; sensation intact Discharge Data Allergies Allergy/AdvReac Type Severity Reaction Status Date / Time clopidogrel Allergy Severe Nausea,Vomi Verified 01/28/23 15:59 ting milk Allergy Unknown Unknown Verified 01/28/23 15:59 mushroom Allergy Unknown Unknown Verified 01/28/23 15:59 orange Allergy Unknown Unknown Verified 01/28/23 15:59 orange flavor Allergy Unknown Unknown Verified 01/28/23 15:59 orange juice Allergy Unknown Unknown Verified 01/28/23 15:59 metformin AdvReac Mild NAUSEA, Verified 01/28/23 15:59 UPSET STOMACH Consultations 02/12/23 17:47 ED Decision to Admit Stat Hospital Course (1) Nausea & vomiting: Cyclic vomiting started at 1200 on 02/11 T1DM pt with hx of DKA two months ago Patient did not take insulin this morning 02/12 Mild leukocytosis at 11.72 with neutrophilic predominance Glucose 396 on arrival Lipase low at < 3 VBG pending; q4h hCG negative EKG NSR at 92 bpm; QTc 464 Initially patient started on bowel rest, upon my exam her diarrhea has already improved, patient did not feel any nausea and vomiting, patient was able to tolerate consistent carbohydrate diet, patient requested to be discharged and going home. (2) Type 1 diabetes: Glucose 359 --> 316 in the ED BSG checks q2h until glucose <250mg/dL, then q6h while NPO Anion gap 19 UA positive for ketones 3+, glucose 3+, and blood 2+, bicarb level is within normal limits, no evidence of DKA, serum glucose in 2 occasion prior to discharge within 100s, Last A1c 10.5% on 01/26/23 (3) Hypertension: BP 234/126 on arrival Labetalol IV given in the ED Blood pressure tends to elevate during acute bouts of vomiting, but otherwise drops to within normal range Labetalol 10 mg IV q6h prn for BP >220/110 Continue at home antihypertensives (carvedilol, amlodipine, valsartan) -Blood pressure prior to discharge 102/57 (4) Depression: Continue duloxetine Hold bupropion x1 day given cyclic vomiting; no hx of seizures (per pt), but do not want to lower the seizure threshold (5) Hypothyroidism: Continue levothyroxine (6) Chronic kidney disease, stage III (moderate): BUN 29, Cr 1.48 (baseline 1.30s), EGFR Avoid nephrotoxic agents Plan Discharge home, possible patient suffered from gastroenteritis, possibly viral, patient has 3 children, advised to use 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 boat cleaning supervisor and wash hands, same recommendation for her children Total Time Total Time Spent Total Time Spent (In Minutes): 45 mins Discharge Plan Discharge Items Patient Disposition: Hospice - Home Reason For Visit: VOMITING Discharge Diagnosis: Gasteroentritis Activity: Resume your previous activity Lifting: Gradually increase as tolerated Bathing: No limitations Sexual Activity: When tolerated Exercise/Sports: Gradually increase as tolerated Driving/Machine Use: No limitations Weightbearing: Full weightbearing Non-emergency contact: Primary Care Provider Call non-emergency contact if: you have any medication questions Follow-up/Referrals: Silvia Angulo LSW [Primary Care Provider] - Diet: Carb Consistent or DM2 Addtl Attending Provider Instructions: Please ask your children wash their hands and use hand boat cleaning supervisor when come back from school Pending Studies at Discharge: No Stand-Alone Forms: My Drive Power Medications and DC Order Prescriptions: Continued (DME) Dexcom G6 Transmitter Device See Rx Instructions .Route Qty: 1 3RF Rx Instructions: change evry 3 months (DME) Dexcom G6 Sensor Device See Rx Instructions .Route Qty: 9 3RF Rx Instructions: change every 10 days (DME) pen needle, diabetic [Pen Needle] 32 gauge x 5/32" needle See Rx Instructions .Route Qty: 200 0RF Rx Instructions: 5x/day for insulin administration - PT NEEDS TO HAVE LABS DONE insulin aspart U-100 [Novolog FlexPen U-100 Insulin] 100 unit/mL (3 mL) insulin pen 1 sliding scale dose subcut USEASDIRECTD Qty: 45 0RF Rx Instructions: Based on sliding scale printed out for you, up to 45 units daily total insulin glargine [Basaglar KwikPen U-100 Insulin] 100 unit/mL (3 mL) insulin pen 15 unit subcut BID MDD 30 units Qty: 30 0RF bupropion HCl 300 mg tablet extended release 24 hr 300 mg PO QAM aspirin 81 mg tablet,delayed release (DR/EC) 81 mg PO QAM Qty: 30 11RF Baqsimi 3 mg/actuation spray,non-aerosol 3 mg intranasal ONCE PRN (Reason: hypoglycemia) Rx Instructions: not on record with [facility] valsartan 40 mg tablet 40 mg PO BID Qty: 60 5RF fluticasone propionate [Flonase Allergy Relief] 50 mcg/actuation spray,suspension 1 spray intranasal BID Qty: 16 5RF Rx Instructions: administer into each nostril multivitamin [Daily Multi-Vitamin] Tablet 1 tab PO QAM vitamin B complex [B Complex-Vitamin B12] Tablet 1 tab PO DAILY Rx Instructions: otc omega-3 fatty acids [Fish Oil] PO norgestimate-ethinyl estradiol [Tri Femynor] 0.18/0.215/0.25 mg-35 mcg (28) tablet 1 tab PO HS duloxetine 60 mg capsule,delayed release(DR/EC) 60 mg PO QAM carvedilol 25 mg tablet 25 mg PO AMHS promethazine 25 mg tablet 25 mg PO TID PRN (Reason: nausea and vomiting) Qty: 20 0RF Rx Instructions: last filled in 2021 atorvastatin 80 mg tablet 0 mg PO QAM Rx Instructions: hasnt been filled in a year lorazepam [Ativan] 1 mg tablet 0 mg PO Q8H PRN (Reason: vomiting) Rx Instructions: last filled a year ago Discontinued amlodipine 5 mg tablet 5 mg PO QAM Qty: 90 3RF valacyclovir [Valtrex] 1 gram tablet 0 mg PO BID PRN (Reason: FLARE UPS) Rx Instructions: last filled 2020 chlorpheniramine maleate [Allergy Relief(chlorpheniramn)] 4 mg tablet 4 mg PO Q12H PRN (Reason: sinus pressure) Rx Instructions: otc nitroglycerin 0.3 mg tablet, sublingual 0 mg sublingual UD PRN (Reason: Chest Pain) Rx Instructions: filled in 2020 nitroglycerin 0.2 mg/hr patch 24 hour 1 patch transdermal DAILY PRN (Reason: Other) Rx Instructions: filled in Jan 2022 Allow nitrate-free interval of approx. 10-12 hrs per 24-hour period. fluticasone propionate [Flovent HFA] 110 mcg/actuation HFA aerosol inhaler 1 puff inhalation BID PRN (Reason: Other) Rx Instructions: not filled since March WITH A RINSE OF MOUTH AFTERWARDS. Discharge Orders: Discharge Order (Routine); Ordered 02/13/23 Ordered By: Kevin Trujillo Admission Data Admit Date/Time: 02/12/23 16:41 Attending Provider: Kevin Trujillo Admit Provider: Mike Larios Primary Care Provider: Silvia Angulo Other Providers: Mike Larios Other Interventions: Discharge Summary Assessment (RN) Last Done: 02/13/23 15:03 Supervising Physician Co-Signing Physician Notes Patient seen and examined, chart reviewed, case discussed with Dominick Ayers PA-C and I agree with the assessment and plan as above except as otherwise noted Labs and images reviewed Patient is a 42-year-old female with a history of type 1 diabetes and gastroparesis who presents with nausea/vomiting and hyperglycemia. No abdominal pain on evaluation, afebrile. She is hyperglycemic but with a normal bicarb. She has been in DKA previously, last was several months ago. She does not have any chest pain, chest pressure, shortness of breath, lightheadedness, or dizziness. She reports she has intermittent episodes of nausea/vomiting due to her gastroparesis which feels similar to this. She has not taken any insulin today. She denies headache and vision change, is hypertensive and has not taken her antihypertensives today. Lungs are clear auscultation, heart rate is regular and tachycardic. Type I DM: Agree with basal bolus regimen. Has done well with approximately 24 units total daily dose of glargine on past admissions, will give evening dose of 20 units at time of admission and continue daily. Continue sliding scale, BSG is downtrending to approximately 320 after fluids. 1 dose of IV regular 3 units to be given, will be rechecked in another 1 to 2 hours and then transition to sliding scale if continue to improve. BMP every 4 hours. Blood gases pending, but bicarb is not suppressed. Anion gap is elevated at 15, suspect she is borderline entering DKA and does have ketones in the urine. If uptrending glucose or bicarb becomes suppressed then will initiate gtt. Agree with assess ment and management above. Gastroparesis: Multimodal antiemetics as above, patient clinically improving at time of reassessment. No abdominal pain, and on bedside assessment abdomen is soft and nontender to palpation without rebound or guarding. Will defer CTA/P at this time Coding Level of Care Code 41305 INP/OBS DISCH >30 MIN Diagnoses Nausea & vomiting R11.2 Type 1 diabetes E10.9 Hypertension I10 Depression F32.9 Hypothyroidism E03.9 Chronic kidney disease, stage III (moderate) N18.30
[2023-02-14] MEDS ORDERED: buPROPion XL 300 MG TABCR PO SCH (09:00)
[2023-02-14] MEDS ORDERED: LANTUS PER UNIT CHARGE SC SCH (09:00)
--- OUTSIDE RECORDS SUMMARY | 2023-02-16 05:36 | External Medical Summary | Continuity of Care Document ---
Author Name Unknown Organization [facility] [address] [facility] [address] Address [address] [phone] Care Team Providers Care House Decorator Name Role Phone Jennifer Mistry Primary Care Physician [phone] Encounter [facility] [id number] Date(s): 02/04/23 - 02/04/23 [facility] [address] [facility] [address] [facility] [address] [id number] [phone] Encounter Diagnosis Impingement of shoulder(Discharge Diagnosis) - 02/04/23 Discharge Disposition: Home or Self Care Attending Physician: GUNNAR Mistry Kimberly A Allergies, Adverse Reactions, Alerts Substance Reaction Severity Status mushrooms diarrhea Active kiwi Itching Active Allergy Not found in Search 1 throat swe lling twinkies Active metFORMIN Vomiting and diarrhea Active oranges itchy Active 1Twinkies Immunizations Given and Recorded Vaccine Date Status Refusal Reason pneumococcal 20-valent conjugate vaccine 02/04/23 Given pneumococcal 20-valent conjugate vaccine 1 06/23/21 Recorded influenza virus vaccine, inactivated 02/04/23 Give n influenza virus vaccine, inactivated 12/29/19 Give n influenza virus vaccine, inactivated 03/17/19 Give n influenza virus vaccine, inactivated 04/09/18 Give n SARS-CoV-2 (COVID-19) mRNA BNT-162b2 vax 2 06/23/21 Recorded SARS-CoV-2 (COVID-19) mRNA BNT-162b2 vax 3 08/08/20 Recorded SARS-CoV-2 (COVID-19) mRNA BNT-162b2 vax 4 07/18/20 Recorded tetanus/diphtheria/pertuss, acel (Tdap) 11/30/20 G iven 1Result Comment: 2021: Historical information-source unspecified 2Result Comment: 2021: Historical information-source unspecified 3Result Comment: 2020-11-30: Historical information-source unspecified 4Result Comment: 2020-11-30: Historical information-source unspecified Medications albuterol CFC free 90 mcg/inh MDI Start: 12/23/21 16:58:00 EDT, 2 puff, inhaled, qid, Disp# 1 each, Refills: 10, use with spacer chamber, Note to Pharmacy: please supply spacer, PRN: as needed for wheezing, Pharmacy: [facility]/pharmacy #[id number] Start Date: 12/23/21 Status: Ordered aspirin 81 mg oral delayed release tablet Start: 03/06/21 14:50:00 EST, 1 tab, PO, Daily Start Date: 03/06/21 Status: Ordered atorvastatin Start: 01/09/21 15:33:00 EDT Start Date: 01/09/21 Status: Ordered Basaglar KwikPen 100 units/mL subcutaneous solution Start: 03/11/22 9:58:00 EST Start Date: 03/11/22 Status: Ordered BD RAD 2NDG [id number] PEN Start: 03/11/22 9:58:00 EST, BD RAD 2NDG [id number] PEN Start Date: 03/11/22 Status: Ordered buPROPion 300 mg/24 hours (XL) oral tablet, extended release Start: 01/26/23 23:04:00 EDT, See Instructions, Disp# 90 tab, Refills: 3, TAKE 1 TABLET BY MOUTH EVERY DAY, [id number] Start Date: 01/26/23 Status: Ordered carvedilol 25 mg oral tablet Start: 01/26/23 23:04:00 EDT, See Instructions, Disp# 60 tab, Refills: 1, TAKE 1 TABLET BY MOUTH TWICE A DAY, Pharmacy: [facility]/pharmacy #[id number] Start Date: 01/26/23 Status: Ordered DULoxetine 60 mg oral delayed release capsule Start: 01/26/23 23:04:00 EDT, See Instructions, Disp# 90 cap, Refills: 5, TAKE 1 CAPSULE BY MOUTH EVERY DAY, Pharmacy: [facility]/pharmacy #[id number] Start Date: 01/26/23 Status: Ordered ethinyl estradiol-norgestimate triphasic 35 mcg oral tablet Start: 02/02/23 15:05:00 EDT, See Instructions, Disp# 84 tab, Refills: 5, TAKE 1 TABLET BY MOUTH EVERY DAY, Pharmacy: [facility]/pharmacy #[id number] Start Date: 02/02/23 Status: Ordered Flonase 50 mcg/inh nasal spray Start: 02/04/23 10:19:00 EDT, 1 spray, each nostril, bid, Disp# 16 g, Refills: 5, Pharmacy: [facility]/pharmacy #[id number] Start Date: 02/04/23 Stop Date: 08/03/23 Status: Ordered Flovent HFA 220 mcg/inh MDI Start: 12/23/21 16:58:00 EDT, See Instructions, Disp# 1 each, Refills: 5, INHALE 1 PUFF BY MOUTH TWICE A DAY RINSING MOUTH AND THROAT AFTER EACH USE, Pharmacy: [facility]/pharmacy #[id number] Start Date: 12/23/21 Status: Ordered insulin detemir 100 units/mL subcutaneous solution Start: 05/13/19 14:02:00 EST, 12 unit =, subQ, bid, Disp# 27 mL, Refills: 2, Pharmacy: [facility] Start Date: 05/13/19 Stop Date: 02/07/20 Status: Ordered Naprosyn 500 mg oral tablet Start: 09/28/19 12:54:00 EDT, 1 tab, PO, bid, Disp# 28 tab, with food, PRN: pain, Pharmacy: [facility]/pharmacy #[id number] Start Date: 09/28/19 Status: Ordered nitroglycerin 0.3 mg sublingual tablet Start: 03/06/21 14:46:00 EST, 1 tab, SL, q5min, Disp# 100 tab, PRN: as needed for chest pain, Pharmacy: [facility]/pharmacy #[id number] Start Date: 03/06/21 Status: Ordered omeprazole 40 mg oral delayed release capsule See Instructions, Disp# 30 cap, Refills: 2, TAKE 1 CAPSULE BY MOUTH EVERY DAY, Pharmacy: [id number], 158.5, cm, 11/14/19 10:56:00 EDT, Height Start Date: 11/15/19 Status: Ordered valsartan 40 mg oral tablet TAKE 1 TABLET BY MOUTH EVERY DAY Start Date: 01/09/21 Status: Ordered Valtrex 1 g oral tablet Start: 04/09/21 10:34:00 EST, 1 tab, PO, bid, Disp# 14 tab, Refills: 1, Pharmacy: [facility]/pharmacy #[id number] Start Date: 04/09/21 Stop Date: 04/23/21 Status: Ordered Mental Status 02/04/23 Barriers to Learning one year None evide nt Mandatory Health Literacy Documentation Yes Health Literacy Communication Barriers N ever Primary Language Icelandic Problem List Condition Confirmation Course Effective Dates Status H ealth Status Informant High serum creatine Confirmed Active Anxiety Confirmed Active Stage 3a chronic kidney disease (CKD) Confirmed Active CAD (coronary artery disease) 1 Confirmed Active History of non-ST elevation myocardial infarction (NSTEMI) 2 Confirmed 02/08/21 Active Hyperlipidemia Confirmed Active HTN (hypertension) Confirmed Active Ischemic cardiomyopathy Confirmed Active cardiomyopathy Confirmed Active Type 1 diabetes mellitus with diabetic nephropathy Confirmed Active 1RCA occlusion, severe CFX disease 2during DKA at [facility] Diagnosis Diagnosis Type Effective Dates Health Status Clinical Service Informant Impingement of shoulder Discharge Diagnosis 02/04/23 Non-Specified Procedures Procedure Date Related Diagnosis Body Site Status Cardiac catheterization 1 01/30/21 Completed Chest X-ray 2 01/03/21 Completed CEIOL - Cataract extraction and insertion of intraocular lens 3 2007 Completed delivery 4 Compl eted Ts and As - Tonsillectomy an d adenoidectomy Completed 1Impression: 1. Severe CAD involving occluded RCA with right to right and left to right collaterals. 2. Severe CAD involving distal codominant circumflex, but smaller caliber vessel. 3. Otherwise nonobstructive CAD. 4. Normal left-sided filling pressure. 5. No aortic stenosis. 2No acute process. Resolution of the previously described basilar airspace opacities 3bilateral 4for pre-eclampsia Vital Signs Most recent to oldest [Reference Range]: 1 Patient Weight 74.6 kg (02/04/23 9:13 AM) Temperature [36.5-37.9 DegC] 36.9 DegC (02/04/23 9:13 AM) Heart Rate 74 bpm (02/04/23 9:13 AM) Respiratory Rate 17 br/min (02/04/23 9:13 AM) Blood Pressure 134/78mmHg (02/04/23 9:13 AM) Cuff Pulse Pressure 56 mmHg (02/04/23 9:13 AM) BP Location # 1 Left Arm (02/04/23 9:13 AM) Social History Social History Type Response Tobacco Former smoker, Cigar ettes, 1 per day. Started age 13 Years. Stopped age 33 Years. Smoking Status Never smoked cigaret billie Sex Patient Care team information Care Team Personnel Name: GUNNAR Mistry, Jennifer Shin Position: Physician Wet Washer Machine - Family Med Member Role: Primary Care Provider Address: Address: [facility] [address] [place] Care Team Related Persons Name: SUDARSHAN CRENSHAW Address: home [address] [place] [id number]
== END 2023-02-13 16:20 | disposition home or self-care (01) | DRG 391 ==
LOC: ED 09:50 → SUATTDRO 16:41 → 2S 16:41